=== PATIENT | male | born 1950 | race Caucasian/White ===

== ENCOUNTER 2017-04-24 12:16 | Inpatient (IN) | payer MEDICARE, SELFPAY ==
--- NOTE | 2017-04-24 12:17 | EDM.PDOC ---
ED HPI GENERAL MEDICAL PROBLEM - General Chief Complaint: General Stated Complaint: SOB,weight on chest Time Seen by Provider: 04/24/17 12:17 Source of Information: Reports: Patient, Family (Brother), Old Records ([facility] chart/EMR) History Limitations: Reports: No Limitations - History of Present Illness INITIAL COMMENTS - FREE TEXT/NARRATIVE: The patient was brought to the emergency room via private automobile by his brother for evaluation of 04/10 retrosternal chest pressure associated with some dyspnea with exertion with symptoms starting about one week ago. The patient denies any heart flutter, dizziness, orthostasis, orthopnea, diaphoresis, paresthesias, recent decreased exercise tolerance, or any other anginal-type symptoms. No recent history of abdominal pain, heartburn, nausea, diarrhea, melena, gross hematochezia, or any food intolerance, including fatty foods, etc.. He has also had a one week history of a yellowish thick productive cough with no history of fever or known exposure to infection. He has not had an influenza booster this season. The patient did take OTC NyQuil at 10 PM yesterday evening with 500 mg of Tylenol taken at 10 AM this morning. He has also use topical Vicks VapoRub on his chest during the last few days with no significant improvement in his symptoms. No history of recent headaches, visual changes, diplopia, change in mental status, or other change in neurological status. Onset: Gradual Onset Date: 04/16/17 Duration: Week(s): (One week as above), Constant, Getting Worse Location: Reports: Chest. Denies: Head, Face, Neck, Abdomen, Back, Pelvis, Upper Extremity, Left, Upper Extremity, Right, Radiates to Quality: Reports: Pressure Severity: Moderate Improves with: Reports: None Worsens with: Reports: None Context: Reports: Other (As above) Associated Symptoms: Reports: Chest Pain, Cough, cough w sputum, Shortness of Breath. Denies: Confusion, Diaphoresis, Fever/Chills, Headaches, Loss of Appetite, Malaise, Nausea/Vomiting, Rash, Seizure, Syncope, Weakness Treatments SUPERVISOR DEHYDROGENATION: Reports: Acetaminophen, Other Medication(s) (As above) weight on chest Pain Score (Numeric/FACES): 7 - Related Data Allergies Allergy/AdvReac Type Severity Reaction Status Date / Time No Known Allergies Allergy Verified 04/24/17 12:17 Home Meds: Home Meds Acetaminophen [Acetaminophen Extra Strength] 1,000 mg PO ASDIRECTED PRN [History] DM/PE/Acetaminophen/Doxylamine [Nighttime Severe Cold-Flu Liq] 30 ml PO BEDTIME 04/24/17 [History] Past Medical History HEENT History: Reports: Impaired Vision, Other (See Below). Denies: Allergic Rhinitis, Cataract, Glaucoma, Hard of Hearing, Macular Degeneration, Retinal Detachment, Sinusitis Other HEENT History: Patient wears reading glasses Cardiovascular History: Reports: Hypertension, Other (See Below). Denies: Afib , Aneurysm, Arrhythmia, Blood Clots/VTE/DVT, CAD, Heart Murmur, [place], PVD, Syncope Other Cardiovascular History: Previous history of hypertension by hospital records with no current medical therapy, chronic dependent edema Respiratory History: Reports: Bronchitis, Recurrent, COPD. Denies: Asthma, Intubation, Difficult, Intubation, Previous, PE, Pneumothorax, Sleep Apnea Gastrointestinal History: Reports: Other (See Below). Denies: Celiac Disease, Cholelithiasis, Chronic Constipation, Chronic Diarrhea, Colon Polyp, Diverticulosis, Gastritis, GERD, GI Bleed, Hepatitis, Helicobacter Pylori, Hiatal Hernia, Inflammatory Bowel Disease, Irritable Bowel Syndrome, Jaundice, Pancreatitis, PUD Other Gastrointestinal History: Umbilical hernia Genitourinary History: Reports: BPH, Retention, Urinary, Urinary Incontinence, UTI, Recurrent, Other (See Below). Denies: Acute Renal Failure, Chronic Renal Insuffiency, Dialysis, Renal Calculus, STD Other Genitourinary History: Possible neurogenic bladder with self- catheterization Musculoskeletal History: Reports: Arthritis, Back Pain, Chronic, Neck Pain, Chronic, Osteoarthritis. Denies: Amputation, Fracture, Gout, RA, SLE Neurological History: Reports: None. Denies: Cerebral Aneurysms, Concussion, CVA, Headaches, Chronic, Head Trauma, Migraines, MS, Parkinson's, Seizure, TIA Psychiatric History: Reports: None. Denies: Abuse, Victim of, ADD, ADHD, Addiction, Anxiety, Dementia, Depression, Psych Hospitalization(s), Suicide Attempt, Suicidal Ideation Endocrine/Metabolic History: Reports: None. Denies: Diabetes, Type I, Diabetes , Type II, Hypothyroidism, IDDM Hematologic History: Reports: None. Denies: Anemia, Blood Transfusion(s), Iron Deficiency Immunologic History: Reports: None. Denies: AIDS, HIV, SLE Oncologic (Cancer) History: Reports: None. Denies: Basal Cell Carcinoma, Hodgkin's Lymphoma, Leukemia, Lymphoma, Malignant Melanoma, Non-Hodgkin's Lymphoma, Prostate, Squamous Cell Carcinoma Dermatologic History: Reports: None. Denies: Eczema, Psoriasis - Infectious Disease History Infectious Disease History: Reports: Chicken Pox, Mumps, Shingles (Left chin region in the 1980s). Denies: C-Difficile, Measles, Meningitis, Mononucleosis, MRSA, Rubella, TB, VRE - Past Surgical History Head Surgeries/Procedures: Reports: None HEENT Surgical History: Reports: Oral Surgery, Other (See Below). Denies: Adenoidectomy, Eye Surgery, Laser Surgery, LASIK, Myringotomy w Tube(s), Naso- Sinus Surgery, Tonsillectomy Other HEENT Surgeries/Procedures: Complete teeth extraction Cardiovascular Surgical History: Reports: None. Denies: Varicose, Vascular Surgery Respiratory Surgical History: Reports: None. Denies: Lung Biopsies, Thoracentesis GI Surgical History: Reports: None. Denies: Appendectomy, Cholecystectomy, Colonoscopy, EGD, Hernia, Abdominal, Hernia, Inguinal, Hernia Repair/Other, Polypectomy Male Surgical History: Reports: Circumcision, Suprapubic Catheter Placement, TURP-Transurethral Resection of Prostate, Other (See Below). Denies: Renal Calculus, Vasectomy Other Male Surgeries/Procedures: Circumcision as an , TURP 2 initially in 2008 and then in 2009, suprapubic catheter placement in 2009 Endocrine Surgical History: Reports: None. Denies: Thyroid Biopsy Neurological Surgical History: Reports: None. Denies: C-Spine, Discectomy, Laminectomy, Lumbar Spine, Spinal Fusion, Vertebroplasty Musculoskeletal Surgical History: Reports: None. Denies: Amputation, Arthroscopic Procedure, Carpal Tunnel, Ganglion Cyst, Hip Replacement, Joint Replacement, ORIF, Shoulder Surgery Oncologic Surgical History: Reports: None Dermatological Surgical History: Reports: None - Past Imaging History Past Imaging History: Reports: Other (See Below) (Unknown) Social & Family History - Family History HEENT: Reports: None. Denies: Cataract, Glaucoma, Macular Degeneration, Retinal Detachment Cardiac: Reports: CAD, Hypertension, KS, Other (See Below). Denies: Afib, Aneurysm, Arrhythmia, Blood Clots/VTE/DVT, Bypass, PVD/COD, Syncope Other Cardiac Family History: Brother with hypertension, mother with fatal KS at age 75 Respiratory: Reports: COPD, Other (See Below). Denies: PE, Pneumothorax, Sleep Apnea Other Respiratory Family Hisory: Father with COPD with history of tobacco use GI: Reports: None. Denies: Celiac Disease, Cholelithiasis, Colon Polyps, Diverticulosis, GERD, GI bleed, Inflammatory Bowel Disease, Irritable Bowel Syndrome, PUD : Reports: None. Denies: Dialysis, Renal Calculus, Renal Disease/ Insufficiency OBGYN: Reports: None. Denies: Endometriosis, Recurrent Spontaneous Musculoskeletal: Reports: Arthritis, Osteoarthritis, Other (See Below). Denies : Gout, RA, SLE Other Musculoskeletal Family History: Brother with osteoarthritis Neurological: Reports: None. Denies: Alzheimers Disease, CVA, Dementia, Migraines, MS, Parkinson's, Seizure, TIA Psychiatric: Reports: None. Denies: Abuse, Victim of, ADD, ADHD, Anxiety, Depression, Psych Hospitalization(s), Psychosis, PTSD, Suicide Attempt Endocrine/Metabolic: Reports: Diabetes, type II, IDDM, Other (See Below). Denies: Diabetes, Type I, Hypothyroidism Other Endocrine/Metabolic Family History: Mother with IDDM Hematologic: Reports: None. Denies: Anemia, Transfusion Reaction Immunologic: Reports: None. Denies: AIDS, HIV, Immunosuppression, SLE Dermatologic: Reports: None. Denies: Eczema, Psoriasis Oncologic: Reports: None. Denies: Bladder, Colon, Hodgkin's Lymphoma, Leukemia , Lymphoma, Metastatic, Non-Hodgkin's Lymphoma, Prostate, Skin - Tobacco Use Smoking Status *Q: Current Every Day Smoker Tobacco Use Within Last Twelve Months: Cigarettes Years of Tobacco use: 53 Packs/Tins Daily: 1 (Started smoking at age 13 with maximum use of 2 packs per day) Used Tobacco, but Quit: No Smoking Cessation Information Provided To Patient: Yes Second Hand Smoke Exposure: No Second Hand Smoke Education Provided: No - Caffeine Use Caffeine Use: Reports: Coffee (12 cups per day), Tea (Occasional). Denies: Energy Drinks, Soda - Alcohol Use Alcohol Use History: Yes Days Per Week of Alcohol Use: 4 (No previous DWIs, problems with alcohol abuse, etc.) Number of Drinks Per Day: 2 (Usually beer) Total Drinks Per Week: 8 Alcohol Use in Last Twelve Months: Yes Alcohol Use Frequency: Socially - Recreational Drug Use Recreational Drug Use: No Drug Use in Last 12 Months: No Recreational Drug Type: Denies: Amphetamines (Speed), Cocaine, Heroin, Inhalants (Glues, Solvents, Aerosols), LSD (Acid), Marijuana/Hashish, Methamphetamine, Morphine - Living Situation & Occupation Living situation: Reports: Single ( in 2010 with no children with his although his did have children from a previous relationship), Alone 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 Denies: Fever, Chills, Weakness, Fatigue , Night Sweats, Diaphoresis, Decreased Appetite, Weight Loss HEENT: Reports: Rhinitis. Denies: Contact Lenses, Dental Pain, Ear Pain, Eye Discharge, Glasses, Hearing Loss, Nose Pain, Sinus Problem, Throat Pain, Throat Swelling, Vertigo, Vision Change Respiratory: Reports: Cough, Sputum (Yellowish). Denies: Shortness of Breath, Wheezing, Pleuritic Chest Pain Cardiovascular: Reports: Chest Pain, Blood Pressure Problem (Severely elevated on arrival), Dyspnea on Exertion, Edema (Stable chronic dependent). Denies: Claudication, Lightheadedness, Orthopnea, Palpitations, PND, Syncope Endocrine: Reports: No Symptoms. Denies: Fatigue, High Glucose GI/Abdominal: Reports: No Symptoms. Denies: Abdominal Pain, Anorexia, Black Stool, Bloody Stool, Constipation, Diarrhea, Decreased Appetite, Difficulty Swallowing, Distension, Flatus, Hematemesis, Hematochezia, Melena, Mucous in Stool, Nausea, Stool Incontinence, Vomiting : Reports: Urinary Retention (Stable with self-catheterization required as above). Denies: Discharge, Dysuria, Flank Pain, Frequency, Hematuria, Incontinence, Pain, Urgency Musculoskeletal: Reports: No Symptoms. Denies: Neck Pain, Shoulder Pain, Arm Pain, Back Pain, Leg Pain Skin: Reports: No Symptoms. Denies: Pallor, Diaphoresis, Bruising, Wound Neurological: Reports: No Symptoms. Denies: Confusion, Dizziness, Headache, Numbness, Paresthesia, Seizure, Syncope, Tingling, Weakness Psychiatric: Reports: No Symptoms. Denies: Agitation, Anxiety, Confusion, Cravings, Depression, Hallucinations, Homicidal Ideation, Suicidal Ideation Hematologic/Lymphatic: Reports: No Symptoms Immunologic: Reports: No Symptoms ED EXAM, GENERAL - Physical Exam Exam: See Below Exam Limited By: No Limitations General Appearance: Alert, WD/WN, No Apparent Distress Eye Exam: Bilateral Eye: EOMI, Normal Inspection (No nystagmus), PERRL Ears: Normal External Exam, Normal Canal, Hearing Grossly Normal, Normal TMs Nose: Normal Mucosa, No Blood, Clear Rhinorrhea (Mild bilateral) Throat/Mouth: Normal Inspection, Normal Lips, Normal Gums, Normal Oropharynx, Normal Voice, No Airway Compromise. No: Normal Teeth (Complete dentures uppers and lowers), Dysphagia, Perioral Cyanosis Head: Atraumatic, Normocephalic. No: Facial Swelling, Facial Tenderness, Sinus Tenderness Neck: Supple, Non-Tender, Full Range of Motion, Carotid Bruit (Mild bilateral carotid bruits). No: Lymphadenopathy (L), Lymphadenopathy (R), Thyromegaly Respiratory/Chest: No Respiratory Distress, No Accessory Muscle Use, Chest Non- Tender, Rales (Mild bilateral basilar rales). No: Rhonchi, Wheezing, Pleural Rub, Retractions Cardiovascular: Normal Peripheral Pulses, Regular Rate, Rhythm, No Gallop, No JVD, No Murmur, No Rub. No: No Edema (+1 bilateral pedal/pretibial edema), Gallop/S3, Gallop/S4, Extra Beats (At time of exam), Friction Rub Peripheral Pulses: 2+: Radial (L), Radial (R), Dorsalis Pedis (L), Dorsalis Pedis (R) GI/Abdominal: Normal Bowel Sounds, Soft, Non-Tender, No Organomegaly, No Distention, No Abnormal Bruit, No Mass, Pelvis Stable, Hernia (4 cm in diameter nonincarcerated umbilical hernia), Other (Obese). No: Guarding (Male) Exam: Deferred Rectal (Males) Exam: Deferred Back Exam: Normal Inspection, Full Range of Motion. No: CVA Tenderness (L), CVA Tenderness (R), Muscle Spasm Extremities: Normal Range of Motion, Non-Tender, Normal Capillary Refill, Pedal Edema (Dependent edema as above). No: No Pedal Edema Neurological: Alert, Oriented, CN II-XII Intact, Normal Cognition, Normal Gait, Normal Reflexes (Negative Babinski's), No Motor/Sensory Deficits. No: Confused Psychiatric: Normal Affect, Normal Mood Skin Exam: Warm, Dry, Intact, Normal Color, No Rash. No: Wound/Incision Lymphatic: No Adenopathy EKG INTERPRETATION EKG Date: 04/24/17 Time: 12:26 Rhythm: Other (Occasional PACs) [place]iss: Normal (Neutral cardiac axis) P-Wave: Enlarged (Moderate diffuse biphasic P waves) QRS: Wide (QRS interval of 0.10 seconds representing repolarization changes versus beginning incomplete right bundle branch block with T-wave inversion in lead V1 and otherwise nonspecific ST changes) ST-T: Normal (As above) QT: Prolonged (404/507 ms) Comparison: NA - No Prior EKG EKG Interpretation Comments: 1. No acute ischemic changes 2. Probable left atrial enlargement 3. Borderline prolonged QT interval 4. PACs Course - Vital Signs Last Recorded V/S: Last Vital Signs Temp 36.4 C 04/24/17 12:17 Pulse 78 04/24/17 14:00 Resp 18 04/24/17 14:00 BP 159/90 H 04/24/17 14:00 Pulse Ox 98 04/24/17 14:00 Vital Signs - 24 hr 04/24/17 04/24/17 04/24/17 12:16 12:17 12:18 Temperature [ 36.4 C 36.4 C Oral] Pulse, 89 86 Peripheral [ Left Pulse Oximetry] Respiratory 19 26 H Rate Blood Pressure Blood Pressure 221/109 H 221/109 H [Left Upper Arm ] O2 Sat by Pulse 100 98 Oximetry O2 Sat by Pulse 100 Oximetry [ Nasal Cannula] 04/24/17 04/24/17 04/24/17 12:24 12:30 12:45 Temperature [ Oral] Pulse, 91 76 Peripheral [ Left Pulse Oximetry] Respiratory 23 H 20 Rate Blood Pressure 221/109 H Blood Pressure 167/86 H 186/126 H [Left Upper Arm ] O2 Sat by Pulse 97 97 Oximetry O2 Sat by Pulse Oximetry [ Nasal Cannula] 04/24/17 04/24/17 04/24/17 12:58 13:00 13:14 Temperature [ Oral] Pulse, 80 81 Peripheral [ Left Pulse Oximetry] Respiratory 22 H 20 Rate Blood Pressure 162/82 H Blood Pressure 144/87 H 147/92 H [Left Upper Arm ] O2 Sat by Pulse 97 99 Oximetry O2 Sat by Pulse Oximetry [ Nasal Cannula] 04/24/17 14:00 Temperature [ Oral] Pulse, 78 Peripheral [ Left Pulse Oximetry] Respiratory 18 Rate Blood Pressure Blood Pressure 159/90 H [Left Upper Arm ] O2 Sat by Pulse 98 Oximetry O2 Sat by Pulse Oximetry [ Nasal Cannula] - Orders/Labs/Meds Orders: Active Orders 24 hr Category Date Time Status Cardiac Monitoring [RC] . DIRECTED Care 04/24/17 12:18 Active EKG Documentation Completion [RC] ASDIRECTED Care 04/24/17 12:18 Active Oxygen Therapy, ED [RC] CONTINUOUS Care 04/24/17 12:18 Active Peripheral IV Care [RC] . DIRECTED Care 04/24/17 12:18 Active Pulse Oximetry [RC] CONTINUOUS Care 04/24/17 12:18 Active Up With Assistance [RC] PFP Care 04/24/17 12:18 Active Vital Signs [RC] PFP Care 04/24/17 12:18 Active Nothing per Oral Now Diet [DIET] Diet 04/24/17 Breakfast Active Chest 1V Frontal [CR] Stat Exams 04/24/17 12:18 Taken CULTURE BLOOD [BC] Stat Lab 04/24/17 12:25 Received CULTURE BLOOD [BC] Stat Lab 04/24/17 13:08 Received Morphine Med 04/24/17 13:14 Once 2 mg IVPUSH ONETIME ONE Nitroglycerin [Nitro-Bid 2%] Med 04/24/17 13:15 Active 0.5 gm TOP Q6H Nitroglycerin [Nitrostat] Med 04/24/17 12:19 Stat 0.4 mg SL ONETIME STA Nitroglycerin [Nitrostat] Med 04/24/17 12:55 Stat 0.4 mg SL ONETIME STA Sodium Chloride 0.9% [Saline Flush] Med 04/24/17 12:18 Active 10 ml FLUSH ASDIRECTED PRN Blood Culture x2 Reflex Set [OM.PC] Urgent Oth 04/24/17 12:25 Ordered Obtain Past Medical Record [OM.PC] Urgent Oth 04/24/17 12:18 Active Peripheral IV Insertion Adult [OM.PC] Stat Oth 04/24/17 12:18 Ordered Resuscitation Status Stat Resus Stat 04/24/17 12:18 Ordered Medication Orders Enoxaparin Sodium (Lovenox) 80 mg SUBCUT Q12H MERY Morphine Sulfate (Morphine) 2 mg IVPUSH ONETIME ONE Stop: 04/25/17 13:15 Last Admin: 04/24/17 13:32 Dose: 2 mg Nitroglycerin (Nitrostat) 0.4 mg SL ONETIME STA Stop: 04/25/17 12:20 Last Admin: 04/24/17 12:24 Dose: 0.4 mg Nitroglycerin (Nitrostat) 0.4 mg SL ONETIME STA Stop: 04/25/17 12:56 Last Admin: 04/24/17 12:58 Dose: 0.4 mg Nitroglycerin (Nitro-Bid 2%) 0.5 gm TOP Q6H MERY Last Admin: 04/24/17 13:30 Dose: 0.5 gm Sodium Chloride (Saline Flush) 10 ml FLUSH ASDIRECTED PRN PRN Reason: Keep Vein Open Last Admin: 04/24/17 12:35 Dose: 10 ml Admin: 04/24/17 12:31 Dose: 10 ml Labs: Laboratory Tests 04/24/17 04/24/17 04/24/17 Range/Units 12:25 12:25 12:25 WBC 11.8 H (4.0-10.2) K/uL RBC 5.86 H (4.33-5.41) M/uL Hgb 16.3 (13.1-16.8) g/dL Hct 48.9 (39.0-49.0) % MCV 83.4 L (84.0-98.0) fL MCH 27.8 L (28.2-33.3) pg MCHC 33.3 (31.7-36.0) g/dL RDW 13.2 (11.2-14.1) % Plt Count 224 (150-350) K/uL Neut % (Auto) 61.2 (45.0-80.0) % Lymph % (Auto) 29.7 (10.0-50.0) % [place] % (Auto) 7.2 (2.0-14.0) % Eos % (Auto) 1.6 (0.0-5.0) % Baso % (Auto) 0.3 (0.0-2.0) % Neut # (Auto) 7.21 H (1.40-7.00) K/uL Lymph # (Auto) 3.50 (0.50-3.50) K/uL [place] # (Auto) 0.85 (0.00-1.00) K/uL Eos # (Auto) 0.19 (0.00-0.50) K/uL Baso # (Auto) 0.03 (0.00-0.20) K/uL PT 11.1 (9.8-11.7) SEC INR 1.0 APTT 27.8 (23.5-30.0) SEC D-Dimer, Quantitative 244 (0-400) ng/mL Sodium (136-145) mmol/L Potassium (3.5-5.1) mmol/L Chloride (98-107) mmol/L Carbon Dioxide (21.0-32.0) mmol/L BUN (7-18) mg/dL Creatinine (0.51-1.17) mg/dL Est Cr Clr Drug Dosing mL/min Estimated GFR (MDRD) mL/min Glucose (74-106) mg/dL Lactic Acid (0.4-2.0) mmol/L Uric Acid (2.6-7.2) mg/dL Calcium (8.5-10.1) mg/dL Magnesium (1.8-2.4) mg/dL Total Bilirubin (0.2-1.0) mg/dL AST (15-37) U/L ALT (12-78) U/L Alkaline Phosphatase (46-116) IU/L Creatine Kinase (26-308) U/L Creatine Kinase Index (0.0-2.5) % CK-MB (CK-2) (0.00-3.60) ng/mL Troponin I (0.000-0.056) ng/mL Tne-M-Jnvnheefxqz Pept (0-125) pg/mL Total Protein (6.4-8.2) g/dL Albumin (3.4-5.0) g/dL TSH, Ultra Sensitive (0.358-3.740) mIU/mL 04/24/17 04/24/17 Range/Units 12:25 12:25 WBC (4.0-10.2) K/uL RBC (4.33-5.41) M/uL Hgb (13.1-16.8) g/dL Hct (39.0-49.0) % MCV (84.0-98.0) fL MCH (28.2-33.3) pg MCHC (31.7-36.0) g/dL RDW (11.2-14.1) % Plt Count (150-350) K/uL Neut % (Auto) (45.0-80.0) % Lymph % (Auto) (10.0-50.0) % [place] % (Auto) (2.0-14.0) % Eos % (Auto) (0.0-5.0) % Baso % (Auto) (0.0-2.0) % Neut # (Auto) (1.40-7.00) K/uL Lymph # (Auto) (0.50-3.50) K/uL [place] # (Auto) (0.00-1.00) K/uL Eos # (Auto) (0.00-0.50) K/uL Baso # (Auto) (0.00-0.20) K/uL PT (9.8-11.7) SEC INR APTT (23.5-30.0) SEC D-Dimer, Quantitative (0-400) ng/mL Sodium 142 (136-145) mmol/L Potassium 4.3 (3.5-5.1) mmol/L Chloride 106 (98-107) mmol/L Carbon Dioxide 29.5 (21.0-32.0) mmol/L BUN 8 (7-18) mg/dL Creatinine 0.73 (0.51-1.17) mg/dL Est Cr Clr Drug Dosing 112.60 mL/min Estimated GFR (MDRD) > 60 mL/min Glucose 130 H (74-106) mg/dL Lactic Acid 1.4 (0.4-2.0) mmol/L Uric Acid 4.5 (2.6-7.2) mg/dL Calcium 8.3 L (8.5-10.1) mg/dL Magnesium 1.6 L (1.8-2.4) mg/dL Total Bilirubin 0.5 (0.2-1.0) mg/dL AST 15 (15-37) U/L ALT 21 (12-78) U/L Alkaline Phosphatase 104 (46-116) IU/L Creatine Kinase 133 (26-308) U/L Creatine Kinase Index 3.1 H (0.0-2.5) % CK-MB (CK-2) 4.10 H (0.00-3.60) ng/mL Troponin I 0.000 (0.000-0.056) ng/mL Eyr-I-Illwvelmwuz Pept 418 H (0-125) pg/mL Total Protein 7.7 (6.4-8.2) g/dL Albumin 3.6 (3.4-5.0) g/dL TSH, Ultra Sensitive 0.823 (0.358-3.740) mIU/mL Blood Cultures 2 collected Meds: Medications Generic Name Dose Route Start Last Admin Trade Name Freq PRN Reason Stop Dose Admin Enoxaparin Sodium 80 mg 04/25/17 02:00 Lovenox SUBCUT Q12H MERY Morphine Sulfate 2 mg 04/24/17 13:14 04/24/17 13:32 Morphine IVPUSH 04/25/17 13:15 2 mg ONETIME ONE Administration Nitroglycerin 0.4 mg 04/24/17 12:19 04/24/17 12:24 Nitrostat SL 04/25/17 12:20 0.4 mg ONETIME STA Administration Nitroglycerin 0.4 mg 04/24/17 12:55 04/24/17 12:58 Nitrostat SL 04/25/17 12:56 0.4 mg ONETIME STA Administration Nitroglycerin 0.5 gm 04/24/17 13:15 04/24/17 13:30 Nitro-Bid 2% TOP 0.5 gm Q6H MERY Administration Sodium Chloride 10 ml 04/24/17 12:18 04/24/17 12:35 Saline Flush FLUSH 10 ml ASDIRECTED PRN Administration Keep Vein Open Discontinued Medications Generic Name Dose Route Start Last Admin Trade Name Freq PRN Reason Stop Dose Admin Aspirin 324 mg 04/24/17 12:18 04/24/17 12:24 Aspirin CHEW 04/24/17 12:19 324 mg ONETIME ONE Administration Enoxaparin Sodium 80 mg 04/24/17 13:45 04/24/17 13:44 Lovenox SUBCUT 80 mg Q12H MERY Administration Famotidine 40 mg 04/24/17 12:18 04/24/17 12:32 Pepcid IVPUSH 04/24/17 12:19 40 mg ONETIME ONE Administration Labetalol HCl 10 mg 04/24/17 12:19 04/24/17 12:25 Normodyne IVPUSH 04/24/17 12:20 10 mg ONETIME ONE Administration Protocol Ondansetron HCl 4 mg 04/24/17 13:14 04/24/17 13:32 Zofran IVPUSH 04/24/17 13:15 4 mg ONETIME ONE Administration Ticagrelor 180 mg 04/24/17 12:18 04/24/17 12:24 Brilinta PO 04/24/17 12:19 180 mg ONETIME ONE Administration - Radiology Interpretation Free Text/Narrative:: window cutter showed heart rate in the 70s to 90s with very occasional PACs but no other significant ectopy or arrhythmia Chest x-ray, portable, shows moderate to severe COPD changes with mild prominence of the proximal aortic arch and borderline aortic valve calcification. Probable pulmonary hypertension versus mild centralized CHF with no pulmonary infiltrates, pneumothorax, cardiomegaly, etc. Departure - Departure Time of Disposition: 14:20 Disposition: Admitted As Inpatient 64 Condition: Fair Clinical Impression: PAC (premature atrial contraction), Hypomagnesemia, Hyperglycemia, Neurogenic bladder Chest pain Qualifiers: Chest pain type: unspecified Qualified Code(s): R07.9 - Chest pain, unspecified CHF (congestive heart failure) Qualifiers: Congestive heart failure type: unspecified congestive heart failure type Congestive heart failure chronicity: unspecified congestive heart failure chronicity Qualified Code(s): I50.9 - Heart failure, unspecified COPD (chronic obstructive pulmonary disease) Qualifiers: COPD type: COPD with acute lower respiratory infection Qualified Code(s): J44.0 - Chronic obstructive pulmonary disease with acute lower respiratory infection Pneumonia Qualifiers: Pneumonia type: due to unspecified organism Laterality: bilateral Lung location : unspecified part of lung Qualified Code(s): J18.9 - Pneumonia, unspecified organism Hypertension Qualifiers: Hypertension type: essential hypertension Qualified Code(s): I10 - Essential ( primary) hypertension Osteoarthritis Qualifiers: Osteoarthritis location: multiple joints Osteoarthritis type: primary Qualified Code(s): M15.0 - Primary generalized (osteo)arthritis Umbilical hernia Qualifiers: Obstruction and gangrene presence: without obstruction or gangrene Qualified Code(s): K42.9 - Umbilical hernia without obstruction or gangrene - Discharge Information - Problem List & Annotations (1) Chest pain SNOMED Code(s): 13022079 Code(s): R07.9 - CHEST PAIN, UNSPECIFIED Status: Acute Priority: High Current Visit: Yes Onset Date: ~04/16/17 Annotation/Comment:: Chest pain protocol initiated on the patient's arrival in the emergency room. Note mild CHF as below. Initiate standard rule out KS orders. Note elevated cardiac index with subcutaneous Lovenox initiated in the emergency room at cardiac dose rate, although secondary to problems with Lovenox syringe dose was started at 60 mg subcutaneous every 12 hours with plans to increase this further to 90 mg every 12 hours thereafter. cardiology consultation depending on his clinical course. Patient will likely need a Cardiolite stress test on an outpatient basis. Note that he has very limited preventative healthcare with consideration of updating his immunizations, HCM, scheduling for colonoscopy, etc. once his pulmonary and cardiac status has been clarified. Sublingual and topical nitroglycerin therapy was also initiated in the emergency room. Patient chest pain-free on admission Qualifiers: Chest pain type: unspecified Qualified Code(s): R07.9 - Chest pain, unspecified (2) CHF (congestive heart failure) SNOMED Code(s): 21655707 Code(s): I50.9 - HEART FAILURE, UNSPECIFIED Status: Acute Priority: High Current Visit: Yes Annotation/Comment:: Mild CHF by clinical exam, chest x- ray, and blood work. Consider echocardiogram tomorrow and/or on an outpatient basis. Low-dose IV Lasix therapy to be initiated on admission Qualifiers: Congestive heart failure type: unspecified congestive heart failure type Congestive heart failure chronicity: unspecified congestive heart failure chronicity Qualified Code(s): I50.9 - Heart failure, unspecified (3) Pneumonia SNOMED Code(s): 570653593 Code(s): J18.9 - PNEUMONIA, UNSPECIFIED ORGANISM Status: Acute Priority: High Current Visit: Yes Onset Date: ~04/16/17 Annotation/Comment:: Possible mild bilateral pneumonia by clinical exam. Initiate IV Zithromax and IV Rocephin therapy on admission. Blood cultures 2 were collected. Mild leukocytosis possibly with stress reaction component. Patient is afebrile Qualifiers: Pneumonia type: due to unspecified organism Laterality: bilateral Lung location: unspecified part of lung Qualified Code(s): J18.9 - Pneumonia, unspecified organism (4) COPD (chronic obstructive pulmonary disease) SNOMED Code(s): 94137001 Code(s): J44.9 - CHRONIC OBSTRUCTIVE PULMONARY DISEASE, UNSPECIFIED Status : Acute Priority: High Current Visit: Yes Annotation/Comment:: Problem mild COPD exacerbation with current pneumonia. Initiate nebulizer therapy with caution secondary to his cardiac symptoms. Consider PFTs on an outpatient basis. Update immunizations Qualifiers: COPD type: COPD with acute lower respiratory infection Qualified Code(s): J44.0 - Chronic obstructive pulmonary disease with acute lower respiratory infection (5) Umbilical hernia SNOMED Code(s): 225301256, 338027746 Code(s): K42.9 - UMBILICAL HERNIA WITHOUT OBSTRUCTION OR GANGRENE Status: Chronic Priority: Medium Current Visit: Yes Annotation/Comment:: Stable by history Qualifiers: Obstruction and gangrene presence: without obstruction or gangrene Qualified Code(s): K42.9 - Umbilical hernia without obstruction or gangrene (6) Hyperglycemia SNOMED Code(s): 44566665 Code(s): R73.9 - HYPERGLYCEMIA, UNSPECIFIED Status: Acute Priority: Medium Current Visit: Yes Onset Date: 04/24/17 Annotation/Comment:: Nonfasting mild hyperglycemia. Glycosylated hemoglobin in the a.m. (7) Hypertension SNOMED Code(s): 49006421 Code(s): I10 - ESSENTIAL (PRIMARY) HYPERTENSION Status: Chronic Priority : High Current Visit: Yes Annotation/Comment:: Mild nonsymptomatic hypertensive crisis on arrival to the emergency room. Aggressive IV Normodyne, sublingual nitroglycerin, and topical nitroglycerin therapy was initiated. Initiate additional lisinopril and metoprolol therapy on admission. Known neurological deficits, headaches, etc. Qualifiers: Hypertension type: essential hypertension Qualified Code(s): I10 - Essential (primary) hypertension (8) Hypomagnesemia SNOMED Code(s): 676597134 Code(s): E83.42 - HYPOMAGNESEMIA Status: Acute Priority: Medium Current Visit: Yes Onset Date: 04/24/17 Annotation/Comment:: Initiate magnesium oxide therapy (9) Osteoarthritis SNOMED Code(s): 725642815 Code(s): M19.90 - UNSPECIFIED OSTEOARTHRITIS, UNSPECIFIED SITE Status: Chronic Priority: Medium Current Visit: Yes Annotation/Comment:: Stable by history Qualifiers: Osteoarthritis location: multiple joints Osteoarthritis type: primary Qualified Code(s): M15.0 - Primary generalized (osteo)arthritis (10) PAC (premature atrial contraction) SNOMED Code(s): 284483803 Code(s): I49.1 - ATRIAL PREMATURE DEPOLARIZATION Status: Acute Priority: Medium Current Visit: Yes Onset Date: 04/24/17 Annotation/Comment:: Observe for now with beta compa therapy as above (11) Neurogenic bladder SNOMED Code(s): 573890668 Code(s): N31.9 - NEUROMUSCULAR DYSFUNCTION OF BLADDER, UNSPECIFIED Status: Chronic Priority: Medium Current Visit: Yes Annotation/Comment:: Neurogenic bladder with continuation of self catheterization. Catheter UA with culture and sensitivity to be obtained - Problem List Review Problem List Initiated/Reviewed/Updated: Yes - My Orders Last 24 Hours: My Active Orders 04/24/17 12:18 Cardiac Monitoring [RC] . DIRECTED EKG Documentation Completion [RC] ASDIRECTED Oxygen Therapy, ED [RC] CONTINUOUS Peripheral IV Care [RC] . DIRECTED Pulse Oximetry [RC] CONTINUOUS Up With Assistance [RC] PFP Vital Signs [RC] PFP Chest 1V Frontal [CR] Stat Sodium Chloride 0.9% [Saline Flush] 10 ml FLUSH ASDIRECTED PRN Obtain Past Medical Record [OM.PC] Urgent Peripheral IV Insertion Adult [OM.PC] Stat Resuscitation Status Stat 04/24/17 12:19 Nitroglycerin [Nitrostat] 0.4 mg SL ONETIME STA 04/24/17 12:25 CULTURE BLOOD [BC] Stat Blood Culture x2 Reflex Set [OM.PC] Urgent 04/24/17 12:55 Nitroglycerin [Nitrostat] 0.4 mg SL ONETIME STA 04/24/17 13:08 CULTURE BLOOD [BC] Stat 04/24/17 13:14 Morphine 2 mg IVPUSH ONETIME ONE 04/24/17 13:15 Nitroglycerin [Nitro-Bid 2%] 0.5 gm TOP Q6H 04/24/17 Breakfast Nothing per Oral Now Diet [DIET] - Assessment/Plan Admission H&P: Please use this note as an admission H&P Last 24 Hours: My Active Orders 04/24/17 12:18 Cardiac Monitoring [RC] . DIRECTED EKG Documentation Completion [RC] ASDIRECTED Oxygen Therapy, ED [RC] CONTINUOUS Peripheral IV Care [RC] . DIRECTED Pulse Oximetry [RC] CONTINUOUS Up With Assistance [RC] PFP Vital Signs [RC] PFP Chest 1V Frontal [CR] Stat Sodium Chloride 0.9% [Saline Flush] 10 ml FLUSH ASDIRECTED PRN Obtain Past Medical Record [OM.PC] Urgent Peripheral IV Insertion Adult [OM.PC] Stat Resuscitation Status Stat 04/24/17 12:19 Nitroglycerin [Nitrostat] 0.4 mg SL ONETIME STA 04/24/17 12:25 CULTURE BLOOD [BC] Stat Blood Culture x2 Reflex Set [OM.PC] Urgent 04/24/17 12:55 Nitroglycerin [Nitrostat] 0.4 mg SL ONETIME STA 04/24/17 13:08 CULTURE BLOOD [BC] Stat 04/24/17 13:14 Morphine 2 mg IVPUSH ONETIME ONE 04/24/17 13:15 Nitroglycerin [Nitro-Bid 2%] 0.5 gm TOP Q6H 04/24/17 Breakfast Nothing per Oral Now Diet [DIET] Assessment:: As above Plan: As above. Extensive precautions were given to the patient, who is in agreement with the treatment plan. The patient will require about 3-4 days of inpatient/ acute care secondary to multiple health problems as above.
[2017-04-24] MEDS ORDERED: Ticagrelor 90 MG Tab PO ONE (12:18)
[2017-04-24] MEDS ORDERED: Famotidine 20 MG/2 ML SDV IVPUSH ONE (12:18)
[2017-04-24] MEDS ORDERED: Aspirin 81 MG Tab.Chew CHEW ONE (12:18)
[2017-04-24] MEDS ORDERED: Nitroglycerin 0.4 MG Tab.SL SL STA ×3 (12:19→18:16)
[2017-04-24] MEDS ORDERED: Labetalol 20 MG/4 ML Syringe IVPUSH ONE (12:19)
[2017-04-24] MEDS: Sodium Chloride 0.9% 10 ML Syringe FLUSH PRN ×4 (12:31→19:45)
[2017-04-24 13:07] LABS: CHLORIDE,CL 106 mmol/L (98-107); SODIUM,NA 142 mmol/L (136-145)
[2017-04-24] MEDS ORDERED: Ondansetron 4 MG/2 ML SDV IVPUSH ONE (13:14)
[2017-04-24] MEDS ORDERED: Morphine 10 MG/ML Syringe IVPUSH ONE (13:14)
[2017-04-24] MEDS: Nitroglycerin 2% Oint 1 GM UD Packet TOP SCH ×2 (13:30→19:59)
[2017-04-24] MEDS ORDERED: Enoxaparin 40 MG/0.4 ML Syringe SUBCUT SCH (13:45)
[2017-04-24] MEDS ORDERED: Albuterol 0.083% 2.5 MG/3 ML Neb Soln INH PRN (14:00)
[2017-04-24] MEDS ORDERED: Azithromycin 500 MG in Sodium Chloride 0.9% 250 ML IV SCH (14:00)
[2017-04-24] MEDS ORDERED: Temazepam 15 MG Cap PO PRN (15:25)
[2017-04-24] MEDS ORDERED: Sodium Chloride 0.9% 10 ML Syringe FLUSH PRN (15:25)
[2017-04-24] MEDS ORDERED: Albuterol/Ipratropium 3.0-0.5 MG/3 ML Neb Soln NEB PRN (15:30)
[2017-04-24] MEDS ORDERED: cefTRIAXone 1 GM in Sodium Chloride 0.9% 100 ML IV SCH (15:30)
[2017-04-24] MEDS ORDERED: Enoxaparin 60 MG/0.6 ML Syringe SUBCUT SCH (15:30)
[2017-04-24] MEDS ORDERED: Enoxaparin 40 MG/0.4 ML Syringe SUBCUT ONE (15:42)
[2017-04-24] MEDS ORDERED: Enoxaparin 30 MG/0.3 ML Syringe SUBCUT ONE (15:42)
[2017-04-24] MEDS: Magnesium Oxide 400 MG Tab PO SCH (16:43)
[2017-04-24] MEDS: Furosemide 40 MG/4 ML VIAL IVPUSH SCH (16:45)
[2017-04-24] MEDS: Potassium Chloride 20 MEQ Tab.ER PO SCH (17:07)
[2017-04-24] MEDS: Nicotine 21 MG/24 Hr Patch TRDERM SCH (17:07)
[2017-04-24] MEDS: Metoprolol Tartrate 25 MG Tab PO SCH (17:08)
[2017-04-24] MEDS: Lisinopril 10 MG Tab PO SCH (17:08)
[2017-04-24] MEDS: Dextromethorphan/guaiFENesin 600-30 MG Tab.ER PO SCH (17:09)
[2017-04-24] MEDS: cefTRIAXone 1 GM in Sodium Chloride 0.9% 100 ML IV SCH (17:19)
[2017-04-24] MEDS: Azithromycin 500 MG in Sodium Chloride 0.9% 250 ML IV SCH (18:43)
[2017-04-24] MEDS: Albuterol/Ipratropium 3.0-0.5 MG/3 ML Neb Soln NEB SCH (19:59)
[2017-04-24] MEDS: Budesonide 0.5 MG/2 ML Neb Susp NEB SCH (19:59)
[2017-04-24] MEDS: Acetaminophen 325 MG Tab PO PRN (20:03)
[2017-04-25] MEDS ORDERED: Enoxaparin 80 MG/0.8 ML Syringe SUBCUT SCH (02:00)
[2017-04-25] MEDS: Albuterol/Ipratropium 3.0-0.5 MG/3 ML Neb Soln NEB SCH ×4 (02:00→19:39)
[2017-04-25] MEDS: Enoxaparin 100 MG/1 ML Syringe SUBCUT SCH ×2 (02:00→13:14)
[2017-04-25] MEDS: Nitroglycerin 2% Oint 1 GM UD Packet TOP SCH ×4 (02:01→19:35)
[2017-04-25] MEDS: cefTRIAXone 1 GM in Sodium Chloride 0.9% 100 ML IV SCH ×2 (04:23→15:34)
[2017-04-25] MEDS: Furosemide 40 MG/4 ML VIAL IVPUSH SCH ×2 (04:23→15:33)
[2017-04-25 07:44] LABS: CHLORIDE,CL 104 mmol/L (98-107); SODIUM,NA 143 mmol/L (136-145)
[2017-04-25] MEDS: Budesonide 0.5 MG/2 ML Neb Susp NEB SCH ×2 (08:01→19:39)
[2017-04-25] MEDS: Metoprolol Tartrate 25 MG Tab PO SCH ×2 (08:01→17:36)
[2017-04-25] MEDS: Magnesium Oxide 400 MG Tab PO SCH (08:01)
[2017-04-25] MEDS: Potassium Chloride 20 MEQ Tab.ER PO SCH ×2 (08:01→17:36)
[2017-04-25] MEDS: Dextromethorphan/guaiFENesin 600-30 MG Tab.ER PO SCH ×2 (08:01→17:36)
--- NOTE | 2017-04-25 10:21 | PCM.PN ---
- General Info Date of Service: 04/25/17 Admission Dx/Problem (Free Text): 1. Chest pain 2. Pneumonia 3. COPD exacerbation 4. CHF 5. Hypertension Functional Status: Reports: Pain Controlled, Tolerating Diet, Ambulating, Urinating, Incentive Spirometry. Denies: New Symptoms Pain Score: 0 - Review of Systems General: Reports: No Symptoms. Denies: Fever, Weakness, Fatigue, Malaise, Chills, Night Sweats, Appetite (Appetite good) HEENT: Reports: Post Nasal Drip, Rhinitis. Denies: Dysphasia, Ear Pain, Eye Pain, Headaches, Sore Throat, Visual Changes Pulmonary: Reports: Cough, Sputum (Still thick yellowish), Wheezing (Improved). Denies: Shortness of Breath, Pleuritic Chest Pain, Hemoptysis Cardiovascular: Reports: Edema (Improved). Denies: Chest Pain, Palpitations, Dyspnea on Exertion, Orthopnea, PND, Lightheadedness Gastrointestinal: Reports: No Symptoms, Other (No bowel movement since admission ). Denies: Abdominal Pain, Constipation, Decreased Appetite, Diarrhea, Difficulty Swallowing, Flatus, Hematochezia, Melena, Nausea, Vomiting Genitourinary: Reports: Retention, Other (Self-catheterization ). Denies: Dysuria, Frequency, Burning, Pain, Urgency, Incontinence, Hematuria, Flank Pain Musculoskeletal: Reports: No Symptoms. Denies: Neck Pain, Shoulder Pain, Arm Pain, Leg Pain Skin: Reports: Bruising (Mild at the Lovenox injection sites). Denies: Pallor, Diaphoresis Neurological: Reports: No Symptoms. Denies: Confusion, Dizziness, Headache, Numbness, Paresthesia, Syncope, Weakness Psychiatric: Reports: No Symptoms. Denies: Confusion, Depression, Anxiety, Agitation, Hallucinations, Suicidal Ideation, Homicidal Ideation - Patient Data Vitals - Most Recent: Last Vital Signs Temp 35.9 C 04/25/17 08:00 Pulse 74 04/25/17 08:01 Resp 18 04/25/17 08:00 BP 137/85 04/25/17 08:01 Pulse Ox 98 04/25/17 08:00 Vital Signs - 24 hr 04/24/17 04/24/17 04/24/17 12:16 12:17 12:18 Temperature [ 36.4 C 36.4 C Oral] Temperature [ Temporal] Pulse, Peripheral Pulse, 89 86 Peripheral [ Left Pulse Oximetry] Respiratory 19 26 H Rate Blood Pressure Blood Pressure 221/109 H 221/109 H [Left Upper Arm ] O2 Sat by Pulse 100 98 Oximetry O2 Sat by Pulse 100 Oximetry [ Nasal Cannula] 04/24/17 04/24/17 04/24/17 12:24 12:30 12:45 Temperature [ Oral] Temperature [ Temporal] Pulse, Peripheral Pulse, 91 76 Peripheral [ Left Pulse Oximetry] Respiratory 23 H 20 Rate Blood Pressure 221/109 H Blood Pressure 167/86 H 186/126 H [Left Upper Arm ] O2 Sat by Pulse 97 97 Oximetry O2 Sat by Pulse Oximetry [ Nasal Cannula] 04/24/17 04/24/17 04/24/17 12:58 13:00 13:14 Temperature [ Oral] Temperature [ Temporal] Pulse, Peripheral Pulse, 80 81 Peripheral [ Left Pulse Oximetry] Respiratory 22 H 20 Rate Blood Pressure 162/82 H Blood Pressure 144/87 H 147/92 H [Left Upper Arm ] O2 Sat by Pulse 97 99 Oximetry O2 Sat by Pulse Oximetry [ Nasal Cannula] 04/24/17 04/24/17 04/24/17 14:00 14:24 16:00 Temperature [ 36.4 C 36.6 C Oral] Temperature [ Temporal] Pulse, Peripheral Pulse, 78 73 73 Peripheral [ Left Pulse Oximetry] Respiratory 18 20 24 H Rate Blood Pressure Blood Pressure 159/90 H 158/94 H 161/98 H [Left Upper Arm ] O2 Sat by Pulse 98 98 99 Oximetry O2 Sat by Pulse Oximetry [ Nasal Cannula] 04/24/17 04/24/17 04/24/17 17:08 17:15 17:58 Temperature [ 36.4 C Oral] Temperature [ Temporal] Pulse, 73 Peripheral Pulse, 66 73 Peripheral [ Left Pulse Oximetry] Respiratory 24 H Rate Blood Pressure 161/98 H Blood Pressure 131/87 184/110 H [Left Upper Arm ] O2 Sat by Pulse 99 Oximetry O2 Sat by Pulse Oximetry [ Nasal Cannula] 04/24/17 04/24/17 04/24/17 18:28 20:00 22:00 Temperature [ Oral] Temperature [ 36.9 C 36.8 C Temporal] Pulse, Peripheral Pulse, 65 64 Peripheral [ Left Pulse Oximetry] Respiratory 24 H 16 Rate Blood Pressure 181/110 H Blood Pressure 134/87 120/74 [Left Upper Arm ] O2 Sat by Pulse 97 98 Oximetry O2 Sat by Pulse Oximetry [ Nasal Cannula] 04/25/17 04/25/17 04/25/17 00:00 02:00 04:00 Temperature [ Oral] Temperature [ 36.9 C 36.9 C Temporal] Pulse, Peripheral Pulse, 59 L 59 L Peripheral [ Left Pulse Oximetry] Respiratory 14 18 Rate Blood Pressure Blood Pressure 118/72 135/78 [Left Upper Arm ] O2 Sat by Pulse 99 99 99 Oximetry O2 Sat by Pulse Oximetry [ Nasal Cannula] 04/25/17 04/25/17 04/25/17 06:00 08:00 08:01 Temperature [ 35.9 C Oral] Temperature [ 35.9 C Temporal] Pulse, 74 Peripheral Pulse, 74 Peripheral [ Left Pulse Oximetry] Respiratory 18 Rate Blood Pressure 137/85 Blood Pressure 137/68 [Left Upper Arm ] O2 Sat by Pulse 99 98 Oximetry O2 Sat by Pulse Oximetry [ Nasal Cannula] Weight - Most Recent: 102.467 kg I&O - Last 24 Hours: Intake & Output 04/24/17 04/25/17 04/25/17 22:59 06:59 14:59 Intake Total 355 740 Output Total 2200 0 1000 Balance -1845 0 -260 Imaging Impressions - Last 24 Hours: monitor technician shows normal sinus rhythm with very occasional PACs with average heart rate in the 70s with mild sinus bradycardia in the 50s this morning Lab Results Last 24 Hours: Laboratory Results - last 24 hr 04/24/17 04/24/17 04/24/17 Range/Units 16:15 17:40 22:05 WBC (4.0-10.2) K/uL RBC (4.33-5.41) M/uL Hgb (13.1-16.8) g/dL Hct (39.0-49.0) % MCV (84.0-98.0) fL MCH (28.2-33.3) pg MCHC (31.7-36.0) g/dL RDW (11.2-14.1) % Plt Count (150-350) K/uL Neut % (Auto) (45.0-80.0) % Lymph % (Auto) (10.0-50.0) % [place] % (Auto) (2.0-14.0) % Eos % (Auto) (0.0-5.0) % Baso % (Auto) (0.0-2.0) % Neut # (Auto) (1.40-7.00) K/uL Lymph # (Auto) (0.50-3.50) K/uL [place] # (Auto) (0.00-1.00) K/uL Eos # (Auto) (0.00-0.50) K/uL Baso # (Auto) (0.00-0.20) K/uL Sodium (136-145) mmol/L Potassium (3.5-5.1) mmol/L Chloride (98-107) mmol/L Carbon Dioxide (21.0-32.0) mmol/L BUN (7-18) mg/dL Creatinine (0.51-1.17) mg/dL Est Cr Clr Drug Dosing mL/min Estimated GFR (MDRD) mL/min Glucose (74-106) mg/dL Hemoglobin A1c (4.3-5.7) % Calcium (8.5-10.1) mg/dL Total Bilirubin (0.2-1.0) mg/dL AST (15-37) U/L ALT (12-78) U/L Alkaline Phosphatase (46-116) IU/L Creatine Kinase 136 145 (26-308) U/L Creatine Kinase Index 3.7 H 3.6 H (0.0-2.5) % CK-MB (CK-2) 5.00 H* 5.20 H* (0.00-3.60) ng/mL Troponin I 0.000 0.000 (0.000-0.056) ng/mL Gbd-B-[id number] Pept (0-125) pg/mL Total Protein (6.4-8.2) g/dL Albumin (3.4-5.0) g/dL Triglycerides (30-150) mg/dL Cholesterol (100-200) mg/dL LDL Cholesterol, Calc (0-100) mg/dL HDL Cholesterol (40-60) mg/dL Specimen Type Ur[place]ath Urine Color Yellow Urine Appearance Slightly cloudy Urine pH 5.5 (5.0-9.0) Ur Specific [place] 1.015 (1.005-1.030) Urine Protein Negative (NEGATIVE) mg/dL Urine Glucose (UA) Negative (NEGATIVE) mg/dL Urine Ketones Negative (NEGATIVE) mg/dL Urine Occult Blood Negative (NEGATIVE) Urine Nitrite Positive H (NEGATIVE) Urine Bilirubin Negative (NEGATIVE) Urine Urobilinogen 2.0 H (0.2-1.0) E.U./dL Ur Leukocyte Esterase Trace H (NEGATIVE) Urine RBC 0-5 /HPF Urine WBC 20-30 H /HPF Ur Epithelial Cells Few /LPF Urine Bacteria Many H (NONE TO FEW) /HPF 04/25/17 04/25/17 04/25/17 Range/Units 07:05 07:05 07:05 WBC 9.7 (4.0-10.2) K/uL RBC 5.62 H (4.33-5.41) M/uL Hgb 15.9 (13.1-16.8) g/dL Hct 48.0 (39.0-49.0) % MCV 85.4 (84.0-98.0) fL MCH 28.3 (28.2-33.3) pg MCHC 33.1 (31.7-36.0) g/dL RDW 13.4 (11.2-14.1) % Plt Count 226 (150-350) K/uL Neut % (Auto) 62.6 (45.0-80.0) % Lymph % (Auto) 26.5 (10.0-50.0) % [place] % (Auto) 9.1 (2.0-14.0) % Eos % (Auto) 1.3 (0.0-5.0) % Baso % (Auto) 0.5 (0.0-2.0) % Neut # (Auto) 6.07 (1.40-7.00) K/uL Lymph # (Auto) 2.57 (0.50-3.50) K/uL [place] # (Auto) 0.88 (0.00-1.00) K/uL Eos # (Auto) 0.13 (0.00-0.50) K/uL Baso # (Auto) 0.05 (0.00-0.20) K/uL Sodium 143 (136-145) mmol/L Potassium 4.4 (3.5-5.1) mmol/L Chloride 104 (98-107) mmol/L Carbon Dioxide 31.4 (21.0-32.0) mmol/L BUN 10 (7-18) mg/dL Creatinine 0.90 (0.51-1.17) mg/dL Est Cr Clr Drug Dosing 91.33 mL/min Estimated GFR (MDRD) > 60 mL/min Glucose 113 H (74-106) mg/dL Hemoglobin A1c 5.6 (4.3-5.7) % Calcium 8.9 (8.5-10.1) mg/dL Total Bilirubin 0.5 (0.2-1.0) mg/dL AST 15 (15-37) U/L ALT 18 (12-78) U/L Alkaline Phosphatase 104 (46-116) IU/L Creatine Kinase 159 (26-308) U/L Creatine Kinase Index 2.8 H (0.0-2.5) % CK-MB (CK-2) 4.40 H* (0.00-3.60) ng/mL Troponin I 0.000 (0.000-0.056) ng/mL [id number]-Qsasolyxdhf Pept 339 H (0-125) pg/mL Total Protein 7.5 (6.4-8.2) g/dL Albumin 3.5 (3.4-5.0) g/dL Triglycerides 106 (30-150) mg/dL Cholesterol 155 (100-200) mg/dL LDL Cholesterol, Calc 83 (0-100) mg/dL HDL Cholesterol 51 (40-60) mg/dL Specimen Type Urine Color Urine Appearance Urine pH (5.0-9.0) Ur Specific [place] (1.005-1.030) Urine Protein (NEGATIVE) mg/dL Urine Glucose (UA) (NEGATIVE) mg/dL Urine Ketones (NEGATIVE) mg/dL Urine Occult Blood (NEGATIVE) Urine Nitrite (NEGATIVE) Urine Bilirubin (NEGATIVE) Urine Urobilinogen (0.2-1.0) E.U./dL Ur Leukocyte Esterase (NEGATIVE) Urine RBC /HPF Urine WBC /HPF Ur Epithelial Cells /LPF Urine Bacteria (NONE TO FEW) /HPF Moe Results Last 24 Hours: Microbiology 04/24/17 12:25 Influenza Type A Antigen Screen - Final Nasopharyngeal Swab - Nare, Right NEGATIVE INFLUENZA A VIRUS AG Influenza Type B Antigen Screen - Final NEGATIVE INFLUENZA B VIRUS AG Urine set up for culture and sensitivity Blood cultures 2 and sputum specimen for culture and sensitivity still pending Med Orders - Current: Current Medications Acetaminophen (Tylenol) 650 mg PO Q4H PRN PRN Reason: Pain Last Admin: 04/24/17 20:03 Dose: 650 mg Albuterol (Proventil Neb Soln) 2.5 mg INH Q2H PRN PRN Reason: SHORTNESS OF BREATH Albuterol/Ipratropium (Duoneb 3.0-0.5 Mg/3 Ml) 3 ml NEB Q4HRRT PRN PRN Reason: Dyspnea Albuterol/Ipratropium (Duoneb 3.0-0.5 Mg/3 Ml) 3 ml NEB Q6HRRT [facility] Last Admin: 04/25/17 08:01 Dose: 3 ml Budesonide (Pulmicort) 0.5 mg NEB BIDRT [facility] Last Admin: 04/25/17 08:01 Dose: 0.5 mg Enoxaparin Sodium (Lovenox) 100 mg SUBCUT Q12H [facility] Last Admin: 04/25/17 02:00 Dose: 100 mg Furosemide (Lasix) 40 mg IVPUSH Q12H [facility] Last Admin: 04/25/17 04:23 Dose: 40 mg Guaifenesin/Dextromethorphan (Mucinex Dm Er 600-30 Mg) 1 tab PO BID [facility] Last Admin: 04/25/17 08:01 Dose: 1 tab Ceftriaxone Sodium 1 gm/ (Sodium Chloride) 100 mls @ 200 mls/hr IV Q12H [facility] Last Admin: 04/25/17 04:23 Dose: 200 mls/hr Azithromycin 500 mg/ Sodium (Chloride) 250 mls @ 250 mls/hr IV Q24H [facility] Last Admin: 04/24/17 18:43 Dose: 250 mls/hr Lisinopril (Prinivil) 10 mg PO QPM [facility] Last Admin: 04/24/17 17:08 Dose: 10 mg Magnesium Oxide (Magnesium Oxide) 400 mg PO DAILY [facility] Last Admin: 04/25/17 08:01 Dose: 400 mg Metoprolol Tartrate (Lopressor) 25 mg PO BID [facility] Last Admin: 04/25/17 08:01 Dose: 25 mg Miscellaneous Information (Remove Patch) 1 ea TRDERM QPM [facility] Morphine Sulfate (Morphine) 2 mg IVPUSH ONETIME ONE Stop: 04/25/17 13:15 Last Admin: 04/24/17 13:32 Dose: 2 mg Nicotine (Habitrol) 21 mg TRDERM QPM [facility] Last Admin: 04/24/17 17:07 Dose: Not Given Nitroglycerin (Nitrostat) 0.4 mg SL ONETIME STA Stop: 04/25/17 12:20 Last Admin: 04/24/17 12:24 Dose: 0.4 mg Nitroglycerin (Nitrostat) 0.4 mg SL ONETIME STA Stop: 04/25/17 12:56 Last Admin: 04/24/17 12:58 Dose: 0.4 mg Nitroglycerin (Nitro-Bid 2%) 0.5 gm TOP Q6H [facility] Last Admin: 04/25/17 08:02 Dose: 0.5 gm Nitroglycerin (Nitrostat) 0.4 mg SL ONETIME STA Stop: 04/25/17 18:17 Last Admin: 04/24/17 18:28 Dose: 0.4 mg Potassium Chloride (Klor-Con M20) 20 meq PO BID [facility] Last Admin: 04/25/17 08:01 Dose: 20 meq Sodium Chloride (Saline Flush) 10 ml FLUSH ASDIRECTED PRN PRN Reason: Keep Vein Open Last Admin: 04/24/17 19:45 Dose: 10 ml Sodium Chloride (Saline Flush) 10 ml FLUSH Q12HR PRN PRN Reason: Keep Vein Open Temazepam (Restoril) 15 mg PO BEDTIME PRN PRN Reason: Insomnia Last Admin: 04/24/17 20:04 Dose: 15 mg Discontinued Medications Aspirin (Aspirin) 324 mg CHEW ONETIME ONE Stop: 04/24/17 12:19 Last Admin: 04/24/17 12:24 Dose: 324 mg Enoxaparin Sodium (Lovenox) 80 mg SUBCUT Q12H [facility] Last Admin: 04/24/17 13:44 Dose: 80 mg Enoxaparin Sodium (Lovenox) 80 mg SUBCUT Q12H [facility] Enoxaparin Sodium (Lovenox) 100 mg SUBCUT Q24H [facility] Last Admin: 04/24/17 16:58 Dose: Not Given Enoxaparin Sodium (Lovenox) 40 mg SUBCUT ONETIME ONE Stop: 04/24/17 15:43 Last Admin: 04/24/17 16:58 Dose: Not Given Enoxaparin Sodium (Lovenox) 20 mg SUBCUT ONETIME ONE Stop: 04/24/17 15:43 Last Admin: 04/24/17 16:53 Dose: 20 mg Famotidine (Pepcid) 40 mg IVPUSH ONETIME ONE Stop: 04/24/17 12:19 Last Admin: 04/24/17 12:32 Dose: 40 mg Azithromycin 500 mg/ Sodium (Chloride) 250 mls @ 250 mls/hr IV Q24H [facility] Last Admin: 04/24/17 16:59 Dose: Not Given Ceftriaxone Sodium 1 gm/ (Sodium Chloride) 100 mls @ 200 mls/hr IV Q12H [facility] Last Admin: 04/24/17 16:58 Dose: Not Given Labetalol HCl (Normodyne) 10 mg IVPUSH ONETIME ONE PRN Reason: Protocol Stop: 04/24/17 12:20 Last Admin: 04/24/17 12:25 Dose: 10 mg Ondansetron HCl (Zofran) 4 mg IVPUSH ONETIME ONE Stop: 04/24/17 13:15 Last Admin: 04/24/17 13:32 Dose: 4 mg Ticagrelor (Brilinta) 180 mg PO ONETIME ONE Stop: 04/24/17 12:19 Last Admin: 04/24/17 12:24 Dose: 180 mg - Exam Quality Assessment: Supplemental Oxygen, DVT Prophylaxis (On Lovenox). No: Central Line/PICC, Urine Catheter (Although self-catheterization), Skin Breakdown, Restraints General: Alert, Oriented, Cooperative, No Acute Distress HEENT: Pupils Equal, Pupils Reactive, EOMI, Mucous Membr. Moist/[place] Neck: Supple, Trachea Midline, No JVD, No Thyromegaly. No: Lymphadenopathy Lungs: Normal Respiratory Effort, Rales (Improved mild diffuse bilateral), Rhonchi (Significantly improved mild bilateral), Wheezing (Significantly improved mild bilateral). No: Rub Cardiovascular: Regular Rate, Regular Rhythm (No extrasystoles at time of exam) , No Murmurs. No: Gallops, Rubs GI/Abdominal Exam: Normal Bowel Sounds, Soft, Non-Tender, No Organomegaly, No Distention, No Abnormal Bruit, No Mass, Pelvis Stable, Hernia (As below), Other (Stable 4 cm in diameter nonincarcerated umbilical hernia, mild localized ecchymosis at Lovenox injection sites). No: Guarding (Male) Exam: Deferred Back Exam: Normal Inspection, Full Range of Motion. No: CVA Tenderness (L), CVA Tenderness (R), Muscle Spasm Extremities: Normal Range of Motion, Non-Tender, Normal Capillary Refill, Pedal Edema (Improved bilateral trace to +1 pedal/pretibial edema). No: Dave's Sign Peripheral Pulses: 2+: Radial (L), Radial (R), Dorsalis Pedis (L), Dorsalis Pedis (R) Skin: Warm, Dry, Intact, Ecchymosis (As above) Neurological: No New Focal Deficit, Other (No clinical orthostasis) Psy/Mental Status: Alert, Normal Affect, Normal Mood. No: Anxious, Depressed, Agitated, Suicidal Ideation, Homicidal Ideation, Hallucinations, Withdrawal Symptoms EKG INTERPRETATION EKG Date: 04/25/17 Time: 07:27 Rhythm: Other (Normal sinus rhythm with occasional PACs) Rate (Beats/Min): 68 [place]: Normal (Left cardiac axis) P-Wave: Enlarged (Mild diffuse biphasic P waves) QRS: RBBB (QRS interval of 0.10 seconds representing borderline bundle branch block) ST-T: Other (New T wave inversions in leads 1, aVL, and V2 through V6 consistent with probable anterolateral cardiac ischemia) QT: Normal VA/PQ Interval: 0.17 seconds Comparison: Change From Previous EKG (As above since last EKG on 04/24/17) EKG Interpretation Comments: 1. New probable anterolateral cardiac ischemia 2. Borderline right bundle branch block 3. PACs - Problem List & Annotations (1) Chest pain SNOMED Code(s): 42671409 Code(s): R07.9 - CHEST PAIN, UNSPECIFIED Status: Acute Priority: High Current Visit: Yes Onset Date: ~04/16/17 Qualifiers: Chest pain type: unspecified Qualified Code(s): R07.9 - Chest pain, unspecified Annotation/Comment:: Despite evidence of new anterolateral cardiac ischemia and no chest pain or other anginal-type symptoms at this time. Chest pain protocol was initiated on the patient's arrival in the emergency room. Note mild CHF as below. Repeat EKG and cardiac enzymes in the a.m. with persistent elevated CK- MB and CK index, although improved this morning. Serial Troponin I's have been negative with initial onset of patient's symptoms more than one week ago. Continue subcutaneous Lovenox secondary to evidence of ischemia as above. Cardiology consultation depending on his clinical course with consideration of possible patient transfer for heart catheterization. Otherwise outpatient Cardiolite stress test advisable once his current pneumonia and COPD exacerbation has resolved. Note that he has very limited preventative healthcare with consideration of updating his immunizations, HCM, scheduling for colonoscopy, etc. once his pulmonary and cardiac status has been clarified. (2) CHF (congestive heart failure) SNOMED Code(s): 33432706 Code(s): I50.9 - HEART FAILURE, UNSPECIFIED Status: Acute Priority: High Current Visit: Yes Qualifiers: Congestive heart failure type: unspecified congestive heart failure type Congestive heart failure chronicity: unspecified congestive heart failure chronicity Qualified Code(s): I50.9 - Heart failure, unspecified Annotation/Comment:: Mild CHF by clinical exam, chest x-ray, and blood work with somewhat improved BNP today. Echocardiogram to be conducted later today. Continue Low-dose IV Lasix therapy with patient already on an ANNIE inhibitor. Note normal glycosylated hemoglobin and lipid panel this morning (3) Pneumonia SNOMED Code(s): 076828028 Code(s): J18.9 - PNEUMONIA, UNSPECIFIED ORGANISM Status: Acute Priority: High Current Visit: Yes Onset Date: ~04/16/17 Qualifiers: Pneumonia type: due to unspecified organism Laterality: bilateral Lung location: unspecified part of lung Qualified Code(s): J18.9 - Pneumonia, unspecified organism Annotation/Comment:: Probable mild bilateral pneumonia by clinical exam. Continue IV Zithromax and IV Rocephin therapy with additional nebulizer therapy. Blood cultures 2 and sputum specimen have been collected. Mild leukocytosis possibly with stress reaction component improved this morning. Patient is afebrile today (4) COPD (chronic obstructive pulmonary disease) SNOMED Code(s): 43484111 Code(s): J44.9 - CHRONIC OBSTRUCTIVE PULMONARY DISEASE, UNSPECIFIED Status : Acute Priority: High Current Visit: Yes Qualifiers: COPD type: COPD with acute lower respiratory infection Qualified Code(s): J44.0 - Chronic obstructive pulmonary disease with acute lower respiratory infection Annotation/Comment:: As above. Update immunizations during this hospitalization (5) Umbilical hernia SNOMED Code(s): 797183616, 606085198 Code(s): K42.9 - UMBILICAL HERNIA WITHOUT OBSTRUCTION OR GANGRENE Status: Chronic Priority: Medium Current Visit: Yes Qualifiers: Obstruction and gangrene presence: without obstruction or gangrene Qualified Code(s): K42.9 - Umbilical hernia without obstruction or gangrene Annotation/Comment:: Stable by history (6) Hyperglycemia SNOMED Code(s): 16437805 Code(s): R73.9 - HYPERGLYCEMIA, UNSPECIFIED Status: Acute Priority: Medium Current Visit: Yes Onset Date: 04/24/17 Annotation/Comment:: Nonfasting mild hyperglycemia. Glycosylated hemoglobin normal this a.m. (7) Hypertension SNOMED Code(s): 03453466 Code(s): I10 - ESSENTIAL (PRIMARY) HYPERTENSION Status: Chronic Priority : High Current Visit: Yes Qualifiers: Hypertension type: essential hypertension Qualified Code(s): I10 - Essential (primary) hypertension Annotation/Comment:: Blood pressures are much improved with aggressive medical therapy yesterday. Mild nonsymptomatic hypertensive crisis on arrival to the emergency room. Aggressive IV Normodyne, sublingual nitroglycerin, and topical nitroglycerin therapy were required. No neurological deficits, headaches, etc. (8) Hypomagnesemia SNOMED Code(s): 338186512 Code(s): E83.42 - HYPOMAGNESEMIA Status: Acute Priority: Medium Current Visit: Yes Onset Date: 04/24/17 Annotation/Comment:: Magnesium oxide therapy was initiated on admission with repeat magnesium level tomorrow (9) Osteoarthritis SNOMED Code(s): 253692923 Code(s): M19.90 - UNSPECIFIED OSTEOARTHRITIS, UNSPECIFIED SITE Status: Chronic Priority: Medium Current Visit: Yes Qualifiers: Osteoarthritis location: multiple joints Osteoarthritis type: primary Qualified Code(s): M15.0 - Primary generalized (osteo)arthritis Annotation/Comment:: Stable by history (10) PAC (premature atrial contraction) SNOMED Code(s): 812952631 Code(s): I49.1 - ATRIAL PREMATURE DEPOLARIZATION Status: Acute Priority: Medium Current Visit: Yes Onset Date: 04/24/17 Annotation/Comment:: Observe for now with beta compa therapy as above (11) Neurogenic bladder SNOMED Code(s): 539369458 Code(s): N31.9 - NEUROMUSCULAR DYSFUNCTION OF BLADDER, UNSPECIFIED Status: Chronic Priority: Medium Current Visit: Yes Annotation/Comment:: Neurogenic bladder with continuation of self catheterization. Catheter UA with culture and sensitivity obtained with evidence of UTI. Antibiotic therapy as above (12) UTI (urinary tract infection) SNOMED Code(s): 16002763 Code(s): N39.0 - URINARY TRACT INFECTION, SITE NOT SPECIFIED Status: Acute Priority: High Current Visit: Yes Onset Date: 04/25/17 Qualifiers: Urinary tract infection type: acute cystitis Hematuria presence: without hematuria Qualified Code(s): N30.00 - Acute cystitis without hematuria Annotation/Comment:: As above - Problem List Review Problem List Initiated/Reviewed/Updated: Yes - My Orders Last 24 Hours: My Active Orders 04/24/17 14:00 Albuterol [Proventil Neb Soln] 2.5 mg INH Q2H PRN 04/24/17 15:25 Communication Order [RC] ROUTINE Height and Weight [RC] DAILY Oxygen Therapy [RC] CONTINUOUS Pulse Oximetry [RC] Q2HR Up With Assistance [RC] ASDIRECTED OCCULT BLOOD DIAGNOSTIC [OP] Stat Sodium Chloride 0.9% [Saline Flush] 10 ml FLUSH Q12HR PRN Temazepam [Restoril] 15 mg PO BEDTIME PRN Antiembolic Hose [OM.PC] Routine CHF Questionnaire [COMM] Routine DVT/VTE Prophylaxis Reflex [OM.PC] Routine GM Immunization Reflex [OM.PC] Click To Edit 04/24/17 15:26 Antiembolic Devices [RC] .Routine Antiembolic Devices [RC] PER UNIT ROUTINE EKG Documentation Completion [RC] ASDIRECTED VTE/DVT Education [RC] PER UNIT ROUTINE 04/24/17 15:30 H PYLORI STOOL ANTIGEN [MREF] Albuterol/Ipratropium [DuoNeb 3.0-0.5 MG/3 ML] 3 ml NEB Q4HRRT PRN Furosemide [Lasix] 40 mg IVPUSH Q12H Magnesium Oxide 400 mg PO DAILY 04/24/17 15:35 RT Aerosol Therapy [RC] 02,08,14,20 04/24/17 15:37 Communication Order [RC] ASDIRECTED 04/24/17 16:00 Acetaminophen [Tylenol] 650 mg PO Q4H PRN cefTRIAXone [Rocephin] 1 gm Sodium Chloride 0.9% [Normal Saline] 100 ml IV Q12H 04/24/17 17:00 Azithromycin [Zithromax] 500 mg Sodium Chloride 0.9% [Normal Saline] 250 ml IV Q24H 04/24/17 17:40 CULTURE URINE [RM] Stat 04/24/17 18:00 Dextromethorphan/guaiFENesin [Mucinex DM ER 600-30 MG] 1 tab PO BID Lisinopril [Prinivil] 10 mg PO QPM Metoprolol Tartrate [Lopressor] 25 mg PO BID Nicotine [Habitrol] 21 mg TRDERM QPM Potassium Chloride [Klor-Con M20] 20 meq PO BID 04/24/17 18:16 Nitroglycerin [Nitrostat] 0.4 mg SL ONETIME STA 04/24/17 20:00 Albuterol/Ipratropium [DuoNeb 3.0-0.5 MG/3 ML] 3 ml NEB Q6HRRT Budesonide [Pulmicort] 0.5 mg NEB BIDRT 04/24/17 20:45 CULTURE SPUTUM + SMEAR [RM] Routine 04/24/17 22:46 Vital Signs [RC] Q4HR 04/25/17 02:00 Enoxaparin [Lovenox] 100 mg SUBCUT Q12H 04/25/17 14:00 Echo Comp wo Cont [US] Routine 04/25/17 18:00 Remove Patch 1 ea TRDERM QPM 04/25/17 Breakfast Fluid Restriction [DIET] - Assessment Assessment:: As above - Plan Plan:: As above. Extensive precautions were given to the patient, who is in agreement with the treatment plan. Janette vaughn physician assumes care in the a.m., and I will follow the patient once again on 04/27. Anticipate an additional 2-3 days of hospitalization/inpatient acute care versus early transfer to [place] depending on his cardiac status.
[2017-04-25] MEDS: Acetaminophen 325 MG Tab PO PRN (15:33)
[2017-04-25] MEDS: Famotidine 20 MG/2 ML SDV IVPUSH SCH (17:35)
[2017-04-25] MEDS: Sodium Chloride 0.9% 10 ML Syringe FLUSH PRN (17:35)
[2017-04-25] MEDS: Azithromycin 500 MG in Sodium Chloride 0.9% 250 ML IV SCH (17:35)
[2017-04-25] MEDS: Lisinopril 10 MG Tab PO SCH (17:36)
[2017-04-25] MEDS: Nicotine 21 MG/24 Hr Patch TRDERM SCH (17:37)
[2017-04-26] MEDS: Nitroglycerin 2% Oint 1 GM UD Packet TOP SCH ×3 (01:59→14:44)
[2017-04-26] MEDS: Enoxaparin 100 MG/1 ML Syringe SUBCUT SCH ×2 (02:00→14:45)
[2017-04-26] MEDS: Albuterol/Ipratropium 3.0-0.5 MG/3 ML Neb Soln NEB SCH ×3 (02:01→14:45)
[2017-04-26] MEDS: Furosemide 40 MG/4 ML VIAL IVPUSH SCH (04:25)
[2017-04-26] MEDS: cefTRIAXone 1 GM in Sodium Chloride 0.9% 100 ML IV SCH (04:25)
[2017-04-26] MEDS: Sodium Chloride 0.9% 10 ML Syringe FLUSH PRN (04:26)
[2017-04-26] MEDS: Magnesium Oxide 400 MG Tab PO SCH (07:35)
[2017-04-26] MEDS: Budesonide 0.5 MG/2 ML Neb Susp NEB SCH (07:35)
[2017-04-26] MEDS: Potassium Chloride 20 MEQ Tab.ER PO SCH (07:35)
[2017-04-26] MEDS: Dextromethorphan/guaiFENesin 600-30 MG Tab.ER PO SCH (07:36)
[2017-04-26] MEDS: Metoprolol Tartrate 25 MG Tab PO SCH (07:37)
[2017-04-26] MEDS: Famotidine 20 MG/2 ML SDV IVPUSH SCH (07:41)
[2017-04-26 07:58] LABS: CHLORIDE,CL 101 mmol/L (98-107); SODIUM,NA 139 mmol/L (136-145)
[2017-04-26] MEDS ORDERED: Magnesium Hydroxide 400 MG/5 ML Susp 30 ML Cup PO PRN (08:47)
--- NOTE | 2017-04-26 13:35 | PCM.DCSUM1 ---
Discharge Summary - Discharge Data Discharge Date: 04/26/17 Discharge Disposition: DC/Tfer to Acute Hospital 02 Condition: Good - Discharge Diagnosis/Problem(s) (1) Sinus tachycardia SNOMED Code(s): 55074022 ICD Code: R00.0 - TACHYCARDIA, UNSPECIFIED Status: Acute Priority: Medium Current Visit: Yes Onset Date: 04/26/17 Problem Details: intermittent, random, brief episodes tachycardia noted to have started today. Rate up to 140s. (2) CHF (congestive heart failure) SNOMED Code(s): 95084011 ICD Code: I50.9 - HEART FAILURE, UNSPECIFIED Status: Acute Priority: High Current Visit: Yes Problem Details: Mild CHF by clinical exam, chest x- ray, and blood work with somewhat improved BNP today. Echocardiogram to be conducted later today. Continue Low-dose IV Lasix therapy with patient already on an ANNIE inhibitor. Note normal glycosylated hemoglobin and lipid panel this morning Qualifiers: Congestive heart failure type: unspecified congestive heart failure type Congestive heart failure chronicity: unspecified congestive heart failure chronicity Qualified Code(s): I50.9 - Heart failure, unspecified (3) COPD (chronic obstructive pulmonary disease) SNOMED Code(s): 69322178 ICD Code: J44.9 - CHRONIC OBSTRUCTIVE PULMONARY DISEASE, UNSPECIFIED Status : Acute Priority: High Current Visit: Yes Problem Details: As above. Update immunizations during this hospitalization Qualifiers: COPD type: COPD with acute lower respiratory infection Qualified Code(s): J44.0 - Chronic obstructive pulmonary disease with acute lower respiratory infection (4) Chest pain SNOMED Code(s): 32175336 ICD Code: R07.9 - CHEST PAIN, UNSPECIFIED Status: Acute Priority: High Current Visit: Yes Onset Date: ~04/16/17 Problem Details: Despite evidence of new anterolateral cardiac ischemia, no chest pain or other anginal-type symptoms at this time. Chest pain protocol was initiated on the patient's arrival in the emergency room. Note mild CHF as below. Repeat EKG and cardiac enzymes in the a.m. with persistent elevated CK-MB and CK index, although improved this morning. Serial Troponin I's have been negative with initial onset of patient's symptoms more than one week ago. Continue subcutaneous Lovenox secondary to evidence of ischemia as above. Cardiology consultation depending on his clinical course with consideration of possible patient transfer for heart catheterization. Otherwise outpatient Cardiolite stress test advisable once his current pneumonia and COPD exacerbation has resolved. Note that he has very limited preventative healthcare with consideration of updating his immunizations, HCM, scheduling for colonoscopy, etc. once his pulmonary and cardiac status has been clarified. Qualifiers: Chest pain type: unspecified Qualified Code(s): R07.9 - Chest pain, unspecified (5) Hyperglycemia SNOMED Code(s): 37637570 ICD Code: R73.9 - HYPERGLYCEMIA, UNSPECIFIED Status: Acute Priority: Medium Current Visit: Yes Onset Date: 04/24/17 Problem Details: Nonfasting mild hyperglycemia. Glycosylated hemoglobin normal this a.m. (6) Hypomagnesemia SNOMED Code(s): 496729696 ICD Code: E83.42 - HYPOMAGNESEMIA Status: Acute Priority: Medium Current Visit: Yes Onset Date: 04/24/17 Problem Details: Magnesium oxide therapy was initiated on admission with repeat magnesium level tomorrow (7) PAC (premature atrial contraction) SNOMED Code(s): 232531291 ICD Code: I49.1 - ATRIAL PREMATURE DEPOLARIZATION Status: Acute Priority : Medium Current Visit: Yes Onset Date: 04/24/17 Problem Details: Observe for now with beta compa therapy as above (8) Pneumonia SNOMED Code(s): 977995725 ICD Code: J18.9 - PNEUMONIA, UNSPECIFIED ORGANISM Status: Acute Priority : High Current Visit: Yes Onset Date: ~04/16/17 Problem Details: Probable mild bilateral pneumonia by clinical exam. Continue IV Zithromax and IV Rocephin therapy with additional nebulizer therapy. Blood cultures 2 and sputum specimen have been collected. Mild leukocytosis possibly with stress reaction component improved this morning. Patient is afebrile today Qualifiers: Pneumonia type: due to unspecified organism Laterality: bilateral Lung location: unspecified part of lung Qualified Code(s): J18.9 - Pneumonia, unspecified organism (9) UTI (urinary tract infection) SNOMED Code(s): 25733512 ICD Code: N39.0 - URINARY TRACT INFECTION, SITE NOT SPECIFIED Status: Acute Priority: High Current Visit: Yes Onset Date: 04/25/17 Problem Details: As above Qualifiers: Urinary tract infection type: acute cystitis Hematuria presence: without hematuria Qualified Code(s): N30.00 - Acute cystitis without hematuria (10) Hypertension SNOMED Code(s): 59680838 ICD Code: I10 - ESSENTIAL (PRIMARY) HYPERTENSION Status: Chronic Priority : High Current Visit: Yes Problem Details: Blood pressures are much improved with aggressive medical therapy yesterday. Mild nonsymptomatic hypertensive crisis on arrival to the emergency room. Aggressive IV Normodyne, sublingual nitroglycerin, and topical nitroglycerin therapy were required. No neurological deficits, headaches, etc. Qualifiers: Hypertension type: essential hypertension Qualified Code(s): I10 - Essential (primary) hypertension (11) Neurogenic bladder SNOMED Code(s): 667933156 ICD Code: N31.9 - NEUROMUSCULAR DYSFUNCTION OF BLADDER, UNSPECIFIED Status : Chronic Priority: Medium Current Visit: Yes Problem Details: Neurogenic bladder with continuation of self catheterization. Catheter UA with culture and sensitivity obtained with evidence of UTI. Antibiotic therapy as above (12) Osteoarthritis SNOMED Code(s): 927291909 ICD Code: M19.90 - UNSPECIFIED OSTEOARTHRITIS, UNSPECIFIED SITE Status: Chronic Priority: Medium Current Visit: Yes Problem Details: Stable by history Qualifiers: Osteoarthritis location: multiple joints Osteoarthritis type: primary Qualified Code(s): M15.0 - Primary generalized (osteo)arthritis (13) Umbilical hernia SNOMED Code(s): 023673926, 095307951 ICD Code: K42.9 - UMBILICAL HERNIA WITHOUT OBSTRUCTION OR GANGRENE Status: Chronic Priority: Medium Current Visit: Yes Problem Details: Stable by history Qualifiers: Obstruction and gangrene presence: without obstruction or gangrene Qualified Code(s): K42.9 - Umbilical hernia without obstruction or gangrene - Patient Summary/Data Complications: New episodes of tachycardia noted today. Uncertain if patient has had them in past. Hospital Course: Overall patient feels much better since admission. Pain-free. Continues to require Oxygen 3-4 liters to maintain O2 sats in mid 90s. Blood cultures negative. Few bacteria noted in sputum. Troponin continues to be negative. CKMB still elevated but improved. CK normal. Vital signs stable. EKG continues to show new Twave inversions but to lesser degree than yesterday. New intermittent episodes tachycardia repeatedly observed today on monitor. Patient continues to feel somewhat breathless. Does not report chest pain or sweating/other discomfort when episodes present. Call placed to discuss patient with Cardiology at [facility]. Reviewed patient with . recommended transfer to [facility] for further evaluation due to complex nature of presentation and intermittent tachycardia. Patient may need stress test or cath studies. Dr. Gallego was accepting Hospitalist. - Discharge Plan Home Medications: Home Meds Acetaminophen [Acetaminophen Extra Strength] 1,000 mg PO ASDIRECTED PRN [History] DM/PE/Acetaminophen/Doxylamine [Nighttime Severe Cold-Flu Liq] 30 ml PO BEDTIME 04/24/17 [History] Forms: ED Department Discharge Referrals: PCP,Unknown [Ordering Only Provider] - - Discharge Summary/Plan Comment DC Time >30 min.: No Discharge Summary/Plan Comment: Transfer to [facility] for further evaluation. - General Info Date of Service: 04/26/17 Admission Dx/Problem (Free Text: 1. Chest pain 2. Pneumonia 3. COPD exacerbation 4. CHF 5. Hypertension Functional Status: Reports: Pain Controlled, Tolerating Diet, Ambulating - Review of Systems General: Reports: No Symptoms. Denies: Fever HEENT: Reports: No Symptoms Pulmonary: Reports: Shortness of Breath, Cough, Sputum. Denies: Pleuritic Chest Pain, Hemoptysis, Wheezing Cardiovascular: Reports: Dyspnea on Exertion. Denies: Chest Pain, Palpitations , Lightheadedness Gastrointestinal: Reports: No Symptoms Genitourinary: Reports: Other (self caths) Musculoskeletal: Reports: No Symptoms Skin: Reports: No Symptoms Neurological: Reports: No Symptoms Psychiatric: Reports: No Symptoms - Patient Data Vitals - Most Recent: Last Vital Signs Temp 36.5 C 04/26/17 12:00 Pulse 69 04/26/17 12:00 Resp 16 04/26/17 04:00 BP 128/76 04/26/17 12:00 Pulse Ox 95 04/26/17 12:00 Weight - Most Recent: 101.831 kg I&O - Last 24 hours: Intake & Output 04/25/17 04/26/17 04/26/17 22:59 06:59 14:59 Intake Total 620 500 360 Output Total 8194 402 2709 Balance -380 200 -1142 Lab Results - Last 24 hrs: Laboratory Results - last 24 hr 04/26/17 04/26/17 Range/Units 06:55 06:55 WBC 9.4 (4.0-10.2) K/uL RBC 5.36 (4.33-5.41) M/uL Hgb 15.1 (13.1-16.8) g/dL Hct 45.5 (39.0-49.0) % MCV 84.9 (84.0-98.0) fL MCH 28.2 (28.2-33.3) pg MCHC 33.2 (31.7-36.0) g/dL RDW 13.1 (11.2-14.1) % Plt Count 251 (150-350) K/uL Neut % (Auto) 59.4 (45.0-80.0) % Lymph % (Auto) 30.6 (10.0-50.0) % [place] % (Auto) 8.1 (2.0-14.0) % Eos % (Auto) 1.5 (0.0-5.0) % Baso % (Auto) 0.4 (0.0-2.0) % Neut # (Auto) 5.60 (1.40-7.00) K/uL Lymph # (Auto) 2.88 (0.50-3.50) K/uL [place] # (Auto) 0.76 (0.00-1.00) K/uL Eos # (Auto) 0.14 (0.00-0.50) K/uL Baso # (Auto) 0.04 (0.00-0.20) K/uL Sodium 139 (136-145) mmol/L Potassium 4.1 (3.5-5.1) mmol/L Chloride 101 (98-107) mmol/L Carbon Dioxide 30.1 (21.0-32.0) mmol/L BUN 12 (7-18) mg/dL Creatinine 0.75 (0.51-1.17) mg/dL Est Cr Clr Drug Dosing 109.60 mL/min Estimated GFR (MDRD) > 60 mL/min Glucose 113 H (74-106) mg/dL Uric Acid 5.5 (2.6-7.2) mg/dL Calcium 9.1 (8.5-10.1) mg/dL Magnesium 2.0 (1.8-2.4) mg/dL Creatine Kinase 157 (26-308) U/L Creatine Kinase Index 2.4 (0.0-2.5) % CK-MB (CK-2) 3.70 H (0.00-3.60) ng/mL Troponin I 0.000 (0.000-0.056) ng/mL Amh-H-Rlmdvruhcry Pept 262 H (0-125) pg/mL SINCERE Results - Last 24 hrs: Microbiology 04/24/17 20:45 Gram Stain - Final Sputum - Expectorated Sputum Culture - Preliminary Med Orders - Current: Current Medications Acetaminophen (Tylenol) 650 mg PO Q4H PRN PRN Reason: Pain Last Admin: 04/25/17 15:33 Dose: 650 mg Albuterol (Proventil Neb Soln) 2.5 mg INH Q2H PRN PRN Reason: SHORTNESS OF BREATH Albuterol/Ipratropium (Duoneb 3.0-0.5 Mg/3 Ml) 3 ml NEB Q4HRRT PRN PRN Reason: Dyspnea Albuterol/Ipratropium (Duoneb 3.0-0.5 Mg/3 Ml) 3 ml NEB Q6HRRT [facility] Last Admin: 04/26/17 07:34 Dose: 3 ml Budesonide (Pulmicort) 0.5 mg NEB BIDRT [facility] Last Admin: 04/26/17 07:35 Dose: 0.5 mg Enoxaparin Sodium (Lovenox) 100 mg SUBCUT Q12H [facility] Last Admin: 04/26/17 02:00 Dose: 100 mg Famotidine (Pepcid) 20 mg IVPUSH BID [facility] Last Admin: 04/26/17 07:41 Dose: 20 mg Furosemide (Lasix) 40 mg IVPUSH Q12H [facility] Last Admin: 04/26/17 04:25 Dose: 40 mg Guaifenesin/Dextromethorphan (Mucinex Dm Er 600-30 Mg) 1 tab PO BID [facility] Last Admin: 04/26/17 07:36 Dose: 1 tab Ceftriaxone Sodium 1 gm/ (Sodium Chloride) 100 mls @ 200 mls/hr IV Q12H [facility] Last Admin: 04/26/17 04:25 Dose: 200 mls/hr Azithromycin 500 mg/ Sodium (Chloride) 250 mls @ 250 mls/hr IV Q24H [facility] Last Admin: 04/25/17 17:35 Dose: 250 mls/hr Lisinopril (Prinivil) 10 mg PO QPM [facility] Last Admin: 04/25/17 17:36 Dose: 10 mg Magnesium Hydroxide (Milk Of Magnesia) 30 ml PO DAILY PRN PRN Reason: Constipation Last Admin: 04/26/17 10:03 Dose: 30 ml Magnesium Oxide (Magnesium Oxide) 400 mg PO DAILY [facility] Last Admin: 04/26/17 07:35 Dose: 400 mg Metoprolol Tartrate (Lopressor) 25 mg PO BID [facility] Last Admin: 04/26/17 07:37 Dose: 25 mg Miscellaneous Information (Remove Patch) 1 ea TRDERM QPM [facility] Last Admin: 04/25/17 17:39 Dose: Not Given Nicotine (Habitrol) 21 mg TRDERM QPM [facility] Last Admin: 04/25/17 17:37 Dose: 21 mg Nitroglycerin (Nitro-Bid 2%) 0.5 gm TOP Q6H [facility] Last Admin: 04/26/17 07:30 Dose: 0.5 gm Potassium Chloride (Klor-Con M20) 20 meq PO BID [facility] Last Admin: 04/26/17 07:35 Dose: 20 meq Sodium Chloride (Saline Flush) 10 ml FLUSH ASDIRECTED PRN PRN Reason: Keep Vein Open Last Admin: 04/26/17 04:26 Dose: 10 ml Sodium Chloride (Saline Flush) 10 ml FLUSH Q12HR PRN PRN Reason: Keep Vein Open Temazepam (Restoril) 15 mg PO BEDTIME PRN PRN Reason: Insomnia Last Admin: 04/24/17 20:04 Dose: 15 mg Discontinued Medications Aspirin (Aspirin) 324 mg CHEW ONETIME ONE Stop: 04/24/17 12:19 Last Admin: 04/24/17 12:24 Dose: 324 mg Enoxaparin Sodium (Lovenox) 80 mg SUBCUT Q12H [facility] Last Admin: 04/24/17 13:44 Dose: 80 mg Enoxaparin Sodium (Lovenox) 80 mg SUBCUT Q12H [facility] Enoxaparin Sodium (Lovenox) 100 mg SUBCUT Q24H [facility] Last Admin: 04/24/17 16:58 Dose: Not Given Enoxaparin Sodium (Lovenox) 40 mg SUBCUT ONETIME ONE Stop: 04/24/17 15:43 Last Admin: 04/24/17 16:58 Dose: Not Given Enoxaparin Sodium (Lovenox) 20 mg SUBCUT ONETIME ONE Stop: 04/24/17 15:43 Last Admin: 04/24/17 16:53 Dose: 20 mg Famotidine (Pepcid) 40 mg IVPUSH ONETIME ONE Stop: 04/24/17 12:19 Last Admin: 04/24/17 12:32 Dose: 40 mg Azithromycin 500 mg/ Sodium (Chloride) 250 mls @ 250 mls/hr IV Q24H [facility] Last Admin: 04/24/17 16:59 Dose: Not Given Ceftriaxone Sodium 1 gm/ (Sodium Chloride) 100 mls @ 200 mls/hr IV Q12H [facility] Last Admin: 04/24/17 16:58 Dose: Not Given Labetalol HCl (Normodyne) 10 mg IVPUSH ONETIME ONE PRN Reason: Protocol Stop: 04/24/17 12:20 Last Admin: 04/24/17 12:25 Dose: 10 mg Morphine Sulfate (Morphine) 2 mg IVPUSH ONETIME ONE Stop: 04/25/17 13:15 Last Admin: 04/24/17 13:32 Dose: 2 mg Nitroglycerin (Nitrostat) 0.4 mg SL ONETIME STA Stop: 04/25/17 12:20 Last Admin: 04/24/17 12:24 Dose: 0.4 mg Nitroglycerin (Nitrostat) 0.4 mg SL ONETIME STA Stop: 04/25/17 12:56 Last Admin: 04/24/17 12:58 Dose: 0.4 mg Nitroglycerin (Nitrostat) 0.4 mg SL ONETIME STA Stop: 04/25/17 18:17 Last Admin: 04/24/17 18:28 Dose: 0.4 mg Ondansetron HCl (Zofran) 4 mg IVPUSH ONETIME ONE Stop: 04/24/17 13:15 Last Admin: 04/24/17 13:32 Dose: 4 mg Ticagrelor (Brilinta) 180 mg PO ONETIME ONE Stop: 04/24/17 12:19 Last Admin: 04/24/17 12:24 Dose: 180 mg - Exam Quality Assessment: Reports: Supplemental Oxygen General: Reports: Alert, Oriented, Cooperative, No Acute Distress HEENT: Reports: Pupils Equal, Pupils Reactive, EOMI, Mucous Membr. Moist/[place] Neck: Reports: Supple Lungs: Reports: Decreased Breath Sounds, Rhonchi (faint, scattered). Denies: Crackles, Rales, Stridor, Wheezing Cardiovascular: Reports: Regular Rate, Regular Rhythm. Denies: No Murmurs GI/Abdominal Exam: Soft, Non-Tender (Male) Exam: Deferred Rectal (Males) Exam: Deferred Back Exam: Denies: CVA Tenderness (L), CVA Tenderness (R) Extremities: Non-Tender, Normal Capillary Refill Skin: Reports: Warm, Dry, Intact Psy/Mental Status: Reports: Alert, Normal Affect, Normal Mood EKG INTERPRETATION EKG Date: 04/26/17 Time: 07:07 Rhythm: Other (Sinus rhythm) Rate (Beats/Min): 67 [place]: Normal P-Wave: Present QRS: Other (102ms, borderline RBBB) ST-T: Normal QT: Normal Comparison: Change From Previous EKG (T wave inversion in 1, AVL, ventricular leads appears improved today.) *Q Meaningful Use (DIS) - VTE *Q VTE Criteria *Q: - Stroke *Q Stroke Criteria *Q: - AMI *Q AMI Criteria *Q:
[2017-04-26 15:18] VITALS: BP 149/95
== END 2017-04-26 14:50 | DRG 190 ==
LOC: LL.ED 12:16 → LL.MS 14:06
PROVIDERS: ADMIT Family Medicine; ATTEND Family Medicine
DX: J44.1 Chronic obstructive pulmonary disease with (acute) exacerbation (principal); J18.9 Pneumonia, unspecified organism; N39.0 Urinary tract infection, site not specified; J44.0 Chronic obstructive pulmonary disease with (acute) lower respiratory infection; F17.210 Nicotine dependence, cigarettes, uncomplicated; I49.1 Atrial premature depolarization; R00.0 Tachycardia, unspecified; E83.42 Hypomagnesemia; R73.9 Hyperglycemia, unspecified; N31.9 Neuromuscular dysfunction of bladder, unspecified; N13.9 Obstructive and reflux uropathy, unspecified; N39.498 Other specified urinary incontinence; N32.81 Overactive bladder; I11.0 Hypertensive heart disease with heart failure; R07.9 Chest pain, unspecified; I50.9 Heart failure, unspecified; M19.90 Unspecified osteoarthritis, unspecified site; K42.9 Umbilical hernia without obstruction or gangrene; N40.0 Benign prostatic hyperplasia without lower urinary tract symptoms; G89.29 Other chronic pain; M54.9 Dorsalgia, unspecified; M54.2 Cervicalgia
CPT/HCPCS: 36415; 71010; 80053; 82550; 82553; 83605; 83735; 83880; 84443; 84484; 84550; 85025; 85379; 85610; 85730; 87040 ×2; 87804 ×2; 93005; 96374; 96375; 99285; A9270 ×5; J1650; J2270; J2405; J7050 ×2; 80048; 80061; 81001; 83036; 87070; 87077; 87086; 87088; 87186; 87205; 93306; 94640; 94664; J0456; J0696; J1940; S0028

== ENCOUNTER 2017-11-03 19:00 | Inpatient (IN) | payer MEDICARE, OTHER ==
[2017-11-03] MEDS ORDERED: Albuterol 0.083% 2.5 MG/3 ML Neb Soln ONE (19:03)
[2017-11-03] MEDS ORDERED: Aspirin 81 MG Tab.Chew PO ONE (19:17)
[2017-11-03] MEDS ORDERED: Labetalol 20 MG/4 ML Syringe IVPUSH ONE (19:18)
--- NOTE | 2017-11-03 19:26 | EDM.PDOC ---
ED HPI GENERAL MEDICAL PROBLEM - General Chief Complaint: Cardiovascular Problem Stated Complaint: chest pain,shortnessd of breath Time Seen by Provider: 11/03/17 19:05 Source of Information: Reports: Patient, RN History Limitations: Reports: Respiratory Distress - History of Present Illness INITIAL COMMENTS - FREE TEXT/NARRATIVE: Patient seen with chief complaint of shortness of breath for a couple days today worse came in appear to be in severe distress was unable to make it to the ER by himself he needed assistance of the nurses patient has been out of his medications for a couple days was recently admitted at [facility] and discharged Onset: Gradual Duration: Day(s):, Getting Worse Location: Reports: Chest Quality: Reports: Pressure Severity: Moderate Improves with: Reports: Medication Context: Reports: Activity Associated Symptoms: Reports: Chest Pain, Cough, Diaphoresis, Fever/Chills, Shortness of Breath - Related Data Allergies Allergy/AdvReac Type Severity Reaction Status Date / Time No Known Allergies Allergy Verified 11/03/17 20:04 Home Meds: Home Meds Acetaminophen [Acetaminophen Extra Strength] 1,000 mg PO ASDIRECTED PRN [History] DM/PE/Acetaminophen/Doxylamine [Nighttime Severe Cold-Flu Liq] 30 ml PO BEDTIME 04/24/17 [History] Past Medical History - Past Health History Medical/Surgical History: Denies Medical/Surgical History HEENT History: Reports: Impaired Vision, Other (See Below) Other HEENT History: Patient wears reading glasses Cardiovascular History: Reports: Hypertension, Other (See Below) Other Cardiovascular History: Previous history of hypertension by hospital records with no current medical therapy, chronic dependent edema Respiratory History: Reports: Bronchitis, Recurrent, COPD Gastrointestinal History: Reports: Other (See Below) Other Gastrointestinal History: Umbilical hernia Genitourinary History: Reports: BPH, Retention, Urinary, Urinary Incontinence, UTI, Recurrent, Other (See Below) Other Genitourinary History: Possible neurogenic bladder with self- catheterization Musculoskeletal History: Reports: Arthritis, Back Pain, Chronic, Neck Pain, Chronic, Osteoarthritis Neurological History: Reports: None Psychiatric History: Reports: None Endocrine/Metabolic History: Reports: None Hematologic History: Reports: None Immunologic History: Reports: None Oncologic (Cancer) History: Reports: None Dermatologic History: Reports: None - Infectious Disease History Infectious Disease History: Reports: Chicken Pox, Mumps, Shingles - Past Surgical History Head Surgeries/Procedures: Reports: None HEENT Surgical History: Reports: Oral Surgery, Other (See Below) Other HEENT Surgeries/Procedures: Complete teeth extraction Cardiovascular Surgical History: Reports: None Respiratory Surgical History: Reports: None GI Surgical History: Reports: None Male Surgical History: Reports: Circumcision, Suprapubic Catheter Placement, TURP-Transurethral Resection of Prostate, Other (See Below) Other Male Surgeries/Procedures: Circumcision as an infant, TURP 2 initially in 2008 and then in 2009, suprapubic catheter placement in 2009 Endocrine Surgical History: Reports: None Neurological Surgical History: Reports: None Musculoskeletal Surgical History: Reports: None Oncologic Surgical History: Reports: None Dermatological Surgical History: Reports: None - Past Imaging History Past Imaging History: Reports: Other (See Below) (Unknown) Social & Family History - Family History HEENT: Reports: None Cardiac: Reports: CAD, Hypertension, CO, Other (See Below) Other Cardiac Family History: Brother with hypertension, mother with fatal CO at age 75 Respiratory: Reports: COPD, Other (See Below) Other Respiratory Family Hisory: Father with COPD with history of tobacco use GI: Reports: None : Reports: None OBGYN: Reports: None Musculoskeletal: Reports: Arthritis, Osteoarthritis, Other (See Below) Other Musculoskeletal Family History: Brother with osteoarthritis Neurological: Reports: None Psychiatric: Reports: None Endocrine/Metabolic: Reports: Diabetes, type II, IDDM, Other (See Below) Other Endocrine/Metabolic Family History: Mother with IDDM Hematologic: Reports: None Immunologic: Reports: None Dermatologic: Reports: None Oncologic: Reports: None - Tobacco Use Smoking Status *Q: Current Every Day Smoker Years of Tobacco use: 53 Packs/Tins Daily: 1 (Started smoking at age 13 with maximum use of 2 packs per day) Used Tobacco, but Quit: No Second Hand Smoke Exposure: No - Caffeine Use Caffeine Use: Reports: Coffee (12 cups per day), Tea (Occasional). 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) ED ROS GENERAL - Review of Systems Review Of Systems: See Below Constitutional: Reports: Weakness, Diaphoresis HEENT: Reports: Rhinitis Respiratory: Reports: Shortness of Breath, Cough, Sputum Cardiovascular: Reports: Chest Pain Endocrine: Reports: No Symptoms GI/Abdominal: Reports: No Symptoms : Reports: Urinary Retention, Other (Patient self catheter) Musculoskeletal: Reports: No Symptoms Skin: Reports: Pallor Neurological: Reports: No Symptoms Psychiatric: Reports: No Symptoms Hematologic/Lymphatic: Reports: No Symptoms Immunologic: Reports: No Symptoms ED EXAM, GENERAL - Physical Exam Exam: See Below Exam Limited By: No Limitations General Appearance: Alert, WD/WN, Moderate Distress Ears: Normal External Exam, Normal Canal, Hearing Grossly Normal, Normal TMs Ear Exam: Bilateral Ear: Auricle Normal, Canal Normal, TM normal Nose: Normal Inspection, Normal Mucosa, No Blood Head: Atraumatic, Normocephalic Neck: Normal Inspection, Supple, Non-Tender, Full Range of Motion Respiratory/Chest: Decreased Breath Sounds, Rales, Splinting, Prolonged Expiration Cardiovascular: Normal Peripheral Pulses, Regular Rate, Rhythm, No Edema, No Gallop, No JVD, No Murmur, No Rub GI/Abdominal: Normal Bowel Sounds, Soft, Non-Tender, No Organomegaly, No Distention, No Abnormal Bruit, No Mass (Male) Exam: Deferred Rectal (Males) Exam: Deferred Extremities: Pedal Edema Neurological: Alert, Oriented, CN II-XII Intact, Normal Cognition, Normal Gait, Normal Reflexes, No Motor/Sensory Deficits Skin Exam: Warm Course - Orders/Labs/Meds Orders: Active Orders 24 hr Category Date Time Status EKG Documentation Completion [RC] ASDIRECTED Care 11/03/17 19:16 Ordered Oxygen Therapy [RC] PRN Care 11/03/17 19:14 Ordered Ready for Discharge [RC] PER UNIT ROUTINE Care 11/03/17 19:14 Ordered CXR [Chest 2V] [CR] Stat Exams 11/03/17 19:14 Ordered CBC WITH AUTO DIFF [HEME] Stat Lab 11/03/17 19:14 Ordered CMP [COMPREHENSIVE METABOLIC PN,CMP] [CHEM] Stat Lab 11/03/17 19:15 Ordered DD [D-DIMER QUANTITATIVE] [COAG] Stat Lab 11/03/17 19:17 Ordered PRO B-TYPE NATRIUR PEPT,BNPPRO [CHEM] Stat Lab 11/03/17 19:17 Ordered TROPONIN I [CHEM] Stat Lab 11/03/17 Ordered Aspirin Med 11/03/17 19:17 Once 324 mg PO ONETIME ONE Labetalol [Normodyne] Med 11/03/17 19:18 Once 10 mg IVPUSH ONETIME ONE Sodium Chloride 0.9% [Saline Flush] Med 11/03/17 19:15 Ordered 10 ml FLUSH ASDIRECTED PRN Saline Lock Insert [OM.PC] Stat Oth 11/03/17 19:14 Ordered EKG 12 Lead [EK] Stat Ther 11/03/17 19:14 Ordered Meds: Medications Discontinued Medications Generic Name Dose Route Start Last Admin Trade Name Freq PRN Reason Stop Dose Admin Albuterol Confirm 11/03/17 19:03 11/03/17 19:08 Proventil Neb Soln Administered 11/03/17 19:04 2.5 mg Dose Administration 2.5 mg .ROUTE .STK-MED ONE Departure - Departure Time of Disposition: 20:41 Disposition: Admitted As Inpatient 64 Clinical Impression: Hypertensive heart disease, Hypertensive urgency, Chest pain, CHF (congestive heart failure), Hypomagnesemia, COPD (chronic obstructive pulmonary disease), Polycythemia vera Referrals: PCP,None [Primary Care Provider] - - Problem List & Annotations (1) Hypertensive urgency SNOMED Code(s): 120404466 Code(s): I10 - ESSENTIAL (PRIMARY) HYPERTENSION Status: Acute Annotation/ Comment:: Patient has severe hypertension we will aggressively treated with labetalol IV in the ER blood pressure came down nicely now 155/97. (2) Chest pain SNOMED Code(s): 82687367 Code(s): R07.9 - CHEST PAIN, UNSPECIFIED Status: Acute Priority: High Onset Date: ~04/16/17 Annotation/Comment:: At present time no chest pain for baby aspirins were given troponins negative will repeat in 12 hours Qualifiers: Chest pain type: unspecified Qualified Code(s): R07.9 - Chest pain, unspecified (3) CHF (congestive heart failure) SNOMED Code(s): 46544855 Code(s): I50.9 - HEART FAILURE, UNSPECIFIED Status: Acute Priority: High Annotation/Comment:: Chest x-ray revealed mild CHF BMP slightly elevated will diurese tonight Qualifiers: Congestive heart failure type: unspecified congestive heart failure type Congestive heart failure chronicity: unspecified congestive heart failure chronicity Qualified Code(s): I50.9 - Heart failure, unspecified (4) COPD (chronic obstructive pulmonary disease) SNOMED Code(s): 90497598 Code(s): J44.9 - CHRONIC OBSTRUCTIVE PULMONARY DISEASE, UNSPECIFIED Status : Acute Priority: High Annotation/Comment:: Patient had moderate to severe COPD treated with albuterol Atrovent breathing improved significantly will consider steroids overnight Qualifiers: COPD type: COPD with acute lower respiratory infection Qualified Code(s): J44.0 - Chronic obstructive pulmonary disease with acute lower respiratory infection (5) Polycythemia vera SNOMED Code(s): 786551284 Code(s): D45 - POLYCYTHEMIA VERA Status: Acute (6) Polycythemia vera SNOMED Code(s): 198336181 Code(s): D45 - POLYCYTHEMIA VERA Status: Acute Annotation/Comment:: Hemoglobin 18.1 will consider phlebotomy in the morning - Problem List Review Problem List Initiated/Reviewed/Updated: Yes - My Orders Last 24 Hours: My Active Orders 11/03/17 TROPONIN I [CHEM] Stat 11/03/17 19:14 Oxygen Therapy [RC] PRN Ready for Discharge [RC] PER UNIT ROUTINE CXR [Chest 2V] [CR] Stat CBC WITH AUTO DIFF [HEME] Stat Saline Lock Insert [OM.PC] Stat EKG 12 Lead [EK] Stat 11/03/17 19:15 CMP [COMPREHENSIVE METABOLIC PN,CMP] [CHEM] Stat Sodium Chloride 0.9% [Saline Flush] 10 ml FLUSH ASDIRECTED PRN 11/03/17 19:16 EKG Documentation Completion [RC] ASDIRECTED 11/03/17 19:17 DD [D-DIMER QUANTITATIVE] [COAG] Stat PRO B-TYPE NATRIUR PEPT,BNPPRO [CHEM] Stat Aspirin 324 mg PO ONETIME ONE 11/03/17 19:18 Labetalol [Normodyne] 10 mg IVPUSH ONETIME ONE - Assessment/Plan Admission H&P: Please use this note as an admission H&P Last 24 Hours: My Active Orders 11/03/17 TROPONIN I [CHEM] Stat 11/03/17 19:14 Oxygen Therapy [RC] PRN Ready for Discharge [RC] PER UNIT ROUTINE CXR [Chest 2V] [CR] Stat CBC WITH AUTO DIFF [HEME] Stat Saline Lock Insert [OM.PC] Stat EKG 12 Lead [EK] Stat 11/03/17 19:15 CMP [COMPREHENSIVE METABOLIC PN,CMP] [CHEM] Stat Sodium Chloride 0.9% [Saline Flush] 10 ml FLUSH ASDIRECTED PRN 11/03/17 19:16 EKG Documentation Completion [RC] ASDIRECTED 11/03/17 19:17 DD [D-DIMER QUANTITATIVE] [COAG] Stat PRO B-TYPE NATRIUR PEPT,BNPPRO [CHEM] Stat Aspirin 324 mg PO ONETIME ONE 11/03/17 19:18 Labetalol [Normodyne] 10 mg IVPUSH ONETIME ONE Plan: Admitted to the hospital for aggressive treatment
[2017-11-03] MEDS: Sodium Chloride 0.9% 10 ML Syringe FLUSH PRN (19:36)
[2017-11-03 19:48] LABS: CHLORIDE,CL 101 mmol/L (98-107); SODIUM,NA 140 mmol/L (136-145)
[2017-11-03] MEDS ORDERED: Albuterol/Ipratropium 3.0-0.5 MG/3 ML Neb Soln NEB PRN (20:52)
[2017-11-03] MEDS ORDERED: Furosemide 40 MG/4 ML VIAL IVPUSH ONE (21:24)
[2017-11-03] MEDS ORDERED: Nitroglycerin 0.4 MG Tab.SL SL PRN (21:25)
[2017-11-03] MEDS: Azithromycin 250 MG Tab PO SCH (22:17)
[2017-11-04] MEDS: Diltiazem 180 MG Cap.CD PO SCH (08:14)
[2017-11-04] MEDS: Azithromycin 250 MG Tab PO SCH (08:14)
[2017-11-04] MEDS: Magnesium Oxide 400 MG Tab PO SCH (08:14)
[2017-11-04] MEDS: Fluticasone Propionate Nasal Spray 16 GM Bottle NASBOTH SCH ×2 (08:15→17:30)
[2017-11-04] MEDS: Nicotine 21 MG/24 Hr Patch TRDERM SCH (08:16)
[2017-11-04] MEDS: Furosemide 40 MG/4 ML VIAL IVPUSH SCH (08:16)
[2017-11-04] MEDS: Lisinopril 10 MG Tab PO SCH (08:16)
[2017-11-04] MEDS: Budesonide 0.5 MG/2 ML Neb Susp NEB SCH ×2 (08:17→19:45)
[2017-11-04] MEDS: Sodium Chloride 0.9% 10 ML Syringe FLUSH PRN (08:18)
[2017-11-04 08:39] LABS: CHLORIDE,CL 101 mmol/L (98-107); SODIUM,NA 141 mmol/L (136-145)
[2017-11-04] MEDS: Acetaminophen 325 MG Tab PO PRN (12:33)
--- NOTE | 2017-11-04 13:23 | PCM.PN ---
- General Info Date of Service: 11/04/17 Functional Status: Reports: Tolerating Diet - Review of Systems General: Reports: No Symptoms HEENT: Reports: No Symptoms Pulmonary: Reports: Shortness of Breath, Wheezing Cardiovascular: Reports: No Symptoms Gastrointestinal: Reports: No Symptoms Genitourinary: Reports: No Symptoms Musculoskeletal: Reports: No Symptoms Skin: Reports: No Symptoms Neurological: Reports: No Symptoms Psychiatric: Reports: No Symptoms - Patient Data Vitals - Most Recent: Last Vital Signs Temp 99 F 11/04/17 12:00 Pulse 89 11/04/17 12:00 Resp 18 11/04/17 12:00 BP 113/54 L 11/04/17 12:00 Pulse Ox 94 L 11/04/17 12:00 Weight - Most Recent: 241 lb 6.4 oz I&O - Last 24 Hours: Intake & Output 11/03/17 11/04/17 11/04/17 22:59 06:59 14:59 Intake Total 240 400 600 Balance 240 400 600 Lab Results Last 24 Hours: Laboratory Results - last 24 hr 11/04/17 11/04/17 11/04/17 Range/Units 08:10 08:10 08:15 WBC 11.4 H (4.0-10.2) K/uL RBC 5.66 H (4.33-5.41) M/uL Hgb 16.0 D (13.1-16.8) g/dL Hct 47.9 (39.0-49.0) % MCV 84.6 (84.0-98.0) fL MCH 28.3 (28.2-33.3) pg MCHC 33.4 (31.7-36.0) g/dL RDW 13.6 (11.2-14.1) % Plt Count 196 (150-350) K/uL Neut % (Auto) 65.8 (45.0-80.0) % Lymph % (Auto) 25.0 (10.0-50.0) % [place] % (Auto) 8.4 (2.0-14.0) % Eos % (Auto) 0.7 (0.0-5.0) % Baso % (Auto) 0.1 (0.0-2.0) % Neut # (Auto) 7.48 H (1.40-7.00) K/uL Lymph # (Auto) 2.85 (0.50-3.50) K/uL [place] # (Auto) 0.96 (0.00-1.00) K/uL Eos # (Auto) 0.08 (0.00-0.50) K/uL Baso # (Auto) 0.01 (0.00-0.20) K/uL Sodium 141 (136-145) mmol/L Potassium 3.5 (3.5-5.1) mmol/L Chloride 101 (98-107) mmol/L Carbon Dioxide 27.7 (21.0-32.0) mmol/L BUN 14 (7-18) mg/dL Creatinine 0.86 (0.51-1.17) mg/dL Est Cr Clr Drug Dosing 90.23 mL/min Estimated GFR (MDRD) > 60 mL/min Glucose 154 H (74-106) mg/dL Calcium 8.9 (8.5-10.1) mg/dL Troponin I 0.000 (0.000-0.056) ng/mL Med Orders - Current: Current Medications Acetaminophen (Tylenol) 650 mg PO Q4H PRN PRN Reason: Pain Last Admin: 11/04/17 12:33 Dose: 650 mg Albuterol/Ipratropium (Duoneb 3.0-0.5 Mg/3 Ml) 3 ml NEB Q4HRRT PRN PRN Reason: Shortness of Breath Last Admin: 11/04/17 05:21 Dose: 3 ml Atorvastatin Calcium (Lipitor) 20 mg PO BEDTIME [facility] Azithromycin (Zithromax) 500 mg PO DAILY [facility] Stop: 11/06/17 20:00 Last Admin: 11/04/17 08:14 Dose: 500 mg Budesonide (Pulmicort) 0.5 mg NEB BIDRT [facility] Last Admin: 11/04/17 08:17 Dose: 0.5 mg Diltiazem HCl (Cardizem Cd) 180 mg PO DAILY [facility] Last Admin: 11/04/17 08:14 Dose: 180 mg Fluticasone Propionate (Flonase) 0 gm NASBOTH BID [facility] Last Admin: 11/04/17 08:15 Dose: 2 sprays Furosemide (Lasix) 40 mg IVPUSH DAILY [facility] Last Admin: 11/04/17 08:16 Dose: 40 mg Lisinopril (Prinivil) 20 mg PO DAILY [facility] Last Admin: 11/04/17 08:16 Dose: 20 mg Magnesium Oxide (Magnesium Oxide) 400 mg PO DAILY [facility] Last Admin: 11/04/17 08:14 Dose: 400 mg Nicotine (Habitrol) 21 mg TRDERM DAILY [facility] Last Admin: 11/04/17 08:16 Dose: 21 mg Nitroglycerin (Nitrostat) 0.4 mg SL Q1H PRN PRN Reason: systolic BP greater than 180 Sodium Chloride (Saline Flush) 10 ml FLUSH ASDIRECTED PRN PRN Reason: Keep Vein Open Last Admin: 11/04/17 08:18 Dose: 10 ml Discontinued Medications Albuterol (Proventil Neb Soln) Confirm Administered Dose 2.5 mg .ROUTE .STK-MED ONE Stop: 11/03/17 19:04 Last Admin: 11/03/17 19:08 Dose: 2.5 mg Aspirin (Aspirin) 324 mg PO ONETIME ONE Stop: 11/03/17 19:18 Last Admin: 11/03/17 19:35 Dose: 324 mg Furosemide (Lasix) 40 mg IVPUSH ONETIME ONE Stop: 11/03/17 21:25 Last Admin: 11/03/17 22:17 Dose: 40 mg Labetalol HCl (Normodyne) 10 mg IVPUSH ONETIME ONE PRN Reason: Protocol Stop: 11/03/17 19:19 Last Admin: 11/03/17 19:34 Dose: 10 mg - Exam Quality Assessment: Supplemental Oxygen, Urine Catheter General: Alert, Oriented HEENT: Pupils Equal, Pupils Reactive, EOMI, Mucous Membr. Moist/[place] Neck: Supple Lungs: Clear to Auscultation, Normal Respiratory Effort Cardiovascular: Regular Rate, Regular Rhythm GI/Abdominal Exam: Normal Bowel Sounds, Soft, Non-Tender, No Organomegaly, No Distention, No Abnormal Bruit, No Mass, Pelvis Stable (Male) Exam: Deferred (Patient self catheterizes) Back Exam: No: Normal Inspection, CVA Tenderness (L), Decreased Range of Motion , Muscle Spasm Skin: Warm, Dry, Intact Wound/Incisions: Healing Well Neurological: No New Focal Deficit Psy/Mental Status: Alert, Normal Affect, Normal Mood - Problem List & Annotations (1) Hypertensive urgency SNOMED Code(s): 024308289 Code(s): I10 - ESSENTIAL (PRIMARY) HYPERTENSION Status: Acute Current Visit: Yes Annotation/Comment:: Patient has severe hypertension we will aggressively treated with labetalol IV in the ER blood pressure came down nicely now 155/97. (2) Chest pain SNOMED Code(s): 31566884 Code(s): R07.9 - CHEST PAIN, UNSPECIFIED Status: Acute Priority: High Current Visit: Yes Onset Date: ~04/16/17 Qualifiers: Chest pain type: unspecified Qualified Code(s): R07.9 - Chest pain, unspecified Annotation/Comment:: At present time no chest pain for baby aspirins were given troponins negative will repeat in 12 hours (3) CHF (congestive heart failure) SNOMED Code(s): 55435590 Code(s): I50.9 - HEART FAILURE, UNSPECIFIED Status: Acute Priority: High Current Visit: Yes Qualifiers: Congestive heart failure type: unspecified congestive heart failure type Congestive heart failure chronicity: unspecified congestive heart failure chronicity Qualified Code(s): I50.9 - Heart failure, unspecified Annotation/Comment:: Chest x-ray revealed mild CHF BMP slightly elevated will haley coulter (4) COPD (chronic obstructive pulmonary disease) SNOMED Code(s): 35115536 Code(s): J44.9 - CHRONIC OBSTRUCTIVE PULMONARY DISEASE, UNSPECIFIED Status : Acute Priority: High Current Visit: Yes Qualifiers: COPD type: COPD with acute lower respiratory infection Qualified Code(s): J44.0 - Chronic obstructive pulmonary disease with acute lower respiratory infection Annotation/Comment:: Patient had moderate to severe COPD treated with albuterol Atrovent breathing improved significantly will consider steroids overnight (5) Polycythemia vera SNOMED Code(s): 420747291 Code(s): D45 - POLYCYTHEMIA VERA Status: Acute Current Visit: Yes (6) Polycythemia vera SNOMED Code(s): 282864848 Code(s): D45 - POLYCYTHEMIA VERA Status: Acute Current Visit: Yes Annotation/Comment:: Hemoglobin 18.1 will consider phlebotomy in the morning (7) Pneumonia SNOMED Code(s): 792016589 Code(s): J18.9 - PNEUMONIA, UNSPECIFIED ORGANISM Status: Acute Current Visit: Yes Annotation/Comment:: Continue with a azithromycin plus Rocephin 1 g daily - Problem List Review Problem List Initiated/Reviewed/Updated: Yes - My Orders Last 24 Hours: My Active Orders 11/03/17 20:00 Azithromycin [Zithromax] 500 mg PO DAILY 11/03/17 20:46 Ambulate [RC] ASDIRECTED Bedrest Bathroom Privileges [RC] ASDIRECTED Up ad Daniela [RC] ASDIRECTED 11/03/17 20:47 Patient Status [ADT] Routine Vital Signs [RC] Q4HR 11/03/17 20:49 Oxygen Therapy [RC] CONTINUOUS 11/03/17 20:52 Albuterol/Ipratropium [DuoNeb 3.0-0.5 MG/3 ML] 3 ml NEB Q4HRRT PRN 11/03/17 20:53 RT Aerosol Therapy [RC] 08,20 11/03/17 20:59 Code Status [Resuscitation Status] Routine 11/03/17 21:01 Telemetry Monitoring [Cardiac Monitoring] [RC] Q2HR 11/03/17 21:05 Communication Order [RC] QSHIFT 11/03/17 21:25 Nitroglycerin [Nitrostat] 0.4 mg SL Q1H PRN 11/04/17 05:11 Chest 2V [CR] AM 11/04/17 08:00 Budesonide [Pulmicort] 0.5 mg NEB BIDRT Diltiazem [Cardizem CD] 180 mg PO DAILY Fluticasone Propionate [Flonase] 0 gm NASBOTH BID Furosemide [Lasix] 40 mg IVPUSH DAILY Lisinopril [Prinivil] 20 mg PO DAILY Magnesium Oxide 400 mg PO DAILY Nicotine [Habitrol] 21 mg TRDERM DAILY 11/04/17 12:18 Acetaminophen [Tylenol] 650 mg PO Q4H PRN 11/04/17 13:30 Chest 2V [CR] AM CBC WITH AUTO DIFF [HEME] AM 11/04/17 20:00 atorvaSTATin [Lipitor] 20 mg PO BEDTIME 11/04/17 Breakfast 2 Gram Sodium Diet [DIET] 11/05/17 05:11 BASIC METABOLIC PANEL,BMP [CHEM] AM
[2017-11-04] MEDS: cefTRIAXone 1 GM in Sodium Chloride 0.9% 100 ML IV SCH (14:45)
[2017-11-04] MEDS: atorvaSTATin 10 MG Tab PO SCH (19:44)
[2017-11-04] MEDS ORDERED: guaiFENesin 600 MG Tab.ER PO SCH (20:00)
[2017-11-04] MEDS: guaiFENesin 600 MG Tab.ER PO PRN (20:11)
[2017-11-05 07:35] LABS: CHLORIDE,CL 101 mmol/L (98-107); SODIUM,NA 139 mmol/L (136-145)
[2017-11-05] MEDS: Azithromycin 250 MG Tab PO SCH (08:12)
[2017-11-05] MEDS: Lisinopril 10 MG Tab PO SCH (08:13)
[2017-11-05] MEDS: Diltiazem 180 MG Cap.CD PO SCH (08:13)
[2017-11-05] MEDS: Magnesium Oxide 400 MG Tab PO SCH (08:13)
[2017-11-05] MEDS: Furosemide 40 MG/4 ML VIAL IVPUSH SCH (08:14)
[2017-11-05] MEDS: Budesonide 0.5 MG/2 ML Neb Susp NEB SCH ×2 (08:15→19:14)
[2017-11-05] MEDS: Nicotine 21 MG/24 Hr Patch TRDERM SCH (08:17)
[2017-11-05] MEDS: Fluticasone Propionate Nasal Spray 16 GM Bottle NASBOTH SCH ×2 (08:17→17:07)
[2017-11-05] MEDS: cefTRIAXone 1 GM in Sodium Chloride 0.9% 100 ML IV SCH (13:16)
[2017-11-05] MEDS: guaiFENesin 600 MG Tab.ER PO PRN (13:32)
--- NOTE | 2017-11-05 13:43 | PCM.PN ---
- General Info Date of Service: 11/05/17 Functional Status: Reports: Other (Hypoxia) - Review of Systems General: Reports: No Symptoms HEENT: Reports: No Symptoms Pulmonary: Reports: Shortness of Breath Cardiovascular: Reports: No Symptoms Gastrointestinal: Reports: Other (Watery stool) Genitourinary: Reports: Other (Self cathetering) Musculoskeletal: Reports: No Symptoms Skin: Reports: No Symptoms Neurological: Reports: No Symptoms Psychiatric: Reports: No Symptoms - Patient Data Vitals - Most Recent: Last Vital Signs Temp 99 F 11/05/17 08:00 Pulse 83 11/05/17 08:00 Resp 18 11/05/17 08:00 BP 148/78 H 11/05/17 08:13 Pulse Ox 96 11/05/17 08:00 Weight - Most Recent: 241 lb 6.4 oz I&O - Last 24 Hours: Intake & Output 11/04/17 11/05/17 11/05/17 22:59 06:59 14:59 Intake Total 500 1240 Output Total 25 900 Balance 475 340 Lab Results Last 24 Hours: Laboratory Results - last 24 hr 11/05/17 11/05/17 Range/Units 07:11 07:11 WBC 13.1 H (4.0-10.2) K/uL RBC 5.51 H (4.33-5.41) M/uL Hgb 15.7 (13.1-16.8) g/dL Hct 46.7 (39.0-49.0) % MCV 84.8 (84.0-98.0) fL MCH 28.5 (28.2-33.3) pg MCHC 33.6 (31.7-36.0) g/dL RDW 13.7 (11.2-14.1) % Plt Count 196 (150-350) K/uL Neut % (Auto) 57.2 (45.0-80.0) % Lymph % (Auto) 32.3 (10.0-50.0) % [place] % (Auto) 9.3 (2.0-14.0) % Eos % (Auto) 1.0 (0.0-5.0) % Baso % (Auto) 0.2 (0.0-2.0) % Neut # (Auto) 7.51 H (1.40-7.00) K/uL Lymph # (Auto) 4.23 H (0.50-3.50) K/uL [place] # (Auto) 1.22 H (0.00-1.00) K/uL Eos # (Auto) 0.13 (0.00-0.50) K/uL Baso # (Auto) 0.02 (0.00-0.20) K/uL Sodium 139 (136-145) mmol/L Potassium 4.0 (3.5-5.1) mmol/L Chloride 101 (98-107) mmol/L Carbon Dioxide 30.1 (21.0-32.0) mmol/L BUN 19 H (7-18) mg/dL Creatinine 0.85 (0.51-1.17) mg/dL Est Cr Clr Drug Dosing 91.29 mL/min Estimated GFR (MDRD) > 60 mL/min Glucose 123 H (74-106) mg/dL Calcium 8.8 (8.5-10.1) mg/dL Med Orders - Current: Current Medications Acetaminophen (Tylenol) 650 mg PO Q4H PRN PRN Reason: Pain Last Admin: 11/04/17 12:33 Dose: 650 mg Albuterol/Ipratropium (Duoneb 3.0-0.5 Mg/3 Ml) 3 ml NEB Q4HRRT PRN PRN Reason: Shortness of Breath Last Admin: 11/04/17 05:21 Dose: 3 ml Atorvastatin Calcium (Lipitor) 20 mg PO BEDTIME [facility] Last Admin: 11/04/17 19:44 Dose: 20 mg Azithromycin (Zithromax) 500 mg PO DAILY [facility] Stop: 11/06/17 20:00 Last Admin: 11/05/17 08:12 Dose: 500 mg Budesonide (Pulmicort) 0.5 mg NEB BIDRT [facility] Last Admin: 11/05/17 08:15 Dose: 0.5 mg Diltiazem HCl (Cardizem Cd) 180 mg PO DAILY [facility] Last Admin: 11/05/17 08:13 Dose: 180 mg Fluticasone Propionate (Flonase) 0 gm NASBOTH BID [facility] Last Admin: 11/05/17 08:17 Dose: 16 sprays Furosemide (Lasix) 40 mg IVPUSH DAILY [facility] Last Admin: 11/05/17 08:14 Dose: 40 mg Guaifenesin (Mucinex) 600 mg PO BID PRN PRN Reason: Cough Last Admin: 11/04/17 20:11 Dose: 600 mg Ceftriaxone Sodium 1 gm/ (Sodium Chloride) 100 mls @ 200 mls/hr IV Q24H [facility] Last Admin: 11/05/17 13:16 Dose: 200 mls/hr Lisinopril (Prinivil) 20 mg PO DAILY [facility] Last Admin: 11/05/17 08:13 Dose: 20 mg Magnesium Oxide (Magnesium Oxide) 400 mg PO DAILY [facility] Last Admin: 11/05/17 08:13 Dose: 400 mg Nicotine (Habitrol) 21 mg TRDERM DAILY [facility] Last Admin: 11/05/17 08:17 Dose: 21 mg Nitroglycerin (Nitrostat) 0.4 mg SL Q1H PRN PRN Reason: systolic BP greater than 180 Sodium Chloride (Saline Flush) 10 ml FLUSH ASDIRECTED PRN PRN Reason: Keep Vein Open Last Admin: 11/04/17 08:18 Dose: 10 ml Discontinued Medications Albuterol (Proventil Neb Soln) Confirm Administered Dose 2.5 mg .ROUTE .STK-MED ONE Stop: 11/03/17 19:04 Last Admin: 11/03/17 19:08 Dose: 2.5 mg Aspirin (Aspirin) 324 mg PO ONETIME ONE Stop: 11/03/17 19:18 Last Admin: 11/03/17 19:35 Dose: 324 mg Furosemide (Lasix) 40 mg IVPUSH ONETIME ONE Stop: 11/03/17 21:25 Last Admin: 11/03/17 22:17 Dose: 40 mg Labetalol HCl (Normodyne) 10 mg IVPUSH ONETIME ONE PRN Reason: Protocol Stop: 11/03/17 19:19 Last Admin: 11/03/17 19:34 Dose: 10 mg - Exam Quality Assessment: Supplemental Oxygen (Patient O2 sats on room air is less than 90 will need to keep him on oxygen) General: Alert, Oriented HEENT: Pupils Equal, Pupils Reactive, EOMI, Mucous Membr. Moist/[place] Neck: Supple Lungs: Clear to Auscultation, Normal Respiratory Effort Cardiovascular: Regular Rate, Regular Rhythm GI/Abdominal Exam: Other (Watery stools looks like jelly) (Male) Exam: Deferred Back Exam: Normal Inspection, Full Range of Motion Extremities: Normal Inspection, Normal Range of Motion, Non-Tender, No Pedal Edema, Normal Capillary Refill Skin: Warm, Dry, Intact Neurological: No New Focal Deficit Psy/Mental Status: Alert, Normal Affect, Normal Mood - Problem List & Annotations (1) Hypertensive urgency SNOMED Code(s): 758212717 Code(s): I10 - ESSENTIAL (PRIMARY) HYPERTENSION Status: Acute Annotation/ Comment:: Blood pressure control at this time (2) Chest pain SNOMED Code(s): 63825703 Code(s): R07.9 - CHEST PAIN, UNSPECIFIED Status: Acute Priority: High Onset Date: ~04/16/17 Qualifiers: Chest pain type: unspecified Qualified Code(s): R07.9 - Chest pain, unspecified Annotation/Comment:: At present time no chest pain for baby aspirins were given troponins negative will repeat in 12 hours (3) CHF (congestive heart failure) SNOMED Code(s): 52433102 Code(s): I50.9 - HEART FAILURE, UNSPECIFIED Status: Acute Priority: High Qualifiers: Qualified Code(s): I50.9 - Heart failure, unspecified Annotation/Comment:: CHF controlled O2 saturations with ambulation 87% (4) COPD (chronic obstructive pulmonary disease) SNOMED Code(s): 71679394 Code(s): J44.9 - CHRONIC OBSTRUCTIVE PULMONARY DISEASE, UNSPECIFIED Status : Acute Priority: High Qualifiers: COPD type: COPD with acute lower respiratory infection Qualified Code(s): J44.0 - Chronic obstructive pulmonary disease with acute lower respiratory infection Annotation/Comment:: Patient doing well at current time we'll need home oxygen prior to discharge (5) Polycythemia vera SNOMED Code(s): 024305109 Code(s): D45 - POLYCYTHEMIA VERA Status: Acute (6) Polycythemia vera SNOMED Code(s): 154633241 Code(s): D45 - POLYCYTHEMIA VERA Status: Acute Annotation/Comment:: Resolving we'll send home follow up with myself (7) Pneumonia SNOMED Code(s): 957694158 Code(s): J18.9 - PNEUMONIA, UNSPECIFIED ORGANISM Status: Acute Qualifiers: Pneumonia type: due to unspecified organism Laterality: right Lung location: middle lobe of lung Qualified Code(s): J18.1 - Lobar pneumonia, unspecified organism Annotation/Comment:: At this time patient doing 100% better will discharge home on antibiotics and steroids follow-up in the clinic on the with myself - Problem List Review Problem List Initiated/Reviewed/Updated: Yes - My Orders Last 24 Hours: My Active Orders 11/04/17 13:30 cefTRIAXone [Rocephin] 1 gm Sodium Chloride 0.9% [Normal Saline] 100 ml IV Q24H 11/04/17 19:51 guaiFENesin [Mucinex] 600 mg PO BID PRN 11/04/17 20:00 atorvaSTATin [Lipitor] 20 mg PO BEDTIME 11/04/17 23:57 Vital Signs [RC] Q8HR 11/05/17 05:11 Chest 2V [CR] AM 11/05/17 10:42 OVA & PARASITES BY IMMUNOASSAY [MREF] Urgent STOOL CULTURE [MREF] Urgent 11/05/17 13:21 Admission Status [Patient Status] [ADT] Routine - Assessment Assessment:: Switch him from observation to inpatient secondary to hypoxia and need for oxygen continuously will monitor him closely continue him on antibiotics as ordered
[2017-11-05] MEDS: atorvaSTATin 10 MG Tab PO SCH (19:14)
[2017-11-05] MEDS: Acetaminophen 325 MG Tab PO PRN (23:45)
[2017-11-06 07:20] LABS: CHLORIDE,CL 102 mmol/L (98-107); SODIUM,NA 138 mmol/L (136-145)
[2017-11-06] MEDS: Sodium Chloride 0.9% 10 ML Syringe FLUSH PRN ×4 (07:22→16:17)
[2017-11-06] MEDS: Furosemide 40 MG/4 ML VIAL IVPUSH SCH (07:22)
[2017-11-06] MEDS: Nicotine 21 MG/24 Hr Patch TRDERM SCH (07:23)
[2017-11-06] MEDS: Fluticasone Propionate Nasal Spray 16 GM Bottle NASBOTH SCH ×2 (07:25→17:08)
[2017-11-06] MEDS: Budesonide 0.5 MG/2 ML Neb Susp NEB SCH ×2 (07:25→19:27)
[2017-11-06] MEDS: Lisinopril 10 MG Tab PO SCH (07:25)
[2017-11-06] MEDS: Diltiazem 180 MG Cap.CD PO SCH (07:25)
[2017-11-06] MEDS: Magnesium Oxide 400 MG Tab PO SCH (07:26)
[2017-11-06] MEDS: Azithromycin 250 MG Tab PO SCH (07:26)
--- NOTE | 2017-11-06 10:42 | PCM.PN ---
- General Info Date of Service: 11/06/17 Admission Dx/Problem (Free Text): Patient is a 66-year-old who was admitted with exacerbation of COPD/pneumonia doing better still unable to maintain saturations greater than 91% on room air will send home in a.m. with home oxygen. Functional Status: Reports: Ambulating - Review of Systems General: Reports: No Symptoms HEENT: Reports: No Symptoms Pulmonary: Reports: Shortness of Breath (With ambulation saturations down to 87 % on room air with activity) Cardiovascular: Reports: No Symptoms Gastrointestinal: Reports: No Symptoms Genitourinary: Reports: No Symptoms Musculoskeletal: Reports: No Symptoms Skin: Reports: No Symptoms Neurological: Reports: No Symptoms Psychiatric: Reports: No Symptoms - Patient Data Vitals - Most Recent: Last Vital Signs Temp 97.6 F 11/06/17 08:00 Pulse 66 11/06/17 08:00 Resp 15 11/06/17 08:00 BP 124/63 11/06/17 08:00 Pulse Ox 93 L 11/06/17 08:00 Weight - Most Recent: 241 lb 6.4 oz I&O - Last 24 Hours: Intake & Output 11/05/17 11/06/17 11/06/17 22:59 06:59 14:59 Intake Total 1340 300 360 Output Total 5445 266 3433 Balance 190 -200 -1040 Lab Results Last 24 Hours: Laboratory Results - last 24 hr 11/06/17 11/06/17 Range/Units 06:55 06:55 WBC 8.7 (4.0-10.2) K/uL RBC 4.99 (4.33-5.41) M/uL Hgb 14.2 D (13.1-16.8) g/dL Hct 42.8 (39.0-49.0) % MCV 85.8 (84.0-98.0) fL MCH 28.5 (28.2-33.3) pg MCHC 33.2 (31.7-36.0) g/dL RDW 13.5 (11.2-14.1) % Plt Count 177 (150-350) K/uL Neut % (Auto) 51.5 (45.0-80.0) % Lymph % (Auto) 36.4 (10.0-50.0) % [place] % (Auto) 9.3 (2.0-14.0) % Eos % (Auto) 2.5 (0.0-5.0) % Baso % (Auto) 0.3 (0.0-2.0) % Neut # (Auto) 4.45 (1.40-7.00) K/uL Lymph # (Auto) 3.16 (0.50-3.50) K/uL [place] # (Auto) 0.81 (0.00-1.00) K/uL Eos # (Auto) 0.22 (0.00-0.50) K/uL Baso # (Auto) 0.03 (0.00-0.20) K/uL Sodium 138 (136-145) mmol/L Potassium 4.2 (3.5-5.1) mmol/L Chloride 102 (98-107) mmol/L Carbon Dioxide 28.8 (21.0-32.0) mmol/L BUN 18 (7-18) mg/dL Creatinine 0.73 (0.51-1.17) mg/dL Est Cr Clr Drug Dosing 106.30 mL/min Estimated GFR (MDRD) > 60 mL/min Glucose 112 H (74-106) mg/dL Calcium 8.7 (8.5-10.1) mg/dL Med Orders - Current: Current Medications Acetaminophen (Tylenol) 650 mg PO Q4H PRN PRN Reason: Pain Last Admin: 11/05/17 23:45 Dose: 650 mg Albuterol/Ipratropium (Duoneb 3.0-0.5 Mg/3 Ml) 3 ml NEB Q4HRRT PRN PRN Reason: Shortness of Breath Last Admin: 11/04/17 05:21 Dose: 3 ml Atorvastatin Calcium (Lipitor) 20 mg PO BEDTIME [facility] Last Admin: 11/05/17 19:14 Dose: 20 mg Azithromycin (Zithromax) 500 mg PO DAILY [facility] Stop: 11/06/17 20:00 Last Admin: 11/06/17 07:26 Dose: 500 mg Budesonide (Pulmicort) 0.5 mg NEB BIDRT [facility] Last Admin: 11/06/17 07:25 Dose: 0.5 mg Diltiazem HCl (Cardizem Cd) 180 mg PO DAILY [facility] Last Admin: 11/06/17 07:25 Dose: 180 mg Fluticasone Propionate (Flonase) 0 gm NASBOTH BID [facility] Last Admin: 11/06/17 07:25 Dose: 2 sprays Furosemide (Lasix) 40 mg IVPUSH DAILY [facility] Last Admin: 11/06/17 07:22 Dose: 40 mg Guaifenesin (Mucinex) 600 mg PO BID PRN PRN Reason: Cough Last Admin: 11/05/17 13:32 Dose: 600 mg Ceftriaxone Sodium 1 gm/ (Sodium Chloride) 100 mls @ 200 mls/hr IV Q24H [facility] Last Admin: 11/05/17 13:16 Dose: 200 mls/hr Lisinopril (Prinivil) 20 mg PO DAILY [facility] Last Admin: 11/06/17 07:25 Dose: 20 mg Magnesium Oxide (Magnesium Oxide) 400 mg PO DAILY [facility] Last Admin: 11/06/17 07:26 Dose: 400 mg Nicotine (Habitrol) 21 mg TRDERM DAILY [facility] Last Admin: 11/06/17 07:23 Dose: 21 mg Nitroglycerin (Nitrostat) 0.4 mg SL Q1H PRN PRN Reason: systolic BP greater than 180 Sodium Chloride (Saline Flush) 10 ml FLUSH ASDIRECTED PRN PRN Reason: Keep Vein Open Last Admin: 11/06/17 07:22 Dose: 10 ml Discontinued Medications Albuterol (Proventil Neb Soln) Confirm Administered Dose 2.5 mg .ROUTE .STK-MED ONE Stop: 11/03/17 19:04 Last Admin: 11/03/17 19:08 Dose: 2.5 mg Aspirin (Aspirin) 324 mg PO ONETIME ONE Stop: 11/03/17 19:18 Last Admin: 11/03/17 19:35 Dose: 324 mg Furosemide (Lasix) 40 mg IVPUSH ONETIME ONE Stop: 11/03/17 21:25 Last Admin: 11/03/17 22:17 Dose: 40 mg Labetalol HCl (Normodyne) 10 mg IVPUSH ONETIME ONE PRN Reason: Protocol Stop: 11/03/17 19:19 Last Admin: 11/03/17 19:34 Dose: 10 mg - Exam Quality Assessment: Supplemental Oxygen, Urine Catheter (Patient self catheter) General: Alert, Oriented HEENT: Pupils Equal, Pupils Reactive, EOMI, Mucous Membr. Moist/[place] Neck: Supple Lungs: Decreased Breath Sounds, Rales Cardiovascular: Regular Rate, Regular Rhythm GI/Abdominal Exam: Normal Bowel Sounds, Soft, Non-Tender, No Organomegaly, No Distention, No Abnormal Bruit, No Mass, Pelvis Stable (Male) Exam: No Hernia, Normal Inspection, Normal Prostate, Circumcised Back Exam: Normal Inspection, Full Range of Motion Extremities: Normal Inspection, Normal Range of Motion, Non-Tender, No Pedal Edema, Normal Capillary Refill Skin: Warm, Dry, Intact Neurological: No New Focal Deficit Psy/Mental Status: Alert, Normal Affect, Normal Mood - Problem List & Annotations (1) Hypertensive urgency SNOMED Code(s): 894341353 Code(s): I10 - ESSENTIAL (PRIMARY) HYPERTENSION Status: Acute Current Visit: Yes Annotation/Comment:: Blood pressure control at this time (2) Chest pain SNOMED Code(s): 56318134 Code(s): R07.9 - CHEST PAIN, UNSPECIFIED Status: Acute Priority: High Current Visit: Yes Onset Date: ~04/16/17 Qualifiers: Chest pain type: unspecified Qualified Code(s): R07.9 - Chest pain, unspecified Annotation/Comment:: At present time no chest pain for baby aspirins were given troponins negative will repeat in 12 hours (3) CHF (congestive heart failure) SNOMED Code(s): 62365554 Code(s): I50.9 - HEART FAILURE, UNSPECIFIED Status: Acute Priority: High Current Visit: Yes Qualifiers: Congestive heart failure type: unspecified congestive heart failure type Congestive heart failure chronicity: unspecified congestive heart failure chronicity Qualified Code(s): I50.9 - Heart failure, unspecified Annotation/Comment:: CHF controlled O2 saturations with ambulation 87% (4) COPD (chronic obstructive pulmonary disease) SNOMED Code(s): 10308537 Code(s): J44.9 - CHRONIC OBSTRUCTIVE PULMONARY DISEASE, UNSPECIFIED Status : Acute Priority: High Current Visit: Yes Qualifiers: COPD type: COPD with acute lower respiratory infection Qualified Code(s): J44.0 - Chronic obstructive pulmonary disease with acute lower respiratory infection Annotation/Comment:: Patient doing well at current time we'll need home oxygen prior to discharge (5) Polycythemia vera SNOMED Code(s): 155190078 Code(s): D45 - POLYCYTHEMIA VERA Status: Acute Current Visit: Yes (6) Polycythemia vera SNOMED Code(s): 587991859 Code(s): D45 - POLYCYTHEMIA VERA Status: Acute Current Visit: Yes Annotation/Comment:: Hemoglobin 18.1 will consider phlebotomy in the morning (7) Pneumonia SNOMED Code(s): 679088063 Code(s): J18.9 - PNEUMONIA, UNSPECIFIED ORGANISM Status: Acute Current Visit: Yes Annotation/Comment:: Will continue him on current antibiotic therapy continue him on oxygen secondary to hypoxia on room air - Problem List Review Problem List Initiated/Reviewed/Updated: Yes - My Orders Last 24 Hours: My Active Orders 11/05/17 13:21 Admission Status [Patient Status] [ADT] Routine 11/05/17 13:34 Patient Status [ADT] Routine Notify Provider Intake and Out [RC] ASDIRECTED Vital Signs [RC] Q4H 11/05/17 18:00 OVA & PARASITES BY IMMUNOASSAY [MREF] Urgent STOOL CULTURE [MREF] Urgent 11/05/17 20:07 Antiembolic Devices [RC] PER UNIT ROUTINE NEFTALI Hose [Antiembolic Hose] [OM.PC] Routine 11/06/17 10:33 Communication Order [RC] ASDIRECTED 11/06/17 10:45 Chest 2V [CR] AM CBC WITH AUTO DIFF [HEME] AM 11/07/17 05:11 BASIC METABOLIC PANEL,BMP [CHEM] AM - Assessment Assessment:: Switch him from observation to inpatient secondary to hypoxia and need for oxygen continuously will monitor him closely continue him on antibiotics as ordered
[2017-11-06] MEDS: methylPREDNISolone Sodium Succinate 40 MG/1 ML SDV IVPUSH SCH ×3 (11:54→22:06)
[2017-11-06] MEDS: cefTRIAXone 1 GM in Sodium Chloride 0.9% 100 ML IV SCH (14:03)
[2017-11-06] MEDS: atorvaSTATin 10 MG Tab PO SCH (19:27)
[2017-11-07] MEDS ORDERED: Temazepam 15 MG Cap PO PRN (01:35)
[2017-11-07] MEDS: methylPREDNISolone Sodium Succinate 40 MG/1 ML SDV IVPUSH SCH ×2 (03:20→09:25)
[2017-11-07] MEDS: Lisinopril 10 MG Tab PO SCH (07:25)
[2017-11-07] MEDS: Magnesium Oxide 400 MG Tab PO SCH (07:26)
[2017-11-07] MEDS: Diltiazem 180 MG Cap.CD PO SCH (07:26)
[2017-11-07] MEDS: Fluticasone Propionate Nasal Spray 16 GM Bottle NASBOTH SCH (07:27)
[2017-11-07] MEDS: Furosemide 40 MG/4 ML VIAL IVPUSH SCH (07:27)
[2017-11-07] MEDS: Budesonide 0.5 MG/2 ML Neb Susp NEB SCH (07:27)
[2017-11-07] MEDS: Nicotine 21 MG/24 Hr Patch TRDERM SCH (07:27)
[2017-11-07 08:12] LABS: CHLORIDE,CL 101 mmol/L (98-107); SODIUM,NA 136 mmol/L (136-145)
[2017-11-07 11:23] VITALS: BP 160/92
[2017-11-07] MEDS: cefTRIAXone 1 GM in Sodium Chloride 0.9% 100 ML IV SCH (13:28)
--- NOTE | 2017-11-07 13:41 | PCM.DCSUM1 ---
Discharge Summary - Hospital Course HPI Initial Comments: Patient is a 66-year-old who was admitted with hypoxia treated for COPD and pneumonia doing 100% better with saturations at room air today and 95% at this time patient will be discharged he is to follow-up in my office on the - Discharge Data Discharge Date: 11/07/17 Discharge Disposition: Home, Self-Care 01 Condition: Good - Discharge Diagnosis/Problem(s) (1) Hypertensive urgency SNOMED Code(s): 135619876 ICD Code: I10 - ESSENTIAL (PRIMARY) HYPERTENSION Status: Acute Problem Details: Blood pressure control at this time (2) Chest pain SNOMED Code(s): 97306347 ICD Code: R07.9 - CHEST PAIN, UNSPECIFIED Status: Acute Priority: High Onset Date: ~04/16/17 Problem Details: At present time no chest pain for baby aspirins were given troponins negative will repeat in 12 hours Qualifiers: Chest pain type: unspecified Qualified Code(s): R07.9 - Chest pain, unspecified (3) CHF (congestive heart failure) SNOMED Code(s): 98849878 ICD Code: I50.9 - HEART FAILURE, UNSPECIFIED Status: Acute Priority: High Problem Details: CHF controlled O2 saturations with ambulation 87% Qualifiers: Congestive heart failure type: unspecified congestive heart failure type Congestive heart failure chronicity: unspecified congestive heart failure chronicity Qualified Code(s): I50.9 - Heart failure, unspecified (4) COPD (chronic obstructive pulmonary disease) SNOMED Code(s): 70682861 ICD Code: J44.9 - CHRONIC OBSTRUCTIVE PULMONARY DISEASE, UNSPECIFIED Status : Acute Priority: High Problem Details: Patient doing well at current time we'll need home oxygen prior to discharge Qualifiers: COPD type: COPD with acute lower respiratory infection Qualified Code(s): J44.0 - Chronic obstructive pulmonary disease with acute lower respiratory infection (5) Polycythemia vera SNOMED Code(s): 238092701 ICD Code: D45 - POLYCYTHEMIA VERA Status: Acute (6) Polycythemia vera SNOMED Code(s): 839899986 ICD Code: D45 - POLYCYTHEMIA VERA Status: Acute Problem Details: Resolving we'll send home follow up with myself (7) Pneumonia SNOMED Code(s): 935340852 ICD Code: J18.9 - PNEUMONIA, UNSPECIFIED ORGANISM Status: Acute Problem Details: At this time patient doing 100% better will discharge home on antibiotics and steroids follow-up in the clinic on the with myself Qualifiers: Pneumonia type: due to unspecified organism Laterality: right Lung location: middle lobe of lung Qualified Code(s): J18.1 - Lobar pneumonia, unspecified organism - Discharge Plan Prescriptions/Med Rec: Albuterol/Ipratropium [DuoNeb 3.0-0.5 MG/3 ML] 3 ml NEB Q4HRRT PRN 30 Days #120 neb PRN Reason: Shortness Of Breath Budesonide [Pulmicort] 0.5 mg NEB BIDRT 30 Days #60 neb Furosemide [Lasix] 40 mg PO DAILY 30 Days #30 tab methylPREDNISolone [Methylprednisolone] 4 mg PO ASDIRECTED 6 Days #1 tab.ds.pk Home Medications: Home Meds Albuterol [Ventolin HFA] 2 puff INH Q4HR 11/03/17 [History] Diltiazem [Dilacor XR] 180 mg PO DAILY 11/03/17 [History] Lisinopril 20 mg PO DAILY 11/03/17 [History] Magnesium Oxide [Magnesium] 400 mg PO DAILY 11/03/17 [History] Potassium Chloride [Klor-Con M20] 20 meq PO DAILY 11/03/17 [History] atorvaSTATin [Lipitor] 20 mg PO BEDTIME 11/03/17 [History] Acetaminophen [Tylenol] 650 mg PO Q4H PRN tablet 11/07/17 [Rx] Albuterol/Ipratropium [DuoNeb 3.0-0.5 MG/3 ML] 3 ml NEB Q4HRRT PRN 30 Days #120 neb 11/07/17 [Rx] Budesonide [Pulmicort] 0.5 mg NEB BIDRT 30 Days #60 neb 11/07/17 [Rx] Fluticasone Propionate [Flonase] 0 gm NASBOTH BID bottle 11/07/17 [Rx] Furosemide [Lasix] 40 mg PO DAILY 30 Days #30 tab 11/07/17 [Rx] Nitroglycerin [IJP: Nitroglycerin] 0.4 mg SL Q1H PRN tablet, sublingual [Rx] atorvaSTATin [Lipitor] 20 mg PO BEDTIME tablet 11/07/17 [Rx] guaiFENesin [Mucinex] 600 mg PO BID PRN tab.er 11/07/17 [Rx] methylPREDNISolone [Methylprednisolone] 4 mg PO ASDIRECTED 6 Days #1 tab.ds.pk 11/07/17 [Rx] Patient Handouts: Colonoscopy, [id number], Chronic Obstructive Pulmonary Disease, [id number], Heart Failure, [id number] Forms: ED Department Discharge Referrals: PCP,None [Ordering Only Provider] - - Discharge Summary/Plan Comment DC Time >30 min.: No Discharge Summary/Plan Comment: Patient we much better will discharge home referred him to the [facility] liaison follow-up will be in the clinic to [id number] - Patient Data Vitals - Most Recent: Last Vital Signs Temp 97.5 F 11/07/17 07:23 Pulse 71 11/07/17 07:23 Resp 20 11/07/17 10:00 BP 160/92 H 11/07/17 10:00 Pulse Ox 96 11/07/17 10:00 Weight - Most Recent: 241 lb 6.4 oz I&O - Last 24 hours: Intake & Output 11/06/17 11/07/17 11/07/17 22:59 06:59 14:59 Intake Total 8736 448 6510 Output Total 900 1900 1250 Balance 180 -1360 30 Lab Results - Last 24 hrs: Laboratory Results - last 24 hr 11/07/17 11/07/17 Range/Units 07:07 07:07 WBC 9.7 (4.0-10.2) K/uL RBC 5.35 (4.33-5.41) M/uL Hgb 15.1 (13.1-16.8) g/dL Hct 45.4 (39.0-49.0) % MCV 84.9 (84.0-98.0) fL MCH 28.2 (28.2-33.3) pg MCHC 33.3 (31.7-36.0) g/dL RDW 13.4 (11.2-14.1) % Plt Count 208 (150-350) K/uL Neut % (Auto) 81.6 H (45.0-80.0) % Lymph % (Auto) 15.3 (10.0-50.0) % Baldwin % (Auto) 3.0 (2.0-14.0) % Eos % (Auto) 0.0 (0.0-5.0) % Baso % (Auto) 0.1 (0.0-2.0) % Neut # (Auto) 7.91 H (1.40-7.00) K/uL Lymph # (Auto) 1.48 (0.50-3.50) K/uL Baldwin # (Auto) 0.29 (0.00-1.00) K/uL Eos # (Auto) 0.00 (0.00-0.50) K/uL Baso # (Auto) 0.01 (0.00-0.20) K/uL Sodium 136 (136-145) mmol/L Potassium 4.5 (3.5-5.1) mmol/L Chloride 101 (98-107) mmol/L Carbon Dioxide 26.7 (21.0-32.0) mmol/L BUN 16 (7-18) mg/dL Creatinine 0.62 (0.51-1.17) mg/dL Est Cr Clr Drug Dosing 125.16 mL/min Estimated GFR (MDRD) > 60 mL/min Glucose 176 H (74-106) mg/dL Calcium 9.5 (8.5-10.1) mg/dL Med Orders - Current: Current Medications Acetaminophen (Tylenol) 650 mg PO Q4H PRN PRN Reason: Pain Last Admin: 11/05/17 23:45 Dose: 650 mg Albuterol/Ipratropium (Duoneb 3.0-0.5 Mg/3 Ml) 3 ml NEB Q4HRRT PRN PRN Reason: Shortness of Breath Last Admin: 11/04/17 05:21 Dose: 3 ml Atorvastatin Calcium (Lipitor) 20 mg PO BEDTIME [facility] Last Admin: 11/06/17 19:27 Dose: 20 mg Budesonide (Pulmicort) 0.5 mg NEB BIDRT [facility] Last Admin: 11/07/17 07:27 Dose: 0.5 mg Diltiazem HCl (Cardizem Cd) 180 mg PO DAILY [facility] Last Admin: 11/07/17 07:26 Dose: 180 mg Fluticasone Propionate (Flonase) 0 gm NASBOTH BID [facility] Last Admin: 11/07/17 07:27 Dose: 2 sprays Furosemide (Lasix) 40 mg IVPUSH DAILY [facility] Last Admin: 11/07/17 07:27 Dose: 40 mg Guaifenesin (Mucinex) 600 mg PO BID PRN PRN Reason: Cough Last Admin: 11/05/17 13:32 Dose: 600 mg Ceftriaxone Sodium 1 gm/ (Sodium Chloride) 100 mls @ 200 mls/hr IV Q24H [facility] Last Admin: 11/07/17 13:28 Dose: 200 mls/hr Lisinopril (Prinivil) 20 mg PO DAILY [facility] Last Admin: 11/07/17 07:25 Dose: 20 mg Magnesium Oxide (Magnesium Oxide) 400 mg PO DAILY [facility] Last Admin: 11/07/17 07:26 Dose: 400 mg Methylprednisolone Sodium Succinate (Solu-Medrol) 40 mg IVPUSH Q6H [facility] Last Admin: 11/07/17 09:25 Dose: 40 mg Nicotine (Habitrol) 21 mg TRDERM DAILY [facility] Last Admin: 11/07/17 07:27 Dose: 21 mg Nitroglycerin (Nitrostat) 0.4 mg SL Q1H PRN PRN Reason: systolic BP greater than 180 Sodium Chloride (Saline Flush) 10 ml FLUSH ASDIRECTED PRN PRN Reason: Keep Vein Open Last Admin: 11/06/17 16:17 Dose: 10 ml Temazepam (Restoril) 15 mg PO BEDTIME PRN PRN Reason: Insomnia Last Admin: 11/07/17 01:50 Dose: 15 mg Discontinued Medications Albuterol (Proventil Neb Soln) Confirm Administered Dose 2.5 mg .ROUTE .STK-MED ONE Stop: 11/03/17 19:04 Last Admin: 11/03/17 19:08 Dose: 2.5 mg Aspirin (Aspirin) 324 mg PO ONETIME ONE Stop: 11/03/17 19:18 Last Admin: 11/03/17 19:35 Dose: 324 mg Azithromycin (Zithromax) 500 mg PO DAILY [facility] Stop: 11/06/17 20:00 Last Admin: 11/06/17 07:26 Dose: 500 mg Furosemide (Lasix) 40 mg IVPUSH ONETIME ONE Stop: 11/03/17 21:25 Last Admin: 11/03/17 22:17 Dose: 40 mg Labetalol HCl (Normodyne) 10 mg IVPUSH ONETIME ONE PRN Reason: Protocol Stop: 11/03/17 19:19 Last Admin: 11/03/17 19:34 Dose: 10 mg - Exam General: Reports: Alert, Oriented HEENT: Reports: Pupils Equal, Pupils Reactive, EOMI, Mucous Membr. Moist/[place] Neck: Reports: Supple Lungs: Reports: Rales Cardiovascular: Reports: Regular Rate, Regular Rhythm GI/Abdominal Exam: Normal Bowel Sounds, Soft, Non-Tender, No Organomegaly, No Distention, No Abnormal Bruit, No Mass, Pelvis Stable Rectal (Males) Exam: Deferred Back Exam: Reports: Normal Inspection, Full Range of Motion Skin: Reports: Warm, Dry Neurological: Reports: No New Focal Deficit Psy/Mental Status: Reports: Alert, Normal Affect, Normal Mood *Q Meaningful Use (DIS) - VTE *Q VTE Criteria *Q: - Stroke *Q Stroke Criteria *Q: - AMI *Q AMI Criteria *Q:
== END 2017-11-07 15:10 | disposition home or self-care (01) | DRG 190 ==
LOC: LL.ED 19:00 → LL.MS 20:27 → OBSVTOIN 20:27 → UNDOADMIN 20:27 → INTOOBSV 20:27 → LL.MS 22:11 → UNDODISIN 11-07 15:10
PROVIDERS: ADMIT Family Medicine; ATTEND Family Medicine
DX: J44.0 Chronic obstructive pulmonary disease with (acute) lower respiratory infection (principal); J18.9 Pneumonia, unspecified organism; M19.90 Unspecified osteoarthritis, unspecified site; I16.0 Hypertensive urgency; M54.9 Dorsalgia, unspecified; F17.210 Nicotine dependence, cigarettes, uncomplicated; R09.02 Hypoxemia; J44.1 Chronic obstructive pulmonary disease with (acute) exacerbation; I50.9 Heart failure, unspecified; D45 Polycythemia vera; H54.7 Unspecified visual loss; G89.29 Other chronic pain
CPT/HCPCS: 36415; 71046; 80053; 83880; 84484; 85025; 85379; 93005; 96374; 99285; A9270; J7050; J7620; 80048; 87045; 87046; 87328; 87329; 94640; 94761; J0696; J1940; J2920

== ENCOUNTER 2017-11-16 10:36 | Day surgery (SDC) | payer MEDICARE, OTHER ==
[2017-11-16] MEDS ORDERED: Lactated Ringers 1,000 ML IV SCH (10:45)
[2017-11-16] MEDS ORDERED: Sodium Chloride 0.9% 10 ML Syringe FLUSH PRN (10:45)
[2017-11-16] MEDS ORDERED: fentaNYL 100 MCG/2 ML SDV ONE ×2 (11:53→12:02)
[2017-11-16] MEDS ORDERED: Midazolam 1 MG/ML 2 ML SDV ONE ×2 (11:53→12:02)
[2017-11-16] MEDS ORDERED: Propofol 200 MG/20 ML SDV ONE ×2 (11:53→12:02)
--- NOTE | 2017-11-16 12:03 | PCM.PN ---
- General Info Date of Service: 11/16/17 - Review of Systems Systems Review Comment:: 67-year-old male referred by Dr. Fischer for his initial colonoscopy. He recently was noted to have guaiac positive stools. He is medically stable to proceed with colonoscopy. His recent history and physical is reviewed and there is no significant changes. I have discussed the proposed colonoscopy with the patient. Risks such as but not limited to bleeding and GI injury reviewed. He appears to understand and agrees to proceed. - Patient Data Vitals - Most Recent: Last Vital Signs Temp 97.7 F 11/16/17 11:34 Pulse 92 11/16/17 11:34 Resp 20 11/16/17 11:34 BP 132/74 11/16/17 11:34 Pulse Ox 96 11/16/17 11:34 Weight - Most Recent: 102.058 kg Med Orders - Current: Current Medications Lactated Ringer's (Ringers, Lactated) 1,000 mls @ 125 mls/hr IV ASDIRECTED MERY Last Admin: 11/16/17 11:42 Dose: 125 mls/hr Sodium Chloride (Saline Flush) 10 ml FLUSH ASDIRECTED PRN PRN Reason: Keep Vein Open Discontinued Medications Fentanyl (Sublimaze) Confirm Administered Dose 100 mcg .ROUTE .STK-MED ONE Stop: 11/16/17 11:54 Midazolam HCl (Versed 1 Mg/Ml) Confirm Administered Dose 2 mg .ROUTE .STK-MED ONE Stop: 11/16/17 11:54 Propofol (Diprivan 20 Ml) Confirm Administered Dose 200 mg .ROUTE .STK-MED ONE Stop: 11/16/17 11:54 - Problem List Review Problem List Initiated/Reviewed/Updated: Yes - My Orders Last 24 Hours: My Active Orders 11/16/17 10:45 Patient Status [ADT] Routine Peripheral IV Care [RC] . DIRECTED Verify Patient Consent Obtain [RC] ASDIRECTED Lactated Ringers [Ringers, Lactated] 1,000 ml IV ASDIRECTED Sodium Chloride 0.9% [Saline Flush] 10 ml FLUSH ASDIRECTED PRN Peripheral IV Insertion Adult [OM.PC] Routine - Assessment Assessment:: Guaiac positive stools - Plan Plan:: Colonoscopy
--- NOTE | 2017-11-16 12:58 | PCM.OPNOTE ---
- General Post-Op/Procedure Note Date of Surgery/Procedure: 11/16/17 Operative Procedure(s): Incomplete Colonoscopy with Polypectomy Findings: Tortuous Colon with 2 Polyps mid transverse colon Moderate hemorrhoids Prep poor Pre Op Diagnosis: Guiac + Stools Post-Op Diagnosis: Colon Polyps. Hemorrhoids Anesthesia Technique: MAC Primary Surgeon: Jack Yu Pathology: Transverse colon polyps Tortuous Colon Output, Urine Amount: 0 EBL in mLs: 0 Complications: None Condition: Good
[2017-11-16 17:26] VITALS: BP 121/51
--- NOTE | 2017-11-16 19:16 | OR ---
Date of Procedure: 11/16/2017 PREOPERATIVE DIAGNOSIS: Guaiac-positive stools. POSTOPERATIVE DIAGNOSES: 1. Transverse colon polyps. 2. Hemorrhoids. 3. Tortuous colon. OPERATION PERFORMED: Incomplete colonoscopy to transverse colon with polypectomy. INDICATIONS FOR SURGERY: This 67-year-old male was referred for his initial colonoscopy. He was recently noted to have guaiac-positive stools. FINDINGS: The patient's colon is dilated and markedly tortuous. The lining appears generally satisfactory although a cluster of two polyps were noted in what was felt to be the mid transverse colon. These were 7 mm and 4 mm in size and semi-pedunculated. No other polyps were noted during the exam although the prep was quite poor and polyps may have been missed. The patient also had a moderate degree of hemorrhoids, which did not appear to be actively bleeding at this time. The patient's prep was poor and with this factor along with a tortuous colon, the scope was not able to be safely advanced past the transverse colon region. DESCRIPTION OF PROCEDURE: The patient was taken to the operating room. He was given intravenous sedation and with him in the left lateral decubitus position, digital rectal exam was performed showing no rectal masses. The Olympus colonoscope was inserted into the rectum. Retroflexed examination of the rectal canal was performed. The scope was then carefully advanced under direct visualization up through the colon. It was felt that approximately the mid transverse colon area could be reached but with the poor prep and despite persistent effort and hand pressure on the abdomen, the scope could not be safely advanced past this point. In the transverse colon, the above-described polyps were identified. These were removed with a cautery snare and retrieved into a polyp trap. The scope was slowly withdrawn sequentially re-examining the colonic segments and once the distal portion of colon was examined as well as could reasonably be achieved with the prep, the scope was removed and the patient was taken from the operating room in satisfactory condition. ESTIMATED BLOOD LOSS: Zero. COMPLICATIONS: None. PROGNOSIS: Good. COMMENTS: The patient will be scheduled for a barium enema to complete the evaluation of his colon. THEODORE Yu MD /[id number]
== END 2017-11-16 14:38 | disposition home or self-care (01) ==
LOC: LL.SDS 10:36
PROVIDERS: ATTEND Surgery
DX: D12.3 Benign neoplasm of transverse colon (principal); K64.9 Unspecified hemorrhoids; Z79.899 Other long term (current) drug therapy
CPT/HCPCS: 45385; J2250; J2704; J3010; J7120; 00812; 88305

== ENCOUNTER 2018-01-07 12:06 | Emergency (ER) | payer MEDICARE, SELFPAY ==
[2018-01-07 12:52] LABS: CHLORIDE,CL 103 mmol/L (98-107); SODIUM,NA 138 mmol/L (136-145)
--- NOTE | 2018-01-07 13:30 | EDM.PDOC ---
ED HPI GENERAL MEDICAL PROBLEM - General Chief Complaint: Respiratory Problem Stated Complaint: SOB was on way over and fell Time Seen by Provider: 01/07/18 12:23 Source of Information: Reports: Patient History Limitations: Reports: No Limitations - History of Present Illness INITIAL COMMENTS - FREE TEXT/NARRATIVE: Patient describes sudden increase in baseline SOB that started yesterday afternoon. Has non-O2 dependent COPD. Has home nebs. Quit smoking two weeks ago. No change in baseline cough. No new pain. No fevers/chills or recent URIs/infection symptoms Nebs do not really help improve SOB. No other changes reported. Nurse reports patient appeared dusky at time of initial evaluation. Improved over time when he was able to sit and rest in ER. Sats 94% on room air. Placed on 1liter of O2 via NC - Related Data Allergies Allergy/AdvReac Type Severity Reaction Status Date / Time No Known Allergies Allergy Verified 01/07/18 12:11 Home Meds: Home Meds Albuterol [Ventolin HFA] 2 puff INH Q4HR 11/03/17 [History] Lisinopril 20 mg PO DAILY 11/03/17 [History] Magnesium Oxide [Magnesium] 400 mg PO DAILY 11/03/17 [History] Potassium Chloride [Klor-Con M20] 20 meq PO DAILY 11/03/17 [History] atorvaSTATin [Lipitor] 20 mg PO BEDTIME 11/03/17 [History] Acetaminophen [Tylenol] 650 mg PO Q4H PRN tablet 11/07/17 [Rx] Albuterol/Ipratropium [DuoNeb 3.0-0.5 MG/3 ML] 3 ml NEB Q4HRRT PRN 30 Days #120 neb 11/07/17 [Rx] Budesonide [Pulmicort] 0.5 mg NEB BIDRT 30 Days #60 neb 11/07/17 [Rx] Furosemide [Lasix] 40 mg PO DAILY 30 Days #30 tab 11/07/17 [Rx] guaiFENesin [Mucinex] 600 mg PO BID PRN tab.er 11/07/17 [Rx] Diltiazem HCl [Cartia Xt] 180 mg PO DAILY 11/16/17 [History] Fluticasone Propionate [Flonase] 1 sprays NASBOTH BID 11/16/17 [History] Nitroglycerin [Nitrostat] 0.4 mg PO ASDIRECTED 11/16/17 [History] Aspirin [Ecotrin] 81 mg PO DAILY 01/07/18 [History] Past Medical History - Past Health History Medical/Surgical History: Denies Medical/Surgical History HEENT History: Reports: Other (See Below) Other HEENT History: has reading glasses. Has dentures Cardiovascular History: Reports: Afib, Heart Murmur, High Cholesterol, Hypertension Other Cardiovascular History: Previous history of hypertension by hospital records with no current medical therapy, chronic dependent edema Respiratory History: Reports: Bronchitis, Recurrent, COPD Gastrointestinal History: Reports: Chronic Constipation Other Gastrointestinal History: Umbilical hernia Genitourinary History: Reports: Other (See Below) Other Genitourinary History: hx. of bladder problems. pt. does self catherizations Musculoskeletal History: Reports: None Neurological History: Reports: None Psychiatric History: Reports: None Endocrine/Metabolic History: Reports: None Hematologic History: Reports: None Immunologic History: Reports: None Oncologic (Cancer) History: Reports: None Dermatologic History: Reports: None - Infectious Disease History Infectious Disease History: Reports: Chicken Pox, Mumps, Shingles - Past Surgical History Head Surgeries/Procedures: Reports: None HEENT Surgical History: Reports: Oral Surgery, Other (See Below) Other HEENT Surgeries/Procedures: Complete teeth extraction Cardiovascular Surgical History: Reports: None Respiratory Surgical History: Reports: None GI Surgical History: Reports: None Male Surgical History: Reports: Circumcision, Suprapubic Catheter Placement, TURP-Transurethral Resection of Prostate, Other (See Below) Other Male Surgeries/Procedures: Circumcision as an infant, TURP 2 initially in 2008 and then in 2009, suprapubic catheter placement in 2009 Endocrine Surgical History: Reports: None Neurological Surgical History: Reports: None Musculoskeletal Surgical History: Reports: None Oncologic Surgical History: Reports: None Dermatological Surgical History: Reports: None - Past Imaging History Past Imaging History: Reports: Other (See Below) (Unknown) Social & Family History - Family History HEENT: Reports: None Cardiac: Reports: CAD, Hypertension, MT, Other (See Below) Other Cardiac Family History: Brother with hypertension, mother with fatal MT at age 75 Respiratory: Reports: COPD, Other (See Below) Other Respiratory Family Hisory: Father with COPD with history of tobacco use GI: Reports: None : Reports: None OBGYN: Reports: None Musculoskeletal: Reports: Arthritis, Osteoarthritis, Other (See Below) Other Musculoskeletal Family History: Brother with osteoarthritis Neurological: Reports: None Psychiatric: Reports: None Endocrine/Metabolic: Reports: Diabetes, type II, IDDM, Other (See Below) Other Endocrine/Metabolic Family History: Mother with IDDM Hematologic: Reports: None Immunologic: Reports: None Dermatologic: Reports: None Oncologic: Reports: None - Tobacco Use Smoking Status *Q: Current Every Day Smoker Years of Tobacco use: 50 Packs/Tins Daily: 1 Used Tobacco, but Quit: No Second Hand Smoke Exposure: No - Caffeine Use Caffeine Use: Reports: Coffee - Alcohol Use Days Per Week of Alcohol Use: 4 (No previous DWIs, problems with alcohol abuse, etc.) Number of Drinks Per Day: 2 (Usually beer) Total Drinks Per Week: 8 Alcohol Use Comment: 2 drinks over the last month - Recreational Drug Use Recreational Drug Use: No Drug Use in Last 12 Months: No - Living Situation & Occupation Living situation: Reports: Single ( in 2009 with no children with his although his did have children from a previous relationship), Alone 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 Denies: Wheezing, Pleuritic Chest Pain, Sputum, Hemoptysis Cardiovascular: Reports: Dyspnea on Exertion. Denies: Chest Pain, Lightheadedness, Palpitations, Syncope GI/Abdominal: Reports: No Symptoms : Reports: Other (no changes, patient self-caths 4 times a day due to old abdominal injury) Musculoskeletal: Reports: No Symptoms (no acute changes) Skin: Reports: Cyanosis (reported by nurse at time of intake, mild. Now improved. ) Neurological: Reports: No Symptoms Psychiatric: Reports: No Symptoms ED EXAM, GENERAL - Physical Exam Exam: See Below Exam Limited By: No Limitations General Appearance: Alert, WD/WN, No Apparent Distress Eye Exam: Bilateral Eye: EOMI, PERRL Ears: Normal External Exam Nose: No: Nasal Deformity, Nasal Swelling, Nasal Drainage Throat/Mouth: Normal Lips, Normal Voice, No Airway Compromise Head: Atraumatic, Normocephalic Neck: Supple, Non-Tender Respiratory/Chest: Decreased Breath Sounds (throughout), Crackles (scattered, bilateral), Wheezing (bilateral, mild), Accessory Muscle Use (mild). No: Stridor, Retractions Cardiovascular: Normal Peripheral Pulses, No Edema, No Murmur, Tachycardia Peripheral Pulses: 2+: Radial (L), Radial (R) GI/Abdominal: Soft, Non-Tender (Male) Exam: Deferred Rectal (Males) Exam: Deferred Back Exam: No: CVA Tenderness (L), CVA Tenderness (R), Muscle Spasm, Paraspinal Tenderness, Vertebral Tenderness Extremities: Non-Tender, Normal Capillary Refill Neurological: Alert, Oriented, Normal Cognition, No Motor/Sensory Deficits Psychiatric: Normal Affect, Normal Mood Skin Exam: Warm, Dry, Intact, Normal Color Course - Vital Signs Last Recorded V/S: Last Vital Signs Temp 36.6 C 01/07/18 13:49 Pulse 85 01/07/18 14:19 Resp 24 H 01/07/18 14:19 BP 106/63 01/07/18 14:19 Pulse Ox 93 L 01/07/18 14:19 - Orders/Labs/Meds Orders: Active Orders 24 hr Category Date Time Status RT Aerosol Therapy [RC] ASDIRECTED Care 01/07/18 14:23 Ordered Chest 2V [CR] Stat Exams 01/07/18 12:25 Taken Labs: Laboratory Tests 01/07/18 01/07/18 01/07/18 Range/Units 12:30 12:30 12:30 WBC 10.1 (4.0-10.2) K/uL RBC 5.64 H (4.33-5.41) M/uL Hgb 15.9 D (13.1-16.8) g/dL Hct 47.2 (39.0-49.0) % MCV 83.7 L (84.0-98.0) fL MCH 28.2 (28.2-33.3) pg MCHC 33.7 (31.7-36.0) g/dL RDW 13.8 (11.2-14.1) % Plt Count 218 (150-350) K/uL Neut % (Auto) 52.7 (45.0-80.0) % Lymph % (Auto) 33.1 (10.0-50.0) % [place] % (Auto) 7.7 (2.0-14.0) % Eos % (Auto) 6.0 H (0.0-5.0) % Baso % (Auto) 0.5 (0.0-2.0) % Neut # (Auto) 5.31 (1.40-7.00) K/uL Lymph # (Auto) 3.34 (0.50-3.50) K/uL [place] # (Auto) 0.78 (0.00-1.00) K/uL Eos # (Auto) 0.60 H (0.00-0.50) K/uL Baso # (Auto) 0.05 (0.00-0.20) K/uL D-Dimer, Quantitative 291 (0-400) ng/mL Sodium 138 (136-145) mmol/L Potassium 4.0 (3.5-5.1) mmol/L Chloride 103 (98-107) mmol/L Carbon Dioxide 25.7 (21.0-32.0) mmol/L BUN 16 (7-18) mg/dL Creatinine 0.79 (0.51-1.17) mg/dL Est Cr Clr Drug Dosing TNP Estimated GFR (MDRD) > 60 mL/min Glucose 118 H (74-106) mg/dL Calcium 9.3 (8.5-10.1) mg/dL Total Bilirubin 0.6 (0.2-1.0) mg/dL AST 17 (15-37) U/L ALT 25 (12-78) U/L Alkaline Phosphatase 124 H (46-116) IU/L Total Protein 7.9 (6.4-8.2) g/dL Albumin 4.2 (3.4-5.0) g/dL Ethyl Alcohol 0.000 (0.000-0.080) g/dL Meds: Medications Discontinued Medications Generic Name Dose Route Start Last Admin Trade Name Freq PRN Reason Stop Dose Admin Albuterol/Ipratropium 3 ml 01/07/18 14:23 Duoneb 3.0-0.5 Mg/3 Ml NEB 01/07/18 14:24 ONETIME ONE - Radiology Interpretation Free Text/Narrative:: Chest film appeared to show pneumothorax with mild midline shift. Stat read requested from Radiology. - Re-Assessments/Exams Free Text/Narrative Re-Assessment/Exam: 01/07/18 14:38 Patient improved when able to rest in ER and was on NC O2 and stated that he felt better. Initially tachy with RR 28 upon arrival. Sats maintained around 94 %-95%. Heart rate improved to 90 and RR improved to 24. BP stable. Stat read requested once Xray suggested spontaneous pneumothorax. There was a prolonged wait due to Radiology load being experienced at [facility]. Confirmation obtained. Call placed to [facility] to transfer patient for further care and probable chest tube placement. Patient accepted by and will be initially seen in ER. EMS notified. Patient remained stable throughout stay prior to transfer. If patient is admitted to [facility] he is to tell them about starting his colonoscopy prep as not to delay scheduled colonoscopy due to suspicious nature of colon lesion that is being investigated. Departure - Departure Time of Disposition: 14:43 Disposition: DC/Tfer to Acute Hospital 02 Condition: Good Clinical Impression: Spontaneous pneumothorax COPD (chronic obstructive pulmonary disease) Qualifiers: COPD type: COPD with acute lower respiratory infection Qualified Code(s): J44.0 - Chronic obstructive pulmonary disease with acute lower respiratory infection - Discharge Information Referrals: Fredo Fischer MD [Primary Care Provider] - Forms: ED Department Discharge - My Orders Last 24 Hours: My Active Orders 01/07/18 12:25 Chest 2V [CR] Stat 01/07/18 14:23 RT Aerosol Therapy [RC] ASDIRECTED - Assessment/Plan Last 24 Hours: My Active Orders 01/07/18 12:25 Chest 2V [CR] Stat 01/07/18 14:23 RT Aerosol Therapy [RC] ASDIRECTED
[2018-01-07] MEDS ORDERED: Albuterol/Ipratropium 3.0-0.5 MG/3 ML Neb Soln NEB ONE (14:23)
[2018-01-07 16:04] VITALS: BP 130/79
== END 2018-01-07 14:56 ==
LOC: LL.ED 12:06
DX: J93.83 Other pneumothorax (principal); J44.0 Chronic obstructive pulmonary disease with (acute) lower respiratory infection; E78.00 Pure hypercholesterolemia, unspecified; I10 Essential (primary) hypertension; F17.210 Nicotine dependence, cigarettes, uncomplicated; Z79.899 Other long term (current) drug therapy; Z79.82 Long term (current) use of aspirin
CPT/HCPCS: 36415; 71046; 80053; 85025; 85379; 94640; 99285; G0480; 99284

== ENCOUNTER 2018-03-27 22:15 | Inpatient (IN) | payer MEDICARE ==
[2018-03-27] MEDS ORDERED: Famotidine 20 MG/2 ML SDV IVPUSH ONE (22:35)
--- NOTE | 2018-03-27 22:35 | EDM.PDOC ---
ED HPI GENERAL MEDICAL PROBLEM - General Chief Complaint: Respiratory Problem Stated Complaint: Difficulty breathing Time Seen by Provider: 03/27/18 22:30 Source of Information: Reports: Patient, EMS, Old Records ([facility] chart/EMR). Denies: EMS Notes Reviewed (Not available at time of dictation) History Limitations: Reports: No Limitations - History of Present Illness INITIAL COMMENTS - FREE TEXT/NARRATIVE: Patient was brought to the emergency room via ambulance with mill dresser accompaniment with O2 by nonrebreather mask at 15 L/m initiated by the mill dresser. Patient has been expressing some progressive dyspnea and yellowish productive cough during the last week. He has been somewhat noncompliant with his nebulizer therapy with last DuoNeb treatment at about 9 AM this morning. He has not been using his Pulmicort for quite some time secondary to running out of medications? The patient denies any pain, fever or known exposure to infection. The patient denies any chest pain/pressure, heart flutter, dizziness , orthostasis, orthopnea, diaphoresis, paresthesias, recent decreased exercise tolerance, or any other anginal-type symptoms. No recent history of abdominal pain, heartburn, nausea, diarrhea, melena, gross hematochezia, or any food intolerance, including fatty foods, etc.. Onset: Gradual Duration: Week(s): (As above) Location: Reports: Other (No pain) Quality: Reports: Same as Previous Episode Severity: Moderate Improves with: Reports: None Worsens with: Reports: None Context: Reports: Other (As above). Denies: Sick Contact Associated Symptoms: Reports: Cough, cough w sputum, Shortness of Breath. 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(s) (As above) - Related Data Allergies Allergy/AdvReac Type Severity Reaction Status Date / Time No Known Allergies Allergy Verified 01/07/18 12:11 Home Meds: Home Meds Albuterol [Ventolin HFA] 2 puff INH Q4HR 11/03/17 [History] Lisinopril 20 mg PO DAILY 11/03/17 [History] Magnesium Oxide [Magnesium] 400 mg PO DAILY 11/03/17 [History] Potassium Chloride [Klor-Con M20] 20 meq PO DAILY 11/03/17 [History] atorvaSTATin [Lipitor] 20 mg PO BEDTIME 11/03/17 [History] Acetaminophen [Tylenol] 650 mg PO Q4H PRN tablet 11/07/17 [Rx] Albuterol/Ipratropium [DuoNeb 3.0-0.5 MG/3 ML] 3 ml NEB Q4HRRT PRN 30 Days #120 neb 11/07/17 [Rx] Budesonide [Pulmicort] 0.5 mg NEB BIDRT 30 Days #60 neb 11/07/17 [Rx] Furosemide [Lasix] 40 mg PO DAILY 30 Days #30 tab 11/07/17 [Rx] guaiFENesin [Mucinex] 600 mg PO BID PRN tab.er 11/07/17 [Rx] Diltiazem HCl [Cartia Xt] 180 mg PO DAILY 11/16/17 [History] Fluticasone Propionate [Flonase] 1 sprays NASBOTH BID 11/16/17 [History] Nitroglycerin [Nitrostat] 0.4 mg PO ASDIRECTED 11/16/17 [History] Aspirin [Ecotrin] 81 mg PO DAILY 01/07/18 [History] Bisacodyl [Dulcolax] 5 mg PO ASDIRECTED PRN 03/28/18 [History] Past Medical History HEENT History: Reports: Impaired Vision, Other (See Below) Other HEENT History: Patient wears reading glasses Cardiovascular History: Reports: Arrhythmia, Heart Failure, Heart Murmur, High Cholesterol, Hypertension. Denies: Afib, Aneurysm, Blood Clots/VTE/DVT, CAD, OH , PTCA, Syncope Other Cardiovascular History: 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 Chronic dependent edema. Grade 1 diastolic dysfunction by echocardiogram in April 2017. Respiratory History: Reports: Bronchitis, Recurrent, COPD, Pneumonia, Recurrent , Pneumothorax, Pulmonary Fibrosis, Other (See Below). Denies: Asthma, Intubation, Difficult, Intubation, Previous, PE, Sleep Apnea Other Respiratory History: Spontaneous right sided pneumothorax on 01/07/18. Gastrointestinal History: Reports: Chronic Constipation, Colon Polyp, Hemorrhoids. Denies: Celiac Disease, Cholelithiasis, Chronic Diarrhea, Diverticulosis, Fecal Incontinence, GERD, GI Bleed, Hepatitis, Hiatal Hernia, Inflammatory Bowel Disease, Irritable Bowel Syndrome, Jaundice, Pancreatitis, PUD Other Gastrointestinal History: Tubular adenoma 2 in the transverse colon by incomplete colonoscopy as below with additional large sigmoid polyp by barium enema on 12/14/17. Umbilical hernia. Genitourinary History: Reports: BPH, Retention, Urinary, UTI, Recurrent, Other ( See Below). Denies: Acute Renal Failure, Chronic Renal Insuffiency, Dialysis, Renal Calculus, STD, Urinary Incontinence Other Genitourinary History: Neurogenic bladder with self catherizations. Musculoskeletal History: Reports: Arthritis, Back Pain, Chronic, Neck Pain, Chronic, Osteoarthritis. Denies: Amputation, Fracture, Gout, RA, SLE Neurological History: Reports: None. Denies: Alzheimers Disease, Cerebral Aneurysms, Concussion, CVA, Headaches, Chronic, Head Trauma, Migraines, MS, Neuropathy, Peripheral, Parkinson's, Seizure, TIA Psychiatric History: Reports: None. Denies: Abuse, Victim of, ADD, ADHD, Addiction, Aggressive/Hostile Behaviors, Anxiety, Dementia, Depression, Psych Hospitalization(s), PTSD, Suicide Attempt, Suicidal Ideation Endocrine/Metabolic History: Reports: None. Denies: Diabetes, Type I, Diabetes , Type II, Diabetes Mellitus, Type 3c, Hypothyroidism, IDDM, Osteoporosis Hematologic History: Reports: None. Denies: Anemia, Blood Transfusion(s), Iron Deficiency Immunologic History: Reports: None. Denies: AIDS, HIV, SLE Oncologic (Cancer) History: Reports: None. Denies: Basal Cell Carcinoma, Colon , Hodgkin's Lymphoma, Leukemia, Lymphoma, Malignant Melanoma, Prostate, Squamous Cell Carcinoma Dermatologic History: Reports: None. Denies: Eczema, Psoriasis - Infectious Disease History Infectious Disease History: Reports: Chicken Pox, Mumps, Shingles (Left chin region in the 1980s). Denies: C-Difficile, Measles, Meningitis, Mononucleosis, MRSA, Pertussis (Whooping Cough), Rheumatic Fever, RSV, Rubella, Scarlet Fever, VRE - Past Surgical History Head Surgeries/Procedures: Reports: None HEENT Surgical History: Reports: Oral Surgery, Other (See Below). Denies: Adenoidectomy, Cataract Surgery, Eye Surgery, Laser Surgery, LASIK, Myringotomy w Tube(s), Naso-Sinus Surgery Other HEENT Surgeries/Procedures: Complete teeth extraction with complete dentures uppers and lowers. Cardiovascular Surgical History: Reports: None. Denies: Varicose Respiratory Surgical History: Reports: Other (See Below) Other Respiratory Surgeries/Procedures: Chest tube insertion for spontaneous pneumothorax on 01/07/18. GI Surgical History: Reports: Colonoscopy, Polypectomy, Other (See Below). Denies: Appendectomy, Cholecystectomy, EGD, Hernia, Abdominal, Hernia, Inguinal , Hernia Repair/Other Other GI Surgeries/Procedures: Polypectomy 2 of tubular adenomas in the transverse colon as above. Incomplete Colonoscopy secondary to poor bowel preparation and tortuous colon on 11/16/17 with follow-up enema as below. Male Surgical History: Reports: Circumcision, Suprapubic Catheter Placement, TURP-Transurethral Resection of Prostate, Other (See Below) Other Male Surgeries/Procedures: Circumcision as an infant, TURP 2 initially in 2008 and then in 2009, suprapubic catheter placement in 2009 Endocrine Surgical History: Reports: None Neurological Surgical History: Reports: None. Denies: C-Spine, Discectomy, Intracranial, Laminectomy, Lumbar Spine, Sacral Spine, Spinal Fusion, Thoracic Spine, Vertebroplasty Musculoskeletal Surgical History: Reports: None. Denies: Arthroscopic Knee, Arthroscopic Procedure, Carpal Tunnel, Ganglion Cyst, Hip Replacement, Joint Replacement, ORIF, Shoulder Surgery Oncologic Surgical History: Reports: None Dermatological Surgical History: Reports: None - Past Imaging History Past Imaging History: Reports: Barium Enema (12/14/17), Cardiac Echo (04/25/17 with ejection fraction of 5560 percent and otherwise results as above) Social & Family History - Family History HEENT: Reports: None. Denies: Glaucoma, Macular Degeneration, Retinal Detachment Cardiac: Reports: CAD, Hypertension, OH, Other (See Below). Denies: Aneurysm, Arrhythmia, Blood Clots/VTE/DVT, Bypass, Heart Failure, High Cholesterol, PVD/ COD, Stent, Syncope Other Cardiac Family History: Brother with hypertension, mother with fatal OH at age 75 Respiratory: Reports: COPD, Other (See Below). Denies: Asthma, PE, Pneumothorax , Sleep Apnea Other Respiratory Family Hisory: Father with COPD with history of tobacco use GI: Reports: None. Denies: Celiac Disease, Cholelithiasis, Chronic Constipation , Colon Polyps, GERD, GI bleed, Inflammatory Bowel Disease, Irritable Bowel Syndrome, PUD : Reports: None. Denies: Dialysis, Renal Calculus, Renal Disease/ Insufficiency OBGYN: Reports: None. Denies: Endometriosis, Recurrent Spontaneous Musculoskeletal: Reports: Arthritis, Osteoarthritis, Other (See Below). Denies : Gout, RA, SLE Other Musculoskeletal Family History: Brother with osteoarthritis Neurological: Reports: None. Denies: Alzheimers Disease, Cerebral Aneurysms, CVA, Dementia, Migraines, Parkinson's, Seizure, TIA Psychiatric: Reports: None. Denies: Abuse, Victim of, ADD, ADHD, Anxiety, Depression, Psych Hospitalization(s), Psychosis, PTSD, Suicide Attempt Endocrine/Metabolic: Reports: Diabetes, type II, IDDM, Other (See Below). Denies: Diabetes, Type I, Diabetes Mellitus, Type 3c, Hypothyroidism Other Endocrine/Metabolic Family History: Mother with IDDM Hematologic: Reports: None. Denies: Anemia, SLE Immunologic: Reports: None. Denies: AIDS, HIV, SLE Dermatologic: Reports: None. Denies: Eczema, Psoriasis Oncologic: Reports: None. Denies: Bladder, Colon, Hodgkin's Lymphoma, Leukemia , Lymphoma, Non-Hodgkin's Lymphoma, Prostate, Skin - Tobacco Use Smoking Status *Q: Current Every Day Smoker Tobacco Use Within Last Twelve Months: Cigarettes Years of Tobacco use: 54 Packs/Tins Daily: 1 Packs/Tins Daily Comment: Started smoking at age 13 with maximum use of 2 packs per day Used Tobacco, but Quit: No Smoking Cessation Information Provided To Patient: Yes (At discharge as below) Second Hand Smoke Exposure: No Second Hand Smoke Education Provided: No - Caffeine Use Caffeine Use: Reports: Coffee (6 cups per day), Tea (Occasional). Denies: Energy Drinks, Soda - Alcohol Use Alcohol Use History: Yes Days Per Week of Alcohol Use: 4 Number of Drinks Per Day: 2 Number of Drinks Per Day Comment: Usually beer, although he has not been drinking much during the last couple of months. No previous DWIs, problems with alcohol abuse, etc. 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 ED EXAM, GENERAL - Physical Exam Exam: See Below Exam Limited By: No Limitations General Appearance: Alert, WD/WN, No Apparent Distress Eye Exam: Bilateral Eye: EOMI, Normal Inspection (No nystagmus), PERRL Ears: Normal External Exam, Normal Canal, Hearing Grossly Normal, Normal TMs Nose: Normal Inspection, Normal Mucosa, No Blood Throat/Mouth: Normal Inspection, Normal Lips, Normal Teeth, Normal Gums, Normal Oropharynx, Normal Voice, No Airway Compromise. No: Dysphagia, Inflammation Head: Atraumatic, Normocephalic. No: Facial Swelling, Facial Tenderness, Sinus Tenderness Neck: Normal Inspection, Supple, Non-Tender, Full Range of Motion. No: Carotid Bruit, Lymphadenopathy (L), Lymphadenopathy (R), Thyromegaly Respiratory/Chest: No Respiratory Distress, No Accessory Muscle Use, Chest Non- Tender, Rales (Moderate diffuse bilateral), Rhonchi (Moderate diffuse bilateral) , Wheezing (Moderate diffuse bilateral). No: Pleural Rub, Retractions Cardiovascular: Normal Peripheral Pulses, No Gallop, No JVD, No Murmur, No Rub, Extra Beats (Occasional PVCs, regular rate). No: No Edema (Dependent edema as below), Gallop/S3, Gallop/S4, Friction Rub Peripheral Pulses: 2+: Radial (L), Radial (R), Dorsalis Pedis (L), Dorsalis Pedis (R) GI/Abdominal: Normal Bowel Sounds, Soft, Non-Tender, No Organomegaly, No Distention, No Abnormal Bruit, No Mass, Pelvis Stable, Hernia (4 cm in diameter nonincarcerated umbilical hernia), Other (Obese). No: Guarding (Male) Exam: Deferred Rectal (Males) Exam: Deferred Back Exam: Normal Inspection, Full Range of Motion. No: CVA Tenderness (L), CVA Tenderness (R), Muscle Spasm Extremities: Normal Inspection, Normal Range of Motion, Non-Tender, Normal Capillary Refill, Pedal Edema (Stable by history trace to +1 bilateral pedal/ pretibial edema) Neurological: Alert, Oriented, CN II-XII Intact, Normal Cognition, Normal Gait, Normal Reflexes (Negative Babinski's), No Motor/Sensory Deficits Psychiatric: Normal Affect, Normal Mood Skin Exam: Warm, Dry, Intact, Normal Color, No Rash. No: Diaphoretic, Wound/ Incision Lymphatic: No Adenopathy EKG INTERPRETATION EKG Date: 03/27/18 Time: 22:50 Rhythm: NSR Rate (Beats/Min): 92 [place]: Normal (Neutral cardiac axis which is a change from previous left cardiac axis) P-Wave: Enlarged (Moderate diffuse biphasic P waves) QRS: Wide (Yours interval of 0.10 seconds representing an incomplete right bundle branch block with T-wave inversion in lead V1 and new T-wave inversion in lead V2) ST-T: Other (As above) QT: Prolonged (382/472) DE/PQ Interval: 0.17 seconds Comparison: Change From Previous EKG (As above since last EKG on 11/03/17) EKG Interpretation Comments: 1. Probable anterior wall cardiac ischemia 2. Left atrial enlargement 3. Incomplete right bundle branch block Course - Vital Signs Last Recorded V/S: Last Vital Signs Temp 37.1 C 03/27/18 22:15 Pulse 99 03/27/18 22:21 Resp 26 H 03/28/18 00:13 BP 159/76 H 03/28/18 00:13 Pulse Ox 95 03/28/18 00:13 Vital Signs - 24 hr 03/27/18 03/27/18 03/27/18 22:15 22:21 22:45 Temperature [ 37.1 C Temporal] Pulse, 99 99 Peripheral [ Pulse Oximetry] Respiratory 23 H 22 H 23 H Rate Blood Pressure 169/106 H 155/85 H 127/77 [Left Upper Arm ] O2 Sat by Pulse 98 96 96 Oximetry 03/27/18 03/27/18 03/27/18 23:00 23:15 23:30 Temperature [ Temporal] Pulse, Peripheral [ Pulse Oximetry] Respiratory 21 H 20 21 H Rate Blood Pressure 128/72 132/77 136/75 [Left Upper Arm ] O2 Sat by Pulse 96 97 95 Oximetry 03/27/18 03/27/18 23:45 23:59 Temperature [ Temporal] Pulse, Peripheral [ Pulse Oximetry] Respiratory 21 H 19 Rate Blood Pressure 152/71 H 135/69 [Left Upper Arm ] O2 Sat by Pulse 96 97 Oximetry - Orders/Labs/Meds Orders: Active Orders 24 hr Category Date Time Status Cardiac Monitoring [RC] . DIRECTED Care 03/27/18 22:36 Active EKG Documentation Completion [RC] ASDIRECTED Care 03/27/18 22:36 Active Oxygen Therapy, ED [RC] CONTINUOUS Care 03/27/18 22:36 Active Peripheral IV Care [RC] . DIRECTED Care 03/27/18 22:36 Active Pulse Oximetry [RC] CONTINUOUS Care 03/27/18 22:36 Active RT Aerosol Therapy [RC] ASDIRECTED Care 03/27/18 22:38 Active Up With Assistance [RC] PFP Care 03/27/18 22:36 Active Vital Signs [RC] PFP Care 03/27/18 22:36 Active Nothing per Oral Now Diet [DIET] Diet 03/27/18 Breakfast Active Chest 1V Frontal [CR] Stat Exams 03/27/18 22:36 Taken CULTURE SPUTUM + SMEAR [RM] Routine Lab 03/27/18 22:30 Results Sodium Chloride 0.9% [Saline Flush] Med 03/27/18 22:35 Active 10 ml FLUSH ASDIRECTED PRN Obtain Past Medical Record [OM.PC] Urgent Oth 03/27/18 22:36 Active Peripheral IV Insertion Adult [OM.PC] Stat Oth 03/27/18 22:36 Ordered Resuscitation Status Stat Resus Stat 03/27/18 22:35 Ordered Medication Orders Sodium Chloride (Saline Flush) 10 ml FLUSH ASDIRECTED PRN PRN Reason: Keep Vein Open Last Admin: 03/27/18 22:57 Dose: 10 ml Labs: Laboratory Tests 03/27/18 03/27/18 03/27/18 Range/Units 22:50 22:50 22:50 WBC 10.1 (4.0-10.2) K/uL RBC 5.73 H (4.33-5.41) M/uL Hgb 16.3 (13.1-16.8) g/dL Hct 48.6 (39.0-49.0) % MCV 84.8 (84.0-98.0) fL MCH 28.4 (28.2-33.3) pg MCHC 33.5 (31.7-36.0) g/dL RDW 13.4 (11.2-14.1) % Plt Count 234 (150-350) K/uL Neut % (Auto) 47.3 (45.0-80.0) % Lymph % (Auto) 37.8 (10.0-50.0) % [place] % (Auto) 7.0 (2.0-14.0) % Eos % (Auto) 7.4 H (0.0-5.0) % Baso % (Auto) 0.5 (0.0-2.0) % Neut # (Auto) 4.77 (1.40-7.00) K/uL Lymph # (Auto) 3.82 H (0.50-3.50) K/uL [place] # (Auto) 0.71 (0.00-1.00) K/uL Eos # (Auto) 0.75 H (0.00-0.50) K/uL Baso # (Auto) 0.05 (0.00-0.20) K/uL PT 10.1 (9.8-11.7) SEC INR 0.9 APTT 24.5 (22.1-29.8) SEC D-Dimer, Quantitative 208 (0-400) ng/mL Sodium (136-145) mmol/L Potassium (3.5-5.1) mmol/L Chloride (98-107) mmol/L Carbon Dioxide (21.0-32.0) mmol/L BUN (7-18) mg/dL Creatinine (0.51-1.17) mg/dL Est Cr Clr Drug Dosing mL/min Estimated GFR (MDRD) mL/min Glucose (74-106) mg/dL Lactic Acid (0.4-2.0) mmol/L Uric Acid (2.6-7.2) mg/dL Calcium (8.5-10.1) mg/dL Magnesium (1.8-2.4) mg/dL Total Bilirubin (0.2-1.0) mg/dL AST (15-37) U/L ALT (12-78) U/L Alkaline Phosphatase (46-116) IU/L Creatine Kinase (26-308) U/L Creatine Kinase Index (0.0-2.5) % CK-MB (CK-2) (0.00-3.60) ng/mL Troponin I (0.000-0.056) ng/mL NT-Pro-B Natriuret Pep (0-125) pg/mL Total Protein (6.4-8.2) g/dL Albumin (3.4-5.0) g/dL TSH, Ultra Sensitive (0.358-3.740) mIU/mL 03/27/18 03/27/18 Range/Units 22:50 22:50 WBC (4.0-10.2) K/uL RBC (4.33-5.41) M/uL Hgb (13.1-16.8) g/dL Hct (39.0-49.0) % MCV (84.0-98.0) fL MCH (28.2-33.3) pg MCHC (31.7-36.0) g/dL RDW (11.2-14.1) % Plt Count (150-350) K/uL Neut % (Auto) (45.0-80.0) % Lymph % (Auto) (10.0-50.0) % [place] % (Auto) (2.0-14.0) % Eos % (Auto) (0.0-5.0) % Baso % (Auto) (0.0-2.0) % Neut # (Auto) (1.40-7.00) K/uL Lymph # (Auto) (0.50-3.50) K/uL [place] # (Auto) (0.00-1.00) K/uL Eos # (Auto) (0.00-0.50) K/uL Baso # (Auto) (0.00-0.20) K/uL PT (9.8-11.7) SEC INR APTT (22.1-29.8) SEC D-Dimer, Quantitative (0-400) ng/mL Sodium 138 (136-145) mmol/L Potassium 4.5 (3.5-5.1) mmol/L Chloride 102 (98-107) mmol/L Carbon Dioxide 26.7 (21.0-32.0) mmol/L BUN 24 H (7-18) mg/dL Creatinine 1.04 (0.51-1.17) mg/dL Est Cr Clr Drug Dosing 77.94 mL/min Estimated GFR (MDRD) > 60 mL/min Glucose 128 H (74-106) mg/dL Lactic Acid 1.4 (0.4-2.0) mmol/L Uric Acid 6.9 (2.6-7.2) mg/dL Calcium 9.3 (8.5-10.1) mg/dL Magnesium 1.8 (1.8-2.4) mg/dL Total Bilirubin 0.4 (0.2-1.0) mg/dL AST 14 L (15-37) U/L ALT 24 (12-78) U/L Alkaline Phosphatase 110 (46-116) IU/L Creatine Kinase 145 (26-308) U/L Creatine Kinase Index 3.9 H (0.0-2.5) % CK-MB (CK-2) 5.60 H* (0.00-3.60) ng/mL Troponin I 0.000 (0.000-0.056) ng/mL NT-Pro-B Natriuret Pep 85 (0-125) pg/mL Total Protein 8.1 (6.4-8.2) g/dL Albumin 4.1 (3.4-5.0) g/dL TSH, Ultra Sensitive 1.344 (0.358-3.740) mIU/mL Sputum specimen obtained for culture and sensitivity Meds: Medications Generic Name Dose Route Start Last Admin Trade Name Freq PRN Reason Stop Dose Admin Sodium Chloride 10 ml 03/27/18 22:35 03/27/18 22:57 Saline Flush FLUSH 10 ml ASDIRECTED PRN Administration Keep Vein Open Discontinued Medications Generic Name Dose Route Start Last Admin Trade Name Freq PRN Reason Stop Dose Admin Albuterol/Ipratropium 3 ml 03/27/18 22:37 03/27/18 22:57 Duoneb 3.0-0.5 Mg/3 Ml NEB 03/27/18 22:38 3 ml ONETIME ONE Administration Aspirin 324 mg 03/27/18 23:25 03/27/18 23:31 Aspirin CHEW 03/27/18 23:26 324 mg ONETIME ONE Administration Budesonide 0.5 mg 03/27/18 22:37 03/27/18 22:57 Pulmicort NEB 03/27/18 22:38 0.5 mg ONETIME ONE Administration Famotidine 40 mg 03/27/18 22:35 03/27/18 22:57 Pepcid IVPUSH 03/27/18 22:36 40 mg ONETIME ONE Administration Ticagrelor 180 mg 03/27/18 23:25 03/27/18 23:31 Brilinta PO 03/27/18 23:26 180 mg ONETIME ONE Administration - Radiology Interpretation Free Text/Narrative:: media monitor shows normal sinus rhythm with occasional PVCs noted and average heart rate in the 70s Chest x-ray, portable, shows moderate COPD and pulmonary fibrotic changes with probable centralized CHF, including David B lines, and probable additional pulmonary hypertension. Mild aortic valve calcification and prominence of the proximal aortic arch. No cardiomegaly, pulmonary infiltrates, or pneumothorax Departure - Departure Time of Disposition: 00:25 Disposition: Admitted As Inpatient 64 Condition: Good Clinical Impression: Neurogenic bladder CHF (congestive heart failure) Qualifiers: Heart failure type: diastolic Heart failure chronicity: acute on chronic Qualified Code(s): I50.33 - Acute on chronic diastolic (congestive) heart failure COPD (chronic obstructive pulmonary disease) Qualifiers: COPD type: COPD with acute lower respiratory infection Qualified Code(s): J44.0 - Chronic obstructive pulmonary disease with acute lower respiratory infection Hypertension Qualifiers: Hypertension type: essential hypertension Qualified Code(s): I10 - Essential ( primary) hypertension Osteoarthritis Qualifiers: Osteoarthritis location: multiple joints Osteoarthritis type: primary Qualified Code(s): M15.0 - Primary generalized (osteo)arthritis - Discharge Information Referrals: Fredo Fischer MD [Primary Care Provider] - Forms: ED Department Discharge Care Plan Goals: See plan - Problem List & Annotations (1) CHF (congestive heart failure) SNOMED Code(s): 65731403 Code(s): I50.9 - HEART FAILURE, UNSPECIFIED Status: Acute Priority: High Annotation/Comment:: The patient denied chest pain or other anginal-type symptoms on arrival with chest pain protocol not initially initiated. After receiving test results aspirin and Brilinta were given. Note history of diastolic dysfunction by previous echocardiogram with consideration of repeating echocardiogram on an outpatient basis. Initiate standard rule out OH orders. Despite chest x-ray findings indicating some mild mostly centralized CHF his BNP was normal. Cardiology consultation depending on his clinical course. Qualifiers: Heart failure type: diastolic Heart failure chronicity: acute on chronic Qualified Code(s): I50.33 - Acute on chronic diastolic (congestive) heart failure (2) PVC's (premature ventricular contractions) SNOMED Code(s): 39014992 Code(s): I49.3 - VENTRICULAR PREMATURE DEPOLARIZATION Status: Acute Priority: High Onset Date: 03/27/18 Annotation/Comment:: Nonsymptomatic. Observe for now. Note history of PACs, SVT, incomplete right bundle branch block. (3) COPD (chronic obstructive pulmonary disease) SNOMED Code(s): 64739540 Code(s): J44.9 - CHRONIC OBSTRUCTIVE PULMONARY DISEASE, UNSPECIFIED Status : Acute Priority: High Annotation/Comment:: Dyspnea significantly improved with triple nebulizer treatment as above. Initiate IV Rocephin and oral doxycycline after admission. Probable bronchitis with no evidence of pneumonia by chest x-ray. Sputum specimen collected for culture and sensitivity. Recent medication noncompliance as above with medication compliance strongly encouraged. Qualifiers: COPD type: COPD with acute lower respiratory infection Qualified Code(s): J44.0 - Chronic obstructive pulmonary disease with acute lower respiratory infection (4) Hypertension SNOMED Code(s): 86641167 Code(s): I10 - ESSENTIAL (PRIMARY) HYPERTENSION Status: Chronic Priority : High Annotation/Comment:: Blood pressures were initially elevated however significantly improved after nebulizer treatments as above. Continue to observe blood pressures closely with previous borderline hypertensive crisis. Qualifiers: Hypertension type: essential hypertension Qualified Code(s): I10 - Essential (primary) hypertension (5) Osteoarthritis SNOMED Code(s): 345092902 Code(s): M19.90 - UNSPECIFIED OSTEOARTHRITIS, UNSPECIFIED SITE Status: Chronic Priority: Medium Annotation/Comment:: Stable by history Qualifiers: Osteoarthritis location: multiple joints Osteoarthritis type: primary Qualified Code(s): M15.0 - Primary generalized (osteo)arthritis (6) Neurogenic bladder SNOMED Code(s): 538370550 Code(s): N31.9 - NEUROMUSCULAR DYSFUNCTION OF BLADDER, UNSPECIFIED Status: Chronic Priority: Medium Annotation/Comment:: Neurogenic bladder with continuation of self catheterization. Catheter UA with culture and sensitivity to be obtained after admission. Antibiotic therapy as above for his bronchitis. - Problem List Review Problem List Initiated/Reviewed/Updated: Yes - My Orders Last 24 Hours: My Active Orders 03/27/18 22:30 CULTURE SPUTUM + SMEAR [RM] Routine 03/27/18 22:35 Sodium Chloride 0.9% [Saline Flush] 10 ml FLUSH ASDIRECTED PRN Resuscitation Status Stat 03/27/18 22:36 Cardiac Monitoring [RC] . DIRECTED EKG Documentation Completion [RC] ASDIRECTED Oxygen Therapy, ED [RC] CONTINUOUS Peripheral IV Care [RC] . DIRECTED Pulse Oximetry [RC] CONTINUOUS Up With Assistance [RC] PFP Vital Signs [RC] PFP Chest 1V Frontal [CR] Stat Obtain Past Medical Record [OM.PC] Urgent Peripheral IV Insertion Adult [OM.PC] Stat 03/27/18 22:38 RT Aerosol Therapy [RC] ASDIRECTED 03/27/18 Breakfast Nothing per Oral Now Diet [DIET] - Assessment/Plan Admission H&P: Please use this note as an admission H&P Last 24 Hours: My Active Orders 03/27/18 22:30 CULTURE SPUTUM + SMEAR [RM] Routine 03/27/18 22:35 Sodium Chloride 0.9% [Saline Flush] 10 ml FLUSH ASDIRECTED PRN Resuscitation Status Stat 03/27/18 22:36 Cardiac Monitoring [RC] . DIRECTED EKG Documentation Completion [RC] ASDIRECTED Oxygen Therapy, ED [RC] CONTINUOUS Peripheral IV Care [RC] . DIRECTED Pulse Oximetry [RC] CONTINUOUS Up With Assistance [RC] PFP Vital Signs [RC] PFP Chest 1V Frontal [CR] Stat Obtain Past Medical Record [OM.PC] Urgent Peripheral IV Insertion Adult [OM.PC] Stat 03/27/18 22:38 RT Aerosol Therapy [RC] ASDIRECTED 03/27/18 Breakfast Nothing per Oral Now Diet [DIET] Assessment:: As above Plan: As above. Extensive precautions were given to the patient, who is in agreement with the treatment plan. The patient will require about 3-4 days of inpatient/ acute care secondary to multiple health problems as above.
[2018-03-27] MEDS ORDERED: Budesonide 0.5 MG/2 ML Neb Susp NEB ONE (22:37)
[2018-03-27] MEDS ORDERED: Albuterol/Ipratropium 3.0-0.5 MG/3 ML Neb Soln NEB ONE (22:37)
[2018-03-27] MEDS: Sodium Chloride 0.9% 10 ML Syringe FLUSH PRN (22:57)
[2018-03-27 23:20] LABS: CHLORIDE,CL 102 mmol/L (98-107); SODIUM,NA 138 mmol/L (136-145)
[2018-03-27] MEDS ORDERED: Aspirin 81 MG Tab.Chew CHEW ONE (23:25)
[2018-03-27] MEDS ORDERED: Ticagrelor 90 MG Tab PO ONE (23:25)
[2018-03-28] MEDS ORDERED: Temazepam 15 MG Cap PO PRN (00:32)
[2018-03-28] MEDS ORDERED: Sodium Chloride 0.9% 10 ML Syringe FLUSH PRN (00:32)
[2018-03-28] MEDS ORDERED: Albuterol 0.083% 2.5 MG/3 ML Neb Soln INH PRN (00:38)
[2018-03-28] MEDS ORDERED: Albuterol/Ipratropium 3.0-0.5 MG/3 ML Neb Soln NEB PRN (00:38)
[2018-03-28] MEDS ORDERED: Enoxaparin 100 MG/1 ML Syringe SUBCUT SCH (01:00)
[2018-03-28] MEDS: Albuterol/Ipratropium 3.0-0.5 MG/3 ML Neb Soln NEB SCH ×4 (01:18→19:23)
[2018-03-28] MEDS: cefTRIAXone 1 GM in Sodium Chloride 0.9% 100 ML IV SCH ×2 (01:18→13:28)
[2018-03-28] MEDS: Furosemide 40 MG/4 ML VIAL IVPUSH SCH ×3 (01:18→18:30)
[2018-03-28] MEDS: Acetaminophen 325 MG Tab PO PRN ×3 (03:44→19:22)
[2018-03-28] MEDS: Fluticasone Propionate Nasal Spray 16 GM Bottle NASBOTH SCH ×2 (08:16→18:30)
[2018-03-28] MEDS: Budesonide 0.5 MG/2 ML Neb Susp NEB SCH ×2 (08:19→19:23)
[2018-03-28] MEDS: Potassium Chloride 20 MEQ Tab.ER PO SCH ×3 (08:20→18:30)
[2018-03-28] MEDS: Magnesium Oxide 400 MG Tab PO SCH (08:20)
[2018-03-28] MEDS: Doxycycline 100 MG Cap PO SCH ×2 (08:20→18:30)
[2018-03-28] MEDS: Lisinopril 10 MG Tab PO SCH (08:20)
[2018-03-28] MEDS: Dextromethorphan/guaiFENesin 600-30 MG Tab.ER PO SCH ×2 (08:20→18:29)
[2018-03-28] MEDS: Diltiazem 180 MG Cap.CD PO SCH (08:20)
--- NOTE | 2018-03-28 10:14 | PCM.PN ---
- General Info Date of Service: 03/28/18 Admission Dx/Problem (Free Text): 1. CHF 2. COPD exacerbation with additional bronchitis Functional Status: Reports: Pain Controlled, Tolerating Diet, Ambulating, Urinating, Incentive Spirometry. Denies: New Symptoms Pain Score: 0 - Review of Systems General: Reports: No Symptoms. Denies: Fever, Weakness, Fatigue, Malaise, Chills, Night Sweats, Appetite (Appetite good) HEENT: Reports: No Symptoms. Denies: Ear Pain, Eye Pain, Headaches, Post Nasal Drip, Sinus Congestion, Sore Throat, Visual Changes Pulmonary: Reports: Cough, Wheezing (Improved). Denies: Shortness of Breath, Pleuritic Chest Pain, Sputum, Hemoptysis Cardiovascular: Reports: Dyspnea on Exertion, Edema (Mildly improved). Denies: Chest Pain, Palpitations, Orthopnea, Lightheadedness Gastrointestinal: Reports: No Symptoms, Other (No bowel movement since admission ). Denies: Abdominal Pain, Constipation, Decreased Appetite, Diarrhea, Difficulty Swallowing, Flatus, Hematochezia, Melena, Nausea, Vomiting Genitourinary: Reports: Retention, Other (Self-catheterization). Denies: Dysuria, Frequency, Burning, Urgency, Incontinence, Hematuria, Flank Pain Musculoskeletal: Reports: No Symptoms. Denies: Neck Pain, Shoulder Pain, Arm Pain, Back Pain, Leg Pain Skin: Reports: No Symptoms. Denies: Diaphoresis, Bruising Neurological: Reports: No Symptoms. Denies: Confusion, Dizziness, Numbness, Paresthesia, Tingling, Weakness Psychiatric: Reports: No Symptoms. Denies: Confusion, Depression, Anxiety, Agitation, Hallucinations - Patient Data Vitals - Most Recent: Last Vital Signs Temp 36.6 C 03/28/18 10:00 Pulse 85 03/28/18 10:00 Resp 20 03/28/18 10:00 BP 134/67 03/28/18 10:00 Pulse Ox 98 03/28/18 10:00 Vital Signs - 24 hr 03/27/18 03/27/18 03/27/18 22:15 22:21 22:45 Temperature [ Oral] Temperature [ 37.1 C Temporal] Pulse, 99 99 Peripheral [ Pulse Oximetry] Respiratory 23 H 22 H 23 H Rate Blood Pressure Blood Pressure 169/106 H 155/85 H 127/77 [Left Upper Arm ] O2 Sat by Pulse 98 96 96 Oximetry 03/27/18 03/27/18 03/27/18 23:00 23:15 23:30 Temperature [ Oral] Temperature [ Temporal] Pulse, Peripheral [ Pulse Oximetry] Respiratory 21 H 20 21 H Rate Blood Pressure Blood Pressure 128/72 132/77 136/75 [Left Upper Arm ] O2 Sat by Pulse 96 97 95 Oximetry 03/27/18 03/27/18 03/28/18 23:45 23:59 00:13 Temperature [ Oral] Temperature [ Temporal] Pulse, Peripheral [ Pulse Oximetry] Respiratory 21 H 19 26 H Rate Blood Pressure Blood Pressure 152/71 H 135/69 159/76 H [Left Upper Arm ] O2 Sat by Pulse 96 97 95 Oximetry 03/28/18 03/28/18 03/28/18 00:32 02:00 04:00 Temperature [ 36.7 C 36.3 C Oral] Temperature [ 36.3 C Temporal] Pulse, 77 89 Peripheral [ Pulse Oximetry] Respiratory 20 19 23 H Rate Blood Pressure Blood Pressure 147/84 H 136/74 152/97 H [Left Upper Arm ] O2 Sat by Pulse 96 96 100 Oximetry 03/28/18 03/28/18 03/28/18 08:00 08:20 10:00 Temperature [ 36.6 C 36.6 C Oral] Temperature [ Temporal] Pulse, 85 85 Peripheral [ Pulse Oximetry] Respiratory 20 20 Rate Blood Pressure 123/63 Blood Pressure 123/63 134/67 [Left Upper Arm ] O2 Sat by Pulse 99 98 Oximetry Weight - Most Recent: 107.547 kg I&O - Last 24 Hours: Intake & Output 03/27/18 03/28/18 03/28/18 22:59 06:59 14:59 Intake Total 50 Output Total 1900 Balance -1850 Imaging Impressions - Last 24 Hours: clinical research monitor shows normal sinus rhythm in the 80s with resolution of previous occasional PVCs Lab Results Last 24 Hours: Laboratory Results - last 24 hr 03/27/18 03/27/18 03/27/18 Range/Units 22:50 22:50 22:50 WBC 10.1 (4.0-10.2) K/uL RBC 5.73 H (4.33-5.41) M/uL Hgb 16.3 (13.1-16.8) g/dL Hct 48.6 (39.0-49.0) % MCV 84.8 (84.0-98.0) fL MCH 28.4 (28.2-33.3) pg MCHC 33.5 (31.7-36.0) g/dL RDW 13.4 (11.2-14.1) % Plt Count 234 (150-350) K/uL Neut % (Auto) 47.3 (45.0-80.0) % Lymph % (Auto) 37.8 (10.0-50.0) % [place] % (Auto) 7.0 (2.0-14.0) % Eos % (Auto) 7.4 H (0.0-5.0) % Baso % (Auto) 0.5 (0.0-2.0) % Neut # (Auto) 4.77 (1.40-7.00) K/uL Lymph # (Auto) 3.82 H (0.50-3.50) K/uL [place] # (Auto) 0.71 (0.00-1.00) K/uL Eos # (Auto) 0.75 H (0.00-0.50) K/uL Baso # (Auto) 0.05 (0.00-0.20) K/uL PT 10.1 (9.8-11.7) SEC INR 0.9 APTT 24.5 (22.1-29.8) SEC D-Dimer, Quantitative 208 (0-400) ng/mL Sodium (136-145) mmol/L Potassium (3.5-5.1) mmol/L Chloride (98-107) mmol/L Carbon Dioxide (21.0-32.0) mmol/L BUN (7-18) mg/dL Creatinine (0.51-1.17) mg/dL Est Cr Clr Drug Dosing mL/min Estimated GFR (MDRD) mL/min Glucose (74-106) mg/dL Hemoglobin A1c (4.3-5.7) % Lactic Acid (0.4-2.0) mmol/L Uric Acid (2.6-7.2) mg/dL Calcium (8.5-10.1) mg/dL Magnesium (1.8-2.4) mg/dL Total Bilirubin (0.2-1.0) mg/dL AST (15-37) U/L ALT (12-78) U/L Alkaline Phosphatase (46-116) IU/L Creatine Kinase (26-308) U/L Creatine Kinase Index (0.0-2.5) % CK-MB (CK-2) (0.00-3.60) ng/mL Troponin I (0.000-0.056) ng/mL NT-Pro-B Natriuret Pep (0-125) pg/mL Total Protein (6.4-8.2) g/dL Albumin (3.4-5.0) g/dL Triglycerides (30-150) mg/dL Cholesterol (100-200) mg/dL LDL Cholesterol, Calc (0-100) mg/dL HDL Cholesterol (40-60) mg/dL TSH, Ultra Sensitive (0.358-3.740) mIU/mL Specimen Type Urine Color Urine Appearance Urine pH (5.0-9.0) Ur Specific [place] (1.005-1.030) Urine Protein (NEGATIVE) mg/dL Urine Glucose (UA) (NEGATIVE) mg/dL Urine Ketones (NEGATIVE) mg/dL Urine Occult Blood (NEGATIVE) Urine Nitrite (NEGATIVE) Urine Bilirubin (NEGATIVE) Urine Urobilinogen (0.2-1.0) E.U./dL Ur Leukocyte Esterase (NEGATIVE) Urine RBC /HPF Urine WBC /HPF Ur Epithelial Cells /LPF Urine Bacteria (NONE TO FEW) /HPF 03/27/18 03/27/18 03/28/18 Range/Units 22:50 22:50 02:15 WBC (4.0-10.2) K/uL RBC (4.33-5.41) M/uL Hgb (13.1-16.8) g/dL Hct (39.0-49.0) % MCV (84.0-98.0) fL MCH (28.2-33.3) pg MCHC (31.7-36.0) g/dL RDW (11.2-14.1) % Plt Count (150-350) K/uL Neut % (Auto) (45.0-80.0) % Lymph % (Auto) (10.0-50.0) % [place] % (Auto) (2.0-14.0) % Eos % (Auto) (0.0-5.0) % Baso % (Auto) (0.0-2.0) % Neut # (Auto) (1.40-7.00) K/uL Lymph # (Auto) (0.50-3.50) K/uL [place] # (Auto) (0.00-1.00) K/uL Eos # (Auto) (0.00-0.50) K/uL Baso # (Auto) (0.00-0.20) K/uL PT (9.8-11.7) SEC INR APTT (22.1-29.8) SEC D-Dimer, Quantitative (0-400) ng/mL Sodium 138 (136-145) mmol/L Potassium 4.5 (3.5-5.1) mmol/L Chloride 102 (98-107) mmol/L Carbon Dioxide 26.7 (21.0-32.0) mmol/L BUN 24 H (7-18) mg/dL Creatinine 1.04 (0.51-1.17) mg/dL Est Cr Clr Drug Dosing 77.94 mL/min Estimated GFR (MDRD) > 60 mL/min Glucose 128 H (74-106) mg/dL Hemoglobin A1c (4.3-5.7) % Lactic Acid 1.4 (0.4-2.0) mmol/L Uric Acid 6.9 (2.6-7.2) mg/dL Calcium 9.3 (8.5-10.1) mg/dL Magnesium 1.8 (1.8-2.4) mg/dL Total Bilirubin 0.4 (0.2-1.0) mg/dL AST 14 L (15-37) U/L ALT 24 (12-78) U/L Alkaline Phosphatase 110 (46-116) IU/L Creatine Kinase 145 (26-308) U/L Creatine Kinase Index 3.9 H (0.0-2.5) % CK-MB (CK-2) 5.60 H* (0.00-3.60) ng/mL Troponin I 0.000 (0.000-0.056) ng/mL NT-Pro-B Natriuret Pep 85 (0-125) pg/mL Total Protein 8.1 (6.4-8.2) g/dL Albumin 4.1 (3.4-5.0) g/dL Triglycerides (30-150) mg/dL Cholesterol (100-200) mg/dL LDL Cholesterol, Calc (0-100) mg/dL HDL Cholesterol (40-60) mg/dL TSH, Ultra Sensitive 1.344 (0.358-3.740) mIU/mL Specimen Type [place] Urine Color Dark yellow Urine Appearance Slightly cloudy Urine pH 5.0 (5.0-9.0) Ur Specific [place] 1.020 (1.005-1.030) Urine Protein Negative (NEGATIVE) mg/dL Urine Glucose (UA) Negative (NEGATIVE) mg/dL Urine Ketones Negative (NEGATIVE) mg/dL Urine Occult Blood Trace-lysed H (NEGATIVE) Urine Nitrite Positive H (NEGATIVE) Urine Bilirubin Negative (NEGATIVE) Urine Urobilinogen 0.2 (0.2-1.0) E.U./dL Ur Leukocyte Esterase Trace H (NEGATIVE) Urine RBC 0-5 /HPF Urine WBC 5-10 H /HPF Ur Epithelial Cells Few /LPF Urine Bacteria Many H (NONE TO FEW) /HPF 03/28/18 03/28/18 Range/Units 06:35 06:35 WBC (4.0-10.2) K/uL RBC (4.33-5.41) M/uL Hgb (13.1-16.8) g/dL Hct (39.0-49.0) % MCV (84.0-98.0) fL MCH (28.2-33.3) pg MCHC (31.7-36.0) g/dL RDW (11.2-14.1) % Plt Count (150-350) K/uL Neut % (Auto) (45.0-80.0) % Lymph % (Auto) (10.0-50.0) % [place] % (Auto) (2.0-14.0) % Eos % (Auto) (0.0-5.0) % Baso % (Auto) (0.0-2.0) % Neut # (Auto) (1.40-7.00) K/uL Lymph # (Auto) (0.50-3.50) K/uL [place] # (Auto) (0.00-1.00) K/uL Eos # (Auto) (0.00-0.50) K/uL Baso # (Auto) (0.00-0.20) K/uL PT (9.8-11.7) SEC INR APTT (22.1-29.8) SEC D-Dimer, Quantitative (0-400) ng/mL Sodium (136-145) mmol/L Potassium (3.5-5.1) mmol/L Chloride (98-107) mmol/L Carbon Dioxide (21.0-32.0) mmol/L BUN (7-18) mg/dL Creatinine (0.51-1.17) mg/dL Est Cr Clr Drug Dosing mL/min Estimated GFR (MDRD) mL/min Glucose (74-106) mg/dL Hemoglobin A1c 5.8 H (4.3-5.7) % Lactic Acid (0.4-2.0) mmol/L Uric Acid (2.6-7.2) mg/dL Calcium (8.5-10.1) mg/dL Magnesium (1.8-2.4) mg/dL Total Bilirubin (0.2-1.0) mg/dL AST (15-37) U/L ALT (12-78) U/L Alkaline Phosphatase (46-116) IU/L Creatine Kinase 147 (26-308) U/L Creatine Kinase Index 3.8 H (0.0-2.5) % CK-MB (CK-2) 5.60 H* (0.00-3.60) ng/mL Troponin I 0.000 (0.000-0.056) ng/mL NT-Pro-B Natriuret Pep (0-125) pg/mL Total Protein (6.4-8.2) g/dL Albumin (3.4-5.0) g/dL Triglycerides 112 (30-150) mg/dL Cholesterol 149 (100-200) mg/dL LDL Cholesterol, Calc 54 (0-100) mg/dL HDL Cholesterol 73 H (40-60) mg/dL TSH, Ultra Sensitive (0.358-3.740) mIU/mL Specimen Type Urine Color Urine Appearance Urine pH (5.0-9.0) Ur Specific [place] (1.005-1.030) Urine Protein (NEGATIVE) mg/dL Urine Glucose (UA) (NEGATIVE) mg/dL Urine Ketones (NEGATIVE) mg/dL Urine Occult Blood (NEGATIVE) Urine Nitrite (NEGATIVE) Urine Bilirubin (NEGATIVE) Urine Urobilinogen (0.2-1.0) E.U./dL Ur Leukocyte Esterase (NEGATIVE) Urine RBC /HPF Urine WBC /HPF Ur Epithelial Cells /LPF Urine Bacteria (NONE TO FEW) /HPF Moe Results Last 24 Hours: Microbiology 03/27/18 22:30 Gram Stain - Final Sputum - Expectorated Sputum results pending. Urine culture and sensitivity results pending Med Orders - Current: Current Medications Acetaminophen (Tylenol) 650 mg PO Q4H PRN PRN Reason: Pain Last Admin: 03/28/18 03:44 Dose: 650 mg Albuterol (Proventil Neb Soln) 2.5 mg INH Q2H PRN PRN Reason: SHORTNESS OF BREATH Albuterol/Ipratropium (Duoneb 3.0-0.5 Mg/3 Ml) 3 ml NEB Q4HRRT PRN PRN Reason: Dyspnea Albuterol/Ipratropium (Duoneb 3.0-0.5 Mg/3 Ml) 3 ml NEB Q6HRRT [facility] Last Admin: 03/28/18 08:19 Dose: 3 ml Atorvastatin Calcium (Lipitor) 20 mg PO BEDTIME MERY Bisacodyl (Dulcolax) 5 mg PO ASDIRECTED PRN PRN Reason: Constipation Budesonide (Pulmicort) 0.5 mg NEB BIDRT [facility] Last Admin: 03/28/18 08:19 Dose: 0.5 mg Diltiazem HCl (Cardizem Cd) 180 mg PO DAILY [facility] Last Admin: 03/28/18 08:20 Dose: 180 mg Doxycycline Hyclate (Vibramycin) 100 mg PO BID [facility] Last Admin: 03/28/18 08:20 Dose: 100 mg Enoxaparin Sodium (Lovenox) 100 mg SUBCUT Q24H [facility] Last Admin: 03/28/18 01:18 Dose: 100 mg Fluticasone Propionate (Flonase) 0 gm NASBOTH BID [facility] Last Admin: 03/28/18 08:16 Dose: 1 spray Furosemide (Lasix) 40 mg IVPUSH Q8H [facility] Last Admin: 03/28/18 08:15 Dose: 40 mg Guaifenesin/Dextromethorphan (Mucinex Dm Er 600-30 Mg) 1 tab PO BID [facility] Last Admin: 03/28/18 08:20 Dose: 1 tab Ceftriaxone Sodium 1 gm/ (Sodium Chloride) 100 mls @ 200 mls/hr IV Q12H [facility] Last Admin: 03/28/18 01:18 Dose: 200 mls/hr Lisinopril (Prinivil) 20 mg PO DAILY [facility] Last Admin: 03/28/18 08:20 Dose: 20 mg Magnesium Oxide (Magnesium Oxide) 400 mg PO DAILY [facility] Last Admin: 03/28/18 08:20 Dose: 400 mg Potassium Chloride (Klor-Con M20) 20 meq PO TID [facility] Last Admin: 03/28/18 08:20 Dose: 20 meq Sodium Chloride (Saline Flush) 10 ml FLUSH ASDIRECTED PRN PRN Reason: Keep Vein Open Last Admin: 03/27/18 22:57 Dose: 10 ml Sodium Chloride (Saline Flush) 10 ml FLUSH Q12HR PRN PRN Reason: Keep Vein Open Last Admin: 03/28/18 08:15 Dose: 10 ml Temazepam (Restoril) 15 mg PO BEDTIME PRN PRN Reason: Insomnia Last Admin: 03/28/18 03:25 Dose: 15 mg Discontinued Medications Albuterol/Ipratropium (Duoneb 3.0-0.5 Mg/3 Ml) 3 ml NEB ONETIME ONE Stop: 03/27/18 22:38 Last Admin: 03/27/18 22:57 Dose: 3 ml Aspirin (Aspirin) 324 mg CHEW ONETIME ONE Stop: 03/27/18 23:26 Last Admin: 03/27/18 23:31 Dose: 324 mg Budesonide (Pulmicort) 0.5 mg NEB ONETIME ONE Stop: 03/27/18 22:38 Last Admin: 03/27/18 22:57 Dose: 0.5 mg Famotidine (Pepcid) 40 mg IVPUSH ONETIME ONE Stop: 03/27/18 22:36 Last Admin: 03/27/18 22:57 Dose: 40 mg Ticagrelor (Brilinta) 180 mg PO ONETIME ONE Stop: 03/27/18 23:26 Last Admin: 03/27/18 23:31 Dose: 180 mg - Exam Quality Assessment: Supplemental Oxygen, Urine Catheter (Self-catheterization), DVT Prophylaxis. No: Central Line/PICC, Skin Breakdown, Restraints General: Alert, Oriented, Cooperative, No Acute Distress HEENT: Pupils Equal, Pupils Reactive, EOMI, Mucous Membr. Moist/[place] Neck: Supple, Trachea Midline, No JVD, No Thyromegaly, +2 Carotid Pulse wo Bruit. No: Lymphadenopathy Lungs: Normal Respiratory Effort, Rales (Mild bilateral basilar rales), Rhonchi (Occasional much improved). No: Rub, Wheezing Cardiovascular: Regular Rate, Regular Rhythm, No Murmurs. No: Gallops, Rubs GI/Abdominal Exam: Normal Bowel Sounds, Soft, Non-Tender, No Organomegaly, No Distention, No Abnormal Bruit, No Mass, Hernia (Stable 4 cm in diameter nonincarcerated umbilical hernia). No: Guarding (Male) Exam: Deferred Back Exam: Normal Inspection, Full Range of Motion. No: CVA Tenderness (L), CVA Tenderness (R) Extremities: Normal Inspection, Normal Range of Motion, Non-Tender, Normal Capillary Refill, Pedal Edema (Stable to somewhat improved trace to +1 bilateral pedal/pretibial edema). No: Dave's Sign Peripheral Pulses: 2+: Radial (L), Radial (R), Dorsalis Pedis (L), Dorsalis Pedis (R) Skin: Warm, Dry, Intact. No: Ecchymosis Neurological: No New Focal Deficit Psy/Mental Status: Alert, Normal Affect, Normal Mood. No: Agitated, Hallucinations, Withdrawal Symptoms EKG INTERPRETATION EKG Date: 03/28/18 Time: 07:22 Rhythm: NSR Rate (Beats/Min): 82 [place]: Normal (Left cardiac axis change from neutral cardiac axis on 03/27) P-Wave: Present (Diffuse biphasic P waves with poor R-wave progression in the anterior leads) QRS: Wide (QRS interval of 0.10 seconds representing an incomplete right bundle branch block versus bifascicular bundle-branch block) ST-T: Other (Stable T-wave inversion in leads V1 and V2) QT: Prolonged (394/460 ms) Comparison: Change From Previous EKG (As above since 03/28/18) EKG Interpretation Comments: 1. Stable anterior wall cardiac ischemia 2. Incomplete right bundle branch block/bifascicular bundle-branch block - Problem List & Annotations (1) CHF (congestive heart failure) SNOMED Code(s): 69998349 Code(s): I50.9 - HEART FAILURE, UNSPECIFIED Status: Acute Priority: High Current Visit: Yes Qualifiers: Heart failure type: diastolic Heart failure chronicity: acute on chronic Qualified Code(s): I50.33 - Acute on chronic diastolic (congestive) heart failure Annotation/Comment:: Dyspnea significantly improved both with IV Lasix therapy and his nebulizer treatments. The patient denied chest pain or other anginal- type symptoms prior to arrival with chest pain protocol not initially initiated. No chest pain or anginal type symptoms since admission. After receiving test results in the emergency room aspirin and Brilinta were given. Note history of diastolic dysfunction by previous echocardiogram with consideration of repeating echocardiogram on an outpatient basis, although previous echocardiogram in April 2017. Continue standard rule out DE orders. Despite chest x-ray findings indicating some mild mostly centralized CHF his BNP was normal. Chest x-ray to be repeated tomorrow. Cardiology consultation depending on his clinical course. Glycosylated hemoglobin okay today with normal lipid profile. Continue every Lovenox therapy for now secondary to persistent CK MB and cardiac index elevation with normal troponin I. (2) PVC's (premature ventricular contractions) SNOMED Code(s): 03933027 Code(s): I49.3 - VENTRICULAR PREMATURE DEPOLARIZATION Status: Acute Priority: High Current Visit: Yes Onset Date: 03/27/18 Annotation/Comment: : Nonsymptomatic. Observe for now. Note history of PACs, SVT, incomplete right bundle branch block. (3) COPD (chronic obstructive pulmonary disease) SNOMED Code(s): 96403991 Code(s): J44.9 - CHRONIC OBSTRUCTIVE PULMONARY DISEASE, UNSPECIFIED Status : Acute Priority: High Current Visit: Yes Qualifiers: COPD type: COPD with acute lower respiratory infection Qualified Code(s): J44.0 - Chronic obstructive pulmonary disease with acute lower respiratory infection Annotation/Comment:: Dyspnea significantly improved with triple nebulizer treatments as above. Initiated IV Rocephin and oral doxycycline after admission. Probable bronchitis with no evidence of pneumonia by chest x-ray. Sputum specimen collected for culture and sensitivity with pending results as above. Recent medication noncompliance as per emergency room note with medication compliance strongly encouraged. (4) Hypertension SNOMED Code(s): 34264328 Code(s): I10 - ESSENTIAL (PRIMARY) HYPERTENSION Status: Chronic Priority : High Current Visit: Yes Qualifiers: Hypertension type: essential hypertension Qualified Code(s): I10 - Essential (primary) hypertension Annotation/Comment:: Blood pressures were initially elevated in the emergency room, however significantly improved after nebulizer treatments as above. Continue to observe blood pressures closely with previous borderline hypertensive crisis. (5) Osteoarthritis SNOMED Code(s): 557899197 Code(s): M19.90 - UNSPECIFIED OSTEOARTHRITIS, UNSPECIFIED SITE Status: Chronic Priority: Medium Current Visit: No Qualifiers: Osteoarthritis location: multiple joints Osteoarthritis type: primary Qualified Code(s): M15.0 - Primary generalized (osteo)arthritis Annotation/Comment:: Stable by history (6) Neurogenic bladder SNOMED Code(s): 820512035 Code(s): N31.9 - NEUROMUSCULAR DYSFUNCTION OF BLADDER, UNSPECIFIED Status: Chronic Priority: Medium Current Visit: No Annotation/Comment:: Neurogenic bladder with continuation of self catheterization. Catheter UA with culture and sensitivity to be obtained after admission. Antibiotic therapy as above for his bronchitis. (7) UTI (urinary tract infection) SNOMED Code(s): 07720611 Code(s): N39.0 - URINARY TRACT INFECTION, SITE NOT SPECIFIED Status: Acute Priority: High Current Visit: No Onset Date: 03/28/18 Qualifiers: Urinary tract infection type: acute cystitis Hematuria presence: without hematuria Qualified Code(s): N30.00 - Acute cystitis without hematuria Annotation/Comment:: Urine culture and sensitivity results pending as above. IV Rocephin and oral doxycycline have already been initiated (8) Tobacco abuse counseling SNOMED Code(s): 215539389, 783187554, 571558792 Code(s): Z71.6 - TOBACCO ABUSE COUNSELING Status: Chronic Priority: High Current Visit: Yes Annotation/Comment:: Tobacco cessation information to be provided at discharge - Problem List Review Problem List Initiated/Reviewed/Updated: Yes - My Orders Last 24 Hours: My Active Orders 03/27/18 22:30 CULTURE SPUTUM + SMEAR [RM] Routine 03/27/18 22:35 Sodium Chloride 0.9% [Saline Flush] 10 ml FLUSH ASDIRECTED PRN Resuscitation Status Stat 03/27/18 22:36 Cardiac Monitoring [RC] Q2HR EKG Documentation Completion [RC] ASDIRECTED Peripheral IV Care [RC] . DIRECTED Chest 1V Frontal [CR] Stat Peripheral IV Insertion Adult [OM.PC] Stat 03/27/18 22:38 RT Aerosol Therapy [RC] 02,08,,20 03/28/18 00:32 Communication Order [RC] ROUTINE Height and Weight [RC] DAILY Intake and Output Strict [RC] ,, Oxygen Therapy [RC] 2300 Pulse Oximetry [RC] ASDIRECTED Up With Assistance [RC] ASDIRECTED Vital Signs [RC] Q2HR OCCULT BLOOD DIAGNOSTIC [OP] Stat Acetaminophen [Tylenol] 650 mg PO Q4H PRN Sodium Chloride 0.9% [Saline Flush] 10 ml FLUSH Q12HR PRN Temazepam [Restoril] 15 mg PO BEDTIME PRN Antiembolic Hose [OM.PC] Routine CHF Questionnaire [COMM] Routine DVT/VTE Prophylaxis Reflex [OM.PC] Routine GM Immunization Reflex [OM.PC] Click To Edit 03/28/18 00:33 Antiembolic Devices [RC] 08,20 Communication, Vaccine [RC] PER UNIT ROUTINE VTE/DVT Education [RC] PER UNIT ROUTINE Vaccines to be Administered [RC] PER UNIT ROUTINE 03/28/18 00:38 Albuterol [Proventil Neb Soln] 2.5 mg INH Q2H PRN Albuterol/Ipratropium [DuoNeb 3.0-0.5 MG/3 ML] 3 ml NEB Q4HRRT PRN 03/28/18 00:39 RT Aerosol Therapy [RC] ,03/28/18 00:41 RT Aerosol Therapy [RC] .PRN 03/28/18 00:45 H PYLORI STOOL ANTIGEN [MREF] ONETIME 03/28/18 00:48 Bisacodyl [Dulcolax] 5 mg PO ASDIRECTED PRN 03/28/18 01:00 Enoxaparin [Lovenox] 100 mg SUBCUT Q24H Furosemide [Lasix] 40 mg IVPUSH Q8H cefTRIAXone [Rocephin] 1 gm Sodium Chloride 0.9% [Normal Saline] 100 ml IV Q12H 03/28/18 02:00 Albuterol/Ipratropium [DuoNeb 3.0-0.5 MG/3 ML] 3 ml NEB Q6HRRT 03/28/18 02:15 CULTURE URINE [RM] Routine URINALYSIS W/MICROSCOPIC [UA W/MICROSCOPIC] [URIN] Routine 03/28/18 05:11 EKG Documentation Completion [RC] ASDIRECTED 03/28/18 08:00 Budesonide [Pulmicort] 0.5 mg NEB BIDRT Dextromethorphan/guaiFENesin [Mucinex DM ER 600-30 MG] 1 tab PO BID Diltiazem [Cardizem CD] 180 mg PO DAILY Doxycycline [Vibramycin] 100 mg PO BID Fluticasone Propionate [Flonase] 0 gm NASBOTH BID Lisinopril [Prinivil] 20 mg PO DAILY Magnesium Oxide 400 mg PO DAILY Potassium Chloride [Klor-Con M20] 20 meq PO TID 03/28/18 12:00 CK W CKMB [CHEM] Q6H TROPONIN I [CHEM] Q6H 03/28/18 20:00 atorvaSTATin [Lipitor] 20 mg PO BEDTIME 03/28/18 Breakfast Fluid Restriction [DIET] 03/29/18 05:11 EKG Documentation Completion [RC] ASDIRECTED CBC WITH AUTO DIFF [HEME] Routine CK W CKMB [CHEM] Routine COMPREHENSIVE METABOLIC PN,CMP [CHEM] Routine PRO B-TYPE NATRIUR PEPT,BNPPRO [CHEM] Routine TROPONIN I [CHEM] Routine EKG 12 Lead [EK] Routine - Assessment Assessment:: As above - Plan Plan:: As above. Extensive precautions were given to the patient, who is in agreement with the treatment plan. Anticipate an additional 2 days of hospitalization.
[2018-03-28] MEDS: Bisacodyl 5 MG Tab PO PRN (11:54)
[2018-03-28] MEDS: Enoxaparin 100 MG/1 ML Syringe SUBCUT SCH (13:28)
[2018-03-28] MEDS: Sodium Chloride 0.9% 10 ML Syringe FLUSH PRN ×3 (13:29→19:23)
[2018-03-28] MEDS ORDERED: LORazepam 0.5 MG Tab PO PRN (14:00)
[2018-03-28] MEDS: atorvaSTATin 10 MG Tab PO SCH (19:23)
[2018-03-29] MEDS: Albuterol/Ipratropium 3.0-0.5 MG/3 ML Neb Soln NEB SCH ×4 (01:05→19:39)
[2018-03-29] MEDS: Furosemide 40 MG/4 ML VIAL IVPUSH SCH ×3 (01:06→16:16)
[2018-03-29] MEDS: cefTRIAXone 1 GM in Sodium Chloride 0.9% 100 ML IV SCH ×2 (01:06→12:38)
[2018-03-29] MEDS: Enoxaparin 100 MG/1 ML Syringe SUBCUT SCH ×2 (01:06→12:38)
[2018-03-29 07:29] LABS: CHLORIDE,CL 101 mmol/L (98-107); SODIUM,NA 136 mmol/L (136-145)
[2018-03-29] MEDS: Sodium Chloride 0.9% 10 ML Syringe FLUSH PRN ×3 (08:16→16:17)
[2018-03-29] MEDS: Fluticasone Propionate Nasal Spray 16 GM Bottle NASBOTH SCH ×2 (08:20→17:51)
[2018-03-29] MEDS: Diltiazem 180 MG Cap.CD PO SCH (08:20)
[2018-03-29] MEDS: Potassium Chloride 20 MEQ Tab.ER PO SCH ×4 (08:21→17:51)
[2018-03-29] MEDS: Dextromethorphan/guaiFENesin 600-30 MG Tab.ER PO SCH ×2 (08:21→17:51)
[2018-03-29] MEDS: Magnesium Oxide 400 MG Tab PO SCH (08:21)
[2018-03-29] MEDS: Lisinopril 10 MG Tab PO SCH (08:22)
[2018-03-29] MEDS: Budesonide 0.5 MG/2 ML Neb Susp NEB SCH ×2 (08:23→19:39)
[2018-03-29] MEDS: Doxycycline 100 MG Cap PO SCH ×2 (08:23→17:51)
[2018-03-29] MEDS: Acetaminophen 325 MG Tab PO PRN (10:52)
--- NOTE | 2018-03-29 11:26 | PCM.PN ---
- General Info Date of Service: 03/29/18 Admission Dx/Problem (Free Text): 1. CHF 2. COPD exacerbation with additional bronchitis Functional Status: Reports: Pain Controlled, Tolerating Diet, Ambulating, Urinating, Incentive Spirometry. Denies: New Symptoms Pain Score: 0 - Review of Systems General: Reports: No Symptoms. Denies: Fever, Weakness, Fatigue, Chills, Night Sweats, Appetite (Appetite good) HEENT: Reports: No Symptoms. Denies: Ear Pain, Eye Pain, Glasses, Headaches, Post Nasal Drip, Sinus Congestion, Sore Throat, Rhinitis, Visual Changes Pulmonary: Reports: Shortness of Breath (With ambulation), Cough, Sputum (Mild yellow), Wheezing (Occasional). Denies: Pleuritic Chest Pain, Hemoptysis Cardiovascular: Reports: Dyspnea on Exertion, Edema (Stable dependent). Denies : Chest Pain, Palpitations, Orthopnea, Lightheadedness Gastrointestinal: Reports: Constipation (No bowel movement since admission). Denies: Abdominal Pain, Decreased Appetite, Diarrhea, Difficulty Swallowing, Flatus, Hematochezia, Melena, Nausea, Vomiting Genitourinary: Reports: Retention (Self-catheterization). Denies: Dysuria, Frequency, Burning, Pain, Urgency, Incontinence, Hematuria, Flank Pain Musculoskeletal: Reports: No Symptoms. Denies: Neck Pain, Shoulder Pain, Arm Pain, Back Pain, Leg Pain Skin: Reports: Bruising (Lovenox sites). Denies: Diaphoresis Neurological: Reports: No Symptoms. Denies: Confusion, Dizziness, Headache, Difficulty Walking, Weakness Psychiatric: Reports: No Symptoms. Denies: Confusion, Depression, Anxiety, Agitation, Hallucinations - Patient Data Vitals - Most Recent: Last Vital Signs Temp 36.6 C 03/29/18 08:00 Pulse 72 03/29/18 08:00 Resp 19 03/29/18 08:00 BP 141/69 H 03/29/18 08:22 Pulse Ox 95 03/29/18 08:00 Vital Signs - 24 hr 03/28/18 03/28/18 03/28/18 12:00 15:55 19:07 Temperature [ 36.7 C 36.6 C 36.4 C Oral] Pulse, 87 70 79 Peripheral [ Pulse Oximetry] Respiratory 20 18 Rate Blood Pressure Blood Pressure 130/108 H 114/66 120/73 [Left Upper Arm ] O2 Sat by Pulse 96 700 H 96 Oximetry 03/29/18 03/29/18 03/29/18 00:00 04:00 08:00 Temperature [ 36.6 C 36.8 C 36.6 C Oral] Pulse, 73 79 72 Peripheral [ Pulse Oximetry] Respiratory 19 20 19 Rate Blood Pressure Blood Pressure 143/71 H 113/65 141/69 H [Left Upper Arm ] O2 Sat by Pulse 98 98 95 Oximetry 03/29/18 08:22 Temperature [ Oral] Pulse, Peripheral [ Pulse Oximetry] Respiratory Rate Blood Pressure 141/69 H Blood Pressure [Left Upper Arm ] O2 Sat by Pulse Oximetry Weight - Most Recent: 109.004 kg I&O - Last 24 Hours: Intake & Output 03/28/18 03/29/18 03/29/18 22:59 06:59 14:59 Intake Total 840 960 Output Total 1000 Balance -1000 840 960 Imaging Impressions - Last 24 Hours: vehicle monitor 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 Prominent aortic arch with mild aortic valve calcification. Moderate osteoarthritic and osteoporotic changes in the thoracic spine. Hiatal hernia noted. Official x-ray report received shortly after rounds Lab Results Last 24 Hours: Laboratory Results - last 24 hr 03/28/18 03/29/18 03/29/18 Range/Units 12:10 06:30 06:30 WBC 10.8 H (4.0-10.2) K/uL RBC 5.44 H (4.33-5.41) M/uL Hgb 15.3 (13.1-16.8) g/dL Hct 45.8 (39.0-49.0) % MCV 84.2 (84.0-98.0) fL MCH 28.1 L (28.2-33.3) pg MCHC 33.4 (31.7-36.0) g/dL RDW 13.4 (11.2-14.1) % Plt Count 220 (150-350) K/uL Neut % (Auto) 58.9 (45.0-80.0) % Lymph % (Auto) 29.9 (10.0-50.0) % Iron % (Auto) 7.7 (2.0-14.0) % Eos % (Auto) 3.1 (0.0-5.0) % Baso % (Auto) 0.4 (0.0-2.0) % Neut # (Auto) 6.37 (1.40-7.00) K/uL Lymph # (Auto) 3.23 (0.50-3.50) K/uL Iron # (Auto) 0.83 (0.00-1.00) K/uL Eos # (Auto) 0.34 (0.00-0.50) K/uL Baso # (Auto) 0.04 (0.00-0.20) K/uL Sodium 136 (136-145) mmol/L Potassium 4.4 (3.5-5.1) mmol/L Chloride 101 (98-107) mmol/L Carbon Dioxide 23.1 (21.0-32.0) mmol/L BUN 27 H (7-18) mg/dL Creatinine 0.93 (0.51-1.17) mg/dL Est Cr Clr Drug Dosing 87.20 mL/min Estimated GFR (MDRD) > 60 mL/min Glucose 126 H (74-106) mg/dL Calcium 9.5 (8.5-10.1) mg/dL Total Bilirubin 0.8 (0.2-1.0) mg/dL AST 14 L (15-37) U/L ALT 22 (12-78) U/L Alkaline Phosphatase 102 (46-116) IU/L Creatine Kinase 174 184 (26-308) U/L Creatine Kinase Index 3.8 H 3.2 H (0.0-2.5) % CK-MB (CK-2) 6.60 H* 5.90 H* (0.00-3.60) ng/mL Troponin I 0.000 0.000 (0.000-0.056) ng/mL NT-Pro-B Natriuret Pep 147 H (0-125) pg/mL Total Protein 7.7 (6.4-8.2) g/dL Albumin 4.0 (3.4-5.0) g/dL Moe Results Last 24 Hours: Microbiology 03/27/18 22:30 Sputum - Expectorated Gram Stain - Final Culture and sensitivity reports for sputum and urine are still pending Med Orders - Current: Current Medications Acetaminophen (Tylenol) 650 mg PO Q4H PRN PRN Reason: Pain Last Admin: 03/29/18 10:52 Dose: 650 mg Albuterol (Proventil Neb Soln) 2.5 mg INH Q2H PRN PRN Reason: SHORTNESS OF BREATH Albuterol/Ipratropium (Duoneb 3.0-0.5 Mg/3 Ml) 3 ml NEB Q4HRRT PRN PRN Reason: Dyspnea Albuterol/Ipratropium (Duoneb 3.0-0.5 Mg/3 Ml) 3 ml NEB Q6HRRT [facility] Last Admin: 03/29/18 08:15 Dose: 3 ml Atorvastatin Calcium (Lipitor) 20 mg PO BEDTIME [facility] Last Admin: 03/28/18 19:23 Dose: 20 mg Bisacodyl (Dulcolax) 5 mg PO ASDIRECTED PRN PRN Reason: Constipation Last Admin: 03/28/18 11:54 Dose: 5 mg Budesonide (Pulmicort) 0.5 mg NEB BIDRT [facility] Last Admin: 03/29/18 08:23 Dose: 0.5 mg Diltiazem HCl (Cardizem Cd) 180 mg PO DAILY [facility] Last Admin: 03/29/18 08:20 Dose: 180 mg Doxycycline Hyclate (Vibramycin) 100 mg PO BID [facility] Last Admin: 03/29/18 08:23 Dose: 100 mg Enoxaparin Sodium (Lovenox) 100 mg SUBCUT Q12H [facility] Last Admin: 03/29/18 01:06 Dose: 100 mg Fluticasone Propionate (Flonase) 0 gm NASBOTH BID [facility] Last Admin: 03/29/18 08:20 Dose: 1 spray Furosemide (Lasix) 40 mg IVPUSH Q8H [facility] Last Admin: 03/29/18 08:15 Dose: 40 mg Guaifenesin/Dextromethorphan (Mucinex Dm Er 600-30 Mg) 1 tab PO BID [facility] Last Admin: 03/29/18 08:21 Dose: 1 tab Ceftriaxone Sodium 1 gm/ (Sodium Chloride) 100 mls @ 200 mls/hr IV Q12H [facility] Last Admin: 03/29/18 01:06 Dose: 200 mls/hr Lisinopril (Prinivil) 20 mg PO DAILY [facility] Last Admin: 03/29/18 08:22 Dose: 20 mg Lorazepam (Ativan) 0.5 mg PO Q6H PRN PRN Reason: Anxiety Magnesium Oxide (Magnesium Oxide) 400 mg PO DAILY [facility] Last Admin: 03/29/18 08:21 Dose: 400 mg Potassium Chloride (Klor-Con M20) 20 meq PO TID [facility] Last Admin: 03/29/18 11:19 Dose: Not Given Sodium Chloride (Saline Flush) 10 ml FLUSH ASDIRECTED PRN PRN Reason: Keep Vein Open Last Admin: 03/29/18 08:16 Dose: 10 ml Sodium Chloride (Saline Flush) 10 ml FLUSH Q12HR PRN PRN Reason: Keep Vein Open Last Admin: 03/28/18 08:15 Dose: 10 ml Discontinued Medications Albuterol/Ipratropium (Duoneb 3.0-0.5 Mg/3 Ml) 3 ml NEB ONETIME ONE Stop: 03/27/18 22:38 Last Admin: 03/27/18 22:57 Dose: 3 ml Aspirin (Aspirin) 324 mg CHEW ONETIME ONE Stop: 03/27/18 23:26 Last Admin: 03/27/18 23:31 Dose: 324 mg Budesonide (Pulmicort) 0.5 mg NEB ONETIME ONE Stop: 03/27/18 22:38 Last Admin: 03/27/18 22:57 Dose: 0.5 mg Enoxaparin Sodium (Lovenox) 100 mg SUBCUT Q24H [facility] Last Admin: 03/28/18 01:18 Dose: 100 mg Famotidine (Pepcid) 40 mg IVPUSH ONETIME ONE Stop: 03/27/18 22:36 Last Admin: 03/27/18 22:57 Dose: 40 mg Temazepam (Restoril) 15 mg PO BEDTIME PRN PRN Reason: Insomnia Last Admin: 03/28/18 03:25 Dose: 15 mg Ticagrelor (Brilinta) 180 mg PO ONETIME ONE Stop: 03/27/18 23:26 Last Admin: 03/27/18 23:31 Dose: 180 mg - Exam Quality Assessment: Supplemental Oxygen, DVT Prophylaxis (Lovenox). No: Central Line/PICC, Urine Catheter (Although self catheterizations), Skin Breakdown, Restraints General: Alert, Oriented, Cooperative, No Acute Distress HEENT: Pupils Equal, Pupils Reactive, EOMI, Mucous Membr. Moist/Hanna Neck: Supple, Trachea Midline, No JVD, No Thyromegaly, +2 Carotid Pulse wo Bruit. No: Lymphadenopathy Lungs: Normal Respiratory Effort, Rales (Mild bilateral basilar rales), Rhonchi (Occasionalstable). No: Rub, Wheezing Cardiovascular: Regular Rate, Regular Rhythm, No Murmurs. No: Gallops, Rubs GI/Abdominal Exam: Normal Bowel Sounds, Soft, Non-Tender, No Organomegaly, No Distention, No Abnormal Bruit, No Mass, Hernia (Stable 4 centimeter in diameter non-incarcerated umbilical hernia. Obese). No: Guarding (Male) Exam: Deferred Back Exam: Normal Inspection, Full Range of Motion. No: CVA Tenderness (L), CVA Tenderness (R), Muscle Spasm Extremities: Normal Range of Motion, Non-Tender, Normal Capillary Refill, Pedal Edema (Stable bilateral tracepedal/pretibial edema). No: Dave's Sign Peripheral Pulses: 2+: Radial (L), Radial (R), Dorsalis Pedis (L), Dorsalis Pedis (R) Skin: Warm, Dry, Intact, Ecchymosis (Moderate to severe ecchymosis in the left lower abdominal quadrant secondary to Lovenox) Neurological: No New Focal Deficit Psy/Mental Status: Alert, Normal Affect, Normal Mood. No: Agitated, Hallucinations, Withdrawal Symptoms EKG INTERPRETATION EKG Date: 03/29/18 Time: 07:37 Rhythm: NSR Rate (Beats/Min): 85 [place]: Normal (Return to previous neutral cardiac axis) P-Wave: Enlarged (Diffuse biphasic P wavesmoderate) QRS: RBBB (0.10 seconds representing an incomplete right bundle branch block) ST-T: Other (Stable T-wave inversion in leads V1 and V2) QT: Normal PA/PQ Interval: 0.18 seconds Comparison: Change From Previous EKG (As above since 03/28/18) EKG Interpretation Comments: 1. Stable anterior wall cardiac ischemia 2. Incomplete right bundle branch block - Problem List & Annotations (1) CHF (congestive heart failure) SNOMED Code(s): 64581629 Code(s): I50.9 - HEART FAILURE, UNSPECIFIED Status: Acute Priority: High Current Visit: Yes Qualifiers: Heart failure type: diastolic Heart failure chronicity: acute on chronic Qualified Code(s): I50.33 - Acute on chronic diastolic (congestive) heart failure Annotation/Comment:: Dyspnea significantly improved with both with IV Lasix therapy and his nebulizer treatments, although not significantly better since yesterday. He is having some moderate dyspnea with only minimal exertion. Various therapeutic options were discussed with the patient including transfer to [place] today for further cardiac workup and/or evaluation. Per his request we will keep the patient in this facility for an additional day for further antibody therapy for his bronchitis and UTI. [facility] physician assumes care in the a.m with repeat discussion of possible transfer to [place] for cardiac workup at that time. Stable borderline anterior wall cardiac ischemia by EKG as above. Serial cardiac enzymes show relatively stable CK MB and cardiac index elevations, although normal CK and troponin I. Continue subcutaneous Lovenox therapy for now. The patient denied chest pain or other anginal-type symptoms prior to arrival with chest pain protocol not initially initiated. No chest pain or anginal type symptoms since admission. After receiving test results in the emergency room aspirin and Brilinta were given. Note history of diastolic dysfunction by previous echocardiogram with consideration of repeating echocardiogram on an outpatient basis, although previous echocardiogram in April 2017. Blood work to be repeated in the a.m. Glycosylated hemoglobin was okay on 03/28 with normal lipid profile during this hospitalization. (2) PVC's (premature ventricular contractions) SNOMED Code(s): 49736477 Code(s): I49.3 - VENTRICULAR PREMATURE DEPOLARIZATION Status: Acute Priority: High Current Visit: Yes Onset Date: 03/27/18 Annotation/Comment: : Nonsymptomatic. Observe for now. Note history of PACs, SVT, incomplete right bundle branch block. (3) COPD (chronic obstructive pulmonary disease) SNOMED Code(s): 01722049 Code(s): J44.9 - CHRONIC OBSTRUCTIVE PULMONARY DISEASE, UNSPECIFIED Status : Acute Priority: High Current Visit: Yes Qualifiers: COPD type: COPD with acute lower respiratory infection Qualified Code(s): J44.0 - Chronic obstructive pulmonary disease with acute lower respiratory infection Annotation/Comment:: Dyspnea as above. Continue triple and DuoNeb nebulizer treatments as above. Initiated IV Rocephin and oral doxycycline after admission. Probable bronchitis with no evidence of pneumonia by chest x-ray. Sputum specimen collected for culture and sensitivity with pending results as above. Recent medication noncompliance as per emergency room note with medication compliance strongly encouraged. (4) Hypertension SNOMED Code(s): 98412689 Code(s): I10 - ESSENTIAL (PRIMARY) HYPERTENSION Status: Chronic Priority : High Current Visit: Yes Qualifiers: Hypertension type: essential hypertension Qualified Code(s): I10 - Essential (primary) hypertension Annotation/Comment:: Blood pressures were initially elevated in the emergency room, however significantly improved after nebulizer treatments as above. Continue to observe blood pressures closely with previous borderline hypertensive crisis in the distant past. (5) Osteoarthritis SNOMED Code(s): 127911290 Code(s): M19.90 - UNSPECIFIED OSTEOARTHRITIS, UNSPECIFIED SITE Status: Chronic Priority: Medium Current Visit: No Qualifiers: Osteoarthritis location: multiple joints Osteoarthritis type: primary Qualified Code(s): M15.0 - Primary generalized (osteo)arthritis Annotation/Comment:: Stable by history (6) Neurogenic bladder SNOMED Code(s): 200307032 Code(s): N31.9 - NEUROMUSCULAR DYSFUNCTION OF BLADDER, UNSPECIFIED Status: Chronic Priority: Medium Current Visit: No Annotation/Comment:: Neurogenic bladder with continuation of self catheterization. Catheter UA with culture and sensitivity was obtained after admission. Antibiotic therapy as above for his bronchitis which should cover his UTI, although culture and sensitivity results are still pending. (7) UTI (urinary tract infection) SNOMED Code(s): 46926211 Code(s): N39.0 - URINARY TRACT INFECTION, SITE NOT SPECIFIED Status: Acute Priority: High Current Visit: No Onset Date: 03/28/18 Qualifiers: Urinary tract infection type: acute cystitis Hematuria presence: without hematuria Qualified Code(s): N30.00 - Acute cystitis without hematuria Annotation/Comment:: Urine culture and sensitivity results pending as above. IV Rocephin and oral doxycycline have already been initiated (8) Tobacco abuse counseling SNOMED Code(s): 971094994, 239845535, 202234269 Code(s): Z71.6 - TOBACCO ABUSE COUNSELING Status: Chronic Priority: High Current Visit: Yes Annotation/Comment:: Tobacco cessation information to be provided at discharge - Problem List Review Problem List Initiated/Reviewed/Updated: Yes - My Orders Last 24 Hours: My Active Orders 03/28/18 10:32 Vital Signs [RC] Q4HR 03/28/18 11:43 Communication Order [RC] QSHIFT 03/28/18 13:00 Enoxaparin [Lovenox] 100 mg SUBCUT Q12H 03/28/18 14:00 LORazepam [Ativan] 0.5 mg PO Q6H PRN 03/28/18 20:00 atorvaSTATin [Lipitor] 20 mg PO BEDTIME 03/29/18 05:11 EKG Documentation Completion [RC] ASDIRECTED Chest 2V [CR] Routine - Assessment Assessment:: As above - Plan Plan:: As above. Extensive precautions were given to the patient, who is in agreement with the treatment plan. Anticipate an additional day of hospitalization.
[2018-03-29] MEDS: atorvaSTATin 10 MG Tab PO SCH (19:40)
[2018-03-30] MEDS: cefTRIAXone 1 GM in Sodium Chloride 0.9% 100 ML IV SCH ×2 (01:26→12:25)
[2018-03-30] MEDS: Furosemide 40 MG/4 ML VIAL IVPUSH SCH ×2 (01:26→08:57)
[2018-03-30] MEDS: Albuterol/Ipratropium 3.0-0.5 MG/3 ML Neb Soln NEB SCH ×4 (01:27→19:25)
[2018-03-30] MEDS: Enoxaparin 100 MG/1 ML Syringe SUBCUT SCH ×2 (01:27→12:23)
[2018-03-30] MEDS: Sodium Chloride 0.9% 10 ML Syringe FLUSH PRN ×4 (01:27→12:45)
[2018-03-30] MEDS: Diltiazem 180 MG Cap.CD PO SCH (07:16)
[2018-03-30] MEDS: Fluticasone Propionate Nasal Spray 16 GM Bottle NASBOTH SCH ×2 (07:16→17:22)
[2018-03-30] MEDS: Dextromethorphan/guaiFENesin 600-30 MG Tab.ER PO SCH ×2 (07:17→17:22)
[2018-03-30] MEDS: Magnesium Oxide 400 MG Tab PO SCH (07:17)
[2018-03-30] MEDS: Potassium Chloride 20 MEQ Tab.ER PO SCH ×3 (07:17→17:22)
[2018-03-30] MEDS: Doxycycline 100 MG Cap PO SCH ×2 (07:18→17:22)
[2018-03-30] MEDS: Lisinopril 10 MG Tab PO SCH (07:18)
[2018-03-30] MEDS: Budesonide 0.5 MG/2 ML Neb Susp NEB SCH ×2 (07:18→19:28)
[2018-03-30 07:31] LABS: CHLORIDE,CL 100 mmol/L (98-107); SODIUM,NA 134 mmol/L (136-145)
[2018-03-30] MEDS: Bisacodyl 5 MG Tab PO PRN ×2 (09:26→22:27)
--- NOTE | 2018-03-30 12:39 | PCM.PN ---
- General Info Date of Service: 03/30/18 Admission Dx/Problem (Free Text): 1. CHF 2. COPD exacerbation with additional bronchitis Subjective Update: Patient reports that in general, he has not noticed any additional improvement in SOB with activity. Nursing staff reports that he is easily winded when ambulating. No new complaints. Functional Status: Reports: Pain Controlled, Tolerating Diet, Ambulating, Urinating (self-cath) - Review of Systems General: Reports: Fatigue. Denies: Fever, Weakness, Malaise, Chills, Night Sweats, Appetite HEENT: Reports: No Symptoms Pulmonary: Reports: Shortness of Breath, Cough (no worsenng), Wheezing (mild). Denies: Pleuritic Chest Pain, Hemoptysis Cardiovascular: Reports: Dyspnea on Exertion. Denies: Chest Pain, Palpitations , Edema, Lightheadedness Gastrointestinal: Reports: No Symptoms Genitourinary: Reports: Other (No acute changes) Musculoskeletal: Reports: No Symptoms (No acute changs) Skin: Reports: Bruising (Lovenox sites) Neurological: Reports: No Symptoms Psychiatric: Reports: No Symptoms - Patient Data Vitals - Most Recent: Last Vital Signs Temp 36.8 C 03/30/18 07:14 Pulse 79 03/30/18 07:14 Resp 18 03/30/18 07:14 BP 127/64 03/30/18 07:18 Pulse Ox 97 03/30/18 07:14 Weight - Most Recent: 108.153 kg I&O - Last 24 Hours: Intake & Output 03/29/18 03/30/18 03/30/18 22:59 06:59 14:59 Intake Total 860 160 380 Output Total 1000 2200 Balance -140 -2040 380 Lab Results Last 24 Hours: Laboratory Results - last 24 hr 03/30/18 03/30/18 03/30/18 Range/Units 06:20 06:34 06:34 WBC 8.8 (4.0-10.2) K/uL RBC 5.33 (4.33-5.41) M/uL Hgb 14.8 (13.1-16.8) g/dL Hct 44.8 (39.0-49.0) % MCV 84.1 (84.0-98.0) fL MCH 27.8 L (28.2-33.3) pg MCHC 33.0 (31.7-36.0) g/dL RDW 13.3 (11.2-14.1) % Plt Count 222 (150-350) K/uL Neut % (Auto) 54.2 (45.0-80.0) % Lymph % (Auto) 33.1 (10.0-50.0) % [place] % (Auto) 10.0 (2.0-14.0) % Eos % (Auto) 2.4 (0.0-5.0) % Baso % (Auto) 0.3 (0.0-2.0) % Neut # (Auto) 4.75 (1.40-7.00) K/uL Lymph # (Auto) 2.91 (0.50-3.50) K/uL [place] # (Auto) 0.88 (0.00-1.00) K/uL Eos # (Auto) 0.21 (0.00-0.50) K/uL Baso # (Auto) 0.03 (0.00-0.20) K/uL PT 10.7 (9.8-11.7) SEC INR 1.0 APTT 32.3 H (22.1-29.8) SEC Sodium 134 L (136-145) mmol/L Potassium 4.9 (3.5-5.1) mmol/L Chloride 100 (98-107) mmol/L Carbon Dioxide 22.2 (21.0-32.0) mmol/L BUN 34 H (7-18) mg/dL Creatinine 1.04 (0.51-1.17) mg/dL Est Cr Clr Drug Dosing 77.97 mL/min Estimated GFR (MDRD) > 60 mL/min Glucose 123 H (74-106) mg/dL Calcium 9.6 (8.5-10.1) mg/dL Creatine Kinase 167 (26-308) U/L Creatine Kinase Index 3.1 H (0.0-2.5) % CK-MB (CK-2) 5.10 H* (0.00-3.60) ng/mL Troponin I 0.000 (0.000-0.056) ng/mL NT-Pro-B Natriuret Pep 83 (0-125) pg/mL Moe Results Last 24 Hours: Microbiology 03/27/18 22:30 Gram Stain - Final Sputum - Expectorated Sputum Culture - Preliminary 03/28/18 02:15 Urine Culture - Final Urine, Catheterized Escherichia Coli. Med Orders - Current: Current Medications Acetaminophen (Tylenol) 650 mg PO Q4H PRN PRN Reason: Pain Last Admin: 03/29/18 10:52 Dose: 650 mg Albuterol (Proventil Neb Soln) 2.5 mg INH Q2H PRN PRN Reason: SHORTNESS OF BREATH Albuterol/Ipratropium (Duoneb 3.0-0.5 Mg/3 Ml) 3 ml NEB Q4HRRT PRN PRN Reason: Dyspnea Albuterol/Ipratropium (Duoneb 3.0-0.5 Mg/3 Ml) 3 ml NEB Q6HRRT [facility] Last Admin: 03/30/18 07:16 Dose: 3 ml Atorvastatin Calcium (Lipitor) 20 mg PO BEDTIME [facility] Last Admin: 03/29/18 19:40 Dose: 20 mg Bisacodyl (Dulcolax) 5 mg PO ASDIRECTED PRN PRN Reason: Constipation Last Admin: 03/30/18 09:26 Dose: 5 mg Budesonide (Pulmicort) 0.5 mg NEB BIDRT [facility] Last Admin: 03/30/18 07:18 Dose: 0.5 mg Diltiazem HCl (Cardizem Cd) 180 mg PO DAILY [facility] Last Admin: 03/30/18 07:16 Dose: 180 mg Doxycycline Hyclate (Vibramycin) 100 mg PO BID [facility] Last Admin: 03/30/18 07:18 Dose: 100 mg Enoxaparin Sodium (Lovenox) 100 mg SUBCUT Q12H [facility] Last Admin: 03/30/18 12:23 Dose: 100 mg Fluticasone Propionate (Flonase) 0 gm NASBOTH BID [facility] Last Admin: 03/30/18 07:16 Dose: 1 spray Furosemide (Lasix) 20 mg IVPUSH DAILY [facility] Guaifenesin/Dextromethorphan (Mucinex Dm Er 600-30 Mg) 1 tab PO BID [facility] Last Admin: 03/30/18 07:17 Dose: 1 tab Ceftriaxone Sodium 1 gm/ (Sodium Chloride) 100 mls @ 200 mls/hr IV Q12H [facility] Last Admin: 03/30/18 12:25 Dose: 200 mls/hr Lisinopril (Prinivil) 20 mg PO DAILY [facility] Last Admin: 03/30/18 07:18 Dose: 20 mg Lorazepam (Ativan) 0.5 mg PO Q6H PRN PRN Reason: Anxiety Magnesium Oxide (Magnesium Oxide) 400 mg PO DAILY [facility] Last Admin: 03/30/18 07:17 Dose: 400 mg Methylprednisolone Sodium Succinate (Solu-Medrol) 125 mg IVPUSH Q12H [facility] Potassium Chloride (Klor-Con M20) 20 meq PO TID [facility] Last Admin: 03/30/18 12:22 Dose: 20 meq Sodium Chloride (Saline Flush) 10 ml FLUSH ASDIRECTED PRN PRN Reason: Keep Vein Open Last Admin: 03/30/18 12:26 Dose: 10 ml Sodium Chloride (Saline Flush) 10 ml FLUSH Q12HR PRN PRN Reason: Keep Vein Open Last Admin: 03/28/18 08:15 Dose: 10 ml Discontinued Medications Albuterol/Ipratropium (Duoneb 3.0-0.5 Mg/3 Ml) 3 ml NEB ONETIME ONE Stop: 03/27/18 22:38 Last Admin: 03/27/18 22:57 Dose: 3 ml Aspirin (Aspirin) 324 mg CHEW ONETIME ONE Stop: 03/27/18 23:26 Last Admin: 03/27/18 23:31 Dose: 324 mg Budesonide (Pulmicort) 0.5 mg NEB ONETIME ONE Stop: 03/27/18 22:38 Last Admin: 03/27/18 22:57 Dose: 0.5 mg Enoxaparin Sodium (Lovenox) 100 mg SUBCUT Q24H [facility] Last Admin: 03/28/18 01:18 Dose: 100 mg Famotidine (Pepcid) 40 mg IVPUSH ONETIME ONE Stop: 03/27/18 22:36 Last Admin: 03/27/18 22:57 Dose: 40 mg Furosemide (Lasix) 40 mg IVPUSH Q8H [facility] Last Admin: 03/30/18 08:57 Dose: 40 mg Temazepam (Restoril) 15 mg PO BEDTIME PRN PRN Reason: Insomnia Last Admin: 03/28/18 03:25 Dose: 15 mg Ticagrelor (Brilinta) 180 mg PO ONETIME ONE Stop: 03/27/18 23:26 Last Admin: 03/27/18 23:31 Dose: 180 mg - Exam Quality Assessment: Supplemental Oxygen (4.5L), DVT Prophylaxis General: Alert, Oriented, Cooperative, No Acute Distress HEENT: Pupils Equal, Pupils Reactive, EOMI, Mucous Membr. Moist/[place] Neck: Supple Lungs: Decreased Breath Sounds, Rales (mild), Rhonchi (mild), Wheezing (mild), Other (Patient unable to take very deep breath during exam). No: Stridor Cardiovascular: Regular Rate, Regular Rhythm. No: Murmurs GI/Abdominal Exam: Normal Bowel Sounds, Soft, Non-Tender, No Distention (Male) Exam: Deferred Back Exam: No: CVA Tenderness (L), CVA Tenderness (R) Extremities: Non-Tender, Normal Capillary Refill Peripheral Pulses: 2+: Radial (L), Radial (R) Skin: Warm, Dry, Intact Neurological: No New Focal Deficit Psy/Mental Status: Alert, Normal Affect, Normal Mood EKG INTERPRETATION EKG Date: 03/30/18 Time: 07:44 Rhythm: NSR Rate (Beats/Min): 84 [place]: Normal P-Wave: Present QRS: Normal ST-T: Other (No acute ST elevation/depression suggesting acute ischemia at this time. Continues to have inverted Ts V1 and V2) QT: Normal Comparison: No Change - Problem List & Annotations (1) COPD (chronic obstructive pulmonary disease) SNOMED Code(s): 99233380 Code(s): J44.9 - CHRONIC OBSTRUCTIVE PULMONARY DISEASE, UNSPECIFIED Status : Acute Priority: High Current Visit: Yes Qualifiers: COPD type: COPD with acute lower respiratory infection Qualified Code(s): J44.0 - Chronic obstructive pulmonary disease with acute lower respiratory infection Annotation/Comment:: Dyspnea continues. Patient is usually on 3-4L of O2 NC at home. Still smokes. Is currently on 4.5L. Incentive spirometry has decreased from 1750 several days ago to 1500 today. Radiology reports significant emphysematous changes on Xray as well as increased bibasilar atelectasis over the past 2 days. Solu-medrol added to medication regimen. Will continue triple and DuoNeb nebulizer treatments as above. Initiated IV Rocephin and oral doxycycline after admission. Probable bronchitis with no evidence of pneumonia by chest x-ray. Sputum specimen collected for culture and sensitivity with pending results as above. Recent medication noncompliance as per emergency room note with medication compliance strongly encouraged. (2) CHF (congestive heart failure) SNOMED Code(s): 38660173 Code(s): I50.9 - HEART FAILURE, UNSPECIFIED Status: Acute Priority: High Current Visit: Yes Qualifiers: Heart failure type: diastolic Heart failure chronicity: acute on chronic Qualified Code(s): I50.33 - Acute on chronic diastolic (congestive) heart failure Annotation/Comment:: Dyspnea significantly improved with both with IV Lasix therapy and his nebulizer treatments, although not significantly better over the last few days. He is having some moderate dyspnea with only minimal exertion. No CHF noted by Radiology when xrays reviewed. BNP was minimally above normal at time of admission and was within normal range at last measurement. Will decrease Lasix from TID to QD. Various therapeutic options were discussed with the patient including transfer to [facility] today for further cardiac/COPD workup and/or evaluation. Per his request we will keep the patient in this facility for an additional day for further antibody therapy for his bronchitis and UTI. [facility] physician assumes care in the a.m with repeat discussion of possible transfer to [facility] for cardiac workup at that time. Stable borderline anterior wall cardiac ischemia by EKG as above. Serial cardiac enzymes show relatively stable CK MB and cardiac index elevations, although normal CK and troponin I. Continue subcutaneous Lovenox therapy for now. The patient denied chest pain or other anginal-type symptoms prior to arrival with chest pain protocol not initially initiated. No chest pain or anginal type symptoms since admission. After receiving test results in the emergency room aspirin and Brilinta were given. Note history of diastolic dysfunction by previous echocardiogram with consideration of repeating echocardiogram on an outpatient basis, although previous echocardiogram in April 2017. Blood work to be repeated in the a.m. Glycosylated hemoglobin was okay on 03/28 with normal lipid profile during this hospitalization. (3) Noncompliance with medication regimen SNOMED Code(s): 764470240 Code(s): Z91.14 - PATIENT'S OTHER NONCOMPLIANCE WITH MEDICATION REGIMEN Status: Acute Priority: High Current Visit: Yes Annotation/Comment:: Patient has not been compliant with neb treatment schedule nor with Pulmicort. Ran out of the Pulmicort without calling for refill. (4) PVC's (premature ventricular contractions) SNOMED Code(s): 08281897 Code(s): I49.3 - VENTRICULAR PREMATURE DEPOLARIZATION Status: Acute Priority: High Current Visit: Yes Onset Date: 03/27/18 Annotation/Comment: : Nonsymptomatic. Observe for now. Note history of PACs, SVT, incomplete right bundle branch block. (5) Hypertension SNOMED Code(s): 18677080 Code(s): I10 - ESSENTIAL (PRIMARY) HYPERTENSION Status: Chronic Priority : High Current Visit: Yes Qualifiers: Hypertension type: essential hypertension Qualified Code(s): I10 - Essential (primary) hypertension Annotation/Comment:: Blood pressures were initially elevated in the emergency room, however significantly improved after nebulizer treatments as above. Continue to observe blood pressures closely with previous borderline hypertensive crisis in the distant past. (6) Tobacco abuse counseling SNOMED Code(s): 272135273, 898074778, 230526474 Code(s): Z71.6 - TOBACCO ABUSE COUNSELING Status: Chronic Priority: High Current Visit: Yes Annotation/Comment:: Tobacco cessation information to be provided at discharge (7) UTI (urinary tract infection) SNOMED Code(s): 11986920 Code(s): N39.0 - URINARY TRACT INFECTION, SITE NOT SPECIFIED Status: Acute Priority: High Current Visit: No Onset Date: 03/28/18 Qualifiers: Urinary tract infection type: acute cystitis Hematuria presence: without hematuria Qualified Code(s): N30.00 - Acute cystitis without hematuria Annotation/Comment:: Urine culture and sensitivity results pending as above. IV Rocephin and oral doxycycline have already been initiated (8) Neurogenic bladder SNOMED Code(s): 651985693 Code(s): N31.9 - NEUROMUSCULAR DYSFUNCTION OF BLADDER, UNSPECIFIED Status: Chronic Priority: Medium Current Visit: No Annotation/Comment:: Neurogenic bladder with continuation of self catheterization. Catheter UA with culture and sensitivity was obtained after admission. Antibiotic therapy as above for his bronchitis which should cover his UTI, although culture and sensitivity results are still pending. (9) Osteoarthritis SNOMED Code(s): 120442294 Code(s): M19.90 - UNSPECIFIED OSTEOARTHRITIS, UNSPECIFIED SITE Status: Chronic Priority: Medium Current Visit: No Qualifiers: Osteoarthritis location: multiple joints Osteoarthritis type: primary Qualified Code(s): M15.0 - Primary generalized (osteo)arthritis Annotation/Comment:: Stable by history - Problem List Review Problem List Initiated/Reviewed/Updated: Yes - My Orders Last 24 Hours: My Active Orders 03/30/18 12:30 methylPREDNISolone Sod Succ [Solu-MEDROL] 125 mg IVPUSH Q12H 03/31/18 08:00 Furosemide [Lasix] 20 mg IVPUSH DAILY - Assessment Assessment:: As above - Plan Plan:: As above. Will add Solu-medrol IV to medication regimen and observe for changes. If no overall improvement is noted by tomorrow, will plan on transferring patient to [place] for further evaluation and care of COPD exacerbation and above complaints. Patient is in agreement with plan.
[2018-03-30] MEDS: methylPREDNISolone Sodium Succinate 125 MG/2 ML SDV IVPUSH SCH (12:53)
[2018-03-30] MEDS: Polyethylene Glycol 3350 Powder 17 GM Packet PO PRN (18:34)
[2018-03-30] MEDS: atorvaSTATin 10 MG Tab PO SCH (19:25)
[2018-03-30] MEDS: Acetaminophen 325 MG Tab PO PRN (22:26)
[2018-03-31] MEDS: Albuterol/Ipratropium 3.0-0.5 MG/3 ML Neb Soln NEB SCH ×4 (01:10→19:11)
[2018-03-31] MEDS: cefTRIAXone 1 GM in Sodium Chloride 0.9% 100 ML IV SCH ×2 (01:10→12:16)
[2018-03-31] MEDS: Enoxaparin 100 MG/1 ML Syringe SUBCUT SCH ×2 (01:10→12:05)
[2018-03-31] MEDS: methylPREDNISolone Sodium Succinate 125 MG/2 ML SDV IVPUSH SCH ×2 (01:10→12:05)
[2018-03-31] MEDS: Sodium Chloride 0.9% 10 ML Syringe FLUSH PRN ×2 (01:12→12:05)
[2018-03-31] MEDS ORDERED: Furosemide 20 MG/2 ML VIAL IVPUSH SCH (08:00)
[2018-03-31] MEDS: Doxycycline 100 MG Cap PO SCH ×2 (08:03→19:12)
[2018-03-31] MEDS: Budesonide 0.5 MG/2 ML Neb Susp NEB SCH ×2 (08:03→19:11)
[2018-03-31] MEDS: Magnesium Oxide 400 MG Tab PO SCH (08:03)
[2018-03-31] MEDS: Potassium Chloride 20 MEQ Tab.ER PO SCH ×3 (08:04→19:11)
[2018-03-31] MEDS: Fluticasone Propionate Nasal Spray 16 GM Bottle NASBOTH SCH ×2 (08:04→19:11)
[2018-03-31] MEDS: Diltiazem 180 MG Cap.CD PO SCH (08:04)
[2018-03-31] MEDS: Dextromethorphan/guaiFENesin 600-30 MG Tab.ER PO SCH ×2 (08:04→19:11)
[2018-03-31] MEDS: Lisinopril 10 MG Tab PO SCH (08:05)
[2018-03-31 12:10] VITALS: BP 133/61
[2018-03-31] MEDS: Acetaminophen 325 MG Tab PO PRN (12:16)
[2018-03-31] MEDS: Polyethylene Glycol 3350 Powder 17 GM Packet PO PRN (12:16)
[2018-03-31] MEDS: Bisacodyl 5 MG Tab PO PRN (12:17)
[2018-03-31] MEDS ORDERED: Magnesium Hydroxide 400 MG/5 ML Susp 30 ML Cup PO PRN (12:23)
--- NOTE | 2018-03-31 15:53 | PCM.DCSUM1 ---
Discharge Summary - Hospital Course Brief History: Admitted for increased SOB. Diagnosis: Stroke: No - Discharge Data Discharge Date: 03/31/18 Discharge Disposition: Home, Self-Care 01 Condition: Good - Discharge Diagnosis/Problem(s) (1) COPD (chronic obstructive pulmonary disease) SNOMED Code(s): 89088033 ICD Code: J44.9 - CHRONIC OBSTRUCTIVE PULMONARY DISEASE, UNSPECIFIED Status : Acute Priority: High Current Visit: Yes Problem Details: Dyspnea continues. Patient refused transfer to [place] today when this was recommended and instead insists on going home. Patient is usually on 3-4L of O2 NC at home. Still smokes. Was on 4.5L of O2 for much of stay. Attempt to wean patient down made as suspect he is CO2 retainer given advance COPD. Noted to have O2 sats around 91% on 2L. Decreased to high 80s when O2 completely removed for 5 minutes. Call placed to [facility] where patient admitted several months ago after spontaneous pneumothorax. Noted then to only need 1L of O2 with activity. He appears to be trending towards requiring increased O2 when compared to December. Incentive spirometry improved to [id number] today after patient received Solu- medrol. Increased atelectasis noted on most recent Xray per Radiology. No CHF noted. Sputum culture grew out EColi. Susceptible to Rocephin that patient has been receiving since admission. Also susceptible to Bactrim. Will discharge patient home on Bactrim as well as 5 day course Prednisone. Recent medication noncompliance as per emergency room note with medication compliance strongly encouraged. Qualifiers: COPD type: COPD with acute lower respiratory infection Qualified Code(s): J44.0 - Chronic obstructive pulmonary disease with acute lower respiratory infection (2) CHF (congestive heart failure) SNOMED Code(s): 72370903 ICD Code: I50.9 - HEART FAILURE, UNSPECIFIED Status: Acute Priority: High Current Visit: Yes Problem Details: Dyspnea initially improved with both with IV Lasix therapy and his nebulizer treatments, although not significantly better over the last few days. He is having some moderate dyspnea with only minimal exertion. No CHF noted by Radiology when xrays reviewed. BNP was minimally above normal at time of admission and was within normal range at last measurement. Qualifiers: Heart failure type: diastolic Heart failure chronicity: acute on chronic Qualified Code(s): I50.33 - Acute on chronic diastolic (congestive) heart failure (3) UTI (urinary tract infection) SNOMED Code(s): 59378422 ICD Code: N39.0 - URINARY TRACT INFECTION, SITE NOT SPECIFIED Status: Acute Priority: High Current Visit: No Onset Date: 03/28/18 Problem Details: E. Coli. Sensitive to Rocephin (which patient has been receivint) as well as Septra/Bactrim. Will discharge patient on Bactrim. Qualifiers: Urinary tract infection type: acute cystitis Hematuria presence: without hematuria Qualified Code(s): N30.00 - Acute cystitis without hematuria (4) Noncompliance with medication regimen SNOMED Code(s): 802863194 ICD Code: Z91.14 - PATIENT'S OTHER NONCOMPLIANCE WITH MEDICATION REGIMEN Status: Acute Priority: High Current Visit: Yes Problem Details: Patient has not been compliant with neb treatment schedule nor with Pulmicort. Ran out of the Pulmicort without calling for refill. (5) PVC's (premature ventricular contractions) SNOMED Code(s): 47072311 ICD Code: I49.3 - VENTRICULAR PREMATURE DEPOLARIZATION Status: Acute Priority: High Current Visit: Yes Onset Date: 03/27/18 Problem Details: Nonsymptomatic. Observe for now. Note history of PACs, SVT, incomplete right bundle branch block. (6) Hypertension SNOMED Code(s): 85081007 ICD Code: I10 - ESSENTIAL (PRIMARY) HYPERTENSION Status: Chronic Priority : High Current Visit: Yes Problem Details: Blood pressures were initially elevated in the emergency room, however significantly improved after nebulizer treatments as above. Continue to observe blood pressures closely with previous borderline hypertensive crisis in the distant past. Qualifiers: Hypertension type: essential hypertension Qualified Code(s): I10 - Essential (primary) hypertension (7) Tobacco abuse counseling SNOMED Code(s): 288853705, 258496894, 459705410 ICD Code: Z71.6 - TOBACCO ABUSE COUNSELING Status: Chronic Priority: High Current Visit: Yes Problem Details: Tobacco cessation information to be provided at discharge (8) Neurogenic bladder SNOMED Code(s): 080770849 ICD Code: N31.9 - NEUROMUSCULAR DYSFUNCTION OF BLADDER, UNSPECIFIED Status : Chronic Priority: Medium Current Visit: No Problem Details: Neurogenic bladder with continuation of self catheterization. Catheter UA with culture and sensitivity was obtained after admission. Antibiotic therapy as above for his bronchitis which should cover his UTI, although culture and sensitivity results are still pending. (9) Osteoarthritis SNOMED Code(s): 503825290 ICD Code: M19.90 - UNSPECIFIED OSTEOARTHRITIS, UNSPECIFIED SITE Status: Chronic Priority: Medium Current Visit: No Problem Details: Stable by history Qualifiers: Osteoarthritis location: multiple joints Osteoarthritis type: primary Qualified Code(s): M15.0 - Primary generalized (osteo)arthritis - Patient Summary/Data Hospital Course: Patient treated aggressively with nebs/diuresis initially. Overall improved but still had significant O2 requirement when compared to last evaluation here in our ER and subsequently at [facility]. At that time [facility] noted that patient did not need O2 at rest, and required approximately 1L per NC with activity. Today nursing staff noted that patient had desat to 90-91% while on O2 and ambulating. Removing O2 caused decrease in O2 sats to higher 80s. Sats were around 91% on 2-3 L. He was able to get to 94% at 4L. BNP minimally elevated. Radiology did not note changes reflective of CHF. No infiltrate noted on CXR. However increased atelectasis noted per Radiology. Lasix dose decreased. Sputum culture and UC both positive for E.Coli on last day of admission. Susceptible to Rocephin that patient has been receiving since admission. Solumedrol started on 3rd day of admission. Some improvement noted on incentive spirometry, however no significant change in NC O2 requirement. Given the increase in baseline O2 requirement/general worsening of COPD it was felt that patient would benefit from transfer to either [facility] or [facility] for ongoing care and Pulmonary Medicine involvement. Current results/concerns were discussed with patient who then refused transfer to [place] [facility] [place] and insisted on going home instead. Patient says that in general he is feeling better since arrival. He will be discharged home despite this not being advisable. He will be sent home with outpatient packs of Septra/Bactrim as well as Prednisone. He is to follow up at his usual clinic Monday or Monday for recheck. - Patient Instructions Diet: Usual Diet as Tolerated Activity: As Tolerated Driving: Do Not Drive Showering/Bathing: May Shower Other/Special Instructions: Follow up Monday or Monday with your regular clinic. Follow up in ER if you worsen. TAKE YOUR MEDICATION as prescribed, including inhalers. Check to see if you can qualify for VA benefits and admission to live on the independent side of the [facility]. - Discharge Plan Prescriptions/Med Rec: Budesonide [Pulmicort] 0.5 mg NEB BIDRT 30 Days #60 neb Sulfamethoxazole/Trimethoprim [Septra DS] 1 each PO BID #14 tab Home Medications: Home Meds Albuterol [Ventolin HFA] 2 puff INH Q4HR 11/03/17 [History] Lisinopril 20 mg PO DAILY 11/03/17 [History] Magnesium Oxide [Magnesium] 400 mg PO DAILY 11/03/17 [History] Potassium Chloride [Klor-Con M20] 20 meq PO DAILY 11/03/17 [History] atorvaSTATin [Lipitor] 20 mg PO BEDTIME 11/03/17 [History] Acetaminophen [Tylenol] 650 mg PO Q4H PRN tablet 11/07/17 [Rx] Albuterol/Ipratropium [DuoNeb 3.0-0.5 MG/3 ML] 3 ml NEB Q4HRRT PRN 30 Days #120 neb 11/07/17 [Rx] Furosemide [Lasix] 40 mg PO DAILY 30 Days #30 tab 11/07/17 [Rx] guaiFENesin [Mucinex] 600 mg PO BID PRN tab.er 11/07/17 [Rx] Diltiazem HCl [Cartia Xt] 180 mg PO DAILY 11/16/17 [History] Fluticasone Propionate [Flonase] 1 sprays NASBOTH BID 11/16/17 [History] Nitroglycerin [Nitrostat] 0.4 mg PO ASDIRECTED 11/16/17 [History] Aspirin [Ecotrin] 81 mg PO DAILY 01/07/18 [History] Bisacodyl [Dulcolax] 5 mg PO ASDIRECTED PRN 03/28/18 [History] Budesonide [Pulmicort] 0.5 mg NEB BIDRT 30 Days #60 neb 03/31/18 [Rx] Sulfamethoxazole/Trimethoprim [Septra DS] 1 each PO BID #14 tab 03/31/18 [Rx] Patient Handouts: Furosemide injection, Ceftriaxone injection, Budesonide inhalation solution, Famotidine injection, Albuterol; Ipratropium solution for inhalation, Heart Failure Forms: ED Department Discharge Referrals: Fredo Fischer MD [Primary Care Provider] - - Discharge Summary/Plan Comment DC Time >30 min.: No - General Info Date of Service: 03/31/18 Admission Dx/Problem (Free Text: 1. CHF 2. COPD exacerbation with additional bronchitis Subjective Update: Patient feels better. Still SOB with activity. Vague when asked if still more SOB now than last month/two months ago. Wishes to go home. Functional Status: Reports: Pain Controlled, Tolerating Diet, Ambulating, Urinating. Denies: New Symptoms - Review of Systems General: Reports: Fatigue. Denies: Fever HEENT: Reports: No Symptoms Pulmonary: Reports: Shortness of Breath. Denies: Pleuritic Chest Pain, Cough, Sputum, Hemoptysis, Wheezing Cardiovascular: Reports: No Symptoms. Denies: Chest Pain, Lightheadedness Gastrointestinal: Reports: No Symptoms Genitourinary: Reports: No Symptoms Musculoskeletal: Reports: No Symptoms (no acute changes) Skin: Reports: Bruising (lovenox injections) Neurological: Reports: No Symptoms Psychiatric: Reports: No Symptoms - Patient Data Vitals - Most Recent: Last Vital Signs Temp 36.6 C 03/31/18 12:00 Pulse 88 03/31/18 12:00 Resp 20 03/31/18 12:00 BP 133/61 03/31/18 12:00 Pulse Ox 96 03/31/18 12:00 Weight - Most Recent: 109.044 kg I&O - Last 24 hours: Intake & Output 03/31/18 03/31/18 03/31/18 06:59 14:59 22:59 Intake Total 1560 Output Total 1200 Balance 360 SINCERE Results - Last 24 hrs: Microbiology 03/27/18 22:30 Gram Stain - Final Sputum - Expectorated Sputum Culture - Final Escherichia Coli Med Orders - Current: Current Medications Acetaminophen (Tylenol) 650 mg PO Q4H PRN PRN Reason: Pain Last Admin: 03/31/18 12:16 Dose: 650 mg Albuterol (Proventil Neb Soln) 2.5 mg INH Q2H PRN PRN Reason: SHORTNESS OF BREATH Albuterol/Ipratropium (Duoneb 3.0-0.5 Mg/3 Ml) 3 ml NEB Q4HRRT PRN PRN Reason: Dyspnea Albuterol/Ipratropium (Duoneb 3.0-0.5 Mg/3 Ml) 3 ml NEB Q6HRRT [facility] Last Admin: 03/31/18 13:39 Dose: 3 ml Atorvastatin Calcium (Lipitor) 20 mg PO BEDTIME [facility] Last Admin: 03/30/18 19:25 Dose: 20 mg Bisacodyl (Dulcolax) 5 mg PO ASDIRECTED PRN PRN Reason: Constipation Last Admin: 03/31/18 12:17 Dose: 5 mg Budesonide (Pulmicort) 0.5 mg NEB BIDRT [facility] Last Admin: 03/31/18 08:03 Dose: 0.5 mg Diltiazem HCl (Cardizem Cd) 180 mg PO DAILY [facility] Last Admin: 03/31/18 08:04 Dose: 180 mg Doxycycline Hyclate (Vibramycin) 100 mg PO BID [facility] Last Admin: 03/31/18 08:03 Dose: 100 mg Enoxaparin Sodium (Lovenox) 100 mg SUBCUT Q12H [facility] Last Admin: 03/31/18 12:05 Dose: Not Given Fluticasone Propionate (Flonase) 0 gm NASBOTH BID [facility] Last Admin: 03/31/18 08:04 Dose: 1 spray Furosemide (Lasix) 20 mg IVPUSH DAILY [facility] Last Admin: 03/31/18 08:03 Dose: 20 mg Guaifenesin/Dextromethorphan (Mucinex Dm Er 600-30 Mg) 1 tab PO BID [facility] Last Admin: 03/31/18 08:04 Dose: 1 tab Ceftriaxone Sodium 1 gm/ (Sodium Chloride) 100 mls @ 200 mls/hr IV Q12H [facility] Last Admin: 03/31/18 12:16 Dose: 200 mls/hr Lisinopril (Prinivil) 20 mg PO DAILY [facility] Last Admin: 03/31/18 08:05 Dose: 20 mg Lorazepam (Ativan) 0.5 mg PO Q6H PRN PRN Reason: Anxiety Last Admin: 03/30/18 22:27 Dose: 0.5 mg Magnesium Hydroxide (Milk Of Magnesia) 30 ml PO DAILY PRN PRN Reason: Constipation Magnesium Oxide (Magnesium Oxide) 400 mg PO DAILY [facility] Last Admin: 03/31/18 08:03 Dose: 400 mg Methylprednisolone Sodium Succinate (Solu-Medrol) 125 mg IVPUSH Q12H [facility] Last Admin: 03/31/18 12:05 Dose: 125 mg Polyethylene Glycol (Miralax) 17 gm PO DAILY PRN PRN Reason: Constipation Last Admin: 03/31/18 12:16 Dose: 17 gm Potassium Chloride (Klor-Con M20) 20 meq PO TID [facility] Last Admin: 03/31/18 12:05 Dose: 20 meq Sodium Chloride (Saline Flush) 10 ml FLUSH ASDIRECTED PRN PRN Reason: Keep Vein Open Last Admin: 03/31/18 12:05 Dose: 10 ml Sodium Chloride (Saline Flush) 10 ml FLUSH Q12HR PRN PRN Reason: Keep Vein Open Last Admin: 03/28/18 08:15 Dose: 10 ml Discontinued Medications Albuterol/Ipratropium (Duoneb 3.0-0.5 Mg/3 Ml) 3 ml NEB ONETIME ONE Stop: 03/27/18 22:38 Last Admin: 03/27/18 22:57 Dose: 3 ml Aspirin (Aspirin) 324 mg CHEW ONETIME ONE Stop: 03/27/18 23:26 Last Admin: 03/27/18 23:31 Dose: 324 mg Budesonide (Pulmicort) 0.5 mg NEB ONETIME ONE Stop: 03/27/18 22:38 Last Admin: 03/27/18 22:57 Dose: 0.5 mg Enoxaparin Sodium (Lovenox) 100 mg SUBCUT Q24H [facility] Last Admin: 03/28/18 01:18 Dose: 100 mg Famotidine (Pepcid) 40 mg IVPUSH ONETIME ONE Stop: 03/27/18 22:36 Last Admin: 03/27/18 22:57 Dose: 40 mg Furosemide (Lasix) 40 mg IVPUSH Q8H [facility] Last Admin: 03/30/18 08:57 Dose: 40 mg Temazepam (Restoril) 15 mg PO BEDTIME PRN PRN Reason: Insomnia Last Admin: 03/28/18 03:25 Dose: 15 mg Ticagrelor (Brilinta) 180 mg PO ONETIME ONE Stop: 03/27/18 23:26 Last Admin: 03/27/18 23:31 Dose: 180 mg - Exam Quality Assessment: Reports: Supplemental Oxygen, DVT Prophylaxis General: Reports: Alert, Oriented, Cooperative, No Acute Distress HEENT: Reports: Pupils Equal, Pupils Reactive, EOMI, Mucous Membr. Moist/[place] Neck: Reports: Supple Lungs: Reports: Decreased Breath Sounds (throughout), Wheezing (faint/bilat), Other (does not move much air when asked to take deep breath). Denies: Rales, Rhonchi, Stridor Cardiovascular: Reports: Regular Rate, Regular Rhythm, No Murmurs GI/Abdominal Exam: Normal Bowel Sounds, Soft, Non-Tender, No Distention (Male) Exam: Deferred Rectal (Males) Exam: Deferred Back Exam: Denies: CVA Tenderness (L), CVA Tenderness (R) Extremities: Non-Tender Skin: Reports: Warm, Dry, Intact, Other (mild duskiness noted taylor-oral/hands when O2 taken off for 5 min) Neurological: Reports: No New Focal Deficit Psy/Mental Status: Reports: Alert, Normal Affect, Normal Mood
[2018-03-31] MEDS: atorvaSTATin 10 MG Tab PO SCH (19:10)
== END 2018-03-31 19:49 | disposition home or self-care (01) | DRG 190 ==
LOC: LL.ED 22:15 → LL.MS 03-28 00:10
PROVIDERS: ADMIT Family Medicine; ATTEND Family Medicine
DX: J44.0 Chronic obstructive pulmonary disease with (acute) lower respiratory infection (principal); I50.33 Acute on chronic diastolic (congestive) heart failure; N39.0 Urinary tract infection, site not specified; J20.9 Acute bronchitis, unspecified; J44.1 Chronic obstructive pulmonary disease with (acute) exacerbation; I11.0 Hypertensive heart disease with heart failure; E78.00 Pure hypercholesterolemia, unspecified; B96.20 Unspecified Escherichia coli [E. coli] as the cause of diseases classified elsewhere; Z99.81 Dependence on supplemental oxygen; I45.10 Unspecified right bundle-branch block; I49.3 Ventricular premature depolarization; M15.0 Primary generalized (osteo)arthritis; N31.9 Neuromuscular dysfunction of bladder, unspecified; F17.210 Nicotine dependence, cigarettes, uncomplicated; Z71.6 Tobacco abuse counseling; N40.1 Benign prostatic hyperplasia with lower urinary tract symptoms; R33.8 Other retention of urine; Z91.19 Patient's noncompliance with other medical treatment and regimen; Z79.51 Long term (current) use of inhaled steroids; Z79.82 Long term (current) use of aspirin; Z79.899 Other long term (current) drug therapy; Z87.01 Personal history of pneumonia (recurrent); Z86.010 Personal history of colon polyps
CPT/HCPCS: 36415; 71045; 71046; 80048; 80053; 80061; 81001; 82550; 82553; 83036; 83605; 83735; 83880; 84443; 84484; 84550; 85025; 85379; 85610; 85730; 87070; 87077; 87086; 87088; 87186; 87205; 93005; 94640; 96374; 99285; A9270-GY; J0696; J1650; J1940; J2930; J7050; S0028

== ENCOUNTER 2018-11-21 12:08 | Observation (INO) | payer MEDICARE ==
[2018-11-21] MEDS ORDERED: Aspirin 81 MG Tab.Chew PO ONE (12:18)
[2018-11-21 12:55] LABS: CHLORIDE,CL 100 mmol/L (98-107); SODIUM,NA 138 mmol/L (136-145)
[2018-11-21] MEDS ORDERED: methylPREDNISolone Sodium Succinate 125 MG/2 ML SDV IVPUSH ONE (13:00)
[2018-11-21] MEDS ORDERED: Piperacillin/Tazobactam 3.375 GM in Sodium Chloride 0.9% 100 ML IV ONE (13:01)
--- NOTE | 2018-11-21 13:02 | EDM.PDOC ---
ED HPI GENERAL MEDICAL PROBLEM - General Chief Complaint: Respiratory Problem Stated Complaint: SOB, left rib pain Time Seen by Provider: 11/21/18 12:15 Source of Information: Reports: Patient History Limitations: Reports: No Limitations - History of Present Illness INITIAL COMMENTS - FREE TEXT/NARRATIVE: Patient is a 68-year-old well known to myself comes in with significant shortness of breath chest wall pain at around T10 mid breast line left. 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 Treatments - Related Data Allergies Allergy/AdvReac Type Severity Reaction Status Date / Time No Known Allergies Allergy Verified 01/07/18 12:11 Home Meds: Home Meds Albuterol [Ventolin HFA] 2 puff INH Q4HR 11/03/17 [History] Lisinopril 20 mg PO DAILY 11/03/17 [History] Potassium Chloride [Klor-Con M20] 20 meq PO DAILY 11/03/17 [History] atorvaSTATin [Lipitor] 20 mg PO BEDTIME 11/03/17 [History] Acetaminophen [Tylenol] 650 mg PO Q4H PRN tablet 11/07/17 [Rx] Albuterol/Ipratropium [DuoNeb 3.0-0.5 MG/3 ML] 3 ml NEB Q4HRRT PRN 30 Days #120 neb 11/07/17 [Rx] Furosemide [Lasix] 40 mg PO DAILY 30 Days #30 tab 11/07/17 [Rx] Diltiazem HCl [Cartia Xt] 180 mg PO DAILY 11/16/17 [History] Fluticasone Propionate [Flonase] 1 sprays NASBOTH BID 11/16/17 [History] Aspirin [Ecotrin] 81 mg PO DAILY 01/07/18 [History] Bisacodyl [Dulcolax] 5 mg PO ASDIRECTED PRN 03/28/18 [History] Budesonide [Pulmicort] 0.5 mg NEB BIDRT 30 Days #60 neb 03/31/18 [Rx] Past Medical History - Past Health History Medical/Surgical History: Denies Medical/Surgical History HEENT History: Reports: Impaired Vision, Other (See Below) Other HEENT History: Patient wears reading glasses Cardiovascular History: Reports: Arrhythmia, Heart Failure, Heart Murmur, High Cholesterol, Hypertension Other Cardiovascular History: 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 Chronic dependent edema. Grade 1 diastolic dysfunction by echocardiogram in April 2017. Respiratory History: Reports: Bronchitis, Recurrent, COPD, Pneumonia, Recurrent , Pneumothorax, Pulmonary Fibrosis, Other (See Below) Other Respiratory History: Spontaneous right sided pneumothorax on 01/07/18. Gastrointestinal History: Reports: Chronic Constipation, Colon Polyp, Hemorrhoids Other Gastrointestinal History: Tubular adenoma 2 in the transverse colon by incomplete colonoscopy as below with additional large sigmoid polyp by barium enema on 12/14/17. Umbilical hernia. Genitourinary History: Reports: BPH, Retention, Urinary, UTI, Recurrent, Other ( See Below) Other Genitourinary History: Neurogenic bladder with self catherizations. Musculoskeletal History: Reports: Arthritis, Back Pain, Chronic, Neck Pain, Chronic, Osteoarthritis Neurological History: Reports: None Psychiatric History: Reports: None Endocrine/Metabolic History: Reports: None Hematologic History: Reports: None Immunologic History: Reports: None Oncologic (Cancer) History: Reports: None Dermatologic History: Reports: None - Infectious Disease History Infectious Disease History: Reports: Chicken Pox, Mumps, Shingles (Left chin region in the 1980s). Denies: C-Difficile, Measles, Meningitis, Mononucleosis, MRSA, Pertussis (Whooping Cough), Rheumatic Fever, RSV, Rubella, Scarlet Fever, VRE - Past Surgical History Head Surgeries/Procedures: Reports: None HEENT Surgical History: Reports: Oral Surgery, Other (See Below) Other HEENT Surgeries/Procedures: Complete teeth extraction with complete dentures uppers and lowers. Cardiovascular Surgical History: Reports: None Respiratory Surgical History: Reports: Other (See Below) Other Respiratory Surgeries/Procedures: Chest tube insertion for spontaneous pneumothorax on 01/07/18. GI Surgical History: Reports: Colonoscopy, Polypectomy, Other (See Below) Other GI Surgeries/Procedures: Polypectomy 2 of tubular adenomas in the transverse colon as above. Incomplete Colonoscopy secondary to poor bowel preparation and tortuous colon on 11/16/17 with follow-up enema as below. Male Surgical History: Reports: Circumcision, Suprapubic Catheter Placement, TURP-Transurethral Resection of Prostate, Other (See Below) Other Male Surgeries/Procedures: Circumcision as an infant, TURP 2 initially in 2008 and then in 2009, suprapubic catheter placement in 2009 Endocrine Surgical History: Reports: None Neurological Surgical History: Reports: None Musculoskeletal Surgical History: Reports: None Oncologic Surgical History: Reports: None Dermatological Surgical History: Reports: None - Past Imaging History Past Imaging History: Reports: Barium Enema (12/14/17), Cardiac Echo (04/25/17 with ejection fraction of 5560 percent and otherwise results as above) Social & Family History - Family History HEENT: Reports: None Cardiac: Reports: CAD, Hypertension, [place], Other (See Below) Other Cardiac Family History: Brother with hypertension, mother with fatal [place] at age 75 Respiratory: Reports: COPD, Other (See Below) Other Respiratory Family Hisory: Father with COPD with history of tobacco use GI: Reports: None : Reports: None OBGYN: Reports: None Musculoskeletal: Reports: Arthritis, Osteoarthritis, Other (See Below) Other Musculoskeletal Family History: Brother with osteoarthritis Neurological: Reports: None Psychiatric: Reports: None Endocrine/Metabolic: Reports: Diabetes, type II, IDDM, Other (See Below) Other Endocrine/Metabolic Family History: Mother with IDDM Hematologic: Reports: None Immunologic: Reports: None Dermatologic: Reports: None Oncologic: Reports: None - Caffeine Use Caffeine Use: Reports: Coffee (6 cups per day), Tea (Occasional). 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 Denies: Fever, Diaphoresis, Weight Gain HEENT: Reports: Other (Nasal discharge) Respiratory: Reports: Shortness of Breath, Wheezing Cardiovascular: Reports: Chest Pain (Described as mid breast line T10 area increase pain with palpation) Endocrine: Reports: Fatigue GI/Abdominal: Reports: No Symptoms, Other (Umbilical hernia) : Reports: No Symptoms Musculoskeletal: Reports: Muscle Pain, Other (Cramps) Skin: Reports: No Symptoms Neurological: Reports: No Symptoms Psychiatric: Reports: No Symptoms Immunologic: Reports: Other (Vaccines up-to-date) ED EXAM, GENERAL - Physical Exam Exam: See Below Exam Limited By: No Limitations General Appearance: Alert, WD/WN, Mild Distress Ears: Normal External Exam, Normal Canal, Hearing Grossly Normal, Normal TMs Ear Exam: Bilateral Ear: Auricle Normal, Canal Normal, TM normal Nose: Normal Inspection, Normal Mucosa, No Blood Throat/Mouth: Normal Inspection, Normal Lips, Normal Teeth, Normal Gums, Normal Oropharynx, Normal Voice, No Airway Compromise Head: Atraumatic, Normocephalic Neck: Normal Inspection, Supple, Non-Tender, Full Range of Motion Respiratory/Chest: Respiratory Distress, Wheezing, Prolonged Expiration Cardiovascular: Normal Peripheral Pulses, Regular Rate, Rhythm, Other (Edema) GI/Abdominal: Normal Bowel Sounds, Soft, Non-Tender, No Organomegaly, No Distention, No Abnormal Bruit, No Mass, Other (Umbilical hernia) (Male) Exam: Deferred Rectal (Males) Exam: Deferred Back Exam: Normal Inspection Extremities: Pedal Edema (+2 edema) Neurological: Alert, Oriented, CN II-XII Intact, Normal Cognition, Normal Gait, Normal Reflexes, No Motor/Sensory Deficits Psychiatric: Normal Affect, Normal Mood Skin Exam: Warm, Dry, Intact, Normal Color, No Rash Lymphatic: No Adenopathy Course - Vital Signs Last Recorded V/S: Last Vital Signs Temp 95.7 F 11/22/18 07:56 Pulse 75 11/22/18 07:56 Resp 18 11/22/18 07:56 BP 129/76 11/22/18 08:24 Pulse Ox 93 L 11/22/18 07:56 - Orders/Labs/Meds Orders: Active Orders 24 hr Category Date Time Status Patient Status [ADT] Routine ADT 11/21/18 14:36 Active Ambulate [RC] ASDIRECTED Care 11/21/18 14:35 Active Blood Glucose Check, Bedside [RC] BIDMEALS Care 11/21/18 14:35 Active May Shower [RC] ASDIRECTED Care 11/21/18 14:35 Active Oxygen Therapy [RC] 2300 Care 11/21/18 14:36 Active Pulse Oximetry [RC] .PRN Care 11/21/18 12:11 Active RT Aerosol Therapy [RC] Q4HR Care 11/21/18 14:44 Active Up to Chair [RC] ASDIRECTED Care 11/21/18 14:35 Active Vital Signs [RC] Q4HR Care 11/21/18 14:36 Active [place] [employer] Diet [DIET] Diet 11/21/18 Dinner Active Chest 2V [CR] AM Exams 11/22/18 05:11 Taken Chest 2V [CR] Stat Exams 11/21/18 12:11 Taken Acetaminophen [Tylenol] Med 11/21/18 15:00 Active 650 mg PO Q4H PRN Enoxaparin [Lovenox] Med 11/22/18 08:00 Active 40 mg SUBCUT DAILY Nicotine [Habitrol] Med 11/21/18 14:45 Active 21 mg TRDERM DAILY Sodium Chloride 0.9% [Saline Flush] Med 11/21/18 12:12 Active 10 ml FLUSH ASDIRECTED PRN Saline Lock Insert [OM.PC] Stat Oth 11/21/18 12:11 Ordered Resuscitation Status Routine Resus Stat 11/21/18 14:35 Ordered Medication Orders Acetaminophen (Tylenol) 650 mg PO Q4H PRN PRN Reason: Pain (Mild 1-3)/fever Last Admin: 11/21/18 20:37 Dose: 650 mg Albuterol (Ventolin Hfa) 2 gm INH Q4HR PRN PRN Reason: SHORTNESS OF BREATH Albuterol (Proventil Neb Soln) 2.5 mg INH QIDRT PRN PRN Reason: SHORTNESS OF BREATH Arformoterol Tartrate (Brovana) 15 mcg INH Q12HR MERY Aspirin (Halfprin) 81 mg PO DAILY [facility] Last Admin: 11/22/18 08:23 Dose: 81 mg Atorvastatin Calcium (Lipitor) 20 mg PO BEDTIME [facility] Last Admin: 11/21/18 19:24 Dose: 20 mg Bisacodyl (Dulcolax) 5 mg PO ASDIRECTED PRN PRN Reason: Constipation Diltiazem HCl (Cardizem Cd) 180 mg PO DAILY [facility] Last Admin: 11/22/18 08:24 Dose: 180 mg Enoxaparin Sodium (Lovenox) 40 mg SUBCUT DAILY [facility] Last Admin: 11/22/18 08:25 Dose: 40 mg Furosemide (Lasix) 40 mg PO DAILY [facility] Last Admin: 11/22/18 08:24 Dose: 40 mg Guaifenesin (Robitussin) 200 mg PO Q4H PRN PRN Reason: Cough Last Admin: 11/21/18 23:18 Dose: 200 mg Piperacillin Sod/Tazobactam (Sod 3.375 gm/ Sodium Chloride) 100 mls @ 200 mls/ hr IV Q6H [facility] Lisinopril (Prinivil) 20 mg PO DAILY [facility] Last Admin: 11/22/18 08:24 Dose: 20 mg Methylprednisolone Sodium Succinate (Solu-Medrol) 40 mg IVPUSH Q6H [facility] Last Admin: 11/22/18 09:14 Dose: 40 mg Miscellaneous Information (Remove Patch) 1 ea TRDERM DAILY [facility] Last Admin: 11/22/18 08:29 Dose: 1 ea Nicotine (Habitrol) 21 mg TRDERM DAILY [facility] Last Admin: 11/22/18 08:25 Dose: 21 mg Admin: 11/21/18 15:16 Dose: 21 mg Potassium Chloride (Klor-Con M20) 20 meq PO DAILY [facility] Last Admin: 11/22/18 08:24 Dose: 20 meq Sodium Chloride (Saline Flush) 10 ml FLUSH ASDIRECTED PRN PRN Reason: Keep Vein Open Last Admin: 11/22/18 09:13 Dose: 10 ml Admin: 11/22/18 08:21 Dose: 10 ml Admin: 11/21/18 20:12 Dose: 10 ml Admin: 11/21/18 19:26 Dose: 10 ml Admin: 11/21/18 13:21 Dose: 10 ml Admin: 11/21/18 13:11 Dose: 10 ml Labs: Laboratory Tests 11/21/18 11/21/18 11/21/18 Range/Units 12:20 12:20 12:20 WBC 8.5 (4.0-10.2) K/uL RBC 5.54 H (4.33-5.41) M/uL Hgb 15.6 (13.1-16.8) g/dL Hct 46.9 (39.0-49.0) % MCV 84.7 (84.0-98.0) fL MCH 28.2 (28.2-33.3) pg MCHC 33.3 (31.7-36.0) g/dL RDW 13.6 (11.2-14.1) % Plt Count 223 (150-350) K/uL Neut % (Auto) 53.3 (45.0-80.0) % Lymph % (Auto) 34.8 (10.0-50.0) % [place] % (Auto) 8.1 (2.0-14.0) % Eos % (Auto) 3.3 (0.0-5.0) % Baso % (Auto) 0.5 (0.0-2.0) % Neut # (Auto) 4.52 (1.40-7.00) K/uL Lymph # (Auto) 2.95 (0.50-3.50) K/uL [place] # (Auto) 0.69 (0.00-1.00) K/uL Eos # (Auto) 0.28 (0.00-0.50) K/uL Baso # (Auto) 0.04 (0.00-0.20) K/uL Sodium 138 (136-145) mmol/L Potassium 4.4 (3.5-5.1) mmol/L Chloride 100 (98-107) mmol/L Carbon Dioxide 31.8 (21.0-32.0) mmol/L BUN 21 H (7-18) mg/dL Creatinine 0.88 (0.51-1.17) mg/dL Est Cr Clr Drug Dosing 90.81 mL/min Estimated GFR (MDRD) > 60 mL/min Glucose 112 H (74-106) mg/dL Calcium 10.0 (8.5-10.1) mg/dL Magnesium 2.0 (1.8-2.4) mg/dL Total Bilirubin 0.9 (0.2-1.0) mg/dL AST 17 (15-37) U/L ALT 26 (12-78) U/L Alkaline Phosphatase 115 (46-116) IU/L Troponin I 0.000 (0.000-0.056) ng/mL NT-Pro-B Natriuret Pep 128 H (0-125) pg/mL Total Protein 8.1 (6.4-8.2) g/dL Albumin 4.4 (3.4-5.0) g/dL Meds: Medications Generic Name Dose Route Start Last Admin Trade Name Freq PRN Reason Stop Dose Admin Acetaminophen 650 mg 11/21/18 15:00 11/21/18 20:37 Tylenol PO 650 mg Q4H PRN Administration Pain (Mild 1-3)/fever Albuterol 2 gm 11/21/18 16:00 Ventolin Hfa INH Q4HR PRN SHORTNESS OF BREATH Albuterol 2.5 mg 11/22/18 10:53 Proventil Neb Soln INH QIDRT PRN SHORTNESS OF BREATH Arformoterol Tartrate 15 mcg 11/22/18 12:00 Brovana INH Q12HR MERY Aspirin 81 mg 11/22/18 08:00 11/22/18 08:23 Halfprin PO 81 mg DAILY MERY Administration Atorvastatin Calcium 20 mg 11/21/18 20:00 11/21/18 19:24 Lipitor PO 20 mg BEDTIME MERY Administration Bisacodyl 5 mg 11/21/18 14:50 Dulcolax PO ASDIRECTED PRN Constipation Diltiazem HCl 180 mg 11/22/18 08:00 11/22/18 08:24 Cardizem Cd PO 180 mg DAILY MERY Administration Enoxaparin Sodium 40 mg 11/22/18 08:00 11/22/18 08:25 Lovenox SUBCUT 40 mg DAILY MERY Administration Furosemide 40 mg 11/22/18 08:00 11/22/18 08:24 Lasix PO 40 mg DAILY MERY Administration Guaifenesin 200 mg 11/21/18 22:45 11/21/18 23:18 Robitussin PO 200 mg Q4H PRN Administration Cough Piperacillin Sod/Tazobactam 100 mls @ 200 mls/hr 11/22/18 14:00 Sod 3.375 gm/ Sodium Chloride IV Q6H MERY Lisinopril 20 mg 11/22/18 08:00 11/22/18 08:24 Prinivil PO 20 mg DAILY MERY Administration Methylprednisolone Sodium Succinate 40 mg 11/22/18 08:00 11/22/18 09:14 Solu-Medrol IVPUSH 40 mg Q6H MERY Administration Miscellaneous Information 1 ea 11/22/18 08:00 11/22/18 08:29 Remove Patch TRDERM 1 ea DAILY MERY Administration Nicotine 21 mg 11/21/18 14:45 11/22/18 08:25 Habitrol TRDERM 21 mg DAILY MERY Administration Potassium Chloride 20 meq 11/22/18 08:00 11/22/18 08:24 Klor-Con M20 PO 20 meq DAILY MERY Administration Sodium Chloride 10 ml 11/21/18 12:12 11/22/18 09:13 Saline Flush FLUSH 10 ml ASDIRECTED PRN Administration Keep Vein Open Discontinued Medications Generic Name Dose Route Start Last Admin Trade Name Freq PRN Reason Stop Dose Admin Albuterol 2.5 mg 11/22/18 10:15 11/22/18 10:17 Proventil Neb Soln NEB 11/22/18 10:16 2.5 mg ONETIME ONE Administration Albuterol/Ipratropium 3 ml 11/21/18 15:00 Duoneb 3.0-0.5 Mg/3 Ml NEB Q4H PRN Dyspnea Albuterol/Ipratropium 3 ml 11/21/18 16:00 11/22/18 08:25 Duoneb 3.0-0.5 Mg/3 Ml NEB 3 ml Q4HRRT MERY Administration Aspirin 324 mg 11/21/18 12:18 11/21/18 13:10 Aspirin PO 11/21/18 12:19 324 mg ONETIME ONE Administration Fluticasone Propionate gm 11/21/18 18:00 Flonase NASBOTH BID MERY Furosemide 40 mg 11/21/18 13:13 11/21/18 13:20 Lasix IVPUSH 11/21/18 13:14 40 mg NOW ONE Administration Piperacillin Sod/Tazobactam 100 mls @ 200 mls/hr 11/21/18 13:01 11/21/18 13: 10 Sod 3.375 gm/ Sodium Chloride IV 11/21/18 13:30 200 mls/hr ONETIME ONE Administration Piperacillin Sod/Tazobactam 100 mls @ 200 mls/hr 11/21/18 15:00 11/21/18 15: 26 Sod 3.375 gm/ Sodium Chloride IV Not Given Q6H MERY Piperacillin Sod/Tazobactam 100 mls @ 200 mls/hr 11/21/18 19:00 11/22/18 08: 21 Sod 3.375 gm/ Sodium Chloride IV 200 mls/hr Q6H MERY Administration Methylprednisolone Sodium Succinate 125 mg 11/21/18 13:00 11/21/18 13:10 Solu-Medrol IVPUSH 11/21/18 13:01 125 mg ONETIME ONE Administration Methylprednisolone Sodium Succinate 40 mg 11/21/18 15:00 11/22/18 02:31 Solu-Medrol IVPUSH 40 mg Q6H MERY Administration Umeclidinium/Vilanterol 62.5 mcg 11/22/18 12:00 Anoro Ellipta 62.5-25 Mcg IH DAILY [facility] Departure - Departure Time of Disposition: 14:20 Disposition: Admitted As Inpatient 64 Clinical Impression: COPD (chronic obstructive pulmonary disease) Qualifiers: COPD type: COPD with acute exacerbation Qualified Code(s): J44.1 - Chronic obstructive pulmonary disease with (acute) exacerbation - Discharge Information - My Orders Last 24 Hours: My Active Orders 11/21/18 12:11 Pulse Oximetry [RC] .PRN Chest 2V [CR] Stat Saline Lock Insert [OM.PC] Stat 11/21/18 12:12 Sodium Chloride 0.9% [Saline Flush] 10 ml FLUSH ASDIRECTED PRN 11/21/18 14:35 Ambulate [RC] ASDIRECTED Blood Glucose Check, Bedside [RC] BIDMEALS May Shower [RC] ASDIRECTED Up to Chair [RC] ASDIRECTED Resuscitation Status Routine 11/21/18 14:36 Patient Status [ADT] Routine Oxygen Therapy [RC] 2300 Vital Signs [RC] Q4HR 11/21/18 14:44 RT Aerosol Therapy [RC] Q4HR 11/21/18 14:45 Nicotine [Habitrol] 21 mg TRDERM DAILY 11/21/18 15:00 Acetaminophen [Tylenol] 650 mg PO Q4H PRN 11/21/18 Dinner [employer] Diet [DIET] 11/22/18 05:11 Chest 2V [CR] AM 11/22/18 08:00 Enoxaparin [Lovenox] 40 mg SUBCUT DAILY - Assessment/Plan Last 24 Hours: My Active Orders 11/21/18 12:11 Pulse Oximetry [RC] .PRN Chest 2V [CR] Stat Saline Lock Insert [OM.PC] Stat 11/21/18 12:12 Sodium Chloride 0.9% [Saline Flush] 10 ml FLUSH ASDIRECTED PRN 11/21/18 14:35 Ambulate [RC] ASDIRECTED Blood Glucose Check, Bedside [RC] BIDMEALS May Shower [RC] ASDIRECTED Up to Chair [RC] ASDIRECTED Resuscitation Status Routine 11/21/18 14:36 Patient Status [ADT] Routine Oxygen Therapy [RC] 2300 Vital Signs [RC] Q4HR 11/21/18 14:44 RT Aerosol Therapy [RC] Q4HR 11/21/18 14:45 Nicotine [Habitrol] 21 mg TRDERM DAILY 11/21/18 15:00 Acetaminophen [Tylenol] 650 mg PO Q4H PRN 11/21/18 Dinner [employer] Diet [DIET] 11/22/18 05:11 Chest 2V [CR] AM 11/22/18 08:00 Enoxaparin [Lovenox] 40 mg SUBCUT DAILY
[2018-11-21] MEDS: Sodium Chloride 0.9% 10 ML Syringe FLUSH PRN ×4 (13:11→20:12)
[2018-11-21] MEDS ORDERED: Furosemide 40 MG/4 ML VIAL IVPUSH ONE (13:13)
[2018-11-21] MEDS ORDERED: Bisacodyl 5 MG Tab PO PRN (14:50)
[2018-11-21] MEDS ORDERED: Piperacillin/Tazobactam 3.375 GM in Sodium Chloride 0.9% 100 ML IV SCH (15:00)
[2018-11-21] MEDS ORDERED: Albuterol/Ipratropium 3.0-0.5 MG/3 ML Neb Soln NEB PRN (15:00)
[2018-11-21] MEDS: Nicotine 21 MG/24 Hr Patch TRDERM SCH (15:16)
[2018-11-21] MEDS: Albuterol/Ipratropium 3.0-0.5 MG/3 ML Neb Soln NEB SCH ×3 (15:17→23:05)
[2018-11-21] MEDS: methylPREDNISolone Sodium Succinate 40 MG/1 ML SDV IVPUSH SCH ×2 (15:24→20:12)
[2018-11-21] MEDS ORDERED: Albuterol 8 GM Inhaler INH PRN (16:00)
[2018-11-21] MEDS ORDERED: Fluticasone Propionate Nasal Spray 16 GM Bottle NASBOTH SCH (18:00)
[2018-11-21] MEDS: atorvaSTATin 10 MG Tab PO SCH (19:24)
[2018-11-21] MEDS: Piperacillin/Tazobactam 3.375 GM in Sodium Chloride 0.9% 100 ML IV SCH (19:26)
[2018-11-21] MEDS: Acetaminophen 325 MG Tab PO PRN (20:37)
[2018-11-21] MEDS: guaiFENesin 100 MG/5 ML Soln 10 ML UD Cup PO PRN (23:18)
[2018-11-22] MEDS: Piperacillin/Tazobactam 3.375 GM in Sodium Chloride 0.9% 100 ML IV SCH ×4 (01:56→19:45)
[2018-11-22] MEDS: methylPREDNISolone Sodium Succinate 40 MG/1 ML SDV IVPUSH SCH ×4 (02:31→19:46)
[2018-11-22] MEDS: Albuterol/Ipratropium 3.0-0.5 MG/3 ML Neb Soln NEB SCH ×2 (04:47→08:25)
[2018-11-22 07:39] LABS: CHLORIDE,CL 100 mmol/L (98-107); SODIUM,NA 136 mmol/L (136-145)
[2018-11-22] MEDS: Sodium Chloride 0.9% 10 ML Syringe FLUSH PRN ×4 (08:21→19:46)
[2018-11-22] MEDS: Aspirin 81 MG Tab.EC PO SCH (08:23)
[2018-11-22] MEDS: Potassium Chloride 20 MEQ Tab.ER PO SCH (08:24)
[2018-11-22] MEDS: Furosemide 40 MG Tab PO SCH (08:24)
[2018-11-22] MEDS: Diltiazem 180 MG Cap.CD PO SCH (08:24)
[2018-11-22] MEDS: Lisinopril 20 MG Tab PO SCH (08:24)
[2018-11-22] MEDS: Nicotine 21 MG/24 Hr Patch TRDERM SCH (08:25)
[2018-11-22] MEDS: Enoxaparin 40 MG/0.4 ML Syringe SUBCUT SCH (08:25)
[2018-11-22] MEDS: Remove Patch NICOTINE PATCH TRDERM SCH (08:29)
--- NOTE | 2018-11-22 10:05 | PCM.PN ---
- General Info Date of Service: 11/22/18 Admission Dx/Problem (Free Text): COPD exacerbation /smoking Functional Status: Reports: Ambulating - Review of Systems General: Reports: Weakness HEENT: Reports: No Symptoms Pulmonary: Reports: Shortness of Breath, Wheezing Cardiovascular: Reports: Chest Pain (Noncardiac) Gastrointestinal: Reports: No Symptoms Genitourinary: Reports: No Symptoms Musculoskeletal: Reports: No Symptoms Skin: Reports: No Symptoms Neurological: Reports: No Symptoms Psychiatric: Reports: No Symptoms - Patient Data Vitals - Most Recent: Last Vital Signs Temp 95.7 F 11/22/18 07:56 Pulse 75 11/22/18 07:56 Resp 18 11/22/18 07:56 BP 129/76 11/22/18 08:24 Pulse Ox 93 L 11/22/18 07:56 Weight - Most Recent: 250 lb 9.591 oz I&O - Last 24 Hours: Intake & Output 11/21/18 11/22/18 11/22/18 22:59 06:59 14:59 Intake Total 720 800 600 Output Total 1000 0 Balance -280 800 600 Lab Results Last 24 Hours: Laboratory Results - last 24 hr 11/21/18 11/21/18 11/21/18 Range/Units 12:20 12:20 12:20 WBC 8.5 (4.0-10.2) K/uL RBC 5.54 H (4.33-5.41) M/uL Hgb 15.6 (13.1-16.8) g/dL Hct 46.9 (39.0-49.0) % MCV 84.7 (84.0-98.0) fL MCH 28.2 (28.2-33.3) pg MCHC 33.3 (31.7-36.0) g/dL RDW 13.6 (11.2-14.1) % Plt Count 223 (150-350) K/uL Neut % (Auto) 53.3 (45.0-80.0) % Lymph % (Auto) 34.8 (10.0-50.0) % [place] % (Auto) 8.1 (2.0-14.0) % Eos % (Auto) 3.3 (0.0-5.0) % Baso % (Auto) 0.5 (0.0-2.0) % Neut # (Auto) 4.52 (1.40-7.00) K/uL Lymph # (Auto) 2.95 (0.50-3.50) K/uL [place] # (Auto) 0.69 (0.00-1.00) K/uL Eos # (Auto) 0.28 (0.00-0.50) K/uL Baso # (Auto) 0.04 (0.00-0.20) K/uL Sodium 138 (136-145) mmol/L Potassium 4.4 (3.5-5.1) mmol/L Chloride 100 (98-107) mmol/L Carbon Dioxide 31.8 (21.0-32.0) mmol/L BUN 21 H (7-18) mg/dL Creatinine 0.88 (0.51-1.17) mg/dL Est Cr Clr Drug Dosing 90.81 mL/min Estimated GFR (MDRD) > 60 mL/min Glucose 112 H (74-106) mg/dL POC Glucose (65-110) mg/dl Calcium 10.0 (8.5-10.1) mg/dL Magnesium 2.0 (1.8-2.4) mg/dL Total Bilirubin 0.9 (0.2-1.0) mg/dL AST 17 (15-37) U/L ALT 26 (12-78) U/L Alkaline Phosphatase 115 (46-116) IU/L Troponin I 0.000 (0.000-0.056) ng/mL NT-Pro-B Natriuret Pep 128 H (0-125) pg/mL Total Protein 8.1 (6.4-8.2) g/dL Albumin 4.4 (3.4-5.0) g/dL 11/21/18 11/21/18 11/22/18 Range/Units 17:14 17:21 06:50 WBC 8.5 (4.0-10.2) K/uL RBC 5.04 (4.33-5.41) M/uL Hgb 14.1 D (13.1-16.8) g/dL Hct 42.6 (39.0-49.0) % MCV 84.5 (84.0-98.0) fL MCH 28.0 L (28.2-33.3) pg MCHC 33.1 (31.7-36.0) g/dL RDW 13.4 (11.2-14.1) % Plt Count 222 (150-350) K/uL Neut % (Auto) 79.7 (45.0-80.0) % Lymph % (Auto) 18.2 (10.0-50.0) % [place] % (Auto) 2.1 (2.0-14.0) % Eos % (Auto) 0.0 (0.0-5.0) % Baso % (Auto) 0.0 (0.0-2.0) % Neut # (Auto) 6.75 (1.40-7.00) K/uL Lymph # (Auto) 1.54 (0.50-3.50) K/uL [place] # (Auto) 0.18 (0.00-1.00) K/uL Eos # (Auto) 0.00 (0.00-0.50) K/uL Baso # (Auto) 0.00 (0.00-0.20) K/uL Sodium (136-145) mmol/L Potassium (3.5-5.1) mmol/L Chloride (98-107) mmol/L Carbon Dioxide (21.0-32.0) mmol/L BUN (7-18) mg/dL Creatinine (0.51-1.17) mg/dL Est Cr Clr Drug Dosing mL/min Estimated GFR (MDRD) mL/min Glucose (74-106) mg/dL POC Glucose 179 H (65-110) mg/dl Calcium (8.5-10.1) mg/dL Magnesium (1.8-2.4) mg/dL Total Bilirubin (0.2-1.0) mg/dL AST (15-37) U/L ALT (12-78) U/L Alkaline Phosphatase (46-116) IU/L Troponin I 0.000 (0.000-0.056) ng/mL NT-Pro-B Natriuret Pep (0-125) pg/mL Total Protein (6.4-8.2) g/dL Albumin (3.4-5.0) g/dL 11/22/18 11/22/18 Range/Units 06:50 07:37 WBC (4.0-10.2) K/uL RBC (4.33-5.41) M/uL Hgb (13.1-16.8) g/dL Hct (39.0-49.0) % MCV (84.0-98.0) fL MCH (28.2-33.3) pg MCHC (31.7-36.0) g/dL RDW (11.2-14.1) % Plt Count (150-350) K/uL Neut % (Auto) (45.0-80.0) % Lymph % (Auto) (10.0-50.0) % [place] % (Auto) (2.0-14.0) % Eos % (Auto) (0.0-5.0) % Baso % (Auto) (0.0-2.0) % Neut # (Auto) (1.40-7.00) K/uL Lymph # (Auto) (0.50-3.50) K/uL [place] # (Auto) (0.00-1.00) K/uL Eos # (Auto) (0.00-0.50) K/uL Baso # (Auto) (0.00-0.20) K/uL Sodium 136 (136-145) mmol/L Potassium 4.2 (3.5-5.1) mmol/L Chloride 100 (98-107) mmol/L Carbon Dioxide 24.8 (21.0-32.0) mmol/L BUN 28 H (7-18) mg/dL Creatinine 0.90 (0.51-1.17) mg/dL Est Cr Clr Drug Dosing 88.80 mL/min Estimated GFR (MDRD) > 60 mL/min Glucose 166 H (74-106) mg/dL POC Glucose 161 H (65-110) mg/dl Calcium 9.5 (8.5-10.1) mg/dL Magnesium (1.8-2.4) mg/dL Total Bilirubin (0.2-1.0) mg/dL AST (15-37) U/L ALT (12-78) U/L Alkaline Phosphatase (46-116) IU/L Troponin I (0.000-0.056) ng/mL NT-Pro-B Natriuret Pep (0-125) pg/mL Total Protein (6.4-8.2) g/dL Albumin (3.4-5.0) g/dL Med Orders - Current: Current Medications Acetaminophen (Tylenol) 650 mg PO Q4H PRN PRN Reason: Pain (Mild 1-3)/fever Last Admin: 11/21/18 20:37 Dose: 650 mg Albuterol (Ventolin Hfa) 2 gm INH Q4HR PRN PRN Reason: SHORTNESS OF BREATH Albuterol (Proventil Neb Soln) 2.5 mg NEB ONETIME ONE Stop: 11/22/18 10:16 Albuterol/Ipratropium (Duoneb 3.0-0.5 Mg/3 Ml) 3 ml NEB Q4H PRN PRN Reason: Dyspnea Albuterol/Ipratropium (Duoneb 3.0-0.5 Mg/3 Ml) 3 ml NEB Q4HRRT [facility] Last Admin: 11/22/18 08:25 Dose: 3 ml Aspirin (Halfprin) 81 mg PO DAILY [facility] Last Admin: 11/22/18 08:23 Dose: 81 mg Atorvastatin Calcium (Lipitor) 20 mg PO BEDTIME [facility] Last Admin: 11/21/18 19:24 Dose: 20 mg Bisacodyl (Dulcolax) 5 mg PO ASDIRECTED PRN PRN Reason: Constipation Diltiazem HCl (Cardizem Cd) 180 mg PO DAILY [facility] Last Admin: 11/22/18 08:24 Dose: 180 mg Enoxaparin Sodium (Lovenox) 40 mg SUBCUT DAILY [facility] Last Admin: 11/22/18 08:25 Dose: 40 mg Furosemide (Lasix) 40 mg PO DAILY [facility] Last Admin: 11/22/18 08:24 Dose: 40 mg Guaifenesin (Robitussin) 200 mg PO Q4H PRN PRN Reason: Cough Last Admin: 11/21/18 23:18 Dose: 200 mg Piperacillin Sod/Tazobactam (Sod 3.375 gm/ Sodium Chloride) 100 mls @ 200 mls/ hr IV Q6H [facility] Lisinopril (Prinivil) 20 mg PO DAILY [facility] Last Admin: 11/22/18 08:24 Dose: 20 mg Methylprednisolone Sodium Succinate (Solu-Medrol) 40 mg IVPUSH Q6H [facility] Last Admin: 11/22/18 09:14 Dose: 40 mg Miscellaneous Information (Remove Patch) 1 ea TRDERM DAILY [facility] Last Admin: 11/22/18 08:29 Dose: 1 ea Nicotine (Habitrol) 21 mg TRDERM DAILY [facility] Last Admin: 11/22/18 08:25 Dose: 21 mg Potassium Chloride (Klor-Con M20) 20 meq PO DAILY [facility] Last Admin: 11/22/18 08:24 Dose: 20 meq Sodium Chloride (Saline Flush) 10 ml FLUSH ASDIRECTED PRN PRN Reason: Keep Vein Open Last Admin: 11/22/18 09:13 Dose: 10 ml Discontinued Medications Aspirin (Aspirin) 324 mg PO ONETIME ONE Stop: 11/21/18 12:19 Last Admin: 11/21/18 13:10 Dose: 324 mg Fluticasone Propionate (Flonase) gm NASBOTH BID [facility] Furosemide (Lasix) 40 mg IVPUSH NOW ONE Stop: 11/21/18 13:14 Last Admin: 11/21/18 13:20 Dose: 40 mg Piperacillin Sod/Tazobactam (Sod 3.375 gm/ Sodium Chloride) 100 mls @ 200 mls/ hr IV ONETIME ONE Stop: 11/21/18 13:30 Last Admin: 11/21/18 13:10 Dose: 200 mls/hr Piperacillin Sod/Tazobactam (Sod 3.375 gm/ Sodium Chloride) 100 mls @ 200 mls/ hr IV Q6H [facility] Last Admin: 11/21/18 15:26 Dose: Not Given Piperacillin Sod/Tazobactam (Sod 3.375 gm/ Sodium Chloride) 100 mls @ 200 mls/ hr IV Q6H [facility] Last Admin: 11/22/18 08:21 Dose: 200 mls/hr Methylprednisolone Sodium Succinate (Solu-Medrol) 125 mg IVPUSH ONETIME ONE Stop: 11/21/18 13:01 Last Admin: 11/21/18 13:10 Dose: 125 mg Methylprednisolone Sodium Succinate (Solu-Medrol) 40 mg IVPUSH Q6H [facility] Last Admin: 11/22/18 02:31 Dose: 40 mg - Exam Quality Assessment: Supplemental Oxygen (Patient on 4 L) General: Alert, Oriented, Cooperative HEENT: Pupils Equal, Pupils Reactive, EOMI, Mucous Membr. Moist/[place] Neck: Supple Lungs: Decreased Breath Sounds, Wheezing Cardiovascular: Regular Rate, Regular Rhythm GI/Abdominal Exam: Normal Bowel Sounds, Soft, Non-Tender, No Organomegaly, No Distention, No Abnormal Bruit, No Mass, Pelvis Stable (Male) Exam: Deferred Back Exam: Decreased Range of Motion Extremities: Normal Inspection, Normal Range of Motion, Non-Tender, No Pedal Edema, Normal Capillary Refill Skin: Warm, Dry, Intact Neurological: No New Focal Deficit Psy/Mental Status: Alert, Normal Affect, Normal Mood - Problem List & Annotations (1) COPD (chronic obstructive pulmonary disease) SNOMED Code(s): 74804818 Code(s): J44.9 - CHRONIC OBSTRUCTIVE PULMONARY DISEASE, UNSPECIFIED Status : Acute Priority: High Current Visit: No Qualifiers: COPD type: COPD with acute lower respiratory infection Qualified Code(s): J44.0 - Chronic obstructive pulmonary disease with acute lower respiratory infection Annotation/Comment:: Patient admitted with exacerbation of COPD at this time we are considering changes to his medications plus doing a PFT and starting him on by mouth antibiotics as indicated by the gold criteria. - Problem List Review Problem List Initiated/Reviewed/Updated: Yes - My Orders Last 24 Hours: My Active Orders 11/21/18 12:11 Pulse Oximetry [RC] .PRN Chest 2V [CR] Stat Saline Lock Insert [OM.PC] Stat 11/21/18 12:12 Sodium Chloride 0.9% [Saline Flush] 10 ml FLUSH ASDIRECTED PRN 11/21/18 14:35 Ambulate [RC] ASDIRECTED Blood Glucose Check, Bedside [RC] BIDMEALS May Shower [RC] ASDIRECTED Up to Chair [RC] ASDIRECTED Resuscitation Status Routine 11/21/18 14:36 Patient Status [ADT] Routine Oxygen Therapy [RC] 2300 Vital Signs [RC] Q4HR 11/21/18 14:44 RT Aerosol Therapy [RC] Q4HR 11/21/18 14:45 Nicotine [Habitrol] 21 mg TRDERM DAILY 11/21/18 14:50 Bisacodyl [Dulcolax] 5 mg PO ASDIRECTED PRN 11/21/18 15:00 Acetaminophen [Tylenol] 650 mg PO Q4H PRN Albuterol/Ipratropium [DuoNeb 3.0-0.5 MG/3 ML] 3 ml NEB Q4H PRN 11/21/18 15:15 EKG Documentation Completion [RC] 0511 20/19 16:00 Albuterol [Ventolin HFA] 2 gm INH Q4HR PRN Albuterol/Ipratropium [DuoNeb 3.0-0.5 MG/3 ML] 3 ml NEB Q4HRRT 11/21/18 20:00 atorvaSTATin [Lipitor] 20 mg PO BEDTIME 11/21/18 21:39 Communication Order [RC] 11/21/18 22:45 guaiFENesin [Robitussin] 200 mg PO Q4H PRN 11/21/18 Dinner [employer] Diet [DIET] 11/22/18 05:11 Chest 2V [CR] AM PFT with Bronchodilator [RT Spirometry with Bronchodilator] [RESPCARE] Routine 11/22/18 06:50 [id number], SERUM [REF] Routine 11/22/18 08:00 Aspirin [Halfprin] 81 mg PO DAILY Diltiazem [Cardizem CD] 180 mg PO DAILY Enoxaparin [Lovenox] 40 mg SUBCUT DAILY Furosemide [Lasix] 40 mg PO DAILY Lisinopril [Prinivil] 20 mg PO DAILY Potassium Chloride [Klor-Con M20] 20 meq PO DAILY Remove Patch 1 ea TRDERM DAILY methylPREDNISolone Sod Succ [Solu-MEDROL] 40 mg IVPUSH Q6H 11/22/18 10:00 RT PFT Spirometry Screen Pre/P [RC] ASDIRECTED 11/22/18 10:15 Albuterol [Proventil Neb Soln] 2.5 mg NEB ONETIME ONE 11/22/18 14:00 Piperacillin/Tazobactam [Zosyn] 3.375 gm Sodium Chloride 0.9% [Normal Saline] 100 ml IV Q6H
[2018-11-22] MEDS ORDERED: Albuterol 0.083% 2.5 MG/3 ML Neb Soln NEB ONE (10:15)
[2018-11-22] MEDS ORDERED: Albuterol 0.083% 2.5 MG/3 ML Neb Soln INH PRN (10:53)
[2018-11-22] MEDS ORDERED: Umeclidinium Brm/Vilanterol Tr 62.5-25 MCG 7 Puff Inhaler IH SCH (12:00)
[2018-11-22] MEDS: Acetaminophen 325 MG Tab PO PRN (13:39)
[2018-11-22] MEDS: Arformoterol 15 MCG/2 ML Neb Soln INH SCH ×2 (13:57→19:45)
[2018-11-22] MEDS: atorvaSTATin 10 MG Tab PO SCH (19:45)
[2018-11-22] MEDS: guaiFENesin 100 MG/5 ML Soln 10 ML UD Cup PO PRN (23:18)
[2018-11-23] MEDS: Piperacillin/Tazobactam 3.375 GM in Sodium Chloride 0.9% 100 ML IV SCH ×2 (02:49→08:01)
[2018-11-23] MEDS: methylPREDNISolone Sodium Succinate 40 MG/1 ML SDV IVPUSH SCH ×2 (02:49→08:01)
[2018-11-23] MEDS: Acetaminophen 325 MG Tab PO PRN (02:51)
[2018-11-23] MEDS: Sodium Chloride 0.9% 10 ML Syringe FLUSH PRN ×3 (02:51→08:01)
[2018-11-23 06:39] VITALS: BP 135/73
[2018-11-23] MEDS: Enoxaparin 40 MG/0.4 ML Syringe SUBCUT SCH (08:01)
[2018-11-23] MEDS: Arformoterol 15 MCG/2 ML Neb Soln INH SCH (08:01)
[2018-11-23] MEDS: Potassium Chloride 20 MEQ Tab.ER PO SCH (08:02)
[2018-11-23] MEDS: Furosemide 40 MG Tab PO SCH (08:02)
[2018-11-23] MEDS: Aspirin 81 MG Tab.EC PO SCH (08:02)
[2018-11-23] MEDS: Diltiazem 180 MG Cap.CD PO SCH (08:02)
[2018-11-23] MEDS: Lisinopril 20 MG Tab PO SCH (08:02)
[2018-11-23] MEDS: Nicotine 21 MG/24 Hr Patch TRDERM SCH (08:03)
[2018-11-23] MEDS: Remove Patch NICOTINE PATCH TRDERM SCH (08:04)
--- NOTE | 2018-11-23 10:28 | PCM.DCSUM1 ---
Discharge Summary - Hospital Course Free Text/Narrative:: Patient is a 68-year-old who was seen in the ER with history of dyspnea and smoking with shortness of breath he has a history of COPD and had been on multiple inhalers. He was admitted with exacerbation of COPD and treated aggressively with duo nebs and steroids and antibiotics. Today 48 hours after admission patient is doing better breathing easier and ready for discharge. Diagnosis: Stroke: No - Discharge Data Discharge Date: 11/23/18 Discharge Disposition: Home, Self-Care 01 Condition: Fair - Discharge Diagnosis/Problem(s) (1) COPD (chronic obstructive pulmonary disease) SNOMED Code(s): 95587515 ICD Code: J44.9 - CHRONIC OBSTRUCTIVE PULMONARY DISEASE, UNSPECIFIED Status : Acute Priority: High Current Visit: Yes Problem Details: Patient will be sent home on new medications to help with treatment. Will also order home health to follow patient at home with new med regimen and oxygen therapy. Qualifiers: COPD type: COPD with acute exacerbation Qualified Code(s): J44.1 - Chronic obstructive pulmonary disease with (acute) exacerbation - Patient Instructions Diet: Heart Healthy Diet Activity: As Tolerated Driving: May Drive Today Showering/Bathing: May Shower Other/Special Instructions: Call office if progressive shortness of breath not improving. - Discharge Plan *PRESCRIPTION DRUG MONITORING PROGRAM REVIEWED*: No *COPY OF PRESCRIPTION DRUG MONITORING REPORT IN PATIENT [place]: No Prescriptions/Med Rec: Amoxicillin/Potassium Clav [Augmentin 875-125 Tablet] 1 each PO BID #14 tablet Arformoterol [Brovana] 15 mcg INH Q12HR #1 box methylPREDNISolone [Medrol] 4 mg PO ASDIRECTED #1 dospk Varenicline Tartrate [Chantix] 1 each PO ASDIRECTED #1 tab.ds.pk Varenicline Tartrate [Chantix] 1 mg PO BID #60 tablet Home Medications: Home Meds Lisinopril 20 mg PO DAILY 11/03/17 [History] Potassium Chloride [Klor-Con M20] 20 meq PO DAILY 11/03/17 [History] atorvaSTATin [Lipitor] 20 mg PO BEDTIME 11/03/17 [History] Acetaminophen [Tylenol] 650 mg PO Q4H PRN tablet 11/07/17 [Rx] Albuterol/Ipratropium [DuoNeb 3.0-0.5 MG/3 ML] 3 ml NEB Q4HRRT PRN 30 Days #120 neb 11/07/17 [Rx] Furosemide [Lasix] 40 mg PO DAILY 30 Days #30 tab 11/07/17 [Rx] Diltiazem HCl [Cartia Xt] 180 mg PO DAILY 11/16/17 [History] Fluticasone Propionate [Flonase] 1 sprays NASBOTH BID 11/16/17 [History] Aspirin [Ecotrin] 81 mg PO DAILY 01/07/18 [History] Bisacodyl [Dulcolax] 5 mg PO ASDIRECTED PRN 03/28/18 [History] Budesonide [Pulmicort] 0.5 mg NEB BIDRT 30 Days #60 neb 03/31/18 [Rx] Amoxicillin/Potassium Clav [Augmentin 875-125 Tablet] 1 each PO BID #14 tablet 11/23/18 [Rx] Arformoterol [Brovana] 15 mcg INH Q12HR #1 box 11/23/18 [Rx] Varenicline Tartrate [Chantix] 1 each PO ASDIRECTED #1 tab.ds.pk 11/23/18 [Rx] Varenicline Tartrate [Chantix] 1 mg PO BID #60 tablet 11/23/18 [Rx] guaiFENesin [Robitussin] 200 mg PO Q4H PRN cup 11/23/18 [Rx] methylPREDNISolone [Medrol] 4 mg PO ASDIRECTED #1 dospk 11/23/18 [Rx] Oxygen Therapy Mode: Nasal Cannula Oxygen Flow Rate (L/min): 4 Maintain SpO2% greater than: 92 Patient Handouts: Aspirin, ASA chewable tablets, Piperacillin; Tazobactam injection, Chronic Obstructive Pulmonary Disease Exacerbation, Arformoterol nebulizer solution, Clean Intermittent Catheterization, Male, Methylprednisolone Solution for Injection, Pulmonary Function Tests, Acute Bronchitis, Adult Forms: ED Department Discharge Referrals: Fredo Fischer MD [Primary Care Provider] - (Follow up on MondayNovember 30 at 10am at [facility] with Dr. Fischer) home health, agency [Other] (Home Health Agency to follow home bound patient for new patient regimen and oxygen therapy. ) - Discharge Summary/Plan Comment DC Time >30 min.: No - General Info Date of Service: 11/23/18 - Review of Systems General: Reports: Weakness (improving) HEENT: Reports: No Symptoms Pulmonary: Reports: Shortness of Breath (improving), Cough (improving). Denies : Pleuritic Chest Pain Cardiovascular: Reports: No Symptoms Gastrointestinal: Reports: No Symptoms Genitourinary: Reports: No Symptoms Musculoskeletal: Reports: No Symptoms Skin: Reports: No Symptoms Neurological: Reports: No Symptoms Psychiatric: Reports: No Symptoms - Patient Data Vitals - Most Recent: Last Vital Signs Temp 97.6 F 11/23/18 06:37 Pulse 67 11/23/18 06:37 Resp 20 11/23/18 06:37 BP 135/73 11/23/18 08:02 Pulse Ox 95 11/23/18 06:37 Weight - Most Recent: 264 lb I&O - Last 24 hours: Intake & Output 11/22/18 11/23/18 11/23/18 22:59 06:59 14:59 Intake Total 410 647 4063 Output Total 1000 900 Balance -70 940 260 Lab Results - Last 24 hrs: Laboratory Results - last 24 hr 11/22/18 11/23/18 Range/Units 17:09 06:11 POC Glucose 202 H 168 H (65-110) mg/dl Med Orders - Current: Current Medications Acetaminophen (Tylenol) 650 mg PO Q4H PRN PRN Reason: Pain (Mild 1-3)/fever Last Admin: 11/23/18 02:51 Dose: 650 mg Albuterol (Ventolin Hfa) 2 gm INH Q4HR PRN PRN Reason: SHORTNESS OF BREATH Albuterol (Proventil Neb Soln) 2.5 mg INH QIDRT PRN PRN Reason: SHORTNESS OF BREATH Last Admin: 11/22/18 23:18 Dose: 2.5 mg Arformoterol Tartrate (Brovana) 15 mcg INH Q12HR [facility] Last Admin: 11/23/18 08:01 Dose: 15 mcg Aspirin (Halfprin) 81 mg PO DAILY [facility] Last Admin: 11/23/18 08:02 Dose: 81 mg Atorvastatin Calcium (Lipitor) 20 mg PO BEDTIME [facility] Last Admin: 11/22/18 19:45 Dose: 20 mg Bisacodyl (Dulcolax) 5 mg PO ASDIRECTED PRN PRN Reason: Constipation Diltiazem HCl (Cardizem Cd) 180 mg PO DAILY [facility] Last Admin: 11/23/18 08:02 Dose: 180 mg Enoxaparin Sodium (Lovenox) 40 mg SUBCUT DAILY [facility] Last Admin: 11/23/18 08:01 Dose: 40 mg Furosemide (Lasix) 40 mg PO DAILY [facility] Last Admin: 11/23/18 08:02 Dose: 40 mg Guaifenesin (Robitussin) 200 mg PO Q4H PRN PRN Reason: Cough Last Admin: 11/22/18 23:18 Dose: 200 mg Piperacillin Sod/Tazobactam (Sod 3.375 gm/ Sodium Chloride) 100 mls @ 200 mls/ hr IV Q6H [facility] Last Admin: 11/23/18 08:01 Dose: 200 mls/hr Lisinopril (Prinivil) 20 mg PO DAILY [facility] Last Admin: 11/23/18 08:02 Dose: 20 mg Methylprednisolone Sodium Succinate (Solu-Medrol) 40 mg IVPUSH Q6H [facility] Last Admin: 11/23/18 08:01 Dose: 40 mg Miscellaneous Information (Remove Patch) 1 ea TRDERM DAILY [facility] Last Admin: 11/23/18 08:04 Dose: Not Given Nicotine (Habitrol) 21 mg TRDERM DAILY [facility] Last Admin: 11/23/18 08:03 Dose: 21 mg Potassium Chloride (Klor-Con M20) 20 meq PO DAILY [facility] Last Admin: 11/23/18 08:02 Dose: 20 meq Sodium Chloride (Saline Flush) 10 ml FLUSH ASDIRECTED PRN PRN Reason: Keep Vein Open Last Admin: 11/23/18 08:01 Dose: 10 ml Discontinued Medications Albuterol (Proventil Neb Soln) 2.5 mg NEB ONETIME ONE Stop: 11/22/18 10:16 Last Admin: 11/22/18 10:17 Dose: 2.5 mg Albuterol/Ipratropium (Duoneb 3.0-0.5 Mg/3 Ml) 3 ml NEB Q4H PRN PRN Reason: Dyspnea Albuterol/Ipratropium (Duoneb 3.0-0.5 Mg/3 Ml) 3 ml NEB Q4HRRT [facility] Last Admin: 11/22/18 08:25 Dose: 3 ml Aspirin (Aspirin) 324 mg PO ONETIME ONE Stop: 11/21/18 12:19 Last Admin: 11/21/18 13:10 Dose: 324 mg Fluticasone Propionate (Flonase) gm NASBOTH BID [facility] Furosemide (Lasix) 40 mg IVPUSH NOW ONE Stop: 11/21/18 13:14 Last Admin: 11/21/18 13:20 Dose: 40 mg Piperacillin Sod/Tazobactam (Sod 3.375 gm/ Sodium Chloride) 100 mls @ 200 mls/ hr IV ONETIME ONE Stop: 11/21/18 13:30 Last Admin: 11/21/18 13:10 Dose: 200 mls/hr Piperacillin Sod/Tazobactam (Sod 3.375 gm/ Sodium Chloride) 100 mls @ 200 mls/ hr IV Q6H [facility] Last Admin: 11/21/18 15:26 Dose: Not Given Piperacillin Sod/Tazobactam (Sod 3.375 gm/ Sodium Chloride) 100 mls @ 200 mls/ hr IV Q6H [facility] Last Admin: 11/22/18 08:21 Dose: 200 mls/hr Methylprednisolone Sodium Succinate (Solu-Medrol) 125 mg IVPUSH ONETIME ONE Stop: 11/21/18 13:01 Last Admin: 11/21/18 13:10 Dose: 125 mg Methylprednisolone Sodium Succinate (Solu-Medrol) 40 mg IVPUSH Q6H [facility] Last Admin: 11/22/18 02:31 Dose: 40 mg Umeclidinium/Vilanterol (Anoro Ellipta 62.5-25 Mcg) 62.5 mcg IH DAILY [facility] Last Admin: 11/22/18 13:55 Dose: Not Given - Exam Quality Assessment: Reports: Supplemental Oxygen General: Reports: Alert, Oriented HEENT: Reports: Pupils Equal, Pupils Reactive, EOMI, Mucous Membr. Moist/[place] Neck: Reports: Supple Lungs: Reports: Decreased Breath Sounds. Denies: Rales, Rhonchi Cardiovascular: Reports: Regular Rate, Regular Rhythm GI/Abdominal Exam: Normal Bowel Sounds, Soft, Non-Tender, No Organomegaly, No Distention, No Abnormal Bruit, No Mass, Pelvis Stable (Male) Exam: Deferred Rectal (Males) Exam: Deferred Extremities: Normal Inspection, Normal Range of Motion, Non-Tender, No Pedal Edema, Normal Capillary Refill Skin: Reports: Warm, Dry, Intact Neurological: Reports: No New Focal Deficit Psy/Mental Status: Reports: Alert, Normal Affect, Normal Mood
== END 2018-11-23 14:15 | disposition home or self-care (01) ==
LOC: LL.ED 12:08 → UNDOADMOB 14:32 → LL.MS 14:32
PROVIDERS: ADMIT Family Medicine; ATTEND Family Medicine
DX: J44.1 Chronic obstructive pulmonary disease with (acute) exacerbation (principal); I11.0 Hypertensive heart disease with heart failure; I50.9 Heart failure, unspecified; E78.00 Pure hypercholesterolemia, unspecified; F17.200 Nicotine dependence, unspecified, uncomplicated; Z79.51 Long term (current) use of inhaled steroids; Z79.82 Long term (current) use of aspirin; Z79.52 Long term (current) use of systemic steroids; Z79.899 Other long term (current) drug therapy
CPT/HCPCS: 36415; 71046; 80048; 80053; 82103; 82962; 83735; 83880; 84484; 85025; 93005; 94060; 94640; 94760; 94761; 96365; 96366; 96372; 96375; 96376; 99285; A9270-GY; G0378; J1650; J1940; J2543; J2920; J2930; J7050; J7613-GY; J7620-GY

== ENCOUNTER 2019-07-14 17:23 | Emergency (ER) | payer MEDICARE ==
[2019-07-14 17:28] VITALS: BP 156/98; PULSE 80
--- NOTE | 2019-07-14 18:52 | EDM.PDOC ---
ED HPI GENERAL MEDICAL PROBLEM - General Chief Complaint: Respiratory Problem Stated Complaint: shortness of breath Time Seen by Provider: 07/14/19 17:40 Source of Information: Reports: Patient History Limitations: Reports: No Limitations - History of Present Illness INITIAL COMMENTS - FREE TEXT/NARRATIVE: Patient is a 68-year-old who is seen with progressive shortness of breath for the past for few days denies fever admits to cough productive. 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 Treatments - Related Data Allergies Allergy/AdvReac Type Severity Reaction Status Date / Time No Known Allergies Allergy Verified 07/14/19 17:28 Home Meds: Home Meds Lisinopril 20 mg PO DAILY 11/03/17 [History] Potassium Chloride [Klor-Con M20] 20 meq PO DAILY 11/03/17 [History] atorvaSTATin [Lipitor] 20 mg PO BEDTIME 11/03/17 [History] Acetaminophen [Tylenol] 650 mg PO Q4H PRN tablet 11/07/17 [Rx] Albuterol/Ipratropium [DuoNeb 3.0-0.5 MG/3 ML] 3 ml NEB Q4HRRT PRN 30 Days #120 neb 11/07/17 [Rx] Furosemide [Lasix] 40 mg PO DAILY 30 Days #30 tab 11/07/17 [Rx] Diltiazem HCl [Cartia Xt] 180 mg PO DAILY 11/16/17 [History] Fluticasone Propionate [Flonase] 1 sprays NASBOTH BID 11/16/17 [History] Aspirin [Ecotrin EC] 81 mg PO DAILY 01/07/18 [History] Bisacodyl [Dulcolax] 5 mg PO ASDIRECTED PRN 03/28/18 [History] Budesonide [Pulmicort] 0.5 mg NEB BIDRT 30 Days #60 neb 03/31/18 [Rx] Arformoterol [Brovana] 15 mcg INH Q12HR #1 box 11/23/18 [Rx] guaiFENesin [Robitussin] 200 mg PO Q4H PRN cup 11/23/18 [Rx] methylPREDNISolone [Medrol] 4 mg PO ASDIRECTED #1 dospk 11/23/18 [Rx] Past Medical History - Past Health History Medical/Surgical History: Denies Medical/Surgical History HEENT History: Reports: Impaired Vision, Other (See Below) Other HEENT History: Patient wears reading glasses Cardiovascular History: Reports: Arrhythmia, Heart Failure, Heart Murmur, High Cholesterol, Hypertension Other Cardiovascular History: 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 Chronic dependent edema. Grade 1 diastolic dysfunction by echocardiogram in April 2017. Respiratory History: Reports: Bronchitis, Recurrent, COPD, Pneumonia, Recurrent , Pneumothorax, Pulmonary Fibrosis, Other (See Below) Other Respiratory History: Spontaneous right sided pneumothorax on 01/07/18. Gastrointestinal History: Reports: Chronic Constipation, Colon Polyp, Hemorrhoids Other Gastrointestinal History: Tubular adenoma 2 in the transverse colon by incomplete colonoscopy as below with additional large sigmoid polyp by barium enema on 12/14/17. Umbilical hernia. Genitourinary History: Reports: BPH, Retention, Urinary, UTI, Recurrent, Other ( See Below) Other Genitourinary History: Neurogenic bladder with self catherizations. Musculoskeletal History: Reports: Arthritis, Back Pain, Chronic, Neck Pain, Chronic, Osteoarthritis Neurological History: Reports: None Psychiatric History: Reports: None Endocrine/Metabolic History: Reports: None Hematologic History: Reports: None Immunologic History: Reports: None Oncologic (Cancer) History: Reports: None Dermatologic History: Reports: None - Infectious Disease History Infectious Disease History: Reports: Chicken Pox, Mumps, Shingles (Left chin region in the 1980s). Denies: C-Difficile, Measles, Meningitis, Mononucleosis, MRSA, Pertussis (Whooping Cough), Rheumatic Fever, RSV, Rubella, Scarlet Fever, VRE - Past Surgical History Head Surgeries/Procedures: Reports: None HEENT Surgical History: Reports: Oral Surgery, Other (See Below) Other HEENT Surgeries/Procedures: Complete teeth extraction with complete dentures uppers and lowers. Cardiovascular Surgical History: Reports: None Respiratory Surgical History: Reports: Other (See Below) Other Respiratory Surgeries/Procedures: Chest tube insertion for spontaneous pneumothorax on 01/07/18. GI Surgical History: Reports: Colonoscopy, Polypectomy, Other (See Below) Other GI Surgeries/Procedures: Polypectomy 2 of tubular adenomas in the transverse colon as above. Incomplete Colonoscopy secondary to poor bowel preparation and tortuous colon on 11/16/17 with follow-up enema as below. Male Surgical History: Reports: Circumcision, Suprapubic Catheter Placement, TURP-Transurethral Resection of Prostate, Other (See Below) Other Male Surgeries/Procedures: Circumcision as an infant, TURP 2 initially in 2008 and then in 2009, suprapubic catheter placement in 2009 Endocrine Surgical History: Reports: None Neurological Surgical History: Reports: None Musculoskeletal Surgical History: Reports: None Oncologic Surgical History: Reports: None Dermatological Surgical History: Reports: None - Past Imaging History Past Imaging History: Reports: Barium Enema (12/14/17), Cardiac Echo (04/25/17 with ejection fraction of 5560 percent and otherwise results as above) Social & Family History - Family History HEENT: Reports: None Cardiac: Reports: CAD, Hypertension, [place], Other (See Below) Other Cardiac Family History: Brother with hypertension, mother with fatal [place] at age 75 Respiratory: Reports: COPD, Other (See Below) Other Respiratory Family Hisory: Father with COPD with history of tobacco use GI: Reports: None : Reports: None OBGYN: Reports: None Musculoskeletal: Reports: Arthritis, Osteoarthritis, Other (See Below) Other Musculoskeletal Family History: Brother with osteoarthritis Neurological: Reports: None Psychiatric: Reports: None Endocrine/Metabolic: Reports: Diabetes, type II, IDDM, Other (See Below) Other Endocrine/Metabolic Family History: Mother with IDDM Hematologic: Reports: None Immunologic: Reports: None Dermatologic: Reports: None Oncologic: Reports: None - Tobacco Use Smoking Status *Q: Current Every Day Smoker Years of Tobacco use: 55 Packs/Tins Daily: 1 - Caffeine Use Caffeine Use: Reports: Coffee - Recreational Drug Use Recreational Drug Use: No - Living Situation & Occupation Living situation: Reports: Single ( in 2009 with no children with his although his did have children from a previous relationship), Alone 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) ED ROS GENERAL - Review of Systems Review Of Systems: See Below Constitutional: Reports: No Symptoms HEENT: Reports: No Symptoms Respiratory: Reports: Shortness of Breath, Cough Cardiovascular: Reports: No Symptoms Endocrine: Reports: No Symptoms GI/Abdominal: Reports: No Symptoms : Reports: No Symptoms Musculoskeletal: Reports: No Symptoms Skin: Reports: No Symptoms Neurological: Reports: No Symptoms Psychiatric: Reports: No Symptoms Hematologic/Lymphatic: Reports: No Symptoms Immunologic: Reports: No Symptoms ED EXAM, GENERAL - Physical Exam Exam: See Below Exam Limited By: No Limitations General Appearance: Alert, WD/WN, Mild Distress Ears: Normal External Exam, Normal Canal, Hearing Grossly Normal, Normal TMs Ear Exam: Bilateral Ear: Auricle Normal, Canal Normal, TM normal Nose: Normal Inspection, Normal Mucosa, No Blood Throat/Mouth: Normal Inspection, Normal Lips, Normal Teeth, Normal Gums, Normal Oropharynx, Normal Voice, No Airway Compromise Head: Atraumatic, Normocephalic Neck: Normal Inspection, Supple, Non-Tender, Full Range of Motion Respiratory/Chest: Respiratory Distress, Decreased Breath Sounds, Prolonged Expiration Cardiovascular: Normal Peripheral Pulses, Regular Rate, Rhythm, No Edema, No Gallop, No JVD, No Murmur, No Rub GI/Abdominal: Normal Bowel Sounds, Soft, Non-Tender, No Organomegaly, No Distention, No Abnormal Bruit, No Mass (Male) Exam: Deferred Rectal (Males) Exam: Deferred Back Exam: Normal Inspection, Full Range of Motion, NT Extremities: Normal Inspection, Normal Range of Motion, Non-Tender, Normal Capillary Refill, No Pedal Edema Neurological: Alert, Oriented, CN II-XII Intact, Normal Cognition, Normal Gait, Normal Reflexes, No Motor/Sensory Deficits Psychiatric: Normal Affect, Normal Mood Skin Exam: Warm, Dry, Intact, Normal Color, No Rash Course - Vital Signs Last Recorded V/S: Last Vital Signs Temp 97.6 F 07/14/19 17:24 Pulse 80 07/14/19 17:24 Resp 20 07/14/19 17:24 BP 156/98 H 07/14/19 17:24 Pulse Ox 94 L 07/14/19 17:24 - Orders/Labs/Meds Orders: Active Orders 24 hr Category Date Time Status RT Aerosol Therapy [RC] ASDIRECTED Care 07/14/19 18:46 Ordered Chest 2V [CR] Stat Exams 07/14/19 18:15 Ordered CULTURE BLOOD [BC] Stat Lab 07/14/19 18:15 Ordered CULTURE BLOOD [BC] Stat Lab 07/14/19 18:15 Ordered DD [D-DIMER QUANTITATIVE] [COAG] Stat Lab 07/14/19 18:45 Ordered Blood Culture x2 Reflex Set [OM.PC] Stat Oth 07/14/19 18:15 Ordered Labs: Laboratory Tests 07/14/19 07/14/19 Range/Units 18:35 18:35 WBC 9.0 (4.0-10.2) K/uL RBC 5.56 H (4.33-5.41) M/uL Hgb 15.3 (13.1-16.8) g/dL Hct 47.0 (39.0-49.0) % MCV 84.5 (84.0-98.0) fL MCH 27.5 L (28.2-33.3) pg MCHC 32.6 (31.7-36.0) g/dL RDW 13.2 (11.2-14.1) % Plt Count 253 (150-350) K/uL Neut % (Auto) 44.2 L (45.0-80.0) % Lymph % (Auto) 41.0 (10.0-50.0) % [place] % (Auto) 8.9 (2.0-14.0) % Eos % (Auto) 5.5 H (0.0-5.0) % Baso % (Auto) 0.4 (0.0-2.0) % Neut # (Auto) 3.98 (1.40-7.00) K/uL Lymph # (Auto) 3.69 H (0.50-3.50) K/uL [place] # (Auto) 0.80 (0.00-1.00) K/uL Eos # (Auto) 0.50 (0.00-0.50) K/uL Baso # (Auto) 0.04 (0.00-0.20) K/uL Sodium 139 (136-145) mmol/L Potassium 4.5 (3.5-5.1) mmol/L Chloride 101 (98-107) mmol/L Carbon Dioxide 27.6 (21.0-32.0) mmol/L BUN 21 H (7-18) mg/dL Creatinine 0.96 (0.51-1.17) mg/dL Est Cr Clr Drug Dosing 78.59 mL/min Estimated GFR (MDRD) > 60 mL/min Glucose 102 (74-106) mg/dL Calcium 9.2 (8.5-10.1) mg/dL Total Bilirubin 0.5 (0.2-1.0) mg/dL AST 16 (15-37) U/L ALT 22 (12-78) U/L Alkaline Phosphatase 146 H (46-116) IU/L Total Protein 7.9 (6.4-8.2) g/dL Albumin 3.9 (3.4-5.0) g/dL Meds: Medications Discontinued Medications Generic Name Dose Route Start Last Admin Trade Name Freq PRN Reason Stop Dose Admin Albuterol/Ipratropium 3 ml 07/14/19 18:46 07/14/19 19:01 Duoneb 3.0-0.5 Mg/3 Ml NEB 07/14/19 18:47 3 ml ONETIME ONE Administration Departure - Departure Time of Disposition: 19:02 Disposition: Home, Self-Care 01 Condition: Fair Clinical Impression: COPD (chronic obstructive pulmonary disease) Qualifiers: COPD type: COPD with acute exacerbation Qualified Code(s): J44.1 - Chronic obstructive pulmonary disease with (acute) exacerbation Pneumonia Qualifiers: Pneumonia type: due to unspecified organism Laterality: right Lung location: middle lobe of lung Qualified Code(s): J18.1 - Lobar pneumonia, unspecified organism - Discharge Information *PRESCRIPTION DRUG MONITORING PROGRAM REVIEWED*: No *COPY OF PRESCRIPTION DRUG MONITORING REPORT IN PATIENT [place]: No Care Plan Goals: Patient will be started on Augmentin 875 twice a day plus duonebs every 4 hours when necessary plus Pulmicort twice a day plus prrednisone 20 mg twice a day for 5 days, follow-up Monday with Sara in the clinic. - My Orders Last 24 Hours: My Active Orders 07/14/19 18:15 Chest 2V [CR] Stat CULTURE BLOOD [BC] Stat CULTURE BLOOD [BC] Stat Blood Culture x2 Reflex Set [OM.PC] Stat 07/14/19 18:45 DD [D-DIMER QUANTITATIVE] [COAG] Stat 07/14/19 18:46 RT Aerosol Therapy [RC] ASDIRECTED - Assessment/Plan Last 24 Hours: My Active Orders 07/14/19 18:15 Chest 2V [CR] Stat CULTURE BLOOD [BC] Stat CULTURE BLOOD [BC] Stat Blood Culture x2 Reflex Set [OM.PC] Stat 07/14/19 18:45 DD [D-DIMER QUANTITATIVE] [COAG] Stat 07/14/19 18:46 RT Aerosol Therapy [RC] ASDIRECTED
[2019-07-14 18:53] LABS: CHLORIDE,CL 101 mmol/L (98-107); SODIUM,NA 139 mmol/L (136-145)
[2019-07-14] MEDS: Albuterol/Ipratropium 3.0-0.5 MG/3 ML Neb Soln NEB ONE (19:01)
== END 2019-07-14 19:30 | disposition home or self-care (01) ==
LOC: LL.ED 17:23
DX: J44.0 Chronic obstructive pulmonary disease with (acute) lower respiratory infection (principal); J18.1 Lobar pneumonia, unspecified organism; J44.1 Chronic obstructive pulmonary disease with (acute) exacerbation; E78.00 Pure hypercholesterolemia, unspecified; I10 Essential (primary) hypertension; F17.210 Nicotine dependence, cigarettes, uncomplicated; Z79.899 Other long term (current) drug therapy; Z79.82 Long term (current) use of aspirin; Z79.51 Long term (current) use of inhaled steroids
CPT/HCPCS: 36415; 71046; 80053; 85025; 85379; 87040; 94640; 99283; 99285-25; J7620-GY

== ENCOUNTER → 2019-07-30 | Outpatient (CLI) | payer MEDICARE | LOC: LL.CLIN 10:49 | PROVIDERS: ATTEND Nurse Practitioner | DX: J44.9 Chronic obstructive pulmonary disease, unspecified (principal) | CPT/HCPCS: 99213 ==

== ENCOUNTER 2019-08-11 11:00 | Emergency (ER) | payer MEDICARE ==
[2019-08-11] MEDS ORDERED: Sodium Chloride 0.9% 10 ML Syringe FLUSH PRN (11:26)
[2019-08-11] MEDS: Albuterol/Ipratropium 3.0-0.5 MG/3 ML Neb Soln NEB PRN (11:32)
[2019-08-11 12:07] LABS: CHLORIDE,CL 102 mmol/L (98-107); SODIUM,NA 142 mmol/L (136-145)
--- NOTE | 2019-08-11 12:15 | EDM.PDOC ---
ED HPI GENERAL MEDICAL PROBLEM - General Chief Complaint: Respiratory Problem Stated Complaint: severe SOB Time Seen by Provider: 08/11/19 11:10 Source of Information: Reports: Patient History Limitations: Reports: No Limitations - History of Present Illness INITIAL COMMENTS - FREE TEXT/NARRATIVE: Patient is a 68-year-old smoker with known emphysema presented himself as in the waiting area of the hospital short of breath was brought in by the nurses for evaluation Onset: Today Duration: Hour(s):, Improving Location: Reports: Chest Quality: Reports: Ache Severity: Moderate Improves with: Reports: Rest Worsens with: Reports: Movement Context: Reports: Activity Associated Symptoms: Reports: No Other Symptoms - Related Data Allergies Allergy/AdvReac Type Severity Reaction Status Date / Time No Known Allergies Allergy Verified 08/11/19 11:01 Home Meds: Home Meds Lisinopril 20 mg PO DAILY 11/03/17 [History] Potassium Chloride [Klor-Con M20] 20 meq PO DAILY 11/03/17 [History] atorvaSTATin [Lipitor] 20 mg PO BEDTIME 11/03/17 [History] Acetaminophen [Tylenol] 650 mg PO Q4H PRN tablet 11/07/17 [Rx] Albuterol/Ipratropium [DuoNeb 3.0-0.5 MG/3 ML] 3 ml NEB Q4HRRT PRN 30 Days #120 neb 11/07/17 [Rx] Furosemide [Lasix] 40 mg PO DAILY 30 Days #30 tab 11/07/17 [Rx] Diltiazem HCl [Cartia Xt] 180 mg PO DAILY 11/16/17 [History] Fluticasone Propionate [Flonase] 1 sprays NASBOTH BID PRN 11/16/17 [History] Aspirin [Ecotrin EC] 81 mg PO DAILY 01/07/18 [History] Bisacodyl [Dulcolax] 5 mg PO ASDIRECTED PRN 03/28/18 [History] Budesonide [Pulmicort] 0.5 mg NEB BIDRT 30 Days #60 neb 03/31/18 [Rx] Arformoterol [Brovana] 15 mcg INH Q12HR #1 box 11/23/18 [Rx] guaiFENesin [Robitussin] 200 mg PO Q4H PRN cup 11/23/18 [Rx] Past Medical History - Past Health History Medical/Surgical History: Denies Medical/Surgical History HEENT History: Reports: Impaired Vision, Other (See Below) Other HEENT History: Patient wears reading glasses Cardiovascular History: Reports: Arrhythmia, Heart Failure, Heart Murmur, High Cholesterol, Hypertension Other Cardiovascular History: 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 Chronic dependent edema. Grade 1 diastolic dysfunction by echocardiogram in April 2017. Respiratory History: Reports: Bronchitis, Recurrent, COPD, Pneumonia, Recurrent , Pneumothorax, Pulmonary Fibrosis, Other (See Below) Other Respiratory History: Spontaneous right sided pneumothorax on 01/07/18. Gastrointestinal History: Reports: Chronic Constipation, Colon Polyp, Hemorrhoids Other Gastrointestinal History: Tubular adenoma 2 in the transverse colon by incomplete colonoscopy as below with additional large sigmoid polyp by barium enema on 12/14/17. Umbilical hernia. Genitourinary History: Reports: BPH, Retention, Urinary, UTI, Recurrent, Other ( See Below) Other Genitourinary History: Neurogenic bladder with self catherizations. Musculoskeletal History: Reports: Arthritis, Back Pain, Chronic, Neck Pain, Chronic, Osteoarthritis Neurological History: Reports: None Psychiatric History: Reports: None Endocrine/Metabolic History: Reports: None Hematologic History: Reports: None Immunologic History: Reports: None Oncologic (Cancer) History: Reports: None Dermatologic History: Reports: None - Infectious Disease History Infectious Disease History: Reports: Chicken Pox, Mumps, Shingles (Left chin region in the 1980s). Denies: C-Difficile, Measles, Meningitis, Mononucleosis, MRSA, Pertussis (Whooping Cough), Rheumatic Fever, RSV, Rubella, Scarlet Fever, VRE - Past Surgical History Head Surgeries/Procedures: Reports: None HEENT Surgical History: Reports: Oral Surgery, Other (See Below) Other HEENT Surgeries/Procedures: Complete teeth extraction with complete dentures uppers and lowers. Cardiovascular Surgical History: Reports: None Respiratory Surgical History: Reports: Other (See Below) Other Respiratory Surgeries/Procedures: Chest tube insertion for spontaneous pneumothorax on 01/07/18. GI Surgical History: Reports: Colonoscopy, Polypectomy, Other (See Below) Other GI Surgeries/Procedures: Polypectomy 2 of tubular adenomas in the transverse colon as above. Incomplete Colonoscopy secondary to poor bowel preparation and tortuous colon on 11/16/17 with follow-up enema as below. Male Surgical History: Reports: Circumcision, Suprapubic Catheter Placement, TURP-Transurethral Resection of Prostate, Other (See Below) Other Male Surgeries/Procedures: Circumcision as an , TURP 2 initially in 2008 and then in 2009, suprapubic catheter placement in 2009 Endocrine Surgical History: Reports: None Neurological Surgical History: Reports: None Musculoskeletal Surgical History: Reports: None Oncologic Surgical History: Reports: None Dermatological Surgical History: Reports: None - Past Imaging History Past Imaging History: Reports: Barium Enema (12/14/17), Cardiac Echo (04/25/17 with ejection fraction of 5560 percent and otherwise results as above) Social & Family History - Family History HEENT: Reports: None Cardiac: Reports: CAD, Hypertension, [place], Other (See Below) Other Cardiac Family History: Brother with hypertension, mother with fatal AR at age 75 Respiratory: Reports: COPD, Other (See Below) Other Respiratory Family Hisory: Father with COPD with history of tobacco use GI: Reports: None : Reports: None OBGYN: Reports: None Musculoskeletal: Reports: Arthritis, Osteoarthritis, Other (See Below) Other Musculoskeletal Family History: Brother with osteoarthritis Neurological: Reports: None Psychiatric: Reports: None Endocrine/Metabolic: Reports: Diabetes, type II, IDDM, Other (See Below) Other Endocrine/Metabolic Family History: Mother with IDDM Hematologic: Reports: None Immunologic: Reports: None Dermatologic: Reports: None Oncologic: Reports: None - Tobacco Use Smoking Status *Q: Current Every Day Smoker Years of Tobacco use: 55 Packs/Tins Daily: 1 - Caffeine Use Caffeine Use: Reports: Coffee - Recreational Drug Use Recreational Drug Use: No - Living Situation & Occupation Living situation: Reports: Single ( in 2009 with no children with his although his did have children from a previous relationship), Alone 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) ED ROS GENERAL - Review of Systems Review Of Systems: See Below Constitutional: Reports: No Symptoms HEENT: Reports: No Symptoms Respiratory: Reports: Shortness of Breath Cardiovascular: Reports: No Symptoms Endocrine: Reports: No Symptoms GI/Abdominal: Reports: No Symptoms : Reports: No Symptoms Musculoskeletal: Reports: No Symptoms Skin: Reports: No Symptoms Neurological: Reports: No Symptoms Psychiatric: Reports: No Symptoms Hematologic/Lymphatic: Reports: No Symptoms ED EXAM, GENERAL - Physical Exam Exam: See Below Exam Limited By: No Limitations General Appearance: Alert, WD/WN, Mild Distress Ears: Normal External Exam, Normal Canal, Hearing Grossly Normal, Normal TMs Throat/Mouth: Normal Inspection, Normal Lips, Normal Teeth, Normal Gums, Normal Oropharynx, Normal Voice, No Airway Compromise Head: Atraumatic, Normocephalic Neck: Normal Inspection, Supple, Non-Tender, Full Range of Motion Respiratory/Chest: No Respiratory Distress, Rales (In the bases) Cardiovascular: Normal Peripheral Pulses, Regular Rate, Rhythm, No Edema, No Gallop, No JVD, No Murmur, No Rub GI/Abdominal: Normal Bowel Sounds, Soft, Non-Tender, No Organomegaly, No Distention, No Abnormal Bruit, No Mass (Male) Exam: Deferred Rectal (Males) Exam: Deferred Back Exam: Normal Inspection, Full Range of Motion, NT Extremities: Normal Inspection, Normal Range of Motion, Non-Tender, Normal Capillary Refill, No Pedal Edema Neurological: Alert, Oriented, CN II-XII Intact, Normal Cognition, Normal Gait, Normal Reflexes, No Motor/Sensory Deficits Psychiatric: Normal Affect, Normal Mood Skin Exam: Warm, Dry, Intact, Normal Color, No Rash Lymphatic: No Adenopathy Course - Vital Signs Last Recorded V/S: Last Vital Signs Temp 97.8 F 08/11/19 11:13 Pulse 82 08/11/19 11:21 Resp 28 H 08/11/19 11:21 BP 129/71 08/11/19 11:21 Pulse Ox 97 08/11/19 11:21 - Orders/Labs/Meds Orders: Active Orders 24 hr Category Date Time Status RT Aerosol Therapy [RC] ASDIRECTED Care 08/11/19 11:28 Ordered Chest 2V [CR] Stat Exams 08/11/19 11:26 Ordered Albuterol/Ipratropium [DuoNeb 3.0-0.5 MG/3 ML] Med 08/11/19 11:27 Ordered 3 ml NEB Q4HRRT PRN Sodium Chloride 0.9% [Saline Flush] Med 08/11/19 11:26 Ordered 10 ml FLUSH ASDIRECTED PRN Saline Lock Insert [OM.PC] Stat Oth 08/11/19 11:27 Ordered Medication Orders Albuterol/Ipratropium (Duoneb 3.0-0.5 Mg/3 Ml) 3 ml NEB Q4HRRT PRN PRN Reason: Shortness of Breath Last Admin: 08/11/19 11:32 Dose: 3 ml Sodium Chloride (Saline Flush) 10 ml FLUSH ASDIRECTED PRN PRN Reason: Keep Vein Open Labs: Laboratory Tests 08/11/19 08/11/19 Range/Units 11:35 11:35 WBC 7.6 (4.0-10.2) K/uL RBC 5.37 (4.33-5.41) M/uL Hgb 14.8 (13.1-16.8) g/dL Hct 46.2 (39.0-49.0) % MCV 86.0 (84.0-98.0) fL MCH 27.6 L (28.2-33.3) pg MCHC 32.0 (31.7-36.0) g/dL RDW 13.0 (11.2-14.1) % Plt Count 243 (150-350) K/uL Neut % (Auto) 51.9 (45.0-80.0) % Lymph % (Auto) 36.2 (10.0-50.0) % [place] % (Auto) 6.6 (2.0-14.0) % Eos % (Auto) 4.8 (0.0-5.0) % Baso % (Auto) 0.5 (0.0-2.0) % Neut # (Auto) 3.96 (1.40-7.00) K/uL Lymph # (Auto) 2.76 (0.50-3.50) K/uL [place] # (Auto) 0.50 (0.00-1.00) K/uL Eos # (Auto) 0.37 (0.00-0.50) K/uL Baso # (Auto) 0.04 (0.00-0.20) K/uL Sodium 142 (136-145) mmol/L Potassium 4.3 (3.5-5.1) mmol/L Chloride 102 (98-107) mmol/L Carbon Dioxide 27.8 (21.0-32.0) mmol/L BUN 13 (7-18) mg/dL Creatinine 0.91 (0.51-1.17) mg/dL Est Cr Clr Drug Dosing 82.91 mL/min Estimated GFR (MDRD) > 60 mL/min Glucose 131 H (74-106) mg/dL Calcium 9.7 (8.5-10.1) mg/dL Total Bilirubin 0.5 (0.2-1.0) mg/dL AST 17 (15-37) U/L ALT 25 (12-78) U/L Alkaline Phosphatase 136 H (46-116) IU/L NT-Pro-B Natriuret Pep 314 H (0-125) pg/mL Total Protein 7.7 (6.4-8.2) g/dL Albumin 4.0 (3.4-5.0) g/dL Meds: Medications Generic Name Dose Route Start Last Admin Trade Name Freq PRN Reason Stop Dose Admin Albuterol/Ipratropium 3 ml 08/11/19 11:27 08/11/19 11:32 Duoneb 3.0-0.5 Mg/3 Ml NEB 3 ml Q4HRRT PRN Administration Shortness of Breath Sodium Chloride 10 ml 08/11/19 11:26 Saline Flush FLUSH ASDIRECTED PRN Keep Vein Open Departure - Departure Time of Disposition: 12:17 Disposition: Home, Self-Care 01 Condition: Fair Clinical Impression: COPD (chronic obstructive pulmonary disease) Qualifiers: COPD type: COPD with acute exacerbation Qualified Code(s): J44.1 - Chronic obstructive pulmonary disease with (acute) exacerbation - Discharge Information *PRESCRIPTION DRUG MONITORING PROGRAM REVIEWED*: Not Applicable *COPY OF PRESCRIPTION DRUG MONITORING REPORT IN PATIENT [place]: Not Applicable Care Plan Goals: Resume Patient home meds follow-up with primary. Repeat CT in about a month at this time CT showed large bleb secondary to emphysema but no pneumothorax he does have some atelectasis patient instructed to do pulmonary toilet the bleeding coughing follow-up with primary - My Orders Last 24 Hours: My Active Orders 08/11/19 11:26 Chest 2V [CR] Stat Sodium Chloride 0.9% [Saline Flush] 10 ml FLUSH ASDIRECTED PRN 08/11/19 11:27 Albuterol/Ipratropium [DuoNeb 3.0-0.5 MG/3 ML] 3 ml NEB Q4HRRT PRN Saline Lock Insert [OM.PC] Stat 08/11/19 11:28 RT Aerosol Therapy [RC] ASDIRECTED - Assessment/Plan Last 24 Hours: My Active Orders 08/11/19 11:26 Chest 2V [CR] Stat Sodium Chloride 0.9% [Saline Flush] 10 ml FLUSH ASDIRECTED PRN 08/11/19 11:27 Albuterol/Ipratropium [DuoNeb 3.0-0.5 MG/3 ML] 3 ml NEB Q4HRRT PRN Saline Lock Insert [OM.PC] Stat 08/11/19 11:28 RT Aerosol Therapy [RC] ASDIRECTED
[2019-08-11 14:10] VITALS: BP 104/65; PULSE 71
== END 2019-08-11 13:54 | disposition home or self-care (01) ==
LOC: LL.ED 11:00
DX: J44.1 Chronic obstructive pulmonary disease with (acute) exacerbation (principal); I11.0 Hypertensive heart disease with heart failure; I50.9 Heart failure, unspecified; Z79.82 Long term (current) use of aspirin; Z79.899 Other long term (current) drug therapy
CPT/HCPCS: 36415; 71046; 71250; 80053; 83880; 85025; 94640; 99285-25; J7620-GY

== ENCOUNTER 2019-08-15 23:38 | Emergency (ER) | payer MEDICARE ==
[2019-08-15 23:45] VITALS: BP 153/101; PULSE 82
--- NOTE | 2019-08-16 00:11 | EDM.PDOC ---
ED HPI GENERAL MEDICAL PROBLEM - General Chief Complaint: Cardiovascular Problem Stated Complaint: trouble breathing Time Seen by Provider: 08/15/19 23:42 Source of Information: Reports: Patient History Limitations: Reports: No Limitations - History of Present Illness INITIAL COMMENTS - FREE TEXT/NARRATIVE: Pt presents to ER with SOB Has hx/o severe COPD On oxygen at home Uses 4 L at home No fever Does have intermittent cough with green sputum Pt seen in ER 4 days ago for same symptoms No chest pain Increased SOB with exertion Recent ER visit and lab reviewed States has not been on antibiotics or steroids for a year On multiple medications at home Onset: Gradual Duration: Day(s):, Getting Worse Location: Reports: Chest Improves with: Reports: Medication Worsens with: Reports: Breathing, Movement Associated Symptoms: Reports: Cough, cough w sputum, Shortness of Breath Treatments [employer]: Reports: Oxygen - Related Data Allergies Allergy/AdvReac Type Severity Reaction Status Date / Time No Known Allergies Allergy Verified 08/15/19 23:45 Home Meds: Home Meds Lisinopril 20 mg PO DAILY 11/03/17 [History] Potassium Chloride [Klor-Con M20] 20 meq PO DAILY 11/03/17 [History] atorvaSTATin [Lipitor] 20 mg PO 1800 11/03/17 [History] Acetaminophen [Tylenol] 650 mg PO Q4H PRN tablet 11/07/17 [Rx] Albuterol/Ipratropium [DuoNeb 3.0-0.5 MG/3 ML] 3 ml NEB Q4HRRT PRN 30 Days #120 neb 11/07/17 [Rx] Furosemide [Lasix] 40 mg PO DAILY 30 Days #30 tab 11/07/17 [Rx] Diltiazem HCl [Cartia Xt] 180 mg PO DAILY 11/16/17 [History] Fluticasone Propionate [Flonase] 1 sprays NASBOTH BID PRN 11/16/17 [History] Aspirin [Ecotrin EC] 81 mg PO DAILY 01/07/18 [History] Bisacodyl [Dulcolax] 5 mg PO ASDIRECTED PRN 03/28/18 [History] Budesonide [Pulmicort] 0.5 mg NEB BIDRT 30 Days #60 neb 03/31/18 [Rx] Arformoterol [Brovana] 15 mcg INH Q12HR #1 box 11/23/18 [Rx] D-Methorphan/Acetamin/Doxylamn [Night Time Cold & Flu Liq] 1 dose PO BEDTIME [History] D-Methorphan/PE/Acetaminophen [Daytime Cold-Flu Liquid] 30 ml PO DAILY 08/15/19 [History] Past Medical History - Past Health History Medical/Surgical History: Denies Medical/Surgical History HEENT History: Reports: Impaired Vision, Other (See Below) Other HEENT History: Patient wears reading glasses Cardiovascular History: Reports: Arrhythmia, Heart Failure, Heart Murmur, High Cholesterol, Hypertension Other Cardiovascular History: 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 Chronic dependent edema. Grade 1 diastolic dysfunction by echocardiogram in April 2017. Respiratory History: Reports: Bronchitis, Recurrent, COPD, Pneumonia, Recurrent , Pneumothorax, Pulmonary Fibrosis, Other (See Below) Other Respiratory History: Spontaneous right sided pneumothorax on 01/07/18. Gastrointestinal History: Reports: Chronic Constipation, Colon Polyp, Hemorrhoids Other Gastrointestinal History: Tubular adenoma 2 in the transverse colon by incomplete colonoscopy as below with additional large sigmoid polyp by barium enema on 12/14/17. Umbilical hernia. Genitourinary History: Reports: BPH, Retention, Urinary, UTI, Recurrent, Other ( See Below) Other Genitourinary History: Neurogenic bladder with self catherizations. Musculoskeletal History: Reports: Arthritis, Back Pain, Chronic, Neck Pain, Chronic, Osteoarthritis Neurological History: Reports: None Psychiatric History: Reports: None Endocrine/Metabolic History: Reports: None Hematologic History: Reports: None Immunologic History: Reports: None Oncologic (Cancer) History: Reports: None Dermatologic History: Reports: None - Infectious Disease History Infectious Disease History: Reports: Chicken Pox, Mumps, Shingles (Left chin region in the 1980s). Denies: C-Difficile, Measles, Meningitis, Mononucleosis, MRSA, Pertussis (Whooping Cough), Rheumatic Fever, RSV, Rubella, Scarlet Fever, VRE - Past Surgical History Head Surgeries/Procedures: Reports: None HEENT Surgical History: Reports: Oral Surgery, Other (See Below) Other HEENT Surgeries/Procedures: Complete teeth extraction with complete dentures uppers and lowers. Cardiovascular Surgical History: Reports: None Respiratory Surgical History: Reports: Other (See Below) Other Respiratory Surgeries/Procedures: Chest tube insertion for spontaneous pneumothorax on 01/07/18. GI Surgical History: Reports: Colonoscopy, Polypectomy, Other (See Below) Other GI Surgeries/Procedures: Polypectomy 2 of tubular adenomas in the transverse colon as above. Incomplete Colonoscopy secondary to poor bowel preparation and tortuous colon on 11/16/17 with follow-up enema as below. Male Surgical History: Reports: Circumcision, Suprapubic Catheter Placement, TURP-Transurethral Resection of Prostate, Other (See Below) Other Male Surgeries/Procedures: Circumcision as an infant, TURP 2 initially in 2008 and then in 2009, suprapubic catheter placement in 2009 Endocrine Surgical History: Reports: None Neurological Surgical History: Reports: None Musculoskeletal Surgical History: Reports: None Oncologic Surgical History: Reports: None Dermatological Surgical History: Reports: None - Past Imaging History Past Imaging History: Reports: Barium Enema (12/14/17), Cardiac Echo (04/25/17 with ejection fraction of 5560 percent and otherwise results as above) Social & Family History - Family History HEENT: Reports: None Cardiac: Reports: CAD, Hypertension, CT, Other (See Below) Other Cardiac Family History: Brother with hypertension, mother with fatal CT at age 75 Respiratory: Reports: COPD, Other (See Below) Other Respiratory Family Hisory: Father with COPD with history of tobacco use GI: Reports: None : Reports: None OBGYN: Reports: None Musculoskeletal: Reports: Arthritis, Osteoarthritis, Other (See Below) Other Musculoskeletal Family History: Brother with osteoarthritis Neurological: Reports: None Psychiatric: Reports: None Endocrine/Metabolic: Reports: Diabetes, type II, IDDM, Other (See Below) Other Endocrine/Metabolic Family History: Mother with IDDM Hematologic: Reports: None Immunologic: Reports: None Dermatologic: Reports: None Oncologic: Reports: None - Caffeine Use Caffeine Use: Reports: Coffee - Living Situation & Occupation Living situation: Reports: Single ( in 2009 with no children with his although his did have children from a previous relationship), Alone 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) ED ROS GENERAL - Review of Systems Review Of Systems: See Below ED EXAM, GENERAL - Physical Exam Exam: See Below Exam Limited By: No Limitations General Appearance: Mild Distress Nose: Normal Inspection Throat/Mouth: Normal Inspection Neck: Supple Respiratory/Chest: Decreased Breath Sounds (No wheezing) Cardiovascular: Regular Rate, Rhythm, Other (Mild pedal edema) GI/Abdominal: Non-Tender Extremities: Pedal Edema Course - Vital Signs Last Recorded V/S: Last Vital Signs Temp 36.6 C 08/15/19 23:39 Pulse 82 08/15/19 23:39 Resp 20 08/15/19 23:39 BP 153/101 H 08/15/19 23:39 Pulse Ox 98 08/15/19 23:39 - Orders/Labs/Meds Orders: Active Orders 24 hr Category Date Time Status Chest 2V [CR] Stat Exams 08/15/19 23:48 Ordered BASIC METABOLIC PANEL,BMP [CHEM] Stat Lab 08/15/19 23:53 Received Labs: Laboratory Tests 08/15/19 Range/Units 23:53 WBC 7.7 (4.0-10.2) K/uL RBC 4.99 (4.33-5.41) M/uL Hgb 13.7 (13.1-16.8) g/dL Hct 42.8 (39.0-49.0) % MCV 85.8 (84.0-98.0) fL MCH 27.5 L (28.2-33.3) pg MCHC 32.0 (31.7-36.0) g/dL RDW 13.1 (11.2-14.1) % Plt Count 225 (150-350) K/uL Neut % (Auto) 43.3 L (45.0-80.0) % Lymph % (Auto) 43.0 (10.0-50.0) % [place] % (Auto) 8.1 (2.0-14.0) % Eos % (Auto) 5.1 H (0.0-5.0) % Baso % (Auto) 0.5 (0.0-2.0) % Neut # (Auto) 3.33 (1.40-7.00) K/uL Lymph # (Auto) 3.30 (0.50-3.50) K/uL [place] # (Auto) 0.62 (0.00-1.00) K/uL Eos # (Auto) 0.39 (0.00-0.50) K/uL Baso # (Auto) 0.04 (0.00-0.20) K/uL Meds: Medications Discontinued Medications Generic Name Dose Route Start Last Admin Trade Name Casimiro PRN Reason Stop Dose Admin Ceftriaxone Sodium 1 gm 08/16/19 00:03 Rocephin IM 08/16/19 00:04 ONETIME ONE Methylprednisolone Sodium Succinate 125 mg 08/16/19 00:04 Solu-Medrol IM 08/16/19 00:05 ONETIME ONE - Re-Assessments/Exams Free Text/Narrative Re-Assessment/Exam: 08/16/19 00:09 See lab CXR without acute infiltrate Right base with increased markings No pneumothorax Pt given Rocephin 1 gm IM and Solu-medrol 125 mg IM in ER Pt to follow up in clinic in AM for recheck Departure - Departure Time of Disposition: 00:45 Disposition: Home, Self-Care 01 Clinical Impression: COPD (chronic obstructive pulmonary disease) Qualifiers: COPD type: COPD with acute exacerbation Qualified Code(s): J44.1 - Chronic obstructive pulmonary disease with (acute) exacerbation Instructions: Chronic Obstructive Pulmonary Disease Exacerbation, [id number] Referrals: Sara Tyler, [employer] [Primary Care Provider] - Additional Instructions: Continue usual medications Follow up in clinic in AM for recheck - My Orders Last 24 Hours: My Active Orders 08/15/19 23:48 Chest 2V [CR] Stat 08/15/19 23:53 BASIC METABOLIC PANEL,BMP [CHEM] Stat - Assessment/Plan Last 24 Hours: My Active Orders 08/15/19 23:48 Chest 2V [CR] Stat 08/15/19 23:53 BASIC METABOLIC PANEL,BMP [CHEM] Stat
[2019-08-16 00:12] LABS: CHLORIDE,CL 105 mmol/L (98-107); SODIUM,NA 142 mmol/L (136-145)
[2019-08-16] MEDS: cefTRIAXone 1 GM Vial IM ONE (00:32)
[2019-08-16] MEDS: methylPREDNISolone Sodium Succinate 125 MG/2 ML SDV IM ONE (00:32)
== END 2019-08-16 00:40 | disposition home or self-care (01) ==
LOC: LL.ED 23:38
DX: J44.1 Chronic obstructive pulmonary disease with (acute) exacerbation (principal); I11.0 Hypertensive heart disease with heart failure; I50.9 Heart failure, unspecified; E78.00 Pure hypercholesterolemia, unspecified; Z79.899 Other long term (current) drug therapy; Z79.82 Long term (current) use of aspirin; F17.200 Nicotine dependence, unspecified, uncomplicated
CPT/HCPCS: 36415; 71046; 80048; 85025; 96372; 99213; 99283; 99284; J0696; J2001; J2930

== ENCOUNTER → 2019-08-16 | Outpatient (CLI) | payer MEDICARE | LOC: LL.CLIN 10:00 | PROVIDERS: ATTEND Nurse Practitioner | DX: F17.200 Nicotine dependence, unspecified, uncomplicated (principal); J44.1 Chronic obstructive pulmonary disease with (acute) exacerbation | CPT/HCPCS: 99213 ==

== ENCOUNTER 2019-09-10 20:27 | Inpatient (IN) | payer MEDICARE ==
[2019-09-10] MEDS ORDERED: Albuterol/Ipratropium 3.0-0.5 MG/3 ML Neb Soln NEB ONE (20:32)
[2019-09-10] MEDS ORDERED: Sodium Chloride 0.9% 10 ML Syringe FLUSH PRN ×2 (20:32→23:01)
[2019-09-10] MEDS ORDERED: Budesonide 0.5 MG/2 ML Neb Susp NEB ONE (20:32)
--- NOTE | 2019-09-10 20:32 | EDM.PDOC ---
ED HPI GENERAL MEDICAL PROBLEM - General Chief Complaint: Respiratory Problem Stated Complaint: SOB Time Seen by Provider: 09/10/19 20:31 Source of Information: Reports: Patient, EMS, Old Records ([facility] chart/EMR). Denies: EMS Notes Reviewed (Not available at time of dictation.) History Limitations: Reports: No Limitations - History of Present Illness INITIAL COMMENTS - FREE TEXT/NARRATIVE: Patient was brought to the emergency room via ambulance with residential designer accompaniment secondary to sudden onset severe respiratory distress and hypoxia with O2 sat of only 79% on room air at time of arrival of the paramedics. Note that the patient was going out to his car to smoke a cigarette at about 20:00 hours when the above symptoms occurred. In addition, he had some nonspecific diffuse chest discomfort/tightness from his respiratory distress with previous stable chronic clear productive cough. The patient denies any chest pain/ pressure, heart flutter, dizziness, orthostasis, orthopnea, diaphoresis, paresthesias, recent decreased exercise tolerance, or any other anginal-type symptoms, although his overall activity level is low secondary to his pulmonary disease. No recent history of abdominal pain, heartburn, nausea, diarrhea, melena, gross hematochezia, or any food intolerance, including fatty foods, etc.. He denies any gross hematuria, colic, UTI symptoms. The patient also denies any recent fever, known exposure to infection, etc. with the patient receiving his influenza booster this season by his history. His last nebulizer treatment was at noon today. Onset: Today, Sudden Onset Date: 09/10/19 Onset Time: 20:00 Duration: Constant, Getting Worse Location: Reports: Chest (Secondary to respiratory distress as above). Denies: Head, Face, Neck, Abdomen, Back, Upper Extremity, Left, Upper Extremity, Right, Radiates to Quality: Reports: Same as Previous Episode, Other (Tightness). Denies: Pressure , Stabbing Severity: Moderate Improves with: Reports: None Worsens with: Reports: None Context: Reports: Other (As above). Denies: Sick Contact, Trauma Associated Symptoms: Reports: Chest Pain (As above), Cough, cough w sputum (As above), Shortness of Breath. Denies: Confusion, Diaphoresis, Fever/Chills, Headaches, Loss of Appetite, Malaise, Nausea/Vomiting, Seizure, Syncope, Weakness Treatments PAROLE DIRECTOR: Reports: Other Medication(s), Oxygen (By residential designer at 100% by nonrebreather mask) Bilateral Chest Pain Score (Numeric/FACES): 8 - Related Data Allergies Allergy/AdvReac Type Severity Reaction Status Date / Time No Known Allergies Allergy Verified 09/10/19 21:11 Home Meds: Home Meds Lisinopril 20 mg PO DAILY 11/03/17 [History] Potassium Chloride [Klor-Con M20] 20 meq PO DAILY 11/03/17 [History] atorvaSTATin [Lipitor] 20 mg PO 1800 11/03/17 [History] Acetaminophen [Tylenol] 650 mg PO Q4H PRN tablet 11/07/17 [Rx] Albuterol/Ipratropium [DuoNeb 3.0-0.5 MG/3 ML] 3 ml NEB Q4HRRT PRN 30 Days #120 neb 11/07/17 [Rx] Furosemide [Lasix] 40 mg PO DAILY 30 Days #30 tab 11/07/17 [Rx] Diltiazem HCl [Cartia Xt] 180 mg PO DAILY 11/16/17 [History] Fluticasone Propionate [Flonase] 1 sprays NASBOTH BID PRN 11/16/17 [History] Aspirin [Ecotrin EC] 81 mg PO DAILY 01/07/18 [History] Bisacodyl [Dulcolax] 5 mg PO ASDIRECTED PRN 03/28/18 [History] Budesonide [Pulmicort] 0.5 mg NEB BIDRT 30 Days #60 neb 03/31/18 [Rx] Arformoterol [Brovana] 15 mcg INH Q12HR #1 box 11/23/18 [Rx] D-Methorphan/Acetamin/Doxylamn [Night Time Cold & Flu Liq] 1 dose PO BEDTIME [History] D-Methorphan/PE/Acetaminophen [Daytime Cold-Flu Liquid] 30 ml PO DAILY 08/15/19 [History] Past Medical History HEENT History: Reports: Impaired Vision, Other (See Below). Denies: Allergic Rhinitis, Cataract, Glaucoma, Hard of Hearing, Macular Degeneration, Retinal Detachment Other HEENT History: Patient wears reading glasses Cardiovascular History: Reports: Arrhythmia, Heart Failure, Heart Murmur, High Cholesterol, Hypertension. Denies: Afib, Aneurysm, Blood Clots/VTE/DVT, CAD, MS , PTCA, PVD, Syncope Other Cardiovascular History: Incomplete right bundle branch block, PVCs and PACs diagnosed on 04/24/17 with subsequent probable SVT diagnosed in April 2017. Chronic dependent edema. Grade 1 diastolic dysfunction by echocardiogram in April 2017. Respiratory History: Reports: Bronchitis, Recurrent, COPD, Intubation, Previous , Pneumonia, Recurrent, Pneumothorax, Pulmonary Fibrosis, Other (See Below). Denies: Asthma, Intubation, Difficult, PE, Sleep Apnea, TB Other Respiratory History: O2 dependent COPD with current use of 4 L/m by nasal cannula. 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 Spontaneous right sided pneumothorax on 01/07/18. Gastrointestinal History: Reports: Chronic Constipation, Colon Polyp, Hemorrhoids. Denies: Celiac Disease, Cholelithiasis, Diverticulosis, Fecal Incontinence, GERD, Hiatal Hernia, Inflammatory Bowel Disease, Irritable Bowel Syndrome, Jaundice, PUD Other Gastrointestinal History: Tubular adenoma 2 in the transverse colon by incomplete colonoscopy as below with additional large sigmoid polyp by barium enema on 12/14/17. Umbilical hernia. Genitourinary History: Reports: BPH, Retention, Urinary, UTI, Recurrent, Other ( See Below). Denies: Acute Renal Failure, Chronic Renal Insuffiency, Renal Calculus, STD, Urinary Incontinence Other Genitourinary History: Neurogenic bladder with self catherizations. Musculoskeletal History: Reports: Arthritis, Back Pain, Chronic, Neck Pain, Chronic, Osteoarthritis. Denies: Fracture, Gout, Osteoporosis, RA, SLE Neurological History: Reports: None. Denies: Alzheimers Disease, Cerebral Aneurysms, Concussion, CVA, Headaches, Chronic, Head Trauma, Migraines, MS, Neuropathy, Peripheral, Parkinson's, Seizure, TIA Psychiatric History: Reports: None. Denies: Abuse, Victim of, ADD, ADHD, Addiction, Alzheimers Disease, Anxiety, Dementia, Depression, Psychosis, PTSD, Suicide Attempt, Suicidal Ideation Endocrine/Metabolic History: Reports: Obesity/BMI 30+, Other (See Below). Denies: Diabetes, Type I, Diabetes, Type II, Diabetes Mellitus, Type 3c, Hypothyroidism, IDDM Other Endocrine/Metabolic History: Hypomagnesemia. Hematologic History: Reports: Polycythemia, Other (See Below). 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 Immunologic History: Reports: None. Denies: AIDS, HIV, SLE Oncologic (Cancer) History: Reports: None. Denies: Basal Cell Carcinoma, Colon , Hodgkin's Lymphoma, Leukemia, Lymphoma, Malignant Melanoma, Non-Hodgkin's Lymphoma, Prostate, Squamous Cell Carcinoma Dermatologic History: Reports: None. Denies: Eczema, Psoriasis - Infectious Disease History Infectious Disease History: Reports: Chicken Pox, Mumps, Shingles (Left chin and cervical region in 1980s.). Denies: C-Difficile, Measles, Meningitis, Mononucleosis, MRSA, Pertussis (Whooping Cough), Rheumatic Fever, Rubella, Scarlet Fever, VRE - Past Surgical History Head Surgeries/Procedures: Reports: None HEENT Surgical History: Reports: Oral Surgery, Other (See Below). Denies: Adenoidectomy, Eye Surgery, Laser Surgery, LASIK, Myringotomy w Tube(s), Naso- Sinus Surgery, Tonsillectomy Other HEENT Surgeries/Procedures: Complete teeth extraction with complete dentures uppers and lowers. Cardiovascular Surgical History: Reports: None. Denies: Varicose Respiratory Surgical History: Reports: Other (See Below) Other Respiratory Surgeries/Procedures: Chest tube insertion for spontaneous pneumothorax on 01/07/18. GI Surgical History: Reports: Colonoscopy, Polypectomy, Other (See Below). Denies: Appendectomy, Cholecystectomy, EGD, Hernia, Abdominal, Hernia, Inguinal , Hernia Repair/Other Other GI Surgeries/Procedures: Polypectomy 2 of tubular adenomas in the transverse colon as above. Incomplete Colonoscopy secondary to poor bowel preparation and tortuous colon on 11/16/17 with follow-up enema as below. Male Surgical History: Reports: Circumcision, Suprapubic Catheter Placement, TURP-Transurethral Resection of Prostate, Other (See Below). Denies: Prostate Biopsy Other Male Surgeries/Procedures: Circumcision as an , TURP 2 initially in 2008 and then in 2009, suprapubic catheter placement in 2009 Endocrine Surgical History: Reports: None. Denies: Thyroid Biopsy Neurological Surgical History: Reports: None. Denies: C-Spine, Discectomy, Laminectomy, Lumbar Spine, Sacral Spine, Spinal Fusion, Vertebroplasty Musculoskeletal Surgical History: Reports: None. Denies: Arthroscopic Procedure , Carpal Tunnel, Ganglion Cyst, Joint Replacement, ORIF, Shoulder Surgery Oncologic Surgical History: Reports: None Dermatological Surgical History: Reports: None - Past Imaging History Past Imaging History: Reports: Barium Enema (12/14/17), Cardiac Echo (04/25/17 with ejection fraction of 5560 percent and otherwise results as above), CAT Scan (CT of the chest on 08/11/19.) Social & Family History - Family History HEENT: Reports: None. Denies: Glaucoma, Macular Degeneration, Retinal Detachment Cardiac: Reports: CAD, Hypertension, MS, Other (See Below). Denies: Afib, Aneurysm, Arrhythmia, Blood Clots/VTE/DVT, Heart Failure, Heart Murmur, High Cholesterol, Syncope Other Cardiac Family History: Brother with hypertension, mother with fatal MS at age 75 Respiratory: Reports: COPD, Other (See Below). Denies: Asthma, PE, Pneumothorax , Sleep Apnea Other Respiratory Family Hisory: Father with COPD with history of tobacco use GI: Reports: None. Denies: Celiac Disease, Cholelithiasis, Colon Polyps, GERD, GI bleed, Inflammatory Bowel Disease, Irritable Bowel Syndrome : Reports: None. Denies: Dialysis, Renal Calculus, Renal Disease/ Insufficiency OBGYN: Reports: None. Denies: Endometriosis, Recurrent Spontaneous Musculoskeletal: Reports: Arthritis, Osteoarthritis, Other (See Below). Denies : Gout, RA, SLE Other Musculoskeletal Family History: Brother with osteoarthritis Neurological: Reports: None. Denies: Alzheimers Disease, Cerebral Aneurysms, CVA, Dementia, Migraines, MS, Neuropathy, Peripheral, Parkinson's, Seizure Psychiatric: Reports: None. Denies: Abuse, Victim of, ADD, ADHD, Anxiety, Depression, Psych Hospitalization(s), PTSD, Suicide Attempt Endocrine/Metabolic: Reports: Diabetes, type II, IDDM, Other (See Below). Denies: Diabetes, Type I, Diabetes Mellitus, Type 3c, Hypothyroidism Other Endocrine/Metabolic Family History: Mother with IDDM Hematologic: Reports: None. Denies: Anemia, SLE Immunologic: Reports: None. Denies: AIDS, HIV, SLE Dermatologic: Reports: None. Denies: Eczema, Psoriasis Oncologic: Reports: None. Denies: Bladder, Colon, Hodgkin's Lymphoma, Leukemia , Lung, Lymphoma, Non-Hodgkin's Lymphoma, Prostate, Skin - Tobacco Use Smoking Status *Q: Current Every Day Smoker Tobacco Use Within Last Twelve Months: Cigarettes Years of Tobacco use: 55 Packs/Tins Daily: 1 Packs/Tins Daily Comment: He started smoking at age 13 with maximum use of 2 packs per day. Used Tobacco, but Quit: No Smoking Cessation Information Provided To Patient: Yes (At hospital discharge) Second Hand Smoke Exposure: No Second Hand Smoke Education Provided: No - Caffeine Use Caffeine Use: Reports: Coffee (6 cups per day), Tea (Occasional). Denies: Energy Drinks, Soda - Alcohol Use Alcohol Use History: Yes Days Per Week of Alcohol Use: 0 Number of Drinks Per Day: 2 Number of Drinks Per Day Comment: He is trying to stop alcohol use with last use 2 months ago. He usually drinks beer. No previous DWIs, problems with alcohol abuse, etc. 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 ED EXAM, GENERAL - Physical Exam Exam: See Below Exam Limited By: No Limitations General Appearance: Anxious (Moderate), Severe Distress (Severe respiratory distress initially however resolved at time of admission) Eye Exam: Bilateral Eye: EOMI, Normal Inspection (No nystagmus), PERRL Ears: Normal External Exam, Normal Canal, Hearing Grossly Normal, Normal TMs Nose: Normal Mucosa, No Blood, Clear Rhinorrhea Throat/Mouth: Normal Lips, Normal Gums, Normal Oropharynx, Normal Voice, No Airway Compromise. No: Normal Teeth (Complete dentures uppers and lowers), Dysphagia, Perioral Cyanosis Head: Atraumatic, Normocephalic. No: Facial Swelling, Facial Tenderness, Sinus Tenderness Neck: Supple, Non-Tender, Full Range of Motion, Carotid Bruit (Mild bilateral carotid bruits). No: Lymphadenopathy (L), Lymphadenopathy (R), Thyromegaly Respiratory/Chest: Chest Non-Tender, Respiratory Distress, Decreased Breath Sounds, Rales (Mild diffuse bilateral), Rhonchi (Moderate bilateral diffuse), Wheezing (Severe diffuse bilaterally), Accessory Muscle Use, Retractions, Prolonged Expiration. No: Pleural Rub, Splinting Cardiovascular: Normal Peripheral Pulses, Regular Rate, Rhythm, No Gallop, No JVD, No Murmur, No Rub. No: No Edema (Dependent edema as below), Gallop/S3, Gallop/S4, Friction Rub Peripheral Pulses: 2+: Radial (L), Radial (R), Dorsalis Pedis (L), Dorsalis Pedis (R) GI/Abdominal: Normal Bowel Sounds, Soft, Non-Tender, No Organomegaly, No Distention, No Abnormal Bruit, No Mass, Hernia (4 cm nonincarcerated umbilical hernia). No: Guarding (Male) Exam: Deferred Rectal (Males) Exam: Deferred Back Exam: Normal Inspection, Full Range of Motion. No: CVA Tenderness (L), CVA Tenderness (R), Muscle Spasm Extremities: Normal Range of Motion, Non-Tender, Normal Capillary Refill, Pedal Edema (+1-+2 posterior bilateral pitting pedal/pretibial edema). No: Dave's Sign Neurological: Alert, Oriented, CN II-XII Intact, Normal Cognition, Normal Gait, Normal Reflexes (Negative Babinski's), No Motor/Sensory Deficits Psychiatric: Normal Affect, Normal Mood Skin Exam: Warm, Dry, Intact, Normal Color, No Rash. No: Diaphoretic, Wound/ Incision Lymphatic: No Adenopathy EKG INTERPRETATION EKG Date: 09/10/19 Time: 20:53 Rhythm: NSR Rate (Beats/Min): 93 [facility]: Normal (Neutral) P-Wave: Enlarged (Moderate diffuse biphasic) QRS: Wide (0.10 seconds representing repolarization changes with previous borderline incomplete right bundle branch block) ST-T: Other (T-wave inversion in lead aVL which is new from last EKG with resolution of previous T-wave inversions in leads V1 and V2.) QT: Normal AZ/PQ Interval: 0.20 seconds representing a borderline first-degree AV block new. Extreme poor R-wave progression in the anterior leads. Comparison: Change From Previous EKG (As above since 7/16/19) EKG Interpretation Comments: 1. No acute ischemic changes 2. Repolarization changes versus borderline incomplete right bundle branch block 3. Resolution of previous PVC 4. Left atrial enlargement 5. Borderline first-degree AV block. Course - Vital Signs Last Recorded V/S: Last Vital Signs Temp 36.5 C 09/10/19 22:00 Pulse 85 09/10/19 22:00 Resp 19 09/10/19 22:00 BP 133/70 09/10/19 21:35 Pulse Ox 98 09/10/19 22:00 Vital Signs - 24 hr 09/10/19 09/10/19 09/10/19 20:36 20:52 21:05 Temperature [ 36.6 C Oral] Temperature [ Temporal] Pulse, 103 H 90 86 Peripheral [ Pulse Oximetry] Respiratory 20 20 19 Rate Blood Pressure 136/99 H 119/79 124/73 [Left Upper Arm ] O2 Sat by Pulse 96 95 94 L Oximetry 09/10/19 09/10/19 09/10/19 21:20 21:35 22:00 Temperature [ Oral] Temperature [ 36.5 C Temporal] Pulse, 82 85 85 Peripheral [ Pulse Oximetry] Respiratory 18 20 19 Rate Blood Pressure 131/72 133/70 [Left Upper Arm ] O2 Sat by Pulse 96 97 98 Oximetry - Orders/Labs/Meds Orders: Active Orders 24 hr Category Date Time Status Cardiac Monitoring [RC] CONTINUOUS Care 09/10/19 20:32 Active Communication Order [RC] ROUTINE Care 09/10/19 20:32 Active EKG Documentation Completion [RC] ASDIRECTED Care 09/10/19 20:32 Active Oxygen Therapy, ED [RC] CONTINUOUS Care 09/10/19 20:32 Active Peripheral IV Care [RC] . DIRECTED Care 09/10/19 20:32 Active Pulse Oximetry [RC] CONTINUOUS Care 09/10/19 20:32 Active Up With Assistance [RC] ASDIRECTED Care 09/10/19 20:32 Active Nothing Per Oral Diet [DIET] Diet 09/10/19 Breakfast Active Chest 1V Frontal [CR] Stat Exams 09/10/19 20:32 Taken CULTURE SPUTUM + SMEAR [RM] Urgent Lab 09/10/19 20:32 Ordered Sodium Chloride 0.9% [Saline Flush] Med 09/10/19 20:32 Active 10 ml FLUSH ASDIRECTED PRN Obtain Past Medical Record [OM.PC] Stat Oth 09/10/19 20:32 Active Peripheral IV Insertion Adult [OM.PC] Stat Oth 09/10/19 20:32 Ordered Resuscitation Status Routine Resus Stat 09/10/19 20:32 Ordered Medication Orders Sodium Chloride (Saline Flush) 10 ml FLUSH ASDIRECTED PRN PRN Reason: Keep Vein Open Labs: Laboratory Tests 09/10/19 09/10/19 09/10/19 Range/Units 20:40 20:40 20:40 WBC 10.3 H (4.0-10.2) K/uL RBC 5.41 (4.33-5.41) M/uL Hgb 14.9 (13.1-16.8) g/dL Hct 46.2 (39.0-49.0) % MCV 85.4 (84.0-98.0) fL MCH 27.5 L (28.2-33.3) pg MCHC 32.3 (31.7-36.0) g/dL RDW 13.2 (11.2-14.1) % Plt Count 221 (150-350) K/uL Neut % (Auto) 39.8 L (45.0-80.0) % Lymph % (Auto) 48.1 (10.0-50.0) % Garland % (Auto) 7.6 (2.0-14.0) % Eos % (Auto) 4.1 (0.0-5.0) % Baso % (Auto) 0.4 (0.0-2.0) % Neut # (Auto) 4.11 (1.40-7.00) K/uL Lymph # (Auto) 4.95 H (0.50-3.50) K/uL Garland # (Auto) 0.78 (0.00-1.00) K/uL Eos # (Auto) 0.42 (0.00-0.50) K/uL Baso # (Auto) 0.04 (0.00-0.20) K/uL PT 10.3 (9.5-12.0) SEC INR 1.0 APTT 26.4 (21.0-31.3) SEC D-Dimer, Quantitative 544 H (0-400) ng/mL Sodium (136-145) mmol/L Potassium (3.5-5.1) mmol/L Chloride (98-107) mmol/L Carbon Dioxide (21.0-32.0) mmol/L BUN (7-18) mg/dL Creatinine (0.51-1.17) mg/dL Est Cr Clr Drug Dosing Estimated GFR (MDRD) mL/min Glucose (74-106) mg/dL Lactic Acid (0.4-2.0) mmol/L Calcium (8.5-10.1) mg/dL Magnesium (1.8-2.4) mg/dL Total Bilirubin (0.2-1.0) mg/dL AST (15-37) U/L ALT (12-78) U/L Alkaline Phosphatase (46-116) IU/L Creatine Kinase (26-308) U/L Creatine Kinase Index (0.0-2.5) % CK-MB (CK-2) (0.00-3.60) ng/mL Troponin I (0.000-0.056) ng/mL NT-Pro-B Natriuret Pep (0-125) pg/mL Total Protein (6.4-8.2) g/dL Albumin (3.4-5.0) g/dL TSH, Ultra Sensitive (0.358-3.740) mIU/mL 09/10/19 09/10/19 Range/Units 20:40 20:40 WBC (4.0-10.2) K/uL RBC (4.33-5.41) M/uL Hgb (13.1-16.8) g/dL Hct (39.0-49.0) % MCV (84.0-98.0) fL MCH (28.2-33.3) pg MCHC (31.7-36.0) g/dL RDW (11.2-14.1) % Plt Count (150-350) K/uL Neut % (Auto) (45.0-80.0) % Lymph % (Auto) (10.0-50.0) % Garland % (Auto) (2.0-14.0) % Eos % (Auto) (0.0-5.0) % Baso % (Auto) (0.0-2.0) % Neut # (Auto) (1.40-7.00) K/uL Lymph # (Auto) (0.50-3.50) K/uL Garland # (Auto) (0.00-1.00) K/uL Eos # (Auto) (0.00-0.50) K/uL Baso # (Auto) (0.00-0.20) K/uL PT (9.5-12.0) SEC INR APTT (21.0-31.3) SEC D-Dimer, Quantitative (0-400) ng/mL Sodium 144 (136-145) mmol/L Potassium 4.6 (3.5-5.1) mmol/L Chloride 105 (98-107) mmol/L Carbon Dioxide 28.6 (21.0-32.0) mmol/L BUN 18 (7-18) mg/dL Creatinine 1.00 (0.51-1.17) mg/dL Est Cr Clr Drug Dosing TNP Estimated GFR (MDRD) > 60 mL/min Glucose 133 H (74-106) mg/dL Lactic Acid 2.6 H (0.4-2.0) mmol/L Calcium 9.4 (8.5-10.1) mg/dL Magnesium 1.9 (1.8-2.4) mg/dL Total Bilirubin 0.4 (0.2-1.0) mg/dL AST 11 L (15-37) U/L ALT 20 (12-78) U/L Alkaline Phosphatase 133 H (46-116) IU/L Creatine Kinase 126 (26-308) U/L Creatine Kinase Index 3.7 H (0.0-2.5) % CK-MB (CK-2) 4.60 H* (0.00-3.60) ng/mL Troponin I 0.000 (0.000-0.056) ng/mL NT-Pro-B Natriuret Pep 225 H (0-125) pg/mL Total Protein 7.8 (6.4-8.2) g/dL Albumin 4.1 (3.4-5.0) g/dL TSH, Ultra Sensitive 2.144 (0.358-3.740) mIU/mL Meds: Medications Generic Name Dose Route Start Last Admin Trade Name Freq PRN Reason Stop Dose Admin Sodium Chloride 10 ml 09/10/19 20:32 Saline Flush FLUSH ASDIRECTED PRN Keep Vein Open Discontinued Medications Generic Name Dose Route Start Last Admin Trade Name Stanleyq PRN Reason Stop Dose Admin Albuterol/Ipratropium 3 ml 09/10/19 20:32 09/10/19 20:32 Duoneb 3.0-0.5 Mg/3 Ml NEB 09/10/19 20:33 3 ml ONETIME ONE Administration Albuterol/Ipratropium Confirm 09/10/19 20:34 09/10/19 21:09 Duoneb 3.0-0.5 Mg/3 Ml Administered 09/10/19 20:35 Not Given Dose 3 ml .ROUTE .STK-MED ONE Budesonide 0.5 mg 09/10/19 20:32 09/10/19 20:45 Pulmicort NEB 09/10/19 20:33 0.5 mg ONETIME ONE Administration Famotidine 40 mg 09/10/19 21:42 09/10/19 21:55 Pepcid IVPUSH 09/10/19 21:43 40 mg ONETIME ONE Administration - Radiology Interpretation Free Text/Narrative:: satellite project site monitor did show normal sinus rhythm in the 80s to 90s with no ectopy or arrhythmia. Chest x-ray, portable, showed severe pulmonary obstructive disease including large bullae right greater than left. Probable mild pulmonary hypertension and/ or centralized CHF. Mildly prominent aortic arch no pulmonary infiltrates, pneumothorax, etc. Moderate osteoarthritic changes. Departure - Departure Time of Disposition: 22:15 Disposition: Admitted As Inpatient 64 Condition: Fair Clinical Impression: CHF (congestive heart failure), COPD (chronic obstructive pulmonary disease), Tobacco abuse counseling, Hypertension, Osteoarthritis, Hyperlipidemia, D-dimer , elevated, First degree AV block, Elevated lactic acid level - Discharge Information *PRESCRIPTION DRUG MONITORING PROGRAM REVIEWED*: Not Applicable *COPY OF PRESCRIPTION DRUG MONITORING REPORT IN PATIENT [place]: Not Applicable Sepsis Event Note - Focused Exam Vital Signs: Vital Signs Temp Temp Pulse Resp BP Pulse Ox 09/10/19 22:00 36.5 C 85 19 98 09/10/19 21:35 85 20 133/70 97 09/10/19 21:20 82 18 131/72 96 09/10/19 21:05 86 19 124/73 94 L 09/10/19 20:52 90 20 119/79 95 12/10/19 20:36 36.6 C 103 H 20 136/99 H 96 Date Exam was Performed: 09/10/19 Time Exam was Performed: 22:52 - Problem List & Annotations (1) COPD (chronic obstructive pulmonary disease) SNOMED Code(s): 93187206 Code(s): J44.9 - CHRONIC OBSTRUCTIVE PULMONARY DISEASE, UNSPECIFIED Status : Acute Priority: High Current Visit: Yes Annotation/Comment:: Severe respiratory distress and COPD exacerbation with the patient still smoking as above. Rest of treatment in the emergency room as above with overall excellent results and significant improvement of patient's symptoms. Note that patient's O2 sat on room air was only 79% at time of arrival of the paramedics with previous O2 requirement, however this has not been effective to date by patient history. No direct indication of pneumonia, however initiate antibiotic therapy secondary to his severe disease. O2 successfully titrated back to his baseline 4 L/m by nasal cannula prior to admission. Continue aggressive nebulizer treatment during this hospitalization. Dr. Chaney will round on the patient tomorrow. Qualifiers: COPD type: COPD with acute exacerbation Qualified Code(s): J44.1 - Chronic obstructive pulmonary disease with (acute) exacerbation (2) Elevated lactic acid level SNOMED Code(s): 2584049 Code(s): R79.89 - OTHER SPECIFIED ABNORMAL FINDINGS OF BLOOD CHEMISTRY Status: Acute Priority: High Current Visit: Yes Onset Date: 09/10/19 Annotation/Comment:: Mildly elevated lactic acid, however no clinical evidence of sepsis with only mildly increased WBCs and no fever. Blood Cultures 2 and repeat lactic acid level to be collected at time of admission. Follow-up sepsis order set on admission. (3) CHF (congestive heart failure) SNOMED Code(s): 54915577 Code(s): I50.9 - HEART FAILURE, UNSPECIFIED Status: Acute Priority: High Current Visit: Yes Annotation/Comment:: Borderline CHF by chest x-ray. BNP is normal. Note significant dependent edema. Initiate mild IV Lasix therapy. Consider echocardiogram on an outpatient basis. Note somewhat elevated CK index and CK-MB, however no true chest pain or anginal complaints with chest pain protocol not initiated in the emergency room. Initiate standard rule out MS orders. Consider echocardiogram on an outpatient basis. Cardiology consultation depending on his clinical course. Subcutaneous Lovenox to be initiated at cardiac/VTE dose on admission. Qualifiers: Heart failure type: diastolic Heart failure chronicity: acute on chronic Qualified Code(s): I50.33 - Acute on chronic diastolic (congestive) heart failure (4) D-dimer, elevated SNOMED Code(s): 699581757 Code(s): R79.89 - OTHER SPECIFIED ABNORMAL FINDINGS OF BLOOD CHEMISTRY Status: Acute Priority: High Current Visit: Yes Onset Date: 09/10/19 Annotation/Comment:: Subcutaneous Lovenox as above. Venous Doppler studies in the a.m.. Recent guidelines recommend CTA of the chest only with d-dimer greater than 1000 and/or with significant clinical suspicion. No direct clinical evidence of DVT or PE. That her CTA of the chest depending on his clinical course. (5) First degree AV block SNOMED Code(s): 632896512 Code(s): I44.0 - ATRIOVENTRICULAR BLOCK, FIRST DEGREE Status: Acute Priority: Medium Current Visit: Yes Onset Date: 09/10/19 Annotation/ Comment:: Newly diagnosed, however borderline. Note previous history of PVCs and PACs. Observe for now. (6) Hyperlipidemia SNOMED Code(s): 99617800 Code(s): E78.5 - HYPERLIPIDEMIA, UNSPECIFIED Status: Chronic Priority: Medium Current Visit: Yes Annotation/Comment:: Lipid panel and glycosylated hemoglobin in the a.m. Weight loss in moderation is advisable. Qualifiers: Hyperlipidemia type: unspecified Qualified Code(s): E78.5 - Hyperlipidemia , unspecified (7) Hypertension SNOMED Code(s): 98157440 Code(s): I10 - ESSENTIAL (PRIMARY) HYPERTENSION Status: Chronic Priority : High Current Visit: Yes Annotation/Comment:: Blood pressures were under good control in the emergency room. Continue to observe closely during hospitalization Qualifiers: Hypertension type: essential hypertension Qualified Code(s): I10 - Essential (primary) hypertension (8) Osteoarthritis SNOMED Code(s): 415301722 Code(s): M19.90 - UNSPECIFIED OSTEOARTHRITIS, UNSPECIFIED SITE Status: Chronic Priority: Medium Current Visit: Yes Annotation/Comment:: Stable by history Qualifiers: Osteoarthritis location: multiple joints Osteoarthritis type: primary Qualified Code(s): M15.0 - Primary generalized (osteo)arthritis (9) Tobacco abuse counseling SNOMED Code(s): 018656436, 329560191, 058064120 Code(s): Z71.6 - TOBACCO ABUSE COUNSELING Status: Chronic Priority: High Current Visit: Yes Annotation/Comment:: Tobacco cessation information to be provided at discharge. The patient was counseled extensively in the emergency room once again about discontinuing his tobacco use D[place] especially in light of his significant pulmonary disease. - Problem List Review Problem List Initiated/Reviewed/Updated: Yes - My Orders Last 24 Hours: My Active Orders 09/10/19 20:32 Cardiac Monitoring [RC] CONTINUOUS Communication Order [RC] ROUTINE EKG Documentation Completion [RC] ASDIRECTED Oxygen Therapy, ED [RC] CONTINUOUS Peripheral IV Care [RC] . DIRECTED Pulse Oximetry [RC] CONTINUOUS Up With Assistance [RC] ASDIRECTED Chest 1V Frontal [CR] Stat CULTURE SPUTUM + SMEAR [RM] Urgent Sodium Chloride 0.9% [Saline Flush] 10 ml FLUSH ASDIRECTED PRN Obtain Past Medical Record [OM.PC] Stat Peripheral IV Insertion Adult [OM.PC] Stat Resuscitation Status Routine 09/10/19 Breakfast Nothing Per Oral Diet [DIET] - Assessment/Plan Admission H&P: Please use this note as an admission H&P Last 24 Hours: My Active Orders 09/10/19 20:32 Cardiac Monitoring [RC] CONTINUOUS Communication Order [RC] ROUTINE EKG Documentation Completion [RC] ASDIRECTED Oxygen Therapy, ED [RC] CONTINUOUS Peripheral IV Care [RC] . DIRECTED Pulse Oximetry [RC] CONTINUOUS Up With Assistance [RC] ASDIRECTED Chest 1V Frontal [CR] Stat CULTURE SPUTUM + SMEAR [RM] Urgent Sodium Chloride 0.9% [Saline Flush] 10 ml FLUSH ASDIRECTED PRN Obtain Past Medical Record [OM.PC] Stat Peripheral IV Insertion Adult [OM.PC] Stat Resuscitation Status Routine 09/10/19 Breakfast Nothing Per Oral Diet [DIET] Assessment:: As above Plan: As above. Extensive precautions were given to the patient, who is in agreement with the treatment plan. The patient will require about 3-4 days of inpatient/ acute care secondary to multiple health problems as above.
[2019-09-10] MEDS ORDERED: Albuterol/Ipratropium 3.0-0.5 MG/3 ML Neb Soln ONE (20:34)
[2019-09-10 21:26] LABS: CHLORIDE,CL 105 mmol/L (98-107); SODIUM,NA 144 mmol/L (136-145)
[2019-09-10] MEDS ORDERED: Famotidine 20 MG/2 ML SDV IVPUSH ONE (21:42)
[2019-09-10] MEDS ORDERED: Bisacodyl 5 MG Tab PO PRN (22:59)
[2019-09-10] MEDS ORDERED: cefTRIAXone 1 GM in Sodium Chloride 0.9% 100 ML IV SCH (23:00)
[2019-09-10] MEDS ORDERED: Furosemide 40 MG/4 ML VIAL IVPUSH SCH (23:00)
[2019-09-10] MEDS ORDERED: Acetaminophen 325 MG Tab PO PRN (23:01)
[2019-09-10] MEDS ORDERED: Temazepam 15 MG Cap PO PRN (23:01)
[2019-09-10] MEDS ORDERED: Albuterol 0.083% 2.5 MG/3 ML Neb Soln INH PRN (23:04)
[2019-09-10] MEDS ORDERED: Enoxaparin 100 MG/1 ML Syringe SUBCUT SCH (23:15)
[2019-09-10] MEDS ORDERED: Nicotine 21 MG/24 Hr Patch TRDERM SCH (23:15)
[2019-09-10] MEDS: Doxycycline 100 MG Cap PO SCH (23:57)
[2019-09-10] MEDS: Potassium Chloride 20 MEQ Tab.ER PO SCH (23:57)
[2019-09-10] MEDS: Dextromethorphan/guaiFENesin 600-30 MG Tab.ER PO SCH (23:57)
[2019-09-11] MEDS ORDERED: Albuterol/Ipratropium 3.0-0.5 MG/3 ML Neb Soln NEB PRN
[2019-09-11] MEDS: Albuterol/Ipratropium 3.0-0.5 MG/3 ML Neb Soln NEB SCH ×2 (01:04→07:34)
[2019-09-11 07:10] VITALS: BP 126/68; PULSE 88
[2019-09-11] MEDS: Dextromethorphan/guaiFENesin 600-30 MG Tab.ER PO SCH (07:33)
[2019-09-11] MEDS: Potassium Chloride 20 MEQ Tab.ER PO SCH (07:33)
[2019-09-11] MEDS: Doxycycline 100 MG Cap PO SCH (07:33)
[2019-09-11] MEDS ORDERED: Potassium Chloride 20 MEQ Tab.ER PO SCH (08:00)
[2019-09-11] MEDS ORDERED: Lisinopril 20 MG Tab PO SCH (08:00)
[2019-09-11] MEDS ORDERED: Budesonide 0.5 MG/2 ML Neb Susp NEB SCH (08:00)
[2019-09-11] MEDS ORDERED: Diltiazem 180 MG Cap.CD PO SCH (08:00)
[2019-09-11 08:10] LABS: CHLORIDE,CL 106 mmol/L (98-107); SODIUM,NA 142 mmol/L (136-145)
--- NOTE | 2019-09-11 08:45 | PCM.DCSUM1 ---
Discharge Summary - Hospital Course HPI Initial Comments: See emergency room note/admission H&P Brief History: See emergency room note/admission H&P Diagnosis: Stroke: No Modified [place] Scale: No Symptoms at All Modified [place] Scale Score: 0 - Discharge Data Discharge Date: 09/11/19 Discharge Disposition: DC/Tfer to Acute Hospital 02 Condition: Fair - Referral to Home Health Primary Care Physician: Sara Tyler NP - Discharge Diagnosis/Problem(s) (1) Acute KS SNOMED Code(s): 70718075 ICD Code: I21.9 - ACUTE MYOCARDIAL INFARCTION, UNSPECIFIED Status: Acute Priority: High Current Visit: Yes Onset Date: 09/11/19 Problem Details: He denies any chest pain at this time and/or during the entire hospitalization. Note significantly elevated troponin I this morning with normal troponin I on admission. There is also a progression of his previous CK-MB and cardiac index with normal total CK. The patient was started on subcutaneous Lovenox at the cardiac dose on admission as below. No EKG changes suggesting significant ischemia at this time. Telephone consultation at 08:30 a.m. this morning with Dr. Marte, hospitalist at [facility], who does accept the patient for direct admission and for further treatment and evaluation, with no other treatment recommendations given. The patient has been nothing by mouth since admission. Ambulance transfer with receptionist clerk accompaniment. Vital signs and clinical exam were stable at time of discharge/transfer. Qualifiers: Myocardial infarction type: non-ST elevation myocardial infarction Qualified Code(s): I21.4 - Non-ST elevation (NSTEMI) myocardial infarction (2) CHF (congestive heart failure) SNOMED Code(s): 29688103 ICD Code: I50.9 - HEART FAILURE, UNSPECIFIED Status: Acute Priority: High Current Visit: Yes Problem Details: Significant elevation of since BNP this morning with only mild CHF based on clinical exam today. Borderline CHF by chest x-ray on admission with only mildly elevated BNP at that time. Note significant dependent edema. Initiated IV Lasix therapy on admission. Consider echocardiogram by accepting providers. Note somewhat elevated CK index and CK- MB on admission, however evidence of acute KS this morning. The patient denied any no true chest pain/pressure or anginal complaints upon arrival to the emergency room with chest pain protocol not initiated in the emergency room. Subcutaneous Lovenox was initiated at cardiac/VTE dose on admission. Qualifiers: Heart failure type: diastolic Heart failure chronicity: acute on chronic Qualified Code(s): I50.33 - Acute on chronic diastolic (congestive) heart failure (3) COPD (chronic obstructive pulmonary disease) SNOMED Code(s): 78948467 ICD Code: J44.9 - CHRONIC OBSTRUCTIVE PULMONARY DISEASE, UNSPECIFIED Status : Acute Priority: High Current Visit: Yes Problem Details: Symptoms significantly improved after admission with no respiratory distress at this time and O2 sats stable with normal baseline of O2 at 4 L/m by nasal cannula. Severe respiratory distress and COPD exacerbation with the patient still smoking. He has been placed on a Nicoderm patch. Aggressive treatment in the emergency room as per emergency room note with overall excellent results and significant improvement of patient's symptoms prior to admission. Note that patient's O2 sat on room air was only 79% at time of arrival of the paramedics with previous O2 requirement, however this had not been effective prior to admission by patient history. No direct indication of pneumonia with only minimal WBC elevation likely secondary to stress reaction. Patient is afebrile. Secondary to risk factors and elevated lactic acid level the patient was started on IV Rocephin and oral doxycycline shortly after admission after blood cultures 2 were collected. O2 successfully titrated back to his baseline 4 L/m by nasal cannula prior to admission. Aggressive triple nebulizer treatment were continued during this hospitalization. Patient was transferred with O2 at baseline 4 L/m by nasal cannula. Qualifiers: COPD type: COPD with acute exacerbation Qualified Code(s): J44.1 - Chronic obstructive pulmonary disease with (acute) exacerbation (4) Elevated lactic acid level SNOMED Code(s): 8510425 ICD Code: R79.89 - OTHER SPECIFIED ABNORMAL FINDINGS OF BLOOD CHEMISTRY Status: Acute Priority: High Current Visit: Yes Onset Date: 09/10/19 Problem Details: Mildly elevated lactic acid on admission, however normalized 3 hours later and is normal this morning. No clinical evidence of sepsis as above with only mildly increased WBCs and no fever. Follow-up sepsis order set was conducted on admission. (5) D-dimer, elevated SNOMED Code(s): 428624372 ICD Code: R79.89 - OTHER SPECIFIED ABNORMAL FINDINGS OF BLOOD CHEMISTRY Status: Acute Priority: High Current Visit: Yes Onset Date: 09/10/19 Problem Details: D-dimer improved this morning. Subcutaneous Lovenox as above. Venous Doppler studies had been ordered for this morning however had to be canceled secondary to patient's KS as above. Recommend venous Doppler studies of the lower extremities by accepting providers. Recent guidelines recommend CTA of the chest only with d-dimer greater than 1000 and/or with significant clinical suspicion. No direct clinical evidence of DVT or PE. Consider CTA of the chest depending on his clinical course. (6) First degree AV block SNOMED Code(s): 855426611 ICD Code: I44.0 - ATRIOVENTRICULAR BLOCK, FIRST DEGREE Status: Acute Priority: Medium Current Visit: Yes Onset Date: 09/10/19 Problem Details: Newly diagnosed, however borderline. Note previous history of borderline incomplete right bundle branch block, PVCs and PACs. Observe for now. (7) Hyperlipidemia SNOMED Code(s): 53536286 ICD Code: E78.5 - HYPERLIPIDEMIA, UNSPECIFIED Status: Chronic Priority: Medium Current Visit: Yes Problem Details: Lipid panel this morning is normal with glycosylated hemoglobin of 6.0%. Continue current statin therapy. Weight loss in moderation is advisable. Qualifiers: Hyperlipidemia type: unspecified Qualified Code(s): E78.5 - Hyperlipidemia , unspecified (8) Hypertension SNOMED Code(s): 24407915 ICD Code: I10 - ESSENTIAL (PRIMARY) HYPERTENSION Status: Chronic Priority : High Current Visit: Yes Problem Details: Blood pressures were under good control in the emergency room and during this hospitalization. Continue to observe closely by accepting providers and his regular physician on an outpatient basis. Qualifiers: Hypertension type: essential hypertension Qualified Code(s): I10 - Essential (primary) hypertension (9) Osteoarthritis SNOMED Code(s): 951525171 ICD Code: M19.90 - UNSPECIFIED OSTEOARTHRITIS, UNSPECIFIED SITE Status: Chronic Priority: Medium Current Visit: Yes Problem Details: Stable by history Qualifiers: Osteoarthritis location: multiple joints Osteoarthritis type: primary Qualified Code(s): M15.0 - Primary generalized (osteo)arthritis (10) Tobacco abuse counseling SNOMED Code(s): 398046766, 624832578, 030120911 ICD Code: Z71.6 - TOBACCO ABUSE COUNSELING Status: Chronic Priority: High Current Visit: Yes Problem Details: Tobacco cessation information should be once again provided at discharge from [facility]. The patient was counseled extensively in the emergency room once again about discontinuing his tobacco use DAPHNE especially in light of his significant pulmonary disease. (11) Neurogenic bladder SNOMED Code(s): 921954145 ICD Code: N31.9 - NEUROMUSCULAR DYSFUNCTION OF BLADDER, UNSPECIFIED Status : Chronic Priority: Medium Current Visit: Yes Problem Details: Neurogenic bladder with continuation of self catheterization during this hospitalization. Catheter UA with culture and sensitivity was obtained by the patient this morning. Antibiotic therapy initiated on admission as above. (12) UTI (urinary tract infection) SNOMED Code(s): 17290412 ICD Code: N39.0 - URINARY TRACT INFECTION, SITE NOT SPECIFIED Status: Acute Priority: High Current Visit: Yes Onset Date: 09/11/19 Problem Details: Note history of recurrent UTIs. Positive UA today with culture and sensitivity pending as above. IV Rocephin and oral doxycycline already initiated as above. Qualifiers: Urinary tract infection type: acute cystitis Hematuria presence: without hematuria Qualified Code(s): N30.00 - Acute cystitis without hematuria - Patient Summary/Data Operative Procedure(s) Performed: None Complications: None despite development of acute KS as above Consults: Hospitalist as above Labs Pending at D/C: 1. Blood cultures 2 2. Urine Culture and sensitivity. Recommended Follow-up Testing/Procedures: Per accepting providers with possible venous Doppler studies of the lower extremities, CTA of the chest, and/or echocardiogram as above Planned Operative Procedure(s) after DC: Possible heart catheterization depending on cardiology consultation Hospital Course: The patient was admitted to inpatient/acute care on telemetry for aggressive treatment of his acute respiratory failure/COPD exacerbation and his CHF. Routine rule out KS orders were initiated with positive results as above. Note the patient was treated with Lovenox as above. IV Rocephin and oral doxycycline were used treatment of possible concomitant bronchopneumonia as above. In spite of acute KS there were no complications during this hospitalization. Otherwise aggressive medical management as above. - Patient Instructions Diet: NPO Activity: Bedrest Driving: Do Not Drive Showering/Bathing: No Showering Notify Provider of: Increased Pain, Nausea and/or Vomiting Other/Special Instructions: Hospital transfer with receptionist clerk accompaniment - Discharge Plan *PRESCRIPTION DRUG MONITORING PROGRAM REVIEWED*: Not Applicable *COPY OF PRESCRIPTION DRUG MONITORING REPORT IN PATIENT [place]: Not Applicable Home Medications: Home Meds Lisinopril 20 mg PO DAILY 11/03/17 [History] Potassium Chloride [Klor-Con M20] 20 meq PO DAILY 11/03/17 [History] atorvaSTATin [Lipitor] 20 mg PO 1800 11/03/17 [History] Acetaminophen [Tylenol] 650 mg PO Q4H PRN tablet 11/07/17 [Rx] Albuterol/Ipratropium [DuoNeb 3.0-0.5 MG/3 ML] 3 ml NEB Q4HRRT PRN 30 Days #120 neb 11/07/17 [Rx] Furosemide [Lasix] 40 mg PO DAILY 30 Days #30 tab 11/07/17 [Rx] Diltiazem HCl [Cartia Xt] 180 mg PO DAILY 11/16/17 [History] Fluticasone Propionate [Flonase] 1 sprays NASBOTH BID PRN 11/16/17 [History] Aspirin [Ecotrin EC] 81 mg PO DAILY 01/07/18 [History] Bisacodyl [Dulcolax] 5 mg PO ASDIRECTED PRN 03/28/18 [History] Budesonide [Pulmicort] 0.5 mg NEB BIDRT 30 Days #60 neb 03/31/18 [Rx] Arformoterol [Brovana] 15 mcg INH Q12HR #1 box 11/23/18 [Rx] D-Methorphan/Acetamin/Doxylamn [Night Time Cold & Flu Liq] 1 dose PO BEDTIME [History] D-Methorphan/PE/Acetaminophen [Daytime Cold-Flu Liquid] 30 ml PO DAILY 08/15/19 [History] Oxygen Therapy Mode: Nasal Cannula Oxygen Flow Rate (L/min): 4 Forms: ED Department Discharge, Interfacility Transfer EMTALA Referrals: Sara Tyler, SQL ANALYST [Primary Care Provider] - - Discharge Summary/Plan Comment DC Time >30 min.: Yes (Coordination of care ) Discharge Summary/Plan Comment: As above. Extensive precautions were given to the patient, who is in agreement with the treatment plan. See Patient Instructions for further treatment and plan. - General Info Date of Service: 09/11/19 Admission Dx/Problem (Free Text: 1. Acute COPD exacerbation with respiratory distress 2. CHF Functional Status: Reports: Pain Controlled, Ambulating, Urinating (Self- catheterization), Incentive Spirometry. Denies: Tolerating Diet (Nothing by mouth) Numeric/FACES Score: 0 - Review of Systems General: Reports: No Symptoms. Denies: Fever, Weakness, Fatigue, Malaise, Night Sweats, Appetite HEENT: Reports: No Symptoms. Denies: Dysphasia, Ear Pain, Headaches, Post Nasal Drip, Sinus Congestion, Rhinitis, Visual Changes Pulmonary: Reports: Shortness of Breath (Significantly improved), Cough (Stable chronic), Sputum (Stable chronicclear ), Wheezing (Significantly improved). Denies: Pleuritic Chest Pain, Hemoptysis Cardiovascular: Reports: Dyspnea on Exertion, Edema (Improved). Denies: Chest Pain, Palpitations, Orthopnea, PND, Lightheadedness Gastrointestinal: Reports: No Symptoms, Other (No bowel movement since admission ). Denies: Abdominal Pain, Constipation, Decreased Appetite, Diarrhea, Difficulty Swallowing, Flatus, Hematochezia, Melena, Nausea, Vomiting Genitourinary: Reports: Retention (Neurogenic bladder with self catheterization) . Denies: Dysuria, Frequency, Burning, Pain, Urgency, Incontinence, Hematuria, Flank Pain Musculoskeletal: Reports: No Symptoms. Denies: Neck Pain, Shoulder Pain, Arm Pain, Back Pain, Leg Pain Skin: Reports: No Symptoms. Denies: Diaphoresis, Bruising, Rash Neurological: Reports: Difficulty Walking (Stable baseline. Patient requires a cane). Denies: Confusion, Dizziness, Headache, Numbness, Paresthesia, Syncope, Tingling Psychiatric: Reports: No Symptoms. Denies: Confusion, Agitation, Hallucinations , Homicidal Ideation - Patient Data Vitals - Most Recent: Last Vital Signs Temp 36.6 C 09/11/19 07:10 Pulse 88 09/11/19 07:10 Resp 18 09/11/19 07:10 BP 126/68 09/11/19 07:33 Pulse Ox 96 09/11/19 07:10 Vital Signs - 24 hr 09/10/19 09/10/19 09/10/19 20:36 20:52 21:05 Temperature [ 36.6 C Oral] Temperature [ Temporal] Pulse, 103 H 90 86 Peripheral [ Pulse Oximetry] Respiratory 30 H 30 H 19 Rate Blood Pressure Blood Pressure 136/99 H 119/79 124/73 [Left Upper Arm ] O2 Sat by Pulse 96 95 94 L Oximetry 12/07/2009/10/19 09/10/19 21:20 21:35 22:00 Temperature [ Oral] Temperature [ 36.5 C Temporal] Pulse, 82 85 85 Peripheral [ Pulse Oximetry] Respiratory 18 20 19 Rate Blood Pressure Blood Pressure 131/72 133/70 [Left Upper Arm ] O2 Sat by Pulse 96 97 98 Oximetry 09/10/19 09/10/19 09/11/19 23:01 23:54 02:05 Temperature [ Oral] Temperature [ 36.9 C 36.6 C Temporal] Pulse, 72 93 Peripheral [ Pulse Oximetry] Respiratory 18 22 H Rate Blood Pressure Blood Pressure 100/67 100/78 [Left Upper Arm ] O2 Sat by Pulse 96 98 97 Oximetry 09/11/19 09/11/19 09/11/19 05:00 07:10 07:33 Temperature [ Oral] Temperature [ 36.9 C 36.6 C Temporal] Pulse, 78 88 Peripheral [ Pulse Oximetry] Respiratory 16 18 Rate Blood Pressure 126/68 Blood Pressure 114/63 126/68 [Left Upper Arm ] O2 Sat by Pulse 100 96 Oximetry Weight - Most Recent: 115.349 kg I&O - Last 24 hours: Intake & Output 09/10/19 09/11/19 09/11/19 22:59 06:59 14:59 Intake Total 0 Output Total 875 Balance -875 Imaging Impressions - Last 24 hrs: cardiopulmonary physical therapist shows normal sinus rhythm with heart rate in the 70s with no ectopy or arrhythmia. My initial evaluation of Chest x-ray, portable, on 09/10/19 showed severe pulmonary obstructive disease including large bullae right greater than left. Probable mild pulmonary hypertension and/or centralized CHF. Mildly prominent aortic arch with no pulmonary infiltrates, pneumothorax, etc. Moderate osteoarthritic changes. Final chest x-ray report showed possible small right pleural effusion and right basilar consolidation. Lab Results - Last 24 hrs: Laboratory Results - last 24 hr 09/10/19 09/10/19 09/10/19 Range/Units 20:40 20:40 20:40 WBC 10.3 H (4.0-10.2) K/uL RBC 5.41 (4.33-5.41) M/uL Hgb 14.9 (13.1-16.8) g/dL Hct 46.2 (39.0-49.0) % MCV 85.4 (84.0-98.0) fL MCH 27.5 L (28.2-33.3) pg MCHC 32.3 (31.7-36.0) g/dL RDW 13.2 (11.2-14.1) % Plt Count 221 (150-350) K/uL Neut % (Auto) 39.8 L (45.0-80.0) % Lymph % (Auto) 48.1 (10.0-50.0) % [place] % (Auto) 7.6 (2.0-14.0) % Eos % (Auto) 4.1 (0.0-5.0) % Baso % (Auto) 0.4 (0.0-2.0) % Neut # (Auto) 4.11 (1.40-7.00) K/uL Lymph # (Auto) 4.95 H (0.50-3.50) K/uL [place] # (Auto) 0.78 (0.00-1.00) K/uL Eos # (Auto) 0.42 (0.00-0.50) K/uL Baso # (Auto) 0.04 (0.00-0.20) K/uL PT 10.3 (9.5-12.0) SEC INR 1.0 APTT 26.4 (21.0-31.3) SEC D-Dimer, Quantitative 544 H (0-400) ng/mL Sodium (136-145) mmol/L Potassium (3.5-5.1) mmol/L Chloride (98-107) mmol/L Carbon Dioxide (21.0-32.0) mmol/L BUN (7-18) mg/dL Creatinine (0.51-1.17) mg/dL Est Cr Clr Drug Dosing Estimated GFR (MDRD) mL/min Glucose (74-106) mg/dL Hemoglobin A1c (4.3-5.7) % Lactic Acid (0.4-2.0) mmol/L Calcium (8.5-10.1) mg/dL Magnesium (1.8-2.4) mg/dL Total Bilirubin (0.2-1.0) mg/dL AST (15-37) U/L ALT (12-78) U/L Alkaline Phosphatase (46-116) IU/L Creatine Kinase (26-308) U/L Creatine Kinase Index (0.0-2.5) % CK-MB (CK-2) (0.00-3.60) ng/mL Troponin I (0.000-0.056) ng/mL NT-Pro-B Natriuret Pep (0-125) pg/mL Total Protein (6.4-8.2) g/dL Albumin (3.4-5.0) g/dL Triglycerides (30-150) mg/dL Cholesterol (100-200) mg/dL LDL Cholesterol, Calc (0-100) mg/dL HDL Cholesterol (40-60) mg/dL TSH, Ultra Sensitive (0.358-3.740) mIU/mL 09/10/19 09/10/19 09/10/19 Range/Units 20:40 20:40 23:13 WBC (4.0-10.2) K/uL RBC (4.33-5.41) M/uL Hgb (13.1-16.8) g/dL Hct (39.0-49.0) % MCV (84.0-98.0) fL MCH (28.2-33.3) pg MCHC (31.7-36.0) g/dL RDW (11.2-14.1) % Plt Count (150-350) K/uL Neut % (Auto) (45.0-80.0) % Lymph % (Auto) (10.0-50.0) % [place] % (Auto) (2.0-14.0) % Eos % (Auto) (0.0-5.0) % Baso % (Auto) (0.0-2.0) % Neut # (Auto) (1.40-7.00) K/uL Lymph # (Auto) (0.50-3.50) K/uL [place] # (Auto) (0.00-1.00) K/uL Eos # (Auto) (0.00-0.50) K/uL Baso # (Auto) (0.00-0.20) K/uL PT (9.5-12.0) SEC INR APTT (21.0-31.3) SEC D-Dimer, Quantitative (0-400) ng/mL Sodium 144 (136-145) mmol/L Potassium 4.6 (3.5-5.1) mmol/L Chloride 105 (98-107) mmol/L Carbon Dioxide 28.6 (21.0-32.0) mmol/L BUN 18 (7-18) mg/dL Creatinine 1.00 (0.51-1.17) mg/dL Est Cr Clr Drug Dosing TNP Estimated GFR (MDRD) > 60 mL/min Glucose 133 H (74-106) mg/dL Hemoglobin A1c (4.3-5.7) % Lactic Acid 2.6 H 1.6 (0.4-2.0) mmol/L Calcium 9.4 (8.5-10.1) mg/dL Magnesium 1.9 (1.8-2.4) mg/dL Total Bilirubin 0.4 (0.2-1.0) mg/dL AST 11 L (15-37) U/L ALT 20 (12-78) U/L Alkaline Phosphatase 133 H (46-116) IU/L Creatine Kinase 126 (26-308) U/L Creatine Kinase Index 3.7 H (0.0-2.5) % CK-MB (CK-2) 4.60 H* (0.00-3.60) ng/mL Troponin I 0.000 (0.000-0.056) ng/mL NT-Pro-B Natriuret Pep 225 H (0-125) pg/mL Total Protein 7.8 (6.4-8.2) g/dL Albumin 4.1 (3.4-5.0) g/dL Triglycerides (30-150) mg/dL Cholesterol (100-200) mg/dL LDL Cholesterol, Calc (0-100) mg/dL HDL Cholesterol (40-60) mg/dL TSH, Ultra Sensitive 2.144 (0.358-3.740) mIU/mL 09/11/19 09/11/19 09/11/19 Range/Units 07:06 07:06 07:06 WBC 8.3 (4.0-10.2) K/uL RBC 5.17 (4.33-5.41) M/uL Hgb 14.2 (13.1-16.8) g/dL Hct 44.2 (39.0-49.0) % MCV 85.5 (84.0-98.0) fL MCH 27.5 L (28.2-33.3) pg MCHC 32.1 (31.7-36.0) g/dL RDW 13.4 (11.2-14.1) % Plt Count 230 (150-350) K/uL Neut % (Auto) 48.4 (45.0-80.0) % Lymph % (Auto) 38.5 (10.0-50.0) % [place] % (Auto) 9.4 (2.0-14.0) % Eos % (Auto) 3.1 (0.0-5.0) % Baso % (Auto) 0.6 (0.0-2.0) % Neut # (Auto) 4.03 (1.40-7.00) K/uL Lymph # (Auto) 3.20 (0.50-3.50) K/uL [place] # (Auto) 0.78 (0.00-1.00) K/uL Eos # (Auto) 0.26 (0.00-0.50) K/uL Baso # (Auto) 0.05 (0.00-0.20) K/uL PT (9.5-12.0) SEC INR APTT (21.0-31.3) SEC D-Dimer, Quantitative 422 H (0-400) ng/mL Sodium 142 (136-145) mmol/L Potassium 4.6 (3.5-5.1) mmol/L Chloride 106 (98-107) mmol/L Carbon Dioxide 26.5 (21.0-32.0) mmol/L BUN 20 H (7-18) mg/dL Creatinine 0.96 (0.51-1.17) mg/dL Est Cr Clr Drug Dosing 78.59 Estimated GFR (MDRD) > 60 mL/min Glucose 121 H (74-106) mg/dL Hemoglobin A1c (4.3-5.7) % Lactic Acid (0.4-2.0) mmol/L Calcium 8.7 (8.5-10.1) mg/dL Magnesium (1.8-2.4) mg/dL Total Bilirubin 0.5 (0.2-1.0) mg/dL AST 15 (15-37) U/L ALT 19 (12-78) U/L Alkaline Phosphatase 128 H (46-116) IU/L Creatine Kinase 153 (26-308) U/L Creatine Kinase Index 4.8 H (0.0-2.5) % CK-MB (CK-2) 7.30 H* (0.00-3.60) ng/mL Troponin I 1.212 H* (0.000-0.056) ng/mL NT-Pro-B Natriuret Pep 1049 H (0-125) pg/mL Total Protein 7.2 (6.4-8.2) g/dL Albumin 3.8 (3.4-5.0) g/dL Triglycerides 111 (30-150) mg/dL Cholesterol 144 (100-200) mg/dL LDL Cholesterol, Calc 53 (0-100) mg/dL HDL Cholesterol 69 H (40-60) mg/dL TSH, Ultra Sensitive (0.358-3.740) mIU/mL 09/11/19 09/11/19 Range/Units 07:06 07:06 WBC (4.0-10.2) K/uL RBC (4.33-5.41) M/uL Hgb (13.1-16.8) g/dL Hct (39.0-49.0) % MCV (84.0-98.0) fL MCH (28.2-33.3) pg MCHC (31.7-36.0) g/dL RDW (11.2-14.1) % Plt Count (150-350) K/uL Neut % (Auto) (45.0-80.0) % Lymph % (Auto) (10.0-50.0) % [place] % (Auto) (2.0-14.0) % Eos % (Auto) (0.0-5.0) % Baso % (Auto) (0.0-2.0) % Neut # (Auto) (1.40-7.00) K/uL Lymph # (Auto) (0.50-3.50) K/uL [place] # (Auto) (0.00-1.00) K/uL Eos # (Auto) (0.00-0.50) K/uL Baso # (Auto) (0.00-0.20) K/uL PT (9.5-12.0) SEC INR APTT (21.0-31.3) SEC D-Dimer, Quantitative (0-400) ng/mL Sodium (136-145) mmol/L Potassium (3.5-5.1) mmol/L Chloride (98-107) mmol/L Carbon Dioxide (21.0-32.0) mmol/L BUN (7-18) mg/dL Creatinine (0.51-1.17) mg/dL Est Cr Clr Drug Dosing Estimated GFR (MDRD) mL/min Glucose (74-106) mg/dL Hemoglobin A1c 6.0 H (4.3-5.7) % Lactic Acid 1.8 (0.4-2.0) mmol/L Calcium (8.5-10.1) mg/dL Magnesium (1.8-2.4) mg/dL Total Bilirubin (0.2-1.0) mg/dL AST (15-37) U/L ALT (12-78) U/L Alkaline Phosphatase (46-116) IU/L Creatine Kinase (26-308) U/L Creatine Kinase Index (0.0-2.5) % CK-MB (CK-2) (0.00-3.60) ng/mL Troponin I (0.000-0.056) ng/mL NT-Pro-B Natriuret Pep (0-125) pg/mL Total Protein (6.4-8.2) g/dL Albumin (3.4-5.0) g/dL Triglycerides (30-150) mg/dL Cholesterol (100-200) mg/dL LDL Cholesterol, Calc (0-100) mg/dL HDL Cholesterol (40-60) mg/dL TSH, Ultra Sensitive (0.358-3.740) mIU/mL Laboratory Tests 09/10/19 09/10/19 09/10/19 Range/Units 20:40 20:40 20:40 WBC 10.3 H (4.0-10.2) K/uL RBC 5.41 (4.33-5.41) M/uL Hgb 14.9 (13.1-16.8) g/dL Hct 46.2 (39.0-49.0) % MCV 85.4 (84.0-98.0) fL MCH 27.5 L (28.2-33.3) pg MCHC 32.3 (31.7-36.0) g/dL RDW 13.2 (11.2-14.1) % Plt Count 221 (150-350) K/uL Neut % (Auto) 39.8 L (45.0-80.0) % Lymph % (Auto) 48.1 (10.0-50.0) % [place] % (Auto) 7.6 (2.0-14.0) % Eos % (Auto) 4.1 (0.0-5.0) % Baso % (Auto) 0.4 (0.0-2.0) % Neut # (Auto) 4.11 (1.40-7.00) K/uL Lymph # (Auto) 4.95 H (0.50-3.50) K/uL [place] # (Auto) 0.78 (0.00-1.00) K/uL Eos # (Auto) 0.42 (0.00-0.50) K/uL Baso # (Auto) 0.04 (0.00-0.20) K/uL PT 10.3 (9.5-12.0) SEC INR 1.0 APTT 26.4 (21.0-31.3) SEC D-Dimer, Quantitative 544 H (0-400) ng/mL Sodium (136-145) mmol/L Potassium (3.5-5.1) mmol/L Chloride (98-107) mmol/L Carbon Dioxide (21.0-32.0) mmol/L BUN (7-18) mg/dL Creatinine (0.51-1.17) mg/dL Est Cr Clr Drug Dosing Estimated GFR (MDRD) mL/min Glucose (74-106) mg/dL Hemoglobin A1c (4.3-5.7) % Lactic Acid (0.4-2.0) mmol/L Calcium (8.5-10.1) mg/dL Magnesium (1.8-2.4) mg/dL Total Bilirubin (0.2-1.0) mg/dL AST (15-37) U/L ALT (12-78) U/L Alkaline Phosphatase (46-116) IU/L Creatine Kinase (26-308) U/L Creatine Kinase Index (0.0-2.5) % CK-MB (CK-2) (0.00-3.60) ng/mL Troponin I (0.000-0.056) ng/mL NT-Pro-B Natriuret Pep (0-125) pg/mL Total Protein (6.4-8.2) g/dL Albumin (3.4-5.0) g/dL Triglycerides (30-150) mg/dL Cholesterol (100-200) mg/dL LDL Cholesterol, Calc (0-100) mg/dL HDL Cholesterol (40-60) mg/dL TSH, Ultra Sensitive (0.358-3.740) mIU/mL Specimen Type Urine Color Urine Appearance Urine pH (5.0-9.0) Ur Specific [place] (1.005-1.030) Urine Protein (NEGATIVE) mg/dL Urine Glucose (UA) (NEGATIVE) mg/dL Urine Ketones (NEGATIVE) mg/dL Urine Occult Blood (NEGATIVE) Urine Nitrite (NEGATIVE) Urine Bilirubin (NEGATIVE) Urine Urobilinogen (0.2-1.0) E.U./dL Ur Leukocyte Esterase (NEGATIVE) Urine RBC /HPF Urine WBC /HPF Urine Bacteria (NONE TO FEW) /HPF 09/10/19 09/10/19 09/10/19 Range/Units 20:40 20:40 23:13 WBC (4.0-10.2) K/uL RBC (4.33-5.41) M/uL Hgb (13.1-16.8) g/dL Hct (39.0-49.0) % MCV (84.0-98.0) fL MCH (28.2-33.3) pg MCHC (31.7-36.0) g/dL RDW (11.2-14.1) % Plt Count (150-350) K/uL Neut % (Auto) (45.0-80.0) % Lymph % (Auto) (10.0-50.0) % [place] % (Auto) (2.0-14.0) % Eos % (Auto) (0.0-5.0) % Baso % (Auto) (0.0-2.0) % Neut # (Auto) (1.40-7.00) K/uL Lymph # (Auto) (0.50-3.50) K/uL [place] # (Auto) (0.00-1.00) K/uL Eos # (Auto) (0.00-0.50) K/uL Baso # (Auto) (0.00-0.20) K/uL PT (9.5-12.0) SEC INR APTT (21.0-31.3) SEC D-Dimer, Quantitative (0-400) ng/mL Sodium 144 (136-145) mmol/L Potassium 4.6 (3.5-5.1) mmol/L Chloride 105 (98-107) mmol/L Carbon Dioxide 28.6 (21.0-32.0) mmol/L BUN 18 (7-18) mg/dL Creatinine 1.00 (0.51-1.17) mg/dL Est Cr Clr Drug Dosing TNP Estimated GFR (MDRD) > 60 mL/min Glucose 133 H (74-106) mg/dL Hemoglobin A1c (4.3-5.7) % Lactic Acid 2.6 H 1.6 (0.4-2.0) mmol/L Calcium 9.4 (8.5-10.1) mg/dL Magnesium 1.9 (1.8-2.4) mg/dL Total Bilirubin 0.4 (0.2-1.0) mg/dL AST 11 L (15-37) U/L ALT 20 (12-78) U/L Alkaline Phosphatase 133 H (46-116) IU/L Creatine Kinase 126 (26-308) U/L Creatine Kinase Index 3.7 H (0.0-2.5) % CK-MB (CK-2) 4.60 H* (0.00-3.60) ng/mL Troponin I 0.000 (0.000-0.056) ng/mL NT-Pro-B Natriuret Pep 225 H (0-125) pg/mL Total Protein 7.8 (6.4-8.2) g/dL Albumin 4.1 (3.4-5.0) g/dL Triglycerides (30-150) mg/dL Cholesterol (100-200) mg/dL LDL Cholesterol, Calc (0-100) mg/dL HDL Cholesterol (40-60) mg/dL TSH, Ultra Sensitive 2.144 (0.358-3.740) mIU/mL Specimen Type Urine Color Urine Appearance Urine pH (5.0-9.0) Ur Specific [place] (1.005-1.030) Urine Protein (NEGATIVE) mg/dL Urine Glucose (UA) (NEGATIVE) mg/dL Urine Ketones (NEGATIVE) mg/dL Urine Occult Blood (NEGATIVE) Urine Nitrite (NEGATIVE) Urine Bilirubin (NEGATIVE) Urine Urobilinogen (0.2-1.0) E.U./dL Ur Leukocyte Esterase (NEGATIVE) Urine RBC /HPF Urine WBC /HPF Urine Bacteria (NONE TO FEW) /HPF 09/11/19 09/11/19 09/11/19 Range/Units 07:06 07:06 07:06 WBC 8.3 (4.0-10.2) K/uL RBC 5.17 (4.33-5.41) M/uL Hgb 14.2 (13.1-16.8) g/dL Hct 44.2 (39.0-49.0) % MCV 85.5 (84.0-98.0) fL MCH 27.5 L (28.2-33.3) pg MCHC 32.1 (31.7-36.0) g/dL RDW 13.4 (11.2-14.1) % Plt Count 230 (150-350) K/uL Neut % (Auto) 48.4 (45.0-80.0) % Lymph % (Auto) 38.5 (10.0-50.0) % [place] % (Auto) 9.4 (2.0-14.0) % Eos % (Auto) 3.1 (0.0-5.0) % Baso % (Auto) 0.6 (0.0-2.0) % Neut # (Auto) 4.03 (1.40-7.00) K/uL Lymph # (Auto) 3.20 (0.50-3.50) K/uL [place] # (Auto) 0.78 (0.00-1.00) K/uL Eos # (Auto) 0.26 (0.00-0.50) K/uL Baso # (Auto) 0.05 (0.00-0.20) K/uL PT (9.5-12.0) SEC INR APTT (21.0-31.3) SEC D-Dimer, Quantitative 422 H (0-400) ng/mL Sodium 142 (136-145) mmol/L Potassium 4.6 (3.5-5.1) mmol/L Chloride 106 (98-107) mmol/L Carbon Dioxide 26.5 (21.0-32.0) mmol/L BUN 20 H (7-18) mg/dL Creatinine 0.96 (0.51-1.17) mg/dL Est Cr Clr Drug Dosing 78.59 Estimated GFR (MDRD) > 60 mL/min Glucose 121 H (74-106) mg/dL Hemoglobin A1c (4.3-5.7) % Lactic Acid (0.4-2.0) mmol/L Calcium 8.7 (8.5-10.1) mg/dL Magnesium (1.8-2.4) mg/dL Total Bilirubin 0.5 (0.2-1.0) mg/dL AST 15 (15-37) U/L ALT 19 (12-78) U/L Alkaline Phosphatase 128 H (46-116) IU/L Creatine Kinase 153 (26-308) U/L Creatine Kinase Index 4.8 H (0.0-2.5) % CK-MB (CK-2) 7.30 H* (0.00-3.60) ng/mL Troponin I 1.212 H* (0.000-0.056) ng/mL NT-Pro-B Natriuret Pep 1049 H (0-125) pg/mL Total Protein 7.2 (6.4-8.2) g/dL Albumin 3.8 (3.4-5.0) g/dL Triglycerides 111 (30-150) mg/dL Cholesterol 144 (100-200) mg/dL LDL Cholesterol, Calc 53 (0-100) mg/dL HDL Cholesterol 69 H (40-60) mg/dL TSH, Ultra Sensitive (0.358-3.740) mIU/mL Specimen Type Urine Color Urine Appearance Urine pH (5.0-9.0) Ur Specific [place] (1.005-1.030) Urine Protein (NEGATIVE) mg/dL Urine Glucose (UA) (NEGATIVE) mg/dL Urine Ketones (NEGATIVE) mg/dL Urine Occult Blood (NEGATIVE) Urine Nitrite (NEGATIVE) Urine Bilirubin (NEGATIVE) Urine Urobilinogen (0.2-1.0) E.U./dL Ur Leukocyte Esterase (NEGATIVE) Urine RBC /HPF Urine WBC /HPF Urine Bacteria (NONE TO FEW) /HPF 09/11/19 09/11/19 09/11/19 Range/Units 07:06 07:06 09:00 WBC (4.0-10.2) K/uL RBC (4.33-5.41) M/uL Hgb (13.1-16.8) g/dL Hct (39.0-49.0) % MCV (84.0-98.0) fL MCH (28.2-33.3) pg MCHC (31.7-36.0) g/dL RDW (11.2-14.1) % Plt Count (150-350) K/uL Neut % (Auto) (45.0-80.0) % Lymph % (Auto) (10.0-50.0) % [place] % (Auto) (2.0-14.0) % Eos % (Auto) (0.0-5.0) % Baso % (Auto) (0.0-2.0) % Neut # (Auto) (1.40-7.00) K/uL Lymph # (Auto) (0.50-3.50) K/uL [place] # (Auto) (0.00-1.00) K/uL Eos # (Auto) (0.00-0.50) K/uL Baso # (Auto) (0.00-0.20) K/uL PT (9.5-12.0) SEC INR APTT (21.0-31.3) SEC D-Dimer, Quantitative (0-400) ng/mL Sodium (136-145) mmol/L Potassium (3.5-5.1) mmol/L Chloride (98-107) mmol/L Carbon Dioxide (21.0-32.0) mmol/L BUN (7-18) mg/dL Creatinine (0.51-1.17) mg/dL Est Cr Clr Drug Dosing Estimated GFR (MDRD) mL/min Glucose (74-106) mg/dL Hemoglobin A1c 6.0 H (4.3-5.7) % Lactic Acid 1.8 (0.4-2.0) mmol/L Calcium (8.5-10.1) mg/dL Magnesium (1.8-2.4) mg/dL Total Bilirubin (0.2-1.0) mg/dL AST (15-37) U/L ALT (12-78) U/L Alkaline Phosphatase (46-116) IU/L Creatine Kinase (26-308) U/L Creatine Kinase Index (0.0-2.5) % CK-MB (CK-2) (0.00-3.60) ng/mL Troponin I (0.000-0.056) ng/mL NT-Pro-B Natriuret Pep (0-125) pg/mL Total Protein (6.4-8.2) g/dL Albumin (3.4-5.0) g/dL Triglycerides (30-150) mg/dL Cholesterol (100-200) mg/dL LDL Cholesterol, Calc (0-100) mg/dL HDL Cholesterol (40-60) mg/dL TSH, Ultra Sensitive (0.358-3.740) mIU/mL Specimen Type [place] Urine Color Yellow Urine Appearance Cloudy Urine pH 7.0 (5.0-9.0) Ur Specific [place] 1.020 (1.005-1.030) Urine Protein Trace H (NEGATIVE) mg/dL Urine Glucose (UA) Negative (NEGATIVE) mg/dL Urine Ketones Negative (NEGATIVE) mg/dL Urine Occult Blood Small H (NEGATIVE) Urine Nitrite Positive H (NEGATIVE) Urine Bilirubin Negative (NEGATIVE) Urine Urobilinogen 1.0 (0.2-1.0) E.U./dL Ur Leukocyte Esterase Large H (NEGATIVE) Urine RBC 10-20 H /HPF Urine WBC 75-100 H /HPF Urine Bacteria Many H (NONE TO FEW) /HPF SINCERE Results - Last 24 hrs: Microbiology 09/10/19 20:30 Influenza Type A Antigen Screen - Final Nasal, Left NEGATIVE INFLUENZA A VIRUS AG REFERENCE RANGE: NEGATIVE Influenza Type B Antigen Screen - Final NEGATIVE INFLUENZA B VIRUS AG REFERENCE RANGE: NEGATIVE Blood cultures 2 pending Urine specimen for culture and sensitivity pending Med Orders - Current: Current Medications Acetaminophen (Tylenol) 650 mg PO Q4H PRN PRN Reason: Pain Last Admin: 09/11/19 02:13 Dose: 650 mg Albuterol (Proventil Neb Soln) 2.5 mg INH Q2H PRN PRN Reason: SHORTNESS OF BREATH Albuterol/Ipratropium (Duoneb 3.0-0.5 Mg/3 Ml) 3 ml NEB Q4HRRT PRN PRN Reason: Dyspnea Albuterol/Ipratropium (Duoneb 3.0-0.5 Mg/3 Ml) 3 ml NEB Q6HRRT [facility] Last Admin: 09/11/19 07:34 Dose: 3 ml Atorvastatin Calcium (Lipitor) 20 mg PO 1800 MERY Bisacodyl (Dulcolax) 5 mg PO ASDIRECTED PRN PRN Reason: Constipation Budesonide (Pulmicort) 0.5 mg NEB BIDRT [facility] Last Admin: 09/11/19 07:34 Dose: 0.5 mg Diltiazem HCl (Cardizem Cd) 180 mg PO DAILY [facility] Last Admin: 09/11/19 07:33 Dose: 180 mg Doxycycline Hyclate (Vibramycin) 100 mg PO Q12HR [facility] Last Admin: 09/11/19 07:33 Dose: 100 mg Enoxaparin Sodium (Lovenox) 100 mg SUBCUT Q24H [facility] Last Admin: 09/11/19 00:01 Dose: 100 mg Furosemide (Lasix) 40 mg IVPUSH Q12H [facility] Last Admin: 09/11/19 00:02 Dose: 40 mg Guaifenesin/Dextromethorphan (Mucinex Dm Er 600-30 Mg) 1 tab PO BID [facility] Last Admin: 09/11/19 07:33 Dose: 1 tab Ceftriaxone Sodium 1 gm/ (Sodium Chloride) 100 mls @ 200 mls/hr IV Q12H [facility] Last Admin: 09/11/19 00:07 Dose: 200 mls/hr Lisinopril (Prinivil) 20 mg PO DAILY [facility] Last Admin: 09/11/19 07:33 Dose: 20 mg Nicotine (Habitrol) 21 mg TRDERM Q24H [facility] Last Admin: 09/10/19 23:58 Dose: 21 mg Potassium Chloride (Klor-Con M20) 20 meq PO TID [facility] Last Admin: 09/11/19 07:33 Dose: 20 meq Sodium Chloride (Saline Flush) 10 ml FLUSH ASDIRECTED PRN PRN Reason: Keep Vein Open Sodium Chloride (Saline Flush) 10 ml FLUSH Q12HR PRN PRN Reason: Keep Vein Open Temazepam (Restoril) 15 mg PO BEDTIME PRN PRN Reason: Insomnia Last Admin: 09/11/19 02:13 Dose: 15 mg Discontinued Medications Albuterol/Ipratropium (Duoneb 3.0-0.5 Mg/3 Ml) 3 ml NEB ONETIME ONE Stop: 09/10/19 20:33 Last Admin: 09/10/19 20:32 Dose: 3 ml Albuterol/Ipratropium (Duoneb 3.0-0.5 Mg/3 Ml) Confirm Administered Dose 3 ml .ROUTE .STK-MED ONE Stop: 09/10/19 20:35 Last Admin: 09/10/19 21:09 Dose: Not Given Budesonide (Pulmicort) 0.5 mg NEB ONETIME ONE Stop: 09/10/19 20:33 Last Admin: 09/10/19 20:45 Dose: 0.5 mg Famotidine (Pepcid) 40 mg IVPUSH ONETIME ONE Stop: 09/10/19 21:43 Last Admin: 09/10/19 21:55 Dose: 40 mg Potassium Chloride (Klor-Con M20) 20 meq PO TID MERY - Exam Quality Assessment: Reports: Supplemental Oxygen, DVT Prophylaxis (Lovenox). Denies: Central Line/PICC, Urine Catheter (However note self-catheterization), Skin Breakdown, Restraints General: Reports: Alert, Oriented, Cooperative, No Acute Distress HEENT: Reports: Pupils Equal, Pupils Reactive, EOMI, Mucous Membr. Moist/[place] Neck: Reports: Supple, Trachea Midline, No JVD, No Thyromegaly, Carotid Bruit ( Mild bilateral carotid bruits). Denies: Lymphadenopathy Lungs: Reports: Normal Respiratory Effort, Decreased Breath Sounds (Stable baseline), Rales (Mild to moderate bilateral basilar rales), Rhonchi (Occasional ), Wheezing (Occasional bilaterally significantly improved). Denies: Rub Cardiovascular: Reports: Regular Rate, Regular Rhythm, No Murmurs. Denies: Gallops, Rubs GI/Abdominal Exam: Normal Bowel Sounds, Soft, Non-Tender, No Organomegaly, No Distention, No Abnormal Bruit, No Mass, Hernia (Stable 4 centimeter in diameter nonincarcerated umbilical hernia), Other (Obese). No: Guarding (Male) Exam: Deferred Rectal (Males) Exam: Deferred Back Exam: Reports: Normal Inspection, Full Range of Motion. Denies: CVA Tenderness (L), CVA Tenderness (R), Muscle Spasm Extremities: Normal Range of Motion, Non-Tender, Normal Capillary Refill, Pedal Edema (Improved +1 bilateral pedal/pretibial edema). No: Dave's Sign Skin: Reports: Warm, Dry, Intact Neurological: Reports: No New Focal Deficit Psy/Mental Status: Reports: Alert, Normal Affect, Normal Mood. Denies: Agitated , Hallucinations, Withdrawal Symptoms EKG INTERPRETATION EKG Date: 09/11/19 Time: 07:47 Rhythm: NSR Rate (Beats/Min): 76 [place]: Normal (Neutral) P-Wave: Enlarged (Moderate diffuse biphasic P waves with extreme poor R-wave progression in the anterior leads) QRS: RBBB (0.10 seconds representing repolarization changes and/or borderline Incomplete right bundle branch block) ST-T: Other (Stable chronic T-wave inversion in lead aVL) [place]/PQ Interval: 0.20 seconds representing a stable borderline first-degree AV block Comparison: No Change (Since 09/10/19) EKG Interpretation Comments: 1. No acute ischemic changes 2. Borderline incomplete right bundle branch block 3. Left atrial enlargement
[2019-09-11] MEDS ORDERED: atorvaSTATin 40 MG Tab PO SCH (18:00)
== END 2019-09-11 10:15 | DRG 280 ==
LOC: LL.ED 20:27 → LL.MS 22:05 → UNDOADMIN 22:05 → LL.MS 22:56
PROVIDERS: ADMIT Family Medicine; ATTEND Family Medicine
DX: I21.4 Non-ST elevation (NSTEMI) myocardial infarction (principal); I50.33 Acute on chronic diastolic (congestive) heart failure; J44.1 Chronic obstructive pulmonary disease with (acute) exacerbation; N30.00 Acute cystitis without hematuria; R07.9 Chest pain, unspecified; R06.03 Acute respiratory distress; R09.02 Hypoxemia; I11.0 Hypertensive heart disease with heart failure; R79.89 Other specified abnormal findings of blood chemistry; I44.0 Atrioventricular block, first degree; E78.5 Hyperlipidemia, unspecified; M15.0 Primary generalized (osteo)arthritis; M19.90 Unspecified osteoarthritis, unspecified site; M54.9 Dorsalgia, unspecified; G89.29 Other chronic pain; M54.2 Cervicalgia; N31.9 Neuromuscular dysfunction of bladder, unspecified; H54.7 Unspecified visual loss; E78.00 Pure hypercholesterolemia, unspecified; R79.1 Abnormal coagulation profile; K59.09 Other constipation; D12.3 Benign neoplasm of transverse colon; N40.1 Benign prostatic hyperplasia with lower urinary tract symptoms; J84.10 Pulmonary fibrosis, unspecified; R33.8 Other retention of urine; Z86.010 Personal history of colon polyps; E66.9 Obesity, unspecified; E83.42 Hypomagnesemia; D75.1 Secondary polycythemia; F17.210 Nicotine dependence, cigarettes, uncomplicated; Z71.6 Tobacco abuse counseling; Z79.82 Long term (current) use of aspirin; Z79.899 Other long term (current) drug therapy; Z87.01 Personal history of pneumonia (recurrent); Z99.81 Dependence on supplemental oxygen; Z87.440 Personal history of urinary (tract) infections; Z68.34 Body mass index [BMI] 34.0-34.9, adult
CPT/HCPCS: 36415; 71045; 80053; 80061; 81001; 82550; 82553; 83036; 83605; 83735; 83880; 84443; 84484; 85025; 85379; 85610; 85730; 87040; 87086; 87088; 87186; 87804; 93005; 94640; 96374; 99285-25; A9270-GY; J0696; J1650; J1940; J3490; J7050; J7620-GY

== ENCOUNTER 2019-10-04 11:15 | Emergency (ER) | payer MEDICARE ==
[2019-10-04] MEDS: Albuterol/Ipratropium 3.0-0.5 MG/3 ML Neb Soln NEB ONE (11:35)
[2019-10-04 11:56] LABS: CHLORIDE,CL 103 mmol/L (98-107); SODIUM,NA 141 mmol/L (136-145)
[2019-10-04] MEDS: methylPREDNISolone Sodium Succinate 125 MG/2 ML SDV IVPUSH ONE (12:23)
[2019-10-04 12:49] VITALS: BP 121/91; PULSE 71
--- NOTE | 2019-10-04 12:54 | EDM.PDOC ---
ED HPI GENERAL MEDICAL PROBLEM - General Chief Complaint: Respiratory Problem Stated Complaint: shortness of breath Time Seen by Provider: 10/04/19 11:23 Source of Information: Reports: Patient History Limitations: Reports: No Limitations - History of Present Illness INITIAL COMMENTS - FREE TEXT/NARRATIVE: Pt presents with SOB Has hx/o severe COPD and is on home oxygen at 2-4 L No fever Progressive over past several days Dry cough Onset: Gradual Duration: Day(s): Location: Reports: Chest Associated Symptoms: Reports: Cough, Shortness of Breath - Related Data Allergies Allergy/AdvReac Type Severity Reaction Status Date / Time No Known Allergies Allergy Verified 10/04/19 11:20 Home Meds: Home Meds Lisinopril 20 mg PO DAILY 11/03/17 [History] Potassium Chloride [Klor-Con M20] 20 meq PO DAILY 11/03/17 [History] atorvaSTATin [Lipitor] 20 mg PO 1800 11/03/17 [History] Acetaminophen [Tylenol] 650 mg PO Q4H PRN tablet 11/07/17 [Rx] Albuterol/Ipratropium [DuoNeb 3.0-0.5 MG/3 ML] 3 ml NEB Q4HRRT PRN 30 Days #120 neb 11/07/17 [Rx] Furosemide [Lasix] 40 mg PO DAILY 30 Days #30 tab 11/07/17 [Rx] Fluticasone Propionate [Flonase] 1 sprays NASBOTH BID PRN 11/16/17 [History] Aspirin [Ecotrin EC] 81 mg PO DAILY 01/07/18 [History] bisacodyL [Dulcolax] 5 mg PO ASDIRECTED PRN 03/28/18 [History] Budesonide [Pulmicort] 0.5 mg NEB BIDRT 30 Days #60 neb 03/31/18 [Rx] Arformoterol [Brovana] 15 mcg INH Q12HR #1 box 11/23/18 [Rx] Past Medical History - Past Health History Medical/Surgical History: Denies Medical/Surgical History HEENT History: Reports: Impaired Vision, Other (See Below) Other HEENT History: Patient wears reading glasses Cardiovascular History: Reports: Arrhythmia, Heart Failure, Heart Murmur, High Cholesterol, Hypertension Other Cardiovascular History: Incomplete right bundle branch block, PVCs and PACs diagnosed on 04/24/17 with subsequent probable SVT diagnosed in April 2017. Chronic dependent edema. Grade 1 diastolic dysfunction by echocardiogram in April 2017. Respiratory History: Reports: Bronchitis, Recurrent, COPD, Intubation, Previous , Pneumonia, Recurrent, Pneumothorax, Pulmonary Fibrosis, Other (See Below) Other Respiratory History: O2 dependent COPD with current use of 4 L/m by nasal cannula. 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 Spontaneous right sided pneumothorax on 01/07/18. Gastrointestinal History: Reports: Chronic Constipation, Colon Polyp, Hemorrhoids Other Gastrointestinal History: Tubular adenoma 2 in the transverse colon by incomplete colonoscopy as below with additional large sigmoid polyp by barium enema on 12/14/17. Umbilical hernia. Genitourinary History: Reports: BPH, Retention, Urinary, UTI, Recurrent, Other ( See Below) Other Genitourinary History: Neurogenic bladder with self catherizations. Musculoskeletal History: Reports: Arthritis, Back Pain, Chronic, Neck Pain, Chronic, Osteoarthritis Neurological History: Reports: None Psychiatric History: Reports: None Endocrine/Metabolic History: Reports: Obesity/BMI 30+, Other (See Below) Other Endocrine/Metabolic History: Hypomagnesemia. 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 Immunologic History: Reports: None Oncologic (Cancer) History: Reports: None Dermatologic History: Reports: None - Infectious Disease History Infectious Disease History: Reports: Chicken Pox, Mumps, Shingles - Past Surgical History Head Surgeries/Procedures: Reports: None HEENT Surgical History: Reports: Oral Surgery, Other (See Below) Other HEENT Surgeries/Procedures: Complete teeth extraction with complete dentures uppers and lowers. Cardiovascular Surgical History: Reports: None Respiratory Surgical History: Reports: Other (See Below) Other Respiratory Surgeries/Procedures: Chest tube insertion for spontaneous pneumothorax on 01/07/18. GI Surgical History: Reports: Colonoscopy, Polypectomy, Other (See Below) Other GI Surgeries/Procedures: Polypectomy 2 of tubular adenomas in the transverse colon as above. Incomplete Colonoscopy secondary to poor bowel preparation and tortuous colon on 11/16/17 with follow-up enema as below. Male Surgical History: Reports: Circumcision, Suprapubic Catheter Placement, TURP-Transurethral Resection of Prostate, Other (See Below) Other Male Surgeries/Procedures: Circumcision as an infant, TURP 2 initially in 2008 and then in 2009, suprapubic catheter placement in 2010 Endocrine Surgical History: Reports: None Neurological Surgical History: Reports: None Musculoskeletal Surgical History: Reports: None Oncologic Surgical History: Reports: None Dermatological Surgical History: Reports: None - Past Imaging History Past Imaging History: Reports: Barium Enema (12/14/17), Cardiac Echo (04/25/17 with ejection fraction of 5560 percent and otherwise results as above), CAT Scan (CT of the chest on 08/11/19.) Social & Family History - Family History HEENT: Reports: None Cardiac: Reports: CAD, Hypertension, AL, Other (See Below) Other Cardiac Family History: Brother with hypertension, mother with fatal AL at age 75 Respiratory: Reports: COPD, Other (See Below) Other Respiratory Family Hisory: Father with COPD with history of tobacco use GI: Reports: None : Reports: None OBGYN: Reports: None Musculoskeletal: Reports: Arthritis, Osteoarthritis, Other (See Below) Other Musculoskeletal Family History: Brother with osteoarthritis Neurological: Reports: None Psychiatric: Reports: None Endocrine/Metabolic: Reports: Diabetes, type II, IDDM, Other (See Below) Other Endocrine/Metabolic Family History: Mother with IDDM Hematologic: Reports: None Immunologic: Reports: None Dermatologic: Reports: None Oncologic: Reports: None - Tobacco Use Smoking Status *Q: Current Every Day Smoker Years of Tobacco use: 55 Packs/Tins Daily: 1 Used Tobacco, but Quit: No Second Hand Smoke Exposure: No - Caffeine Use Caffeine Use: Reports: Coffee - Recreational Drug Use Recreational Drug Use: No - Living Situation & Occupation Living situation: Reports: Single ( in 2009 with no children with his although his did have children from a previous relationship), Alone 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) ED ROS GENERAL - Review of Systems Review Of Systems: See Below HEENT: Reports: No Symptoms Respiratory: Reports: Shortness of Breath, Cough Cardiovascular: Reports: No Symptoms GI/Abdominal: Reports: No Symptoms ED EXAM, GENERAL - Physical Exam Exam: See Below Exam Limited By: No Limitations General Appearance: Mild Distress Throat/Mouth: Normal Oropharynx Neck: Supple Respiratory/Chest: Decreased Breath Sounds Cardiovascular: Regular Rate, Rhythm GI/Abdominal: Non-Tender Course - Vital Signs Last Recorded V/S: Last Vital Signs Temp 36.6 C 10/04/19 11:17 Pulse 71 10/04/19 12:48 Resp 22 H 10/04/19 12:48 BP 121/91 H 10/04/19 12:48 Pulse Ox 98 10/04/19 12:48 - Orders/Labs/Meds Orders: Active Orders 24 hr Category Date Time Status RT Aerosol Therapy [RC] ASDIRECTED Care 10/04/19 11:25 Active Chest 2V [CR] Stat Exams 10/04/19 11:23 Taken Labs: Laboratory Tests 10/04/19 10/04/19 Range/Units 11:29 11:29 WBC 6.5 (4.0-10.2) K/uL RBC 5.20 (4.33-5.41) M/uL Hgb 14.4 (13.1-16.8) g/dL Hct 45.0 (39.0-49.0) % MCV 86.5 (84.0-98.0) fL MCH 27.7 L (28.2-33.3) pg MCHC 32.0 (31.7-36.0) g/dL RDW 13.1 (11.2-14.1) % Plt Count 179 (150-350) K/uL Neut % (Auto) 61.9 (45.0-80.0) % Lymph % (Auto) 26.2 (10.0-50.0) % [place] % (Auto) 8.1 (2.0-14.0) % Eos % (Auto) 3.5 (0.0-5.0) % Baso % (Auto) 0.3 (0.0-2.0) % Neut # (Auto) 4.03 (1.40-7.00) K/uL Lymph # (Auto) 1.71 (0.50-3.50) K/uL [place] # (Auto) 0.53 (0.00-1.00) K/uL Eos # (Auto) 0.23 (0.00-0.50) K/uL Baso # (Auto) 0.02 (0.00-0.20) K/uL Sodium 141 (136-145) mmol/L Potassium 4.8 (3.5-5.1) mmol/L Chloride 103 (98-107) mmol/L Carbon Dioxide 29.4 (21.0-32.0) mmol/L BUN 21 H (7-18) mg/dL Creatinine 0.94 (0.51-1.17) mg/dL Est Cr Clr Drug Dosing 80.26 mL/min Estimated GFR (MDRD) > 60 mL/min Glucose 113 H (74-106) mg/dL Calcium 9.6 (8.5-10.1) mg/dL Total Bilirubin 0.8 (0.2-1.0) mg/dL AST 11 L (15-37) U/L ALT 20 (12-78) U/L Alkaline Phosphatase 126 H (46-116) IU/L NT-Pro-B Natriuret Pep 373 H (0-125) pg/mL Total Protein 7.9 (6.4-8.2) g/dL Albumin 4.1 (3.4-5.0) g/dL Meds: Medications Discontinued Medications Generic Name Dose Route Start Last Admin Trade Name Freq PRN Reason Stop Dose Admin Albuterol/Ipratropium 3 ml 10/04/19 11:25 10/04/19 11:35 Duoneb 3.0-0.5 Mg/3 Ml NEB 10/04/19 11:26 3 ml ONETIME ONE Administration Methylprednisolone Sodium Succinate 125 mg 10/04/19 12:16 10/04/19 12:23 Solu-Medrol IVPUSH 10/04/19 12:17 125 mg ONETIME ONE Administration - Re-Assessments/Exams Free Text/Narrative Re-Assessment/Exam: 10/04/19 12:52 Se lab and CXR Pt given IV Solu-medrol and Duo-neb and feels much better Departure - Departure Time of Disposition: 13:00 Disposition: Home, Self-Care 01 Clinical Impression: COPD (chronic obstructive pulmonary disease) Qualifiers: COPD type: COPD with acute exacerbation Qualified Code(s): J44.1 - Chronic obstructive pulmonary disease with (acute) exacerbation - Discharge Information *PRESCRIPTION DRUG MONITORING PROGRAM REVIEWED*: Not Applicable *COPY OF PRESCRIPTION DRUG MONITORING REPORT IN PATIENT [place]: Not Applicable Instructions: Shortness of Breath, Adult, [id number] Referrals: Sara Tyler, CLINIC SCHEDULER [Primary Care Provider] - Additional Instructions: Follow up in clinic Sepsis Event Note - Evaluation Sepsis Screening Result: No Definite Risk - Focused Exam Vital Signs: Vital Signs Temp Pulse Resp BP Pulse Ox 01/03/20 12:48 71 22 H 121/91 H 98 10/04/19 12:27 72 20 114/68 97 10/04/19 12:13 73 20 114/67 98 10/04/19 11:30 79 20 101/80 97 10/04/19 11:17 36.6 C 83 16 161/73 H 100 Date Exam was Performed: 10/04/19 Time Exam was Performed: 12:51 - My Orders Last 24 Hours: My Active Orders 10/04/19 11:23 Chest 2V [CR] Stat 10/04/19 11:25 RT Aerosol Therapy [RC] ASDIRECTED - Assessment/Plan Last 24 Hours: My Active Orders 10/04/19 11:23 Chest 2V [CR] Stat 10/04/19 11:25 RT Aerosol Therapy [RC] ASDIRECTED
== END 2019-10-04 13:20 | disposition home or self-care (01) ==
LOC: LL.ED 11:15
DX: J44.1 Chronic obstructive pulmonary disease with (acute) exacerbation (principal); I11.0 Hypertensive heart disease with heart failure; I50.9 Heart failure, unspecified; E78.00 Pure hypercholesterolemia, unspecified; M19.90 Unspecified osteoarthritis, unspecified site; E66.9 Obesity, unspecified; Z68.33 Body mass index [BMI] 33.0-33.9, adult; F17.210 Nicotine dependence, cigarettes, uncomplicated; Z79.899 Other long term (current) drug therapy; Z79.82 Long term (current) use of aspirin
CPT/HCPCS: 36415; 71046; 80053; 83880; 85025; 96374; 99284; 99285-25; J2930; J7620-GY

== ENCOUNTER 2019-10-25 12:06 | Emergency (ER) | payer MEDICARE ==
[2019-10-25 12:53] VITALS: BP 139/81; PULSE 97
[2019-10-25 12:56] LABS: CHLORIDE,CL 99 mmol/L (98-107); SODIUM,NA 137 mmol/L (136-145)
[2019-10-25] MEDS ORDERED: Albuterol/Ipratropium 3.0-0.5 MG/3 ML Neb Soln NEB ONE (13:28)
[2019-10-25] MEDS ORDERED: prednisoLONE Syrup 5 MG/5 ML ML 120 ML Bottle PO ONE (13:36)
--- NOTE | 2019-10-25 13:41 | EDM.PDOC ---
ED HPI GENERAL MEDICAL PROBLEM - General Chief Complaint: Respiratory Problem Stated Complaint: shortness of breath Time Seen by Provider: 10/25/19 12:20 Source of Information: Reports: Patient History Limitations: Reports: No Limitations - History of Present Illness INITIAL COMMENTS - FREE TEXT/NARRATIVE: Patient comes to ER with complaint of increasing SOB over the last few days. Hx of COPD. O2 dependent, on 4L. No other acute changes. Denies recent med changes/illness/URI/fevers. - Related Data Allergies Allergy/AdvReac Type Severity Reaction Status Date / Time No Known Allergies Allergy Verified 10/25/19 12:12 Home Meds: Home Meds Lisinopril 20 mg PO DAILY 11/03/17 [History] Potassium Chloride [Klor-Con M20] 20 meq PO DAILY 11/03/17 [History] atorvaSTATin [Lipitor] 20 mg PO 1800 11/03/17 [History] Acetaminophen [Tylenol] 650 mg PO Q4H PRN tablet 11/07/17 [Rx] Albuterol/Ipratropium [DuoNeb 3.0-0.5 MG/3 ML] 3 ml NEB Q4HRRT PRN 30 Days #120 neb 11/07/17 [Rx] Furosemide [Lasix] 40 mg PO DAILY 30 Days #30 tab 11/07/17 [Rx] Fluticasone Propionate [Flonase] 1 sprays NASBOTH BID PRN 11/16/17 [History] Aspirin [Ecotrin EC] 81 mg PO DAILY 01/07/18 [History] bisacodyL [Dulcolax] 5 mg PO ASDIRECTED PRN 03/28/18 [History] Budesonide [Pulmicort] 0.5 mg NEB BIDRT 30 Days #60 neb 03/31/18 [Rx] Arformoterol [Brovana] 15 mcg INH Q12HR #1 box 11/23/18 [Rx] Magnesium Oxide [Magnesium] 400 mg PO DAILY #90 capsule 10/25/19 [Rx] predniSONE [Prednisone] 40 mg PO DAILY #8 tablet 10/25/19 [Rx] Past Medical History - Past Health History Medical/Surgical History: Denies Medical/Surgical History HEENT History: Reports: Impaired Vision, Other (See Below) Other HEENT History: Patient wears reading glasses Cardiovascular History: Reports: Arrhythmia, Heart Failure, Heart Murmur, High Cholesterol, Hypertension Other Cardiovascular History: Incomplete right bundle branch block, PVCs and PACs diagnosed on 04/24/17 with subsequent probable SVT diagnosed in April 2017. Chronic dependent edema. Grade 1 diastolic dysfunction by echocardiogram in April 2017. Respiratory History: Reports: Bronchitis, Recurrent, COPD, Intubation, Previous , Pneumonia, Recurrent, Pneumothorax, Pulmonary Fibrosis, Other (See Below) Other Respiratory History: O2 dependent COPD with current use of 4 L/m by nasal cannula. 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 Spontaneous right sided pneumothorax on 01/07/18. Gastrointestinal History: Reports: Chronic Constipation, Colon Polyp, Hemorrhoids Other Gastrointestinal History: Tubular adenoma 2 in the transverse colon by incomplete colonoscopy as below with additional large sigmoid polyp by barium enema on 12/14/17. Umbilical hernia. Genitourinary History: Reports: BPH, Retention, Urinary, UTI, Recurrent, Other ( See Below) Other Genitourinary History: Neurogenic bladder with self catherizations. Musculoskeletal History: Reports: Arthritis, Back Pain, Chronic, Neck Pain, Chronic, Osteoarthritis Neurological History: Reports: None Psychiatric History: Reports: None Endocrine/Metabolic History: Reports: Obesity/BMI 30+, Other (See Below) Other Endocrine/Metabolic History: Hypomagnesemia. 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 Immunologic History: Reports: None Oncologic (Cancer) History: Reports: None Dermatologic History: Reports: None - Infectious Disease History Infectious Disease History: Reports: Chicken Pox, Mumps, Shingles - Past Surgical History Head Surgeries/Procedures: Reports: None HEENT Surgical History: Reports: Oral Surgery, Other (See Below) Other HEENT Surgeries/Procedures: Complete teeth extraction with complete dentures uppers and lowers. Cardiovascular Surgical History: Reports: None Respiratory Surgical History: Reports: Other (See Below) Other Respiratory Surgeries/Procedures: Chest tube insertion for spontaneous pneumothorax on 01/07/18. GI Surgical History: Reports: Colonoscopy, Polypectomy, Other (See Below) Other GI Surgeries/Procedures: Polypectomy 2 of tubular adenomas in the transverse colon as above. Incomplete Colonoscopy secondary to poor bowel preparation and tortuous colon on 11/16/17 with follow-up enema as below. Male Surgical History: Reports: Circumcision, Suprapubic Catheter Placement, TURP-Transurethral Resection of Prostate, Other (See Below) Other Male Surgeries/Procedures: Circumcision as an , TURP 2 initially in 2008 and then in 2010, suprapubic catheter placement in 2010 Endocrine Surgical History: Reports: None Neurological Surgical History: Reports: None Musculoskeletal Surgical History: Reports: None Oncologic Surgical History: Reports: None Dermatological Surgical History: Reports: None - Past Imaging History Past Imaging History: Reports: Barium Enema (12/14/17), Cardiac Echo (04/25/17 with ejection fraction of 5560 percent and otherwise results as above), CAT Scan (CT of the chest on 08/11/19.) Social & Family History - Family History HEENT: Reports: None Cardiac: Reports: CAD, Hypertension, [place], Other (See Below) Other Cardiac Family History: Brother with hypertension, mother with fatal OH at age 75 Respiratory: Reports: COPD, Other (See Below) Other Respiratory Family Hisory: Father with COPD with history of tobacco use GI: Reports: None : Reports: None OBGYN: Reports: None Musculoskeletal: Reports: Arthritis, Osteoarthritis, Other (See Below) Other Musculoskeletal Family History: Brother with osteoarthritis Neurological: Reports: None Psychiatric: Reports: None Endocrine/Metabolic: Reports: Diabetes, type II, IDDM, Other (See Below) Other Endocrine/Metabolic Family History: Mother with IDDM Hematologic: Reports: None Immunologic: Reports: None Dermatologic: Reports: None Oncologic: Reports: None - Tobacco Use Smoking Status *Q: Current Every Day Smoker Years of Tobacco use: 50 Packs/Tins Daily: 0.7 Used Tobacco, but Quit: No Second Hand Smoke Exposure: No - Caffeine Use Caffeine Use: Reports: Coffee - Recreational Drug Use Recreational Drug Use: No - Living Situation & Occupation Living situation: Reports: Single ( in 2010 with no children with his although his did have children from a previous relationship), Alone 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 Denies: Pleuritic Chest Pain, Cough , Sputum, Hemoptysis Cardiovascular: Reports: No Symptoms, Edema (has chronic lower leg edema, unchanged from baseline). Denies: Chest Pain, Lightheadedness GI/Abdominal: Reports: No Symptoms : Reports: No Symptoms Musculoskeletal: Reports: No Symptoms (no acute changes from baseline) Skin: Reports: No Symptoms Neurological: Reports: No Symptoms Psychiatric: Reports: No Symptoms Hematologic/Lymphatic: Reports: No Symptoms ED EXAM, GENERAL - Physical Exam Exam: See Below Exam Limited By: No Limitations General Appearance: Alert, WD/WN, No Apparent Distress Eye Exam: Bilateral Eye: EOMI, PERRL Ears: Hearing Grossly Normal Nose: No: Nasal Deformity, Nasal Swelling, Nasal Drainage Throat/Mouth: Normal Lips, Normal Voice, No Airway Compromise Head: Atraumatic, Normocephalic Neck: Supple, Non-Tender, Full Range of Motion Respiratory/Chest: No Respiratory Distress, Decreased Breath Sounds (throughout) . No: Rhonchi, Wheezing, Accessory Muscle Use, Retractions Cardiovascular: Normal Peripheral Pulses, Regular Rate, Rhythm, No Murmur GI/Abdominal: Soft, Non-Tender, No Distention (Male) Exam: Deferred Rectal (Males) Exam: Deferred Back Exam: No: Muscle Spasm Neurological: Alert, Oriented, Normal Cognition Psychiatric: Normal Affect, Normal Mood Skin Exam: Warm, Dry, Intact, Normal Color EKG INTERPRETATION EKG Date: 10/25/19 Time: 12:25 Rhythm: NSR Rate (Beats/Min): 90 [place]: Normal P-Wave: Present QRS: Normal ST-T: Normal QT: Prolonged Comparison: Other: (Has prolonged QT today) Course - Vital Signs Last Recorded V/S: Last Vital Signs Temp 37.0 C 10/25/19 12:08 Pulse 97 10/25/19 12:15 Resp 20 10/25/19 12:15 BP 139/81 10/25/19 12:15 Pulse Ox 98 10/25/19 12:15 - Orders/Labs/Meds Orders: Active Orders 24 hr Category Date Time Status EKG Documentation Completion [RC] ASDIRECTED Care 10/25/19 12:23 Active RT Aerosol Therapy [RC] ASDIRECTED Care 10/25/19 13:28 Ordered Chest 2V [CR] Stat Exams 10/25/19 12:22 Taken EKG 12 Lead [EK] Urgent Ther 10/25/19 12:23 Ordered Labs: Laboratory Tests 10/25/19 10/25/19 10/25/19 Range/Units 12:20 12:20 12:20 WBC 7.0 (4.0-10.2) K/uL RBC 5.28 (4.33-5.41) M/uL Hgb 14.5 (13.1-16.8) g/dL Hct 44.1 (39.0-49.0) % MCV 83.5 L D (84.0-98.0) fL MCH 27.5 L (28.2-33.3) pg MCHC 32.9 (31.7-36.0) g/dL RDW 12.8 (11.2-14.1) % Plt Count 212 (150-350) K/uL Neut % (Auto) 60.4 (45.0-80.0) % Lymph % (Auto) 28.2 (10.0-50.0) % [place] % (Auto) 8.7 (2.0-14.0) % Eos % (Auto) 2.1 (0.0-5.0) % Baso % (Auto) 0.6 (0.0-2.0) % Neut # (Auto) 4.22 (1.40-7.00) K/uL Lymph # (Auto) 1.97 (0.50-3.50) K/uL [place] # (Auto) 0.61 (0.00-1.00) K/uL Eos # (Auto) 0.15 (0.00-0.50) K/uL Baso # (Auto) 0.04 (0.00-0.20) K/uL D-Dimer, Quantitative 449 H (0-400) ng/mL Sodium 137 (136-145) mmol/L Potassium 4.2 (3.5-5.1) mmol/L Chloride 99 (98-107) mmol/L Carbon Dioxide 24.9 (21.0-32.0) mmol/L BUN 18 (7-18) mg/dL Creatinine 0.96 (0.51-1.17) mg/dL Est Cr Clr Drug Dosing 78.59 mL/min Estimated GFR (MDRD) > 60 mL/min Glucose 122 H (74-106) mg/dL Calcium 9.3 (8.5-10.1) mg/dL Magnesium 1.7 L (1.8-2.4) mg/dL Total Bilirubin 0.8 (0.2-1.0) mg/dL AST 15 (15-37) U/L ALT 21 (12-78) U/L Alkaline Phosphatase 132 H (46-116) IU/L NT-Pro-B Natriuret Pep 252 H (0-125) pg/mL Total Protein 7.7 (6.4-8.2) g/dL Albumin 4.2 (3.4-5.0) g/dL Meds: Medications Discontinued Medications Generic Name Dose Route Start Last Admin Trade Name Casimiro PRN Reason Stop Dose Admin Albuterol/Ipratropium 3 ml 10/25/19 13:28 10/25/19 13:49 Duoneb 3.0-0.5 Mg/3 Ml NEB 10/25/19 13:29 3 ml ONETIME ONE Administration Prednisolone 40 mg 10/25/19 13:36 Prelone 5 Mg/5 Ml PO 10/25/19 13:37 ONETIME ONE Prednisone 40 mg 10/26/19 13:37 Prednisone PO 10/26/19 13:38 ONETIME ONE Prednisone 40 mg 10/25/19 13:58 Prednisone PO 10/25/19 13:59 ONETIME ONE - Radiology Interpretation Free Text/Narrative:: Chest xray: bullae noted RLL. No new infiltrated when compared to prior films. No pneumothorax noted. - Re-Assessments/Exams Free Text/Narrative Re-Assessment/Exam: Suspect COPD exacerbation based on history/exam/chest films/labs. Prednisone PO and DuoNeb ordered. BP initially elevated but quickly improved. BNP only minimally increased. No evidence of acute CHF noted on chest films. Mg mildly decreased. Pt has stable O2 sats/respiratory rate on usual 4L of O2 per [place]. DDimer 449. Was 544 on Sep 19 and patient had negative chest CT scan for PE at that time. After discussing lab elevation with patient he declined new CT given that the DDimer was overall improved and the recent negative CT scan. He will observe for any worsening symptoms and said he would be agreeable with obtaining another CT scan in no improvement is noted over the next few days. Plan is to continue Prednisone for several days and have patient follow up Monday with clinic for recheck. Precautions reviewed with patient. He is to return to the ER over the weekend if he has worsening symptoms. Initiate Mg replacement Departure - Departure Time of Disposition: 13:54 Disposition: Home, Self-Care 01 Condition: Good Clinical Impression: Hypomagnesemia, Elevated d-dimer COPD (chronic obstructive pulmonary disease) Qualifiers: COPD type: COPD with acute exacerbation Qualified Code(s): J44.1 - Chronic obstructive pulmonary disease with (acute) exacerbation - Discharge Information *PRESCRIPTION DRUG MONITORING PROGRAM REVIEWED*: Not Applicable *COPY OF PRESCRIPTION DRUG MONITORING REPORT IN PATIENT [place]: Not Applicable Prescriptions: Magnesium Oxide [Magnesium] 400 mg PO DAILY #90 capsule predniSONE [Prednisone] 40 mg PO DAILY #8 tablet Referrals: Sara Tyler, STAFFING ASSOCIATE [Primary Care Provider] - Forms: ED Department Discharge Additional Instructions: Continue neb treatments at home every 6 hours (scheduled). You may do them every 4 hours if that is more helpful. Take the Prednisone once a day. You were given your first dose in the ER. Take the next dose tomorrow morning. Follow up Monday at the clinic for recheck. Follow up over the weekend if you are having worsening problems. Sepsis Event Note - Evaluation Sepsis Screening Result: No Definite Risk - Focused Exam Vital Signs: Vital Signs Temp Pulse Resp BP Pulse Ox 10/25/19 12:15 97 20 139/81 98 10/25/19 12:08 37.0 C 101 H 22 H 156/102 H 99 Date Exam was Performed: 10/25/19 Time Exam was Performed: 14:00 - My Orders Last 24 Hours: My Active Orders 10/25/19 12:22 Chest 2V [CR] Stat 10/25/19 12:23 EKG Documentation Completion [RC] ASDIRECTED EKG 12 Lead [EK] Urgent 10/25/19 13:28 RT Aerosol Therapy [RC] ASDIRECTED - Assessment/Plan Last 24 Hours: My Active Orders 10/25/19 12:22 Chest 2V [CR] Stat 10/25/19 12:23 EKG Documentation Completion [RC] ASDIRECTED EKG 12 Lead [EK] Urgent 10/25/19 13:28 RT Aerosol Therapy [RC] ASDIRECTED
[2019-10-25] MEDS ORDERED: predniSONE 20 MG Tab PO ONE (13:58)
[2019-10-26] MEDS ORDERED: predniSONE 20 MG Tab PO ONE (13:37)
== END 2019-10-25 14:20 | disposition home or self-care (01) ==
LOC: LL.ED 12:06
DX: J44.1 Chronic obstructive pulmonary disease with (acute) exacerbation (principal); E83.42 Hypomagnesemia; R79.1 Abnormal coagulation profile; I11.0 Hypertensive heart disease with heart failure; I50.9 Heart failure, unspecified; E66.9 Obesity, unspecified; F17.210 Nicotine dependence, cigarettes, uncomplicated; Z79.82 Long term (current) use of aspirin; Z79.899 Other long term (current) drug therapy; Z79.51 Long term (current) use of inhaled steroids; Z68.33 Body mass index [BMI] 33.0-33.9, adult
CPT/HCPCS: 36415; 71046; 80053; 83735; 83880; 85025; 85379; 93005; 99285; A9270; J7620-GY

== ENCOUNTER 2019-12-14 15:13 | Emergency (ER) | payer MEDICARE ==
[2019-12-14 15:16] VITALS: BP 139/97; PULSE 67
[2019-12-14 15:59] LABS: CHLORIDE,CL 103 mmol/L (98-107); SODIUM,NA 142 mmol/L (136-145)
--- NOTE | 2019-12-14 16:13 | EDM.PDOC ---
ED HPI GENERAL MEDICAL PROBLEM - General Chief Complaint: Respiratory Problem Stated Complaint: SOB Time Seen by Provider: 12/14/19 15:40 Source of Information: Reports: Patient History Limitations: Reports: No Limitations - History of Present Illness INITIAL COMMENTS - FREE TEXT/NARRATIVE: Patient comes to ER complaining of increased baseline SOB over the last few days. O2 depended COPD/still smokes. Usually on 4 L. Has not had to increase home O2. Denies any other changes/recent illness/signs of oncoming illness/med changes. Says he usually has worse time when humidity in air increases. No new pain complaints/headache/chest pain. No URI complaints/congestion/sore throat. No new cough/sputum production. No GI changes such as nausea/emesis/bowel changes. Is eating and drinking well. No changes/UTI complaints/hematuria. No new musculoskeletal issues/injuries/swelling/focal changes. No neuro changes reported. No fevers/chills. - Related Data Allergies Allergy/AdvReac Type Severity Reaction Status Date / Time No Known Allergies Allergy Verified 12/14/19 15:16 Home Meds: Home Meds Lisinopril 20 mg PO DAILY 11/03/17 [History] Potassium Chloride [Klor-Con M20] 20 meq PO DAILY 11/03/17 [History] atorvaSTATin [Lipitor] 20 mg PO 1800 11/03/17 [History] Acetaminophen [Tylenol] 650 mg PO Q4H PRN tablet 11/07/17 [Rx] Albuterol/Ipratropium [DuoNeb 3.0-0.5 MG/3 ML] 3 ml NEB Q4HRRT PRN 30 Days #120 neb 11/07/17 [Rx] Furosemide [Lasix] 40 mg PO DAILY 30 Days #30 tab 11/07/17 [Rx] Fluticasone Propionate [Flonase] 1 sprays NASBOTH BID PRN 11/16/17 [History] Aspirin [Ecotrin EC] 81 mg PO DAILY 01/07/18 [History] bisacodyL [Dulcolax] 5 mg PO ASDIRECTED PRN 03/28/18 [History] Budesonide [Pulmicort] 0.5 mg NEB BIDRT 30 Days #60 neb 03/31/18 [Rx] Arformoterol [Brovana] 15 mcg INH Q12HR #1 box 11/23/18 [Rx] Past Medical History - Past Health History Medical/Surgical History: Denies Medical/Surgical History HEENT History: Reports: Impaired Vision, Other (See Below) Other HEENT History: Patient wears reading glasses Cardiovascular History: Reports: Arrhythmia, Heart Failure, Heart Murmur, High Cholesterol, Hypertension Other Cardiovascular History: Incomplete right bundle branch block, PVCs and PACs diagnosed on 04/24/17 with subsequent probable SVT diagnosed in April 2017. Chronic dependent edema. Grade 1 diastolic dysfunction by echocardiogram in April 2017. Respiratory History: Reports: Bronchitis, Recurrent, COPD, Intubation, Previous , Pneumonia, Recurrent, Pneumothorax, Pulmonary Fibrosis, Other (See Below) Other Respiratory History: O2 dependent COPD with current use of 4 L/m by nasal cannula. 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 Spontaneous right sided pneumothorax on 01/07/18. Gastrointestinal History: Reports: Chronic Constipation, Colon Polyp, Hemorrhoids Other Gastrointestinal History: Tubular adenoma 2 in the transverse colon by incomplete colonoscopy as below with additional large sigmoid polyp by barium enema on 12/14/17. Umbilical hernia. Genitourinary History: Reports: BPH, Retention, Urinary, UTI, Recurrent, Other ( See Below) Other Genitourinary History: Neurogenic bladder with self catherizations. Musculoskeletal History: Reports: Arthritis, Back Pain, Chronic, Neck Pain, Chronic, Osteoarthritis Neurological History: Reports: None Psychiatric History: Reports: None Endocrine/Metabolic History: Reports: Obesity/BMI 30+, Other (See Below) Other Endocrine/Metabolic History: Hypomagnesemia. 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 Immunologic History: Reports: None Oncologic (Cancer) History: Reports: None Dermatologic History: Reports: None - Infectious Disease History Infectious Disease History: Reports: Chicken Pox, Mumps, Shingles - Past Surgical History Head Surgeries/Procedures: Reports: None HEENT Surgical History: Reports: Oral Surgery, Other (See Below) Other HEENT Surgeries/Procedures: Complete teeth extraction with complete dentures uppers and lowers. Cardiovascular Surgical History: Reports: None Respiratory Surgical History: Reports: Other (See Below) Other Respiratory Surgeries/Procedures: Chest tube insertion for spontaneous pneumothorax on 01/07/18. GI Surgical History: Reports: Colonoscopy, Polypectomy, Other (See Below) Other GI Surgeries/Procedures: Polypectomy 2 of tubular adenomas in the transverse colon as above. Incomplete Colonoscopy secondary to poor bowel preparation and tortuous colon on 11/16/17 with follow-up enema as below. Male Surgical History: Reports: Circumcision, Suprapubic Catheter Placement, TURP-Transurethral Resection of Prostate, Other (See Below) Other Male Surgeries/Procedures: Circumcision as an infant, TURP 2 initially in 2008 and then in 2009, suprapubic catheter placement in 2009 Endocrine Surgical History: Reports: None Neurological Surgical History: Reports: None Musculoskeletal Surgical History: Reports: None Oncologic Surgical History: Reports: None Dermatological Surgical History: Reports: None - Past Imaging History Past Imaging History: Reports: Barium Enema (12/14/17), Cardiac Echo (04/25/17 with ejection fraction of 5560 percent and otherwise results as above), CAT Scan (CT of the chest on 08/11/19.) Social & Family History - Family History HEENT: Reports: None Cardiac: Reports: CAD, Hypertension, DE, Other (See Below) Other Cardiac Family History: Brother with hypertension, mother with fatal DE at age 75 Respiratory: Reports: COPD, Other (See Below) Other Respiratory Family Hisory: Father with COPD with history of tobacco use GI: Reports: None : Reports: None OBGYN: Reports: None Musculoskeletal: Reports: Arthritis, Osteoarthritis, Other (See Below) Other Musculoskeletal Family History: Brother with osteoarthritis Neurological: Reports: None Psychiatric: Reports: None Endocrine/Metabolic: Reports: Diabetes, type II, IDDM, Other (See Below) Other Endocrine/Metabolic Family History: Mother with IDDM Hematologic: Reports: None Immunologic: Reports: None Dermatologic: Reports: None Oncologic: Reports: None - Tobacco Use Smoking Status *Q: Current Every Day Smoker Years of Tobacco use: 55 Packs/Tins Daily: 1 Smoking Cessation Information Provided To Patient: Patient Refused - Caffeine Use Caffeine Use: Reports: Coffee - Recreational Drug Use Recreational Drug Use: No - Living Situation & Occupation Living situation: Reports: Single ( in 2009 with no children with his although his did have children from a previous relationship), Alone Occupation: 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 ED EXAM, GENERAL - Physical Exam Exam: See Below Exam Limited By: No Limitations General Appearance: Alert, WD/WN, No Apparent Distress Eye Exam: Bilateral Eye: EOMI, PERRL Ears: Hearing Grossly Normal Nose: No: Nasal Deformity, Nasal Swelling, Nasal Drainage, Nasal Flaring Throat/Mouth: Normal Lips, Normal Voice, No Airway Compromise. No: Perioral Cyanosis Head: Atraumatic, Normocephalic. No: Facial Swelling Neck: Supple, Non-Tender Respiratory/Chest: No Respiratory Distress, No Accessory Muscle Use, Decreased Breath Sounds (bilateral bases), Rales (faint, at bases), Wheezing (minimal, bilateral). No: Stridor Cardiovascular: Normal Peripheral Pulses, Regular Rate, Rhythm, No Murmur GI/Abdominal: Soft, Non-Tender, No Distention (Male) Exam: Deferred Rectal (Males) Exam: Deferred Back Exam: No: Muscle Spasm Extremities: Non-Tender, Normal Capillary Refill Neurological: Alert, Oriented, Normal Cognition, Other (equal tone/strength bilaterally) Psychiatric: Normal Affect, Normal Mood Skin Exam: Warm, Dry, Intact, Normal Color Course - Vital Signs Last Recorded V/S: Last Vital Signs Temp 36.4 C 12/14/19 15:13 Pulse 67 12/14/19 15:13 Resp 24 H 12/14/19 15:13 BP 139/97 H 12/14/19 15:13 Pulse Ox 99 12/14/19 15:13 - Orders/Labs/Meds Orders: Active Orders 24 hr Category Date Time Status CXR [Chest 2V] [CR] Stat Exams 12/14/19 15:33 Taken Labs: Laboratory Tests 12/14/19 12/14/19 12/14/19 Range/Units 15:32 15:32 15:32 WBC 6.6 (4.0-10.2) K/uL RBC 5.45 H (4.33-5.41) M/uL Hgb 14.9 (13.1-16.8) g/dL Hct 46.5 (39.0-49.0) % MCV 85.3 (84.0-98.0) fL MCH 27.3 L (28.2-33.3) pg MCHC 32.0 (31.7-36.0) g/dL RDW 12.9 (11.2-14.1) % Plt Count 191 (150-350) K/uL Neut % (Auto) 51.8 (45.0-80.0) % Lymph % (Auto) 34.6 (10.0-50.0) % [place] % (Auto) 9.6 (2.0-14.0) % Eos % (Auto) 3.5 (0.0-5.0) % Baso % (Auto) 0.5 (0.0-2.0) % Neut # (Auto) 3.40 (1.40-7.00) K/uL Lymph # (Auto) 2.27 (0.50-3.50) K/uL [place] # (Auto) 0.63 (0.00-1.00) K/uL Eos # (Auto) 0.23 (0.00-0.50) K/uL Baso # (Auto) 0.03 (0.00-0.20) K/uL Sodium 142 (136-145) mmol/L Potassium 4.4 (3.5-5.1) mmol/L Chloride 103 (98-107) mmol/L Carbon Dioxide 30.9 (21.0-32.0) mmol/L BUN 17 (7-18) mg/dL Creatinine 0.95 (0.51-1.17) mg/dL Est Cr Clr Drug Dosing 78.28 mL/min Estimated GFR (MDRD) > 60 mL/min Glucose 92 (74-106) mg/dL Lactic Acid 2.3 H (0.4-2.0) mmol/L Calcium 9.0 (8.5-10.1) mg/dL Total Bilirubin 0.5 (0.2-1.0) mg/dL AST 11 L (15-37) U/L ALT 21 (12-78) U/L Alkaline Phosphatase 108 (46-116) IU/L NT-Pro-B Natriuret Pep 177 H (0-125) pg/mL Total Protein 7.1 (6.4-8.2) g/dL Albumin 4.0 (3.4-5.0) g/dL - Re-Assessments/Exams Free Text/Narrative Re-Assessment/Exam: 12/14/19 16:22 Chest xray shows advanced COPD but no noted acute changes such as infiltrate/ pneumothorax. WBC normal. Chem overall unremarkable. Lactic acid mildly elevated. In absence of signs of illness/no fever/normal WBC suspect this reflects patient's chronic COPD. Plan at this time is to start a 5 day course of Prednisone. Precautions reviewed. He is to be re-evaluated if symptoms worsen/he develops fever or worsening cough. We also discussed precautions to take with oncoming threat of Covid 19 given his chronic medical conditions. Patient agreeable with plan. Departure - Departure Time of Disposition: 16:11 Disposition: Home, Self-Care 01 Condition: Good Clinical Impression: COPD (chronic obstructive pulmonary disease) - Discharge Information *PRESCRIPTION DRUG MONITORING PROGRAM REVIEWED*: Not Applicable *COPY OF PRESCRIPTION DRUG MONITORING REPORT IN PATIENT [place]: Not Applicable Forms: ED Department Discharge Additional Instructions: Take the Prednisone you received today once a day for the next 5 days. One dose is 4 pills. See how you feel over the next few days. If you are not feeling much improvement by Monday, follow up with your primary provider/clinic. If you have sudden worsening problems/fevers follow up as needed in clinic or ER. Sepsis Event Note - Evaluation Sepsis Screening Result: No Definite Risk - Focused Exam Vital Signs: Vital Signs Temp Pulse Resp BP Pulse Ox 12/14/19 15:13 36.4 C 67 24 H 139/97 H 99 Date Exam was Performed: 12/14/19 Time Exam was Performed: 16:17 - My Orders Last 24 Hours: My Active Orders 12/14/19 15:33 CXR [Chest 2V] [CR] Stat - Assessment/Plan Last 24 Hours: My Active Orders 12/14/19 15:33 CXR [Chest 2V] [CR] Stat
== END 2019-12-14 16:22 | disposition home or self-care (01) ==
LOC: LL.ED 15:13
DX: J44.9 Chronic obstructive pulmonary disease, unspecified (principal)
CPT/HCPCS: 36415; 71046; 80053; 83605; 83880; 85025; 99285-25

== ENCOUNTER 2020-02-13 09:12 | Emergency (ER) | payer MEDICARE ==
[2020-02-13 09:17] VITALS: BP 151/78; PULSE 78
[2020-02-13 09:57] LABS: CHLORIDE,CL 101 mmol/L (98-107); SODIUM,NA 136 mmol/L (136-145)
--- NOTE | 2020-02-13 10:18 | EDM.PDOC ---
ED HPI GENERAL MEDICAL PROBLEM - General Chief Complaint: Respiratory Problem Stated Complaint: Shortness of Breath Time Seen by Provider: 02/13/20 09:26 Source of Information: Reports: Patient History Limitations: Reports: No Limitations - History of Present Illness INITIAL COMMENTS - FREE TEXT/NARRATIVE: Patient comes to ER via EMS with isolated complaint of increased SOB. Has hx of COPD and has been seen in ER for similar complaint in past. O2 dependent at home, on 2-4 L Denies other changes such as fever/cough/sputum production. Started this morning. [place] like usual self yesterday. Denies weight gain/increased edema. Treatments IV RN: Reports: Oxygen Other Treatments IV RN: NRB 15L for 10 min, switched to nasal canula - Related Data Allergies Allergy/AdvReac Type Severity Reaction Status Date / Time No Known Allergies Allergy Verified 02/13/20 09:14 Home Meds: Home Meds Lisinopril 20 mg PO DAILY 11/03/17 [History] Potassium Chloride [Klor-Con M20] 20 meq PO DAILY 11/03/17 [History] atorvaSTATin [Lipitor] 20 mg PO 1800 11/03/17 [History] Acetaminophen [Tylenol] 650 mg PO Q4H PRN tablet 11/07/17 [Rx] Albuterol/Ipratropium [DuoNeb 3.0-0.5 MG/3 ML] 3 ml NEB Q4HRRT PRN 30 Days #120 neb 11/07/17 [Rx] Furosemide [Lasix] 40 mg PO DAILY 30 Days #30 tab 11/07/17 [Rx] Fluticasone Propionate [Flonase] 1 sprays NASBOTH BID PRN 11/16/17 [History] Aspirin [Ecotrin EC] 81 mg PO DAILY 01/07/18 [History] bisacodyL [Dulcolax] 5 mg PO ASDIRECTED PRN 03/28/18 [History] Budesonide [Pulmicort] 0.5 mg NEB BIDRT 30 Days #60 neb 03/31/18 [Rx] Arformoterol [Brovana] 15 mcg INH Q12HR #1 box 11/23/18 [Rx] predniSONE 40 mg PO WITHBREAKFAST #5 tab 02/13/20 [Rx] Past Medical History - Past Health History Medical/Surgical History: Denies Medical/Surgical History HEENT History: Reports: Impaired Vision, Other (See Below) Other HEENT History: Patient wears reading glasses Cardiovascular History: Reports: Arrhythmia, Heart Failure, Heart Murmur, High Cholesterol, Hypertension Other Cardiovascular History: Incomplete right bundle branch block, PVCs and PACs diagnosed on 04/24/17 with subsequent probable SVT diagnosed in April 2017. Chronic dependent edema. Grade 1 diastolic dysfunction by echocardiogram in April 2017. Respiratory History: Reports: Bronchitis, Recurrent, COPD, Intubation, Previous , Pneumonia, Recurrent, Pneumothorax, Pulmonary Fibrosis, Other (See Below) Other Respiratory History: O2 dependent COPD with current use of 4 L/m by nasal cannula. 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 Spontaneous right sided pneumothorax on 01/07/18. Gastrointestinal History: Reports: Chronic Constipation, Colon Polyp, Hemorrhoids Other Gastrointestinal History: Tubular adenoma 2 in the transverse colon by incomplete colonoscopy as below with additional large sigmoid polyp by barium enema on 12/14/17. Umbilical hernia. Genitourinary History: Reports: BPH, Retention, Urinary, UTI, Recurrent, Other ( See Below) Other Genitourinary History: Neurogenic bladder with self catherizations. Musculoskeletal History: Reports: Arthritis, Back Pain, Chronic, Neck Pain, Chronic, Osteoarthritis Neurological History: Reports: None Psychiatric History: Reports: None Endocrine/Metabolic History: Reports: Obesity/BMI 30+, Other (See Below) Other Endocrine/Metabolic History: Hypomagnesemia. 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 Immunologic History: Reports: None Oncologic (Cancer) History: Reports: None Dermatologic History: Reports: None - Infectious Disease History Infectious Disease History: Reports: Chicken Pox, Mumps, Shingles - Past Surgical History Head Surgeries/Procedures: Reports: None HEENT Surgical History: Reports: Oral Surgery, Other (See Below) Other HEENT Surgeries/Procedures: Complete teeth extraction with complete dentures uppers and lowers. Cardiovascular Surgical History: Reports: None Respiratory Surgical History: Reports: Other (See Below) Other Respiratory Surgeries/Procedures: Chest tube insertion for spontaneous pneumothorax on 01/07/18. GI Surgical History: Reports: Colonoscopy, Polypectomy, Other (See Below) Other GI Surgeries/Procedures: Polypectomy 2 of tubular adenomas in the transverse colon as above. Incomplete Colonoscopy secondary to poor bowel preparation and tortuous colon on 2/15/18 with follow-up enema as below. Male Surgical History: Reports: Circumcision, Suprapubic Catheter Placement, TURP-Transurethral Resection of Prostate, Other (See Below) Other Male Surgeries/Procedures: Circumcision as an , TURP 2 initially in 2008 and then in 2009, suprapubic catheter placement in 2009 Endocrine Surgical History: Reports: None Neurological Surgical History: Reports: None Musculoskeletal Surgical History: Reports: None Oncologic Surgical History: Reports: None Dermatological Surgical History: Reports: None - Past Imaging History Past Imaging History: Reports: Barium Enema (12/14/17), Cardiac Echo (04/25/17 with ejection fraction of 5560 percent and otherwise results as above), CAT Scan (CT of the chest on 08/11/19.) Social & Family History - Family History HEENT: Reports: None Cardiac: Reports: CAD, Hypertension, [place], Other (See Below) Other Cardiac Family History: Brother with hypertension, mother with fatal [place] at age 75 Respiratory: Reports: COPD, Other (See Below) Other Respiratory Family Hisory: Father with COPD with history of tobacco use GI: Reports: None : Reports: None OBGYN: Reports: None Musculoskeletal: Reports: Arthritis, Osteoarthritis, Other (See Below) Other Musculoskeletal Family History: Brother with osteoarthritis Neurological: Reports: None Psychiatric: Reports: None Endocrine/Metabolic: Reports: Diabetes, type II, IDDM, Other (See Below) Other Endocrine/Metabolic Family History: Mother with IDDM Hematologic: Reports: None Immunologic: Reports: None Dermatologic: Reports: None Oncologic: Reports: None - Tobacco Use Smoking Status *Q: Current Every Day Smoker Years of Tobacco use: 55 Packs/Tins Daily: 0.5 - Caffeine Use Caffeine Use: Reports: Coffee Other Caffeine Use: 1 pot per day - Recreational Drug Use Recreational Drug Use: No - Living Situation & Occupation Living situation: Reports: Single ( in 2009 with no children with his although his did have children from a previous relationship), Alone 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 Denies: Pleuritic Chest Pain, Cough, Sputum, Hemoptysis Cardiovascular: Reports: Dyspnea on Exertion. Denies: Chest Pain, Edema, Lightheadedness, Palpitations, Syncope GI/Abdominal: Reports: No Symptoms : Reports: No Symptoms Musculoskeletal: Reports: Other (no acute changes from baseline) Skin: Reports: No Symptoms Neurological: Reports: No Symptoms Psychiatric: Reports: No Symptoms Hematologic/Lymphatic: Reports: No Symptoms ED EXAM, GENERAL - Physical Exam Exam: See Below Exam Limited By: No Limitations General Appearance: Alert, WD/WN, No Apparent Distress Eye Exam: Bilateral Eye: EOMI, PERRL Ears: Hearing Grossly Normal Nose: No: Nasal Deformity, Nasal Swelling, Nasal Drainage Throat/Mouth: Normal Lips, Normal Voice, No Airway Compromise Head: Atraumatic, Normocephalic Neck: Normal Inspection, Supple, Non-Tender, Full Range of Motion Respiratory/Chest: No Respiratory Distress, Decreased Breath Sounds (throughout) , Rhonchi (mild/diffuse), Wheezing (mild/diffuse). No: Crackles, Rales, Stridor , Pleural Rub, Retractions Cardiovascular: Regular Rate, Rhythm, No Murmur GI/Abdominal: Normal Bowel Sounds, Soft, Non-Tender, Other (mild umbilical hernia) (Male) Exam: Deferred Rectal (Males) Exam: Deferred Back Exam: Normal Inspection. No: Muscle Spasm, Paraspinal Tenderness, Vertebral Tenderness Extremities: Non-Tender, Normal Capillary Refill, Other (minimal puffiness around ankles/lower legs. ) Neurological: Alert, Oriented, Normal Cognition, Normal Gait, No Motor/Sensory Deficits Psychiatric: Normal Affect, Normal Mood Skin Exam: Warm, Dry, Intact, Normal Color Course - Vital Signs Last Recorded V/S: Last Vital Signs Temp 36.2 C 02/13/20 09:14 Pulse 78 02/13/20 09:14 Resp 20 02/13/20 09:14 BP 151/78 H 02/13/20 09:14 Pulse Ox 96 02/13/20 09:14 - Orders/Labs/Meds Orders: Active Orders 24 hr Category Date Time Status EKG Documentation Completion [RC] ASDIRECTED Care 02/13/20 09:27 Ordered Chest 2V [CR] Stat Exams 02/13/20 09:27 Ordered UA W/MICROSCOPIC [URIN] Stat Lab 05/14/20 09:27 Ordered Sodium Chloride 0.9% [Saline Flush] Med 02/13/20 09:26 Active 10 ml FLUSH ASDIRECTED PRN Saline Lock Insert [OM.PC] Stat Oth 02/13/20 09:27 Ordered Medication Orders Sodium Chloride (Saline Flush) 10 ml FLUSH ASDIRECTED PRN PRN Reason: Keep Vein Open Last Admin: 02/13/20 10:22 Dose: 10 ml Labs: Laboratory Tests 02/13/20 02/13/20 02/13/20 Range/Units 09:25 09:25 09:25 WBC 8.3 (4.0-10.2) K/uL RBC 5.43 H (4.33-5.41) M/uL Hgb 14.8 (13.1-16.8) g/dL Hct 44.9 (39.0-49.0) % MCV 82.7 L (84.0-98.0) fL MCH 27.3 L (28.2-33.3) pg MCHC 33.0 (31.7-36.0) g/dL RDW 13.3 (11.2-14.1) % Plt Count 198 (150-350) K/uL Neut % (Auto) 54.2 (45.0-80.0) % Lymph % (Auto) 31.8 (10.0-50.0) % [place] % (Auto) 8.3 (2.0-14.0) % Eos % (Auto) 5.2 H (0.0-5.0) % Baso % (Auto) 0.5 (0.0-2.0) % Neut # (Auto) 4.52 (1.40-7.00) K/uL Lymph # (Auto) 2.65 (0.50-3.50) K/uL [place] # (Auto) 0.69 (0.00-1.00) K/uL Eos # (Auto) 0.43 (0.00-0.50) K/uL Baso # (Auto) 0.04 (0.00-0.20) K/uL D-Dimer, Quantitative 267 (0-400) ng/mL Sodium 136 (136-145) mmol/L Potassium 4.6 (3.5-5.1) mmol/L Chloride 101 (98-107) mmol/L Carbon Dioxide 26.1 (21.0-32.0) mmol/L BUN 19 H (7-18) mg/dL Creatinine 0.88 (0.51-1.17) mg/dL Est Cr Clr Drug Dosing TNP Estimated GFR (MDRD) > 60 mL/min Glucose 124 H (74-106) mg/dL Lactic Acid (0.4-2.0) mmol/L Calcium 9.3 (8.5-10.1) mg/dL Magnesium 2.0 (1.8-2.4) mg/dL Total Bilirubin 0.7 (0.2-1.0) mg/dL AST 22 (15-37) U/L ALT 22 (12-78) U/L Alkaline Phosphatase 107 (46-116) IU/L Troponin I 0.000 (0.000-0.056) ng/mL NT-Pro-B Natriuret Pep 140 H (0-125) pg/mL Total Protein 7.3 (6.4-8.2) g/dL Albumin 4.1 (3.4-5.0) g/dL 02/13/20 Range/Units 09:25 WBC (4.0-10.2) K/uL RBC (4.33-5.41) M/uL Hgb (13.1-16.8) g/dL Hct (39.0-49.0) % MCV (84.0-98.0) fL MCH (28.2-33.3) pg MCHC (31.7-36.0) g/dL RDW (11.2-14.1) % Plt Count (150-350) K/uL Neut % (Auto) (45.0-80.0) % Lymph % (Auto) (10.0-50.0) % [place] % (Auto) (2.0-14.0) % Eos % (Auto) (0.0-5.0) % Baso % (Auto) (0.0-2.0) % Neut # (Auto) (1.40-7.00) K/uL Lymph # (Auto) (0.50-3.50) K/uL [place] # (Auto) (0.00-1.00) K/uL Eos # (Auto) (0.00-0.50) K/uL Baso # (Auto) (0.00-0.20) K/uL D-Dimer, Quantitative (0-400) ng/mL Sodium (136-145) mmol/L Potassium (3.5-5.1) mmol/L Chloride (98-107) mmol/L Carbon Dioxide (21.0-32.0) mmol/L BUN (7-18) mg/dL Creatinine (0.51-1.17) mg/dL Est Cr Clr Drug Dosing Estimated GFR (MDRD) mL/min Glucose (74-106) mg/dL Lactic Acid 1.2 (0.4-2.0) mmol/L Calcium (8.5-10.1) mg/dL Magnesium (1.8-2.4) mg/dL Total Bilirubin (0.2-1.0) mg/dL AST (15-37) U/L ALT (12-78) U/L Alkaline Phosphatase (46-116) IU/L Troponin I (0.000-0.056) ng/mL NT-Pro-B Natriuret Pep (0-125) pg/mL Total Protein (6.4-8.2) g/dL Albumin (3.4-5.0) g/dL Meds: Medications Generic Name Dose Route Start Last Admin Trade Name Freesha PRN Reason Stop Dose Admin Sodium Chloride 10 ml 02/13/20 09:26 02/13/20 10:22 Saline Flush FLUSH 10 ml ASDIRECTED PRN Administration Keep Vein Open Discontinued Medications Generic Name Dose Route Start Last Admin Trade Name Casimiro PRN Reason Stop Dose Admin Furosemide 20 mg 02/13/20 10:12 02/13/20 10:27 Lasix PO 02/13/20 10:13 20 mg ONETIME ONE Administration Methylprednisolone Sodium Succinate 125 mg 02/13/20 10:04 02/13/20 10:22 Solu-Medrol IVPUSH 02/13/20 10:05 125 mg ONETIME ONE Administration - Re-Assessments/Exams Free Text/Narrative Re-Assessment/Exam: 02/13/20 10:48 Chest xrays showed no acute changes/infiltrates/pneumothorax. Similar appearance to most recent films taken a few months ago. COPD noted. Vital signs stable. O2 sats 95% on 2L. CBC/Chem/Trop/DDimer overall unremarkable. No increase in WBC. ProBNP minimally elevated. No obvious signs of CHF on xray/physical exam. Suspect COPD exacerbation, possibly triggered by recent weather or pollen. No indication of infection. Will give SoluMedrol IV. Rx for short course Prednisone given. Single dose Lasix given in ER to compliment treatment plan however given minimal suspicion for fluid overload issues will not give Rx. He is on Lasix at home and should continue that current dose. Extensive precautions reviewed with patient. He is to follow up with primary provider for any continued concerns. To follow up in ER if he experiences sudden worsening. Patient in agreement with plan. Departure - Departure Time of Disposition: 11:09 Disposition: Home, Self-Care 01 Condition: Good Clinical Impression: COPD with exacerbation - Discharge Information *PRESCRIPTION DRUG MONITORING PROGRAM REVIEWED*: Not Applicable *COPY OF PRESCRIPTION DRUG MONITORING REPORT IN PATIENT [place]: Not Applicable Prescriptions: predniSONE 40 mg PO WITHBREAKFAST #5 tab Instructions: Chronic Obstructive Pulmonary Disease Exacerbation, [id number] Referrals: Sara Tyler WEBBING INSPECTOR [Primary Care Provider] - Forms: ED Department Discharge Additional Instructions: See how you feel over the next few days. The SoluMedrol should kick in today and help you breathe easier. You have a prescription for 5 days of steroid to help continue the treatment. We gave you one diuretic today but for now will avoid a prescription as you do not appear to be too puffy/fluid overloaded. Follow up as needed with your primary clinic if symptoms persist or you have any concerns. Follow up in the ER if you have sudden worsening problems. Sepsis Event Note - Evaluation Sepsis Screening Result: No Definite Risk - Focused Exam Vital Signs: Vital Signs Temp Pulse Resp BP Pulse Ox 02/13/20 09:14 36.2 C 78 20 151/78 H 96 Date Exam was Performed: 02/13/20 Time Exam was Performed: 11:08 - My Orders Last 24 Hours: My Active Orders 02/13/20 09:26 Sodium Chloride 0.9% [Saline Flush] 10 ml FLUSH ASDIRECTED PRN 02/13/20 09:27 EKG Documentation Completion [RC] ASDIRECTED Chest 2V [CR] Stat UA W/MICROSCOPIC [URIN] Stat Saline Lock Insert [OM.PC] Stat - Assessment/Plan Last 24 Hours: My Active Orders 02/13/20 09:26 Sodium Chloride 0.9% [Saline Flush] 10 ml FLUSH ASDIRECTED PRN 02/13/20 09:27 EKG Documentation Completion [RC] ASDIRECTED Chest 2V [CR] Stat UA W/MICROSCOPIC [URIN] Stat Saline Lock Insert [OM.PC] Stat
[2020-02-13] MEDS: Sodium Chloride 0.9% 10 ML Syringe FLUSH PRN (10:22)
[2020-02-13] MEDS: methylPREDNISolone Sodium Succinate 125 MG/2 ML SDV IVPUSH ONE (10:22)
[2020-02-13] MEDS: Furosemide 20 MG Tab PO ONE (10:27)
== END 2020-02-13 11:43 | disposition home or self-care (01) ==
LOC: LL.ED 09:12
DX: J44.1 Chronic obstructive pulmonary disease with (acute) exacerbation (principal); F17.210 Nicotine dependence, cigarettes, uncomplicated; E11.9 Type 2 diabetes mellitus without complications; I11.0 Hypertensive heart disease with heart failure; I50.9 Heart failure, unspecified; E66.9 Obesity, unspecified; E78.00 Pure hypercholesterolemia, unspecified; Z99.81 Dependence on supplemental oxygen; M19.90 Unspecified osteoarthritis, unspecified site; Z79.82 Long term (current) use of aspirin; Z79.899 Other long term (current) drug therapy
CPT/HCPCS: 36415; 71046; 80053; 81001; 83605; 83735; 83880; 84484; 85025; 85379; 93005; 96374; 99285-25; A9270-GY; J2930

== ENCOUNTER 2020-02-24 00:58 | Emergency (ER) | payer MEDICARE, MEDICAID ==
[2020-02-24 01:05] VITALS: BP 146/67; PULSE 89
--- NOTE | 2020-02-24 01:31 | EDM.PDOC ---
ED HPI GENERAL MEDICAL PROBLEM - General Chief Complaint: General Stated Complaint: SHORTNESS OF BREATH, EDEMA Time Seen by Provider: 02/24/20 01:01 Source of Information: Reports: Patient History Limitations: Reports: No Limitations - History of Present Illness INITIAL COMMENTS - FREE TEXT/NARRATIVE: Patient initially presented with two complaints, SOB and inability to self- cath. He later amended his statement to say the main issue was that he was unable to advance the catheter which caused him to be frustrated/working hard and thus he felt a bit SOB while trying to self-cath. He is now back to his baseline respiratory status. Hx COPD/wears NC O2 at home. No previous issues advancing catheter in past. Has been self-cathing for 15-20 years. Recently started on Bactrim due to mild elevation of WBCs in UA. Denies fevers/new pain. No hematuria. Last able to self cath this morning but noted it was difficult but not yet impossible at that time. Later attempt was completely unsuccessful. - Related Data Allergies Allergy/AdvReac Type Severity Reaction Status Date / Time No Known Allergies Allergy Verified 02/24/20 02:44 Home Meds: Home Meds Lisinopril 20 mg PO DAILY 11/03/17 [History] Potassium Chloride [Klor-Con M20] 20 meq PO DAILY 11/03/17 [History] atorvaSTATin [Lipitor] 20 mg PO 1800 11/03/17 [History] Acetaminophen [Tylenol] 650 mg PO Q4H PRN tablet 11/07/17 [Rx] Albuterol/Ipratropium [DuoNeb 3.0-0.5 MG/3 ML] 3 ml NEB Q4HRRT PRN 30 Days #120 neb 11/07/17 [Rx] Furosemide [Lasix] 40 mg PO DAILY 30 Days #30 tab 11/07/17 [Rx] Fluticasone Propionate [Flonase] 1 sprays NASBOTH BID PRN 11/16/17 [History] Aspirin [Ecotrin EC] 81 mg PO DAILY 01/07/18 [History] bisacodyL [Dulcolax] 5 mg PO ASDIRECTED PRN 03/28/18 [History] Budesonide [Pulmicort] 0.5 mg NEB BIDRT 30 Days #60 neb 03/31/18 [Rx] Arformoterol [Brovana] 15 mcg INH Q12HR #1 box 02/22/19 [Rx] Sulfamethoxazole/Trimethoprim [Septra DS] 1 each PO BID 14 Days tab 02/13/20 [ Rx] Past Medical History - Past Health History Medical/Surgical History: Denies Medical/Surgical History HEENT History: Reports: Impaired Vision, Other (See Below) Other HEENT History: Patient wears reading glasses Cardiovascular History: Reports: Arrhythmia, Heart Failure, Heart Murmur, High Cholesterol, Hypertension Other Cardiovascular History: Incomplete right bundle branch block, PVCs and PACs diagnosed on 04/24/17 with subsequent probable SVT diagnosed in April 2017. Chronic dependent edema. Grade 1 diastolic dysfunction by echocardiogram in April 2017. Respiratory History: Reports: Bronchitis, Recurrent, COPD, Intubation, Previous , Pneumonia, Recurrent, Pneumothorax, Pulmonary Fibrosis, Other (See Below) Other Respiratory History: O2 dependent COPD with current use of 4 L/m by nasal cannula. 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 Spontaneous right sided pneumothorax on 01/07/18. Gastrointestinal History: Reports: Chronic Constipation, Colon Polyp, Hemorrhoids Other Gastrointestinal History: Tubular adenoma 2 in the transverse colon by incomplete colonoscopy as below with additional large sigmoid polyp by barium enema on 12/14/17. Umbilical hernia. Genitourinary History: Reports: BPH, Retention, Urinary, UTI, Recurrent, Other ( See Below) Other Genitourinary History: Neurogenic bladder with self catherizations. Musculoskeletal History: Reports: Arthritis, Back Pain, Chronic, Neck Pain, Chronic, Osteoarthritis Neurological History: Reports: None Psychiatric History: Reports: None Endocrine/Metabolic History: Reports: Obesity/BMI 30+, Other (See Below) Other Endocrine/Metabolic History: Hypomagnesemia. 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 Immunologic History: Reports: None Oncologic (Cancer) History: Reports: None Dermatologic History: Reports: None - Infectious Disease History Infectious Disease History: Reports: Chicken Pox, Mumps, Shingles - Past Surgical History Head Surgeries/Procedures: Reports: None HEENT Surgical History: Reports: Oral Surgery, Other (See Below) Other HEENT Surgeries/Procedures: Complete teeth extraction with complete dentures uppers and lowers. Cardiovascular Surgical History: Reports: None Respiratory Surgical History: Reports: Other (See Below) Other Respiratory Surgeries/Procedures: Chest tube insertion for spontaneous pneumothorax on 01/07/18. GI Surgical History: Reports: Colonoscopy, Polypectomy, Other (See Below) Other GI Surgeries/Procedures: Polypectomy 2 of tubular adenomas in the transverse colon as above. Incomplete Colonoscopy secondary to poor bowel preparation and tortuous colon on 11/16/17 with follow-up enema as below. Male Surgical History: Reports: Circumcision, Suprapubic Catheter Placement, TURP-Transurethral Resection of Prostate, Other (See Below) Other Male Surgeries/Procedures: Circumcision as an infant, TURP 2 initially in 2008 and then in 2009, suprapubic catheter placement in 2009 Endocrine Surgical History: Reports: None Neurological Surgical History: Reports: None Musculoskeletal Surgical History: Reports: None Oncologic Surgical History: Reports: None Dermatological Surgical History: Reports: None - Past Imaging History Past Imaging History: Reports: Barium Enema (12/14/17), Cardiac Echo (04/25/17 with ejection fraction of 5560 percent and otherwise results as above), CAT Scan (CT of the chest on 08/11/19.) Social & Family History - Family History HEENT: Reports: None Cardiac: Reports: CAD, Hypertension, SD, Other (See Below) Other Cardiac Family History: Brother with hypertension, mother with fatal SD at age 75 Respiratory: Reports: COPD, Other (See Below) Other Respiratory Family Hisory: Father with COPD with history of tobacco use GI: Reports: None : Reports: None OBGYN: Reports: None Musculoskeletal: Reports: Arthritis, Osteoarthritis, Other (See Below) Other Musculoskeletal Family History: Brother with osteoarthritis Neurological: Reports: None Psychiatric: Reports: None Endocrine/Metabolic: Reports: Diabetes, type II, IDDM, Other (See Below) Other Endocrine/Metabolic Family History: Mother with IDDM Hematologic: Reports: None Immunologic: Reports: None Dermatologic: Reports: None Oncologic: Reports: None - Tobacco Use Smoking Status *Q: Current Some Day Smoker Smoking Cessation Information Provided To Patient: Patient Refused - Caffeine Use Caffeine Use: Reports: Coffee Other Caffeine Use: 1 pot per day - Living Situation & Occupation Living situation: Reports: Single ( in 2009 with no children with his although his did have children from a previous relationship), Alone 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 Denies: Wheezing, Pleuritic Chest Pain, Cough, Sputum, Hemoptysis Cardiovascular: Reports: Dyspnea on Exertion (chronic, unchanged), Edema (mild) . Denies: Chest Pain, Lightheadedness, Orthopnea, Palpitations, PND, Syncope GI/Abdominal: Denies: Abdominal Pain, Constipation, Diarrhea, Distension, Nausea , Vomiting : Reports: Other (see HPI). Denies: Flank Pain, Hematuria, Pain Musculoskeletal: Reports: Other (no acute changes from baseline) Skin: Reports: No Symptoms Neurological: Reports: No Symptoms Psychiatric: Reports: No Symptoms Hematologic/Lymphatic: Reports: No Symptoms ED EXAM, GENERAL - Physical Exam Exam: See Below Exam Limited By: No Limitations General Appearance: Alert, No Apparent Distress, Obese Eye Exam: Bilateral Eye: EOMI, PERRL Ears: Hearing Grossly Normal Nose: No: Nasal Deformity, Nasal Swelling, Nasal Drainage Throat/Mouth: Normal Lips, Normal Voice, No Airway Compromise Head: Atraumatic, Normocephalic Neck: Supple, Non-Tender Respiratory/Chest: No Respiratory Distress, Chest Non-Tender, Rhonchi (mild/ right mid/lower lung), Other (mild abdominal breathing). No: Crackles, Rales, Wheezing, Stridor, Pleural Rub, Retractions Cardiovascular: Regular Rate, Rhythm, No Murmur GI/Abdominal: Normal Bowel Sounds, Soft, Non-Tender (Male) Exam: No: Scrotal Swelling, Scrotum Tenderness (L), Scrotum Tenderness (R), Suprapubic Fullness, Testicular Tenderness (L), Testicular Tenderness (R), Urethral Discharge Rectal (Males) Exam: Deferred Back Exam: No: CVA Tenderness (L), CVA Tenderness (R), Muscle Spasm Extremities: Non-Tender, Normal Capillary Refill, Pedal Edema (mild, bilateral) Neurological: Alert, Oriented, Normal Cognition, No Motor/Sensory Deficits Psychiatric: Normal Affect, Normal Mood Skin Exam: Warm, Dry, Intact, Normal Color EKG INTERPRETATION EKG Date: 02/24/20 Time: 01:49 Rhythm: NSR Rate (Beats/Min): 87 [place]: Normal P-Wave: Present QRS: Normal ST-T: Normal QT: Normal Course - Vital Signs Last Recorded V/S: Last Vital Signs Temp 36.9 C 02/24/20 00:59 Pulse 89 02/24/20 00:59 Resp 18 02/24/20 00:59 BP 146/67 H 02/24/20 00:59 Pulse Ox 94 L 02/24/20 00:59 - Orders/Labs/Meds Orders: Active Orders 24 hr Category Date Time Status EKG Documentation Completion [RC] ASDIRECTED Care 02/24/20 01:04 Active Chest 2V [CR] Stat Exams 02/24/20 01:03 Taken EKG 12 Lead [EK] Stat Ther 02/24/20 01:03 Ordered Labs: Laboratory Tests 02/24/20 02/24/20 02/24/20 Range/Units 01:23 01:23 01:23 WBC 12.5 H (4.0-10.2) K/uL RBC 5.53 H (4.33-5.41) M/uL Hgb 15.0 (13.1-16.8) g/dL Hct 45.4 (39.0-49.0) % MCV 82.1 L (84.0-98.0) fL MCH 27.1 L (28.2-33.3) pg MCHC 33.0 (31.7-36.0) g/dL RDW 13.7 (11.2-14.1) % Plt Count 241 (150-350) K/uL Neut % (Auto) 47.7 (45.0-80.0) % Lymph % (Auto) 42.6 (10.0-50.0) % Dukes % (Auto) 7.5 (2.0-14.0) % Eos % (Auto) 2.0 (0.0-5.0) % Baso % (Auto) 0.2 (0.0-2.0) % Neut # (Auto) 5.96 (1.40-7.00) K/uL Lymph # (Auto) 5.33 H (0.50-3.50) K/uL Dukes # (Auto) 0.94 (0.00-1.00) K/uL Eos # (Auto) 0.25 (0.00-0.50) K/uL Baso # (Auto) 0.02 (0.00-0.20) K/uL D-Dimer, Quantitative 178 (0-400) ng/mL Sodium 138 (136-145) mmol/L Potassium 4.3 (3.5-5.1) mmol/L Chloride 102 (98-107) mmol/L Carbon Dioxide 23.8 (21.0-32.0) mmol/L BUN 30 H (7-18) mg/dL Creatinine 1.29 H (0.51-1.17) mg/dL Est Cr Clr Drug Dosing 57.65 mL/min Estimated GFR (MDRD) 55 mL/min Glucose 133 H (74-106) mg/dL Calcium 8.9 (8.5-10.1) mg/dL Magnesium 2.0 (1.8-2.4) mg/dL Total Bilirubin 0.4 (0.2-1.0) mg/dL AST 12 L (15-37) U/L ALT 22 (12-78) U/L Alkaline Phosphatase 91 (46-116) IU/L Troponin I 0.001 (0.000-0.056) ng/mL NT-Pro-B Natriuret Pep 206 H (0-125) pg/mL Total Protein 6.9 (6.4-8.2) g/dL Albumin 3.9 (3.4-5.0) g/dL Specimen Type Urine Color Urine Appearance Urine pH (5.0-9.0) Ur Specific [place] (1.005-1.030) Urine Protein (NEGATIVE) mg/dL Urine Glucose (UA) (NEGATIVE) mg/dL Urine Ketones (NEGATIVE) mg/dL Urine Occult Blood (NEGATIVE) Urine Nitrite (NEGATIVE) Urine Bilirubin (NEGATIVE) Urine Urobilinogen (0.2-1.0) E.U./dL Ur Leukocyte Esterase (NEGATIVE) Urine RBC /HPF Urine WBC /HPF Ur Epithelial Cells /LPF Urine Bacteria (NONE TO FEW) /HPF 02/24/20 Range/Units 02:30 WBC (4.0-10.2) K/uL RBC (4.33-5.41) M/uL Hgb (13.1-16.8) g/dL Hct (39.0-49.0) % MCV (84.0-98.0) fL MCH (28.2-33.3) pg MCHC (31.7-36.0) g/dL RDW (11.2-14.1) % Plt Count (150-350) K/uL Neut % (Auto) (45.0-80.0) % Lymph % (Auto) (10.0-50.0) % Dukes % (Auto) (2.0-14.0) % Eos % (Auto) (0.0-5.0) % Baso % (Auto) (0.0-2.0) % Neut # (Auto) (1.40-7.00) K/uL Lymph # (Auto) (0.50-3.50) K/uL Dukes # (Auto) (0.00-1.00) K/uL Eos # (Auto) (0.00-0.50) K/uL Baso # (Auto) (0.00-0.20) K/uL D-Dimer, Quantitative (0-400) ng/mL Sodium (136-145) mmol/L Potassium (3.5-5.1) mmol/L Chloride (98-107) mmol/L Carbon Dioxide (21.0-32.0) mmol/L BUN (7-18) mg/dL Creatinine (0.51-1.17) mg/dL Est Cr Clr Drug Dosing mL/min Estimated GFR (MDRD) mL/min Glucose (74-106) mg/dL Calcium (8.5-10.1) mg/dL Magnesium (1.8-2.4) mg/dL Total Bilirubin (0.2-1.0) mg/dL AST (15-37) U/L ALT (12-78) U/L Alkaline Phosphatase (46-116) IU/L Troponin I (0.000-0.056) ng/mL NT-Pro-B Natriuret Pep (0-125) pg/mL Total Protein (6.4-8.2) g/dL Albumin (3.4-5.0) g/dL Specimen Type Urinblad Urine Color Yellow Urine Appearance Clear Urine pH 7.0 (5.0-9.0) Ur Specific [place] 1.020 (1.005-1.030) Urine Protein Negative (NEGATIVE) mg/dL Urine Glucose (UA) Negative (NEGATIVE) mg/dL Urine Ketones Negative (NEGATIVE) mg/dL Urine Occult Blood Negative (NEGATIVE) Urine Nitrite Negative (NEGATIVE) Urine Bilirubin Negative (NEGATIVE) Urine Urobilinogen 1.0 (0.2-1.0) E.U./dL Ur Leukocyte Esterase Negative (NEGATIVE) Urine RBC 0-5 /HPF Urine WBC 0-5 /HPF Ur Epithelial Cells Rare /LPF Urine Bacteria Rare (NONE TO FEW) /HPF Meds: Medications Discontinued Medications Generic Name Dose Route Start Last Admin Trade Name Casimiro PRN Reason Stop Dose Admin Prednisone 40 mg 02/24/20 02:48 02/24/20 02:57 Prednisone PO 02/24/20 02:49 40 mg ONETIME ONE Administration - Radiology Interpretation Free Text/Narrative:: Chest xray read by Radiology. Possible trace interstitial edema, COPD. No pneumothorax. No effusion. - Re-Assessments/Exams Free Text/Narrative Re-Assessment/Exam: 02/24/20 02:44 Given that patient initially complained of increased SOB, usual SOB workup ordered including CBC/Chem/Trop/DDimer/ProBNP/EKG/Chest xray. WBC 12.5, increased lymphocytes. DDimer/Trop/EKG unremarkable. Prob BNP minimally above normal. Bun 1.29. Cr 1.29 Chest xray showed no acute changes. Nursing staff requested to place catheter given hx of patient being unable to self cath due to obstruction. It was only with great difficulty that the catheter was ultimately advanced into the bladder. Because of this, the catheter will be left in place. Patient will need referral to Urology. Call will be placed in morning to [facility] to discuss patient and develop follow up plan. Patient will be contacted regarding this. UA obtained and noted to be clear of infection. Patient is to finish his antibiotic as prescribed. Single dose Prednisone given to patient. However it was noted that his O2 sats were 95-96% on room air during stay. He usually wears NC O2 at home. No evidence of COPD exacerbation noted. No additional Prednisone prescribed. Recommended to patient that he get referred to Pulmonary Medicine to review current COPD treatment plan. Patient agreeable with plan. Precautions reviewed. Free Text/Narrative Re-Assessment/Exam: 02/24/20 14:39 Call placed to [facility] and patient reviewed with . He recommended keeping the catheter in place for two weeks and following up in two weeks with Urology for cystoscopy of bladder. Patient to call clinic at [phone] tomorrow to schedule this. Nursing staff will contact patient regarding this plan. Patient to follow up at clinic in meantime as needed, or in ER if sudden worsening problems develop. Departure - Departure Time of Disposition: 02:55 Disposition: Home, Self-Care 01 Condition: Good Clinical Impression: Urinary obstruction, unspecified COPD (chronic obstructive pulmonary disease) Qualifiers: COPD type: unspecified COPD Qualified Code(s): J44.9 - Chronic obstructive pulmonary disease, unspecified - Discharge Information *PRESCRIPTION DRUG MONITORING PROGRAM REVIEWED*: Not Applicable *COPY OF PRESCRIPTION DRUG MONITORING REPORT IN PATIENT [place]: Not Applicable Referrals: Sara Tyler AQUATICS COORDINATOR [Primary Care Provider] - Forms: ED Department Discharge Additional Instructions: Keep catheter in place. We will contact Urology in the daytime and work out a follow up plan for you. Once we have something figured out you will be contacted by nursing staff. Follow up otherwise as needed if you develop additional problems. Discuss with Sara getting a referral to Pulmonary Medicine so that your current treatment plan for your lung disease can be reviewed and updated. Sepsis Event Note - Evaluation Sepsis Screening Result: No Definite Risk - Focused Exam Date Exam was Performed: 02/24/20 Time Exam was Performed: 14:39 - My Orders Last 24 Hours: My Active Orders 02/24/20 01:03 Chest 2V [CR] Stat EKG 12 Lead [EK] Stat 02/24/20 01:04 EKG Documentation Completion [RC] ASDIRECTED - Assessment/Plan Last 24 Hours: My Active Orders 02/24/20 01:03 Chest 2V [CR] Stat EKG 12 Lead [EK] Stat 02/24/20 01:04 EKG Documentation Completion [RC] ASDIRECTED
[2020-02-24] MEDS ORDERED: predniSONE 20 MG Tab PO ONE (02:48)
== END 2020-02-24 03:30 | disposition home or self-care (01) ==
LOC: LL.ED 00:58
DX: J44.9 Chronic obstructive pulmonary disease, unspecified (principal); N13.9 Obstructive and reflux uropathy, unspecified; I11.0 Hypertensive heart disease with heart failure; I50.9 Heart failure, unspecified; E78.00 Pure hypercholesterolemia, unspecified; M19.90 Unspecified osteoarthritis, unspecified site; E66.9 Obesity, unspecified; Z68.34 Body mass index [BMI] 34.0-34.9, adult; F17.200 Nicotine dependence, unspecified, uncomplicated; Z79.899 Other long term (current) drug therapy
CPT/HCPCS: 36415; 51702; 71046; 80053; 81001; 83735; 83880; 84484; 85025; 85379; 93005; 99285-25; J7512

== ENCOUNTER 2020-02-25 13:49 | Emergency (ER) | payer MEDICARE, MEDICAID ==
[2020-02-25] MEDS ORDERED: LORazepam 1 MG Tab PO ONE (14:02)
--- NOTE | 2020-02-25 15:01 | EDM.PDOC ---
ED HPI GENERAL MEDICAL PROBLEM - General Chief Complaint: General Stated Complaint: SHORTNESS OF BREATH, WEAK Time Seen by Provider: 02/25/20 13:55 Source of Information: Reports: Patient History Limitations: Reports: No Limitations - History of Present Illness INITIAL COMMENTS - FREE TEXT/NARRATIVE: Patient presented to ER via EMS for complaint of SOB/weakness. Closely questioned at time of arrival and patient says that he is overall experiencing the same amount of SOB chronically and overall he has not had an acute change in his daily symptoms regarding COPD. He admits to anxiety regarding his chronic SOB and severe activity limitations at home due to his advanced COPD. Has not had to increase his O2 at home which is usually around 4L/min NC. Was seen yesterday for combination of SOB/urinary obstruction. He was back to baseline sensation SOB once he arrived in the ER and said that he had become more breathless with the frustration of not being able to cath himself. Unremarkable workup yesterday and the SOB was felt to be secondary to anxiety. Chest xray/DDimer/proBNP/other labs overall unremarkable. No focal infection/ pneumothorax noted. He does feel that the increased humidity makes him feel more uncomfortable at home. Has AC but no dehumidifier in apartment. He admits focusing on his sensation of SOB and this is anxiety-provoking. Getting checked out by the ER makes him feel better in this respect. ROS negative for any acute changes other than the urinary obstruction he was seen for yesterday. No known Covid exposure. - Related Data Allergies Allergy/AdvReac Type Severity Reaction Status Date / Time No Known Allergies Allergy Verified 02/25/20 13:59 Home Meds: Home Meds Lisinopril 20 mg PO DAILY 11/03/17 [History] Potassium Chloride [Klor-Con M20] 20 meq PO DAILY 11/03/17 [History] atorvaSTATin [Lipitor] 20 mg PO 1800 11/03/17 [History] Acetaminophen [Tylenol] 650 mg PO Q4H PRN tablet 11/07/17 [Rx] Albuterol/Ipratropium [DuoNeb 3.0-0.5 MG/3 ML] 3 ml NEB Q4HRRT PRN 30 Days #120 neb 11/07/17 [Rx] Furosemide [Lasix] 40 mg PO DAILY 30 Days #30 tab 11/07/17 [Rx] Fluticasone Propionate [Flonase] 1 sprays NASBOTH BID PRN 11/16/17 [History] Aspirin [Ecotrin EC] 81 mg PO DAILY 01/07/18 [History] bisacodyL [Dulcolax] 5 mg PO ASDIRECTED PRN 03/28/18 [History] Budesonide [Pulmicort] 0.5 mg NEB BIDRT 30 Days #60 neb 03/31/18 [Rx] Arformoterol [Brovana] 15 mcg INH Q12HR #1 box 11/23/18 [Rx] Sulfamethoxazole/Trimethoprim [Bactrim Ds Tablet] 1 tab PO BID 02/25/20 [History ] Past Medical History - Past Health History Medical/Surgical History: Denies Medical/Surgical History HEENT History: Reports: Impaired Vision, Other (See Below) Other HEENT History: Patient wears reading glasses Cardiovascular History: Reports: Arrhythmia, Heart Failure, Heart Murmur, High Cholesterol, Hypertension Other Cardiovascular History: Incomplete right bundle branch block, PVCs and PACs diagnosed on 04/24/17 with subsequent probable SVT diagnosed in April 2017. Chronic dependent edema. Grade 1 diastolic dysfunction by echocardiogram in April 2017. Respiratory History: Reports: Bronchitis, Recurrent, COPD, Intubation, Previous , Pneumonia, Recurrent, Pneumothorax, Pulmonary Fibrosis, Other (See Below) Other Respiratory History: O2 dependent COPD with current use of 4 L/m by nasal cannula. 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 Spontaneous right sided pneumothorax on 01/07/18. Gastrointestinal History: Reports: Chronic Constipation, Colon Polyp, Hemorrhoids Other Gastrointestinal History: Tubular adenoma 2 in the transverse colon by incomplete colonoscopy as below with additional large sigmoid polyp by barium enema on 12/14/17. Umbilical hernia. Genitourinary History: Reports: BPH, Retention, Urinary, UTI, Recurrent, Other ( See Below) Other Genitourinary History: Neurogenic bladder with self catherizations. Musculoskeletal History: Reports: Arthritis, Back Pain, Chronic, Neck Pain, Chronic, Osteoarthritis Neurological History: Reports: None Psychiatric History: Reports: Anxiety (anxiety appears connected to his chronic SOB) Endocrine/Metabolic History: Reports: Obesity/BMI 30+, Other (See Below) Other Endocrine/Metabolic History: Hypomagnesemia. 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 Immunologic History: Reports: None Oncologic (Cancer) History: Reports: None Dermatologic History: Reports: None - Infectious Disease History Infectious Disease History: Reports: Chicken Pox, Mumps, Shingles - Past Surgical History Head Surgeries/Procedures: Reports: None HEENT Surgical History: Reports: Oral Surgery, Other (See Below) Other HEENT Surgeries/Procedures: Complete teeth extraction with complete dentures uppers and lowers. Cardiovascular Surgical History: Reports: None Respiratory Surgical History: Reports: Other (See Below) Other Respiratory Surgeries/Procedures: Chest tube insertion for spontaneous pneumothorax on 01/07/18. GI Surgical History: Reports: Colonoscopy, Polypectomy, Other (See Below) Other GI Surgeries/Procedures: Polypectomy 2 of tubular adenomas in the transverse colon as above. Incomplete Colonoscopy secondary to poor bowel preparation and tortuous colon on 11/16/17 with follow-up enema as below. Male Surgical History: Reports: Circumcision, Suprapubic Catheter Placement, TURP-Transurethral Resection of Prostate, Other (See Below) Other Male Surgeries/Procedures: Circumcision as an infant, TURP 2 initially in 2008 and then in 2009, suprapubic catheter placement in 2009 Endocrine Surgical History: Reports: None Neurological Surgical History: Reports: None Musculoskeletal Surgical History: Reports: None Oncologic Surgical History: Reports: None Dermatological Surgical History: Reports: None - Past Imaging History Past Imaging History: Reports: Barium Enema (12/14/17), Cardiac Echo (04/25/17 with ejection fraction of 5560 percent and otherwise results as above), CAT Scan (CT of the chest on 08/11/19.) Social & Family History - Family History HEENT: Reports: None Cardiac: Reports: CAD, Hypertension, NE, Other (See Below) Other Cardiac Family History: Brother with hypertension, mother with fatal NE at age 75 Respiratory: Reports: COPD, Other (See Below) Other Respiratory Family Hisory: Father with COPD with history of tobacco use GI: Reports: None : Reports: None OBGYN: Reports: None Musculoskeletal: Reports: Arthritis, Osteoarthritis, Other (See Below) Other Musculoskeletal Family History: Brother with osteoarthritis Neurological: Reports: None Psychiatric: Reports: None Endocrine/Metabolic: Reports: Diabetes, type II, IDDM, Other (See Below) Other Endocrine/Metabolic Family History: Mother with IDDM Hematologic: Reports: None Immunologic: Reports: None Dermatologic: Reports: None Oncologic: Reports: None - Tobacco Use Smoking Status *Q: Current Every Day Smoker Smoking Cessation Information Provided To Patient: Patient Refused - Caffeine Use Caffeine Use: Reports: Coffee Other Caffeine Use: 1 pot per day - Living Situation & Occupation Living situation: Reports: Single ( in 2009 with no children with his although his did have children from a previous relationship), Alone 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 Denies: Fever, Chills, Night Sweats, Diaphoresis, Weight Loss, Weight Gain HEENT: Denies: Rhinitis, Sinus Problem, Throat Pain, Throat Swelling, Vertigo, Vision Change Respiratory: Reports: Shortness of Breath (chronic/unchanged), Wheezing (chronic /unchanged), Cough (chronic baseline cough/unchanged). Denies: Pleuritic Chest Pain, Hemoptysis Cardiovascular: Reports: Dyspnea on Exertion (chronic/unchanged), Edema (chronic , unchanged). Denies: Chest Pain, Lightheadedness, Palpitations, Syncope GI/Abdominal: Denies: Abdominal Pain, Black Stool, Bloody Stool, Constipation, Diarrhea, Decreased Appetite, Distension, Melena, Nausea, Vomiting : Reports: Urinary Retention (currently has indwelling catheter in place) Musculoskeletal: Reports: Other (no acute changes from baseline) Skin: Reports: No Symptoms Neurological: Reports: No Symptoms Psychiatric: Reports: Anxiety. Denies: Agitation, Confusion, Depression, Hallucinations, Homicidal Ideation, Mood Lability Hematologic/Lymphatic: Reports: No Symptoms ED EXAM, GENERAL - Physical Exam Exam: See Below Exam Limited By: No Limitations General Appearance: Alert, No Apparent Distress, Obese Eye Exam: Bilateral Eye: EOMI, PERRL Ears: Normal External Exam, Hearing Grossly Normal Nose: No: Nasal Deformity, Nasal Swelling, Nasal Drainage Throat/Mouth: Normal Lips, Normal Voice, No Airway Compromise Head: Atraumatic, Normocephalic Neck: Supple, Non-Tender, Full Range of Motion Respiratory/Chest: Chest Non-Tender, Decreased Breath Sounds (throughout), Wheezing (mild/diffuse), Accessory Muscle Use (mild abdominal breathing). No: Crackles, Rales, Rhonchi, Stridor, Retractions, Splinting Cardiovascular: Regular Rate, Rhythm, No Murmur Peripheral Pulses: 2+: Radial (L), Radial (R) GI/Abdominal: Normal Bowel Sounds, Soft, Non-Tender, No Distention (Male) Exam: Deferred Rectal (Males) Exam: Deferred Back Exam: No: CVA Tenderness (L), CVA Tenderness (R), Muscle Spasm Extremities: Normal Inspection, Normal Capillary Refill, Pedal Edema (bilateral/ mild). No: Leg Pain Neurological: Alert, Oriented, Normal Cognition, Other (equal tone/strength bilaterally) Psychiatric: Normal Affect, Normal Mood Skin Exam: Warm, Dry, Intact, Normal Color EKG INTERPRETATION EKG Date: 02/25/20 Time: 14:10 Rhythm: NSR Rate (Beats/Min): 92 [place]: Normal P-Wave: Present QRS: Normal ST-T: Normal QT: Normal Comparison: No Change Course - Vital Signs Last Recorded V/S: Last Vital Signs Temp 36.4 C 02/25/20 13:51 Pulse 94 02/25/20 14:44 Resp 18 02/25/20 14:44 BP 103/61 02/25/20 14:44 Pulse Ox 100 02/25/20 14:44 - Orders/Labs/Meds Orders: Active Orders 24 hr Category Date Time Status EKG Documentation Completion [RC] ASDIRECTED Care 02/25/20 14:02 Ordered Chest 2V [CR] Stat Exams 02/25/20 14:01 Ordered Labs: Laboratory Tests 02/25/20 02/25/20 02/25/20 Range/Units 14:03 14:05 14:05 WBC 13.9 H (4.0-10.2) K/uL RBC 5.35 (4.33-5.41) M/uL Hgb 14.7 (13.1-16.8) g/dL Hct 44.4 (39.0-49.0) % MCV 83.0 L (84.0-98.0) fL MCH 27.5 L (28.2-33.3) pg MCHC 33.1 (31.7-36.0) g/dL RDW 13.9 (11.2-14.1) % Plt Count 236 (150-350) K/uL Neut % (Auto) 65.0 (45.0-80.0) % Lymph % (Auto) 26.2 (10.0-50.0) % Desha % (Auto) 7.9 (2.0-14.0) % Eos % (Auto) 0.8 (0.0-5.0) % Baso % (Auto) 0.1 (0.0-2.0) % Neut # (Auto) 9.03 H (1.40-7.00) K/uL Lymph # (Auto) 3.65 H (0.50-3.50) K/uL Desha # (Auto) 1.10 H (0.00-1.00) K/uL Eos # (Auto) 0.11 (0.00-0.50) K/uL Baso # (Auto) 0.02 (0.00-0.20) K/uL Sodium 137 (136-145) mmol/L Potassium 4.2 (3.5-5.1) mmol/L Chloride 102 (98-107) mmol/L Carbon Dioxide 24.0 (21.0-32.0) mmol/L BUN 27 H (7-18) mg/dL Creatinine 1.52 H (0.51-1.17) mg/dL Est Cr Clr Drug Dosing 48.93 mL/min Estimated GFR (MDRD) 45 mL/min Glucose 135 H (74-106) mg/dL Lactic Acid (0.4-2.0) mmol/L Calcium 8.9 (8.5-10.1) mg/dL Magnesium 1.9 (1.8-2.4) mg/dL Total Bilirubin 0.6 (0.2-1.0) mg/dL AST 11 L (15-37) U/L ALT 21 (12-78) U/L Alkaline Phosphatase 89 (46-116) IU/L Troponin I 0.000 (0.000-0.056) ng/mL NT-Pro-B Natriuret Pep 287 H (0-125) pg/mL Total Protein 6.7 (6.4-8.2) g/dL Albumin 3.8 (3.4-5.0) g/dL Specimen Type Urinfol Urine Color Yellow Urine Appearance Slightly cloudy Urine pH 5.0 (5.0-9.0) Ur Specific [place] 1.020 (1.005-1.030) Urine Protein Negative (NEGATIVE) mg/dL Urine Glucose (UA) Negative (NEGATIVE) mg/dL Urine Ketones Trace H (NEGATIVE) mg/dL Urine Occult Blood Moderate H (NEGATIVE) Urine Nitrite Negative (NEGATIVE) Urine Bilirubin Negative (NEGATIVE) Urine Urobilinogen 0.2 (0.2-1.0) E.U./dL Ur Leukocyte Esterase Trace H (NEGATIVE) U Hyaline Cast (Auto) Occasional Urine RBC 10-20 H /HPF Urine WBC 0-5 /HPF Ur Epithelial Cells Moderate H /LPF Urine Bacteria Few (NONE TO FEW) /HPF Urine Mucus Occasional H (NEGATIVE) /LPF 02/25/20 Range/Units 14:05 WBC (4.0-10.2) K/uL RBC (4.33-5.41) M/uL Hgb (13.1-16.8) g/dL Hct (39.0-49.0) % MCV (84.0-98.0) fL MCH (28.2-33.3) pg MCHC (31.7-36.0) g/dL RDW (11.2-14.1) % Plt Count (150-350) K/uL Neut % (Auto) (45.0-80.0) % Lymph % (Auto) (10.0-50.0) % Desha % (Auto) (2.0-14.0) % Eos % (Auto) (0.0-5.0) % Baso % (Auto) (0.0-2.0) % Neut # (Auto) (1.40-7.00) K/uL Lymph # (Auto) (0.50-3.50) K/uL Desha # (Auto) (0.00-1.00) K/uL Eos # (Auto) (0.00-0.50) K/uL Baso # (Auto) (0.00-0.20) K/uL Sodium (136-145) mmol/L Potassium (3.5-5.1) mmol/L Chloride (98-107) mmol/L Carbon Dioxide (21.0-32.0) mmol/L BUN (7-18) mg/dL Creatinine (0.51-1.17) mg/dL Est Cr Clr Drug Dosing mL/min Estimated GFR (MDRD) mL/min Glucose (74-106) mg/dL Lactic Acid 1.4 (0.4-2.0) mmol/L Calcium (8.5-10.1) mg/dL Magnesium (1.8-2.4) mg/dL Total Bilirubin (0.2-1.0) mg/dL AST (15-37) U/L ALT (12-78) U/L Alkaline Phosphatase (46-116) IU/L Troponin I (0.000-0.056) ng/mL NT-Pro-B Natriuret Pep (0-125) pg/mL Total Protein (6.4-8.2) g/dL Albumin (3.4-5.0) g/dL Specimen Type Urine Color Urine Appearance Urine pH (5.0-9.0) Ur Specific [place] (1.005-1.030) Urine Protein (NEGATIVE) mg/dL Urine Glucose (UA) (NEGATIVE) mg/dL Urine Ketones (NEGATIVE) mg/dL Urine Occult Blood (NEGATIVE) Urine Nitrite (NEGATIVE) Urine Bilirubin (NEGATIVE) Urine Urobilinogen (0.2-1.0) E.U./dL Ur Leukocyte Esterase (NEGATIVE) U Hyaline Cast (Auto) Urine RBC /HPF Urine WBC /HPF Ur Epithelial Cells /LPF Urine Bacteria (NONE TO FEW) /HPF Urine Mucus (NEGATIVE) /LPF Meds: Medications Discontinued Medications Generic Name Dose Route Start Last Admin Trade Name Freq PRN Reason Stop Dose Admin Lorazepam 1 mg 02/25/20 14:02 02/25/20 14:15 Ativan PO 02/25/20 14:03 1 mg ONETIME ONE Administration Methylprednisolone Sodium Succinate 125 mg 02/25/20 15:02 Solu-Medrol IVPUSH 02/25/20 15:03 ONETIME ONE - Radiology Interpretation Free Text/Narrative:: Chest xray shows severe COPD but no pneumothorax/focal infiltrate or other acute changes. - Re-Assessments/Exams Free Text/Narrative Re-Assessment/Exam: 02/25/20 15:24 Patient appears to be his usual self. Respiratory effort and lung sounds at baseline. WBC 13.9, likely more elevated due to being given Prednisone yesterday. No focal evidence of infection, viral or bacterial, identified. Bun/Cr have become slightly elevated over the past few weeks. May be secondary to the Bactrim patient was placed on 02/12 due to mild increase in UA WBCs. UA has shown clearance of that infection when rechecked yesterday and today. Strongly suspect anxiety component with recent repeat presentations to ER. Patient ultimately has admitted to ER staff that he is not any more SOB than usual and that the SOB is quite longstanding in nature. No other symptoms over the past month suggestive of acute viral/bacterial infection. Today and yesterday he has the added aggravation of the urinary obstruction and catheter placement. He was wondering if we could remove the catheter but he was informed that Urology wants it to remain in place until they evaluate him at [facility] in 2 weeks. That referral was faxed to the Urology clinic and appointment time is pending. Long time spent visiting with patient discussing his living situation, anxiety, chronic and progressive nature of COPD, and social isolation. It was recommended to him to consider assisted living. It appears that he could qualify for possible placement at [facility] facility but he admits to 'losing all of his ([employer])paperwork' and has never tried to recover it. Single Ativan given to him today. Single dose Solumedrol given. No additional steroid treatment planned at this time as outpatient. Will have patient follow up at clinic appointment arranged for him this coming at 10:30. Recommend discussing starting patient on anxiety medication and referral to Pulmonary medicine for updated COPD plan. Recommend he pursue paperwork for service connection that may help him get access to [facility] home for better social/medical support. There is some doubt that he takes his meds as prescribed and that may be making the COPD symptoms worse. It is observed that patient seems minimally motivated to take care of himself, continues to smoke, and looks to others to take care of him. Having him go to assisted living or [facility] may improve compliance and cut down on unnecessary visits to the ER for chronic unchanged issues. Patient did appear open to the idea of assisted living after visiting with Mariangel. No additional interventions made at this time. To follow up otherwise as needed. Departure - Departure Time of Disposition: 16:00 Disposition: Home, Self-Care 01 Condition: Good Clinical Impression: Anxiety about health COPD (chronic obstructive pulmonary disease) Qualifiers: COPD type: unspecified COPD Qualified Code(s): J44.9 - Chronic obstructive pulmonary disease, unspecified - Discharge Information *PRESCRIPTION DRUG MONITORING PROGRAM REVIEWED*: Not Applicable *COPY OF PRESCRIPTION DRUG MONITORING REPORT IN PATIENT [place]: Not Applicable Instructions: Lorazepam tablets Referrals: Sara Tyler, EYE TECHNICIAN [Primary Care Provider] - Forms: ED Department Discharge Additional Instructions: Follow up at clinic here at 10:30. You will see Dana Jernigan. Discuss starting anxiety medication to help with the anxiety you have about the chronic shortness of breath with your COPD. Make certain you are not smoking around your oxygen given that you continue to smoke cigarettes. You could start a fire/explosion. Make arrangements to follow up with Urology as discussed in 2 weeks at [facility] to continue to work on the urinary obstruction issues. Strongly suggest you work with the [facility] to look [facility] in regards to being a and explore [facility]. You will get to hang around people and have better social interaction. You will get help with medication as needed and rides to/from appointments. Its pretty nice there. Stop the Bactrim. Your kidney function is a little slow today and that may be due to the Bactrim. Have your labs repeated at the clinic in 2 weeks. Continue your nebs at home as recommended. Follow up otherwise as needed. Sepsis Event Note - Evaluation Sepsis Screening Result: No Definite Risk - Focused Exam Vital Signs: Vital Signs Temp Pulse Resp BP Pulse Ox 02/25/20 14:44 94 18 103/61 100 02/25/20 14:07 93 21 H 93/60 97 02/25/20 14:00 95 19 106/59 L 95 02/25/20 13:51 36.4 C 99 18 120/60 99 Date Exam was Performed: 02/25/20 Time Exam was Performed: 15:26 - My Orders Last 24 Hours: My Active Orders 02/25/20 14:01 Chest 2V [CR] Stat 02/25/20 14:02 EKG Documentation Completion [RC] ASDIRECTED - Assessment/Plan Last 24 Hours: My Active Orders 02/25/20 14:01 Chest 2V [CR] Stat 02/25/20 14:02 EKG Documentation Completion [RC] ASDIRECTED
[2020-02-25] MEDS ORDERED: methylPREDNISolone Sodium Succinate 125 MG/2 ML SDV IVPUSH ONE (15:02)
[2020-02-25] MEDS ORDERED: methylPREDNISolone Sodium Succinate 125 MG/2 ML SDV ONE (15:33)
[2020-02-25] MEDS ORDERED: Albuterol/Ipratropium 3.0-0.5 MG/3 ML Neb Soln NEB ONE (15:38)
[2020-02-25 15:54] VITALS: BP 106/56; PULSE 93
== END 2020-02-25 16:10 | disposition home or self-care (01) ==
LOC: LL.ED 13:49
DX: J44.9 Chronic obstructive pulmonary disease, unspecified (principal); F41.9 Anxiety disorder, unspecified; I11.0 Hypertensive heart disease with heart failure; I50.9 Heart failure, unspecified; E78.00 Pure hypercholesterolemia, unspecified; M19.90 Unspecified osteoarthritis, unspecified site; F17.200 Nicotine dependence, unspecified, uncomplicated; Z79.899 Other long term (current) drug therapy; Z79.82 Long term (current) use of aspirin
CPT/HCPCS: 36415; 71046; 80053; 81001; 83605; 83735; 83880; 84484; 85025; 93005; 94640; 96374; 99285-25; A9270-GY; J2930; J7620-GY

== ENCOUNTER 2020-11-03 08:29 | Inpatient (IN) | payer MEDICARE, MEDICAID, OTHER ==
[2020-11-03] MEDS ORDERED: Lidocaine 2% HCl 11 ML Jelly Filled Syringe ONE (09:00)
--- NOTE | 2020-11-03 09:06 | EDM.PDOC ---
ED HPI GENERAL MEDICAL PROBLEM - General Chief Complaint: General Stated Complaint: leg pain, SOB, possible UTI Time Seen by Provider: 11/03/20 08:55 Source of Information: Reports: Patient, EMS, Old Records ([facility] chart/EMR). Denies: EMS Notes Reviewed (Not available at time of dictation) History Limitations: Reports: No Limitations - History of Present Illness INITIAL COMMENTS - FREE TEXT/NARRATIVE: The patient was brought to the emergency room via ambulance with mixer foam rubber accompaniment with continuation of his previous O2 therapy at 4 L/min by nasal cannula. They were unable to obtain IV access. He complains of nonspecific 10/10 bladder discomfort typical of his previous bladder infections with patient currently requiring self catheterization on a 3 times daily basis, however he does reuse his urinary catheters frequently after cleaning the exteriors with alcohol wipes and using running tap water for anterior catheter care. He denies any colic, gross hematuria, or other UTI symptoms. No recent history of abdominal pain, heartburn, nausea, diarrhea, melena, gross hematochezia, or any food intolerance, including fatty foods, etc. with normal bowel movement yesterday. His above symptoms started at about 7 PM yesterday evening with the patient not catheterizing himself yet this morning. The patient denies any chest pain/pressure, heart flutter, dizziness, orthostasis, orthopnea, diaphoresis, paresthesias, recent decreased exercise tolerance, or any other anginal-type symptoms. The patient also denies any recent fever, wheezing, dyspnea, etc. with stable chronic occasional clear to mildly yellow productive cough. He denies any known exposure to infection, including COVID-19, etc. with the patient obtaining his influenza booster this season. Onset: Gradual Onset Date: 11/02/20 Onset Time: 19:00 Duration: Constant, Getting Worse Location: Reports: Pelvis (Bladder). Denies: Head, Face, Neck, Chest, Abdomen, Back, Upper Extremity, Left, Upper Extremity, Right, Lower Extremity, Left, Lower Extremity, Right, Radiates to Quality: Reports: Ache, Same as Previous Episode Severity: Severe Improves with: Reports: None Worsens with: Reports: None Context: Reports: Other (As above). Denies: Sick Contact, Trauma Associated Symptoms: Reports: Cough (As above), cough w sputum (As above). Denies: Confusion, Chest Pain, Diaphoresis, Fever/Chills, Headaches, Loss of Appetite, Malaise, Nausea/Vomiting, Shortness of Breath, Syncope, Weakness Treatments BELT WEAVER: Reports: Other (see below) (None) Groin Pain Score (Numeric/FACES): 10 - Related Data Allergies Allergy/AdvReac Type Severity Reaction Status Date / Time No Known Allergies Allergy Verified 11/03/20 08:30 Home Meds: Home Meds Lisinopril 20 mg PO DAILY 11/03/17 [History] Potassium Chloride [Klor-Con M20] 20 meq PO DAILY 11/03/17 [History] atorvaSTATin [Lipitor] 20 mg PO 1800 11/03/17 [History] Acetaminophen [Tylenol] 650 mg PO Q4H PRN tablet 11/07/17 [Rx] Albuterol/Ipratropium [DuoNeb 3.0-0.5 MG/3 ML] 3 ml NEB Q4HRRT PRN 30 Days #120 neb 11/07/17 [Rx] Furosemide [Lasix] 40 mg PO DAILY 30 Days #30 tab 11/07/17 [Rx] Fluticasone Propionate [Flonase] 1 sprays NASBOTH BID PRN 11/16/17 [History] Aspirin [Ecotrin EC] 81 mg PO DAILY 01/07/18 [History] bisacodyL [Dulcolax] 5 mg PO ASDIRECTED PRN 03/28/18 [History] Budesonide [Pulmicort] 0.5 mg NEB BIDRT 30 Days #60 neb 03/31/18 [Rx] Arformoterol [Brovana] 15 mcg INH Q12HR #1 box 11/23/18 [Rx] Albuterol/Ipratropium [DuoNeb 3.0-0.5 MG/3 ML] 1 ampule INH Q4HR PRN 11/03/20 [History] metFORMIN HCl [Metformin HCl ER] 500 mg PO DAILY@1700 11/03/20 [History] Past Medical History HEENT History: Reports: Impaired Vision, Other (See Below). Denies: Allergic Rhinitis, Cataract, Glaucoma, Hard of Hearing, Macular Degeneration, Otitis Media, Retinal Detachment Other HEENT History: Patient wears reading glasses Cardiovascular History: Reports: Arrhythmia, CAD, Cardiomyopathy, Heart Failure, Heart Murmur, High Cholesterol, Hypertension, CO, PTCA, Stents. Denies: Afib, Aneurysm, Blood Clots/VTE/DVT, Bypass, Pulmonary Hypertension, PVD, Syncope Other Cardiovascular History: Chronic D-dimer elevation. Non-STEMI on 09/10/2019 with subsequent stent placement as below. Incomplete right bundle branch block, PVCs and PACs diagnosed on 04/24/17 with subsequent probable SVT diagnosed in April 2017. Chronic dependent edema. Grade 1 diastolic dysfunction by echocardiogram in September 2019 and April 2017. Respiratory History: Reports: Bronchitis, Recurrent, COPD, Intubation, Previous, Pneumonia, Recurrent, Pneumothorax, Pulmonary Fibrosis, Other (See Below). Denies: Asthma, Intubation, Difficult, PE, Sleep Apnea, TB Other Respiratory History: Steroid and O2 dependent COPD with current use of 4 L/m by nasal cannula. 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 Spontaneous right sided pneumothorax on 01/07/18. Gastrointestinal History: Reports: Chronic Constipation, Colon Polyp, Hemorrhoids. Denies: Celiac Disease, Cholelithiasis, Fecal Incontinence, GERD, Hepatitis, Hiatal Hernia, Inflammatory Bowel Disease, Irritable Bowel Syndrome, Jaundice, Pancreatitis, PUD Other Gastrointestinal History: Tubular adenoma 2 in the transverse colon by incomplete colonoscopy as below with additional large sigmoid polyp by barium enema on 12/14/17. Umbilical hernia. Genitourinary History: Reports: BPH, Prostate Disorder, Retention, Urinary, UTI, Recurrent, Other (See Below). Denies: Acute Renal Failure, Chronic Renal Insuffiency, Dialysis, Renal Calculus, STD, Urinary Incontinence Other Genitourinary History: Neurogenic bladder with self catherizations. History of 2 penile urethral tract secondary to self-catheterization's? Musculoskeletal History: Reports: Arthritis, Back Pain, Chronic, Neck Pain, Chronic, Osteoarthritis. Denies: Amputation, Fracture, Gout, Osteoporosis, RA, SLE Neurological History: Reports: None. 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 Denies: Abuse, Victim of, ADD, ADHD, Psych Hospitalization(s), Psychosis, PTSD, Suicide Attempt, Suicidal Ideation Other Psychiatric History: Distant heavy alcohol use as below. Endocrine/Metabolic History: Reports: Hypokalemia, Hypomagnesemia, Obesity/BMI 30+. Denies: Diabetes, Type I, Diabetes, Type II, Diabetes Mellitus, Type 3c, Hypothyroidism, IDDM Hematologic History: Reports: Polycythemia, Other (See Below). 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 Immunologic History: Reports: Immunosuppression, Other (See Below). 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 Oncologic (Cancer) History: Reports: None. Denies: Basal Cell Carcinoma, Colon, Hodgkin's Lymphoma, Leukemia, Lymphoma, Malignant Melanoma, Non-Hodgkin's Lymphoma, Prostate, Squamous Cell Carcinoma Dermatologic History: Reports: None. Denies: Eczema, Psoriasis - Infectious Disease History Infectious Disease History: Reports: Chicken Pox, Mumps, Shingles. Denies: C- Difficile, Measles, Meningitis, Mononucleosis, MRSA, Novel Coronavirus, Pertussis (Whooping Cough), Rheumatic Fever, Rubella, SARS, Scarlet Fever, TB, VRE - Past Surgical History Head Surgeries/Procedures: Reports: None HEENT Surgical History: Reports: Oral Surgery, Other (See Below). Denies: Adenoidectomy, Cataract Surgery, Eye Surgery, Laser Surgery, LASIK, Myringotomy w Tube(s), Naso-Sinus Surgery, Tonsillectomy Other HEENT Surgeries/Procedures: Complete teeth extraction with complete dentures uppers and lowers. Cardiovascular Surgical History: Reports: Coronary Artery Stent, Percutaneous Transluminal Angioplasty, Other (See Below). Denies: Aneurysm, Varicose Other Cardiovascular Surgeries/Procedures: PTCA with subsequent drug-eluting stent of the mid LAD on 09/12/2019. Respiratory Surgical History: Reports: Other (See Below) Other Respiratory Surgeries/Procedures: Chest tube insertion for spontaneous pneumothorax on 01/07/18. GI Surgical History: Reports: Colonoscopy, Polypectomy, Other (See Below). Denies: Appendectomy, EGD, Hernia, Abdominal, Hernia, Inguinal, Hernia Repair/Other Other GI Surgeries/Procedures: Polypectomy 2 of tubular adenomas in the transverse colon as above. Incomplete Colonoscopy secondary to poor bowel prep aration and tortuous colon on 11/16/17 with follow-up enema as below. Male Surgical History: Reports: Circumcision, Suprapubic Catheter Placement, TURP-Transurethral Resection of Prostate, Other (See Below). Denies: Vasectomy Other Male Surgeries/Procedures: Circumcision as an , TURP 2 initially in 2008 and then in 2009, suprapubic catheter placement in 2009 Endocrine Surgical History: Reports: None. Denies: Thyroid Biopsy Neurological Surgical History: Reports: None. Denies: C-Spine, Discectomy, Laminectomy, Lumbar Spine, Sacral Spine, Spinal Fusion, Thoracic Spine, Vertebroplasty Musculoskeletal Surgical History: Reports: None. Denies: Arthroscopic Procedure, Carpal Tunnel, Ganglion Cyst, Joint Replacement, ORIF, Shoulder Surgery Oncologic Surgical History: Reports: None Dermatological Surgical History: Reports: None - Past Imaging History Past Imaging History: Reports: Angiography (Heart catheterization on 09/12/2019.), Barium Enema (12/14/17), Cardiac Echo (Last echocardiogram at [facility] in September 2019 with ejection fraction of only 30% at that time with persistent grade 1 diastolic dysfunction. Previous echocardiogram on 04/25/17 with ejection fraction of 5560 percent and otherwise results as above.), CAT Scan (CT of the chest without contrast on 09/20/2019 and on 08/11/19.) Social & Family History - Family History HEENT: Reports: None. Denies: Glaucoma, Macular Degeneration Cardiac: Reports: CAD, Hypertension, CO, Other (See Below). Denies: Afib, Aneurysm, Arrhythmia, Blood Clots/VTE/DVT, Heart Failure, High Cholesterol, Syncope Other Cardiac Family History: Brother with hypertension, mother with fatal CO at age 75 Respiratory: Reports: COPD, Other (See Below). Denies: Asthma, PE, Pneumothorax, Sleep Apnea Other Respiratory Family Hisory: Father with COPD with history of tobacco use GI: Reports: None. Denies: Celiac Disease, Cholelithiasis, Colon Polyps, GERD, GI bleed, Hepatitis, Inflammatory Bowel Disease, Irritable Bowel Syndrome, Jaundice, Pancreatitis, PUD : Reports: None. Denies: Dialysis, Renal Calculus, Renal Disease/Insufficiency OBGYN: Reports: None. Denies: Dysfunctional uterine bleeding, Endometriosis, Recurrent Spontaneous Musculoskeletal: Reports: Arthritis, Osteoarthritis, Other (See Below). Denies: Gout, RA, SLE Other Musculoskeletal Family History: Brother with osteoarthritis Neurological: Reports: None. Denies: Alzheimers Disease, Cerebral Aneurysms, CVA, Dementia, Migraines, MS, Parkinson's, Seizure, TIA Psychiatric: Reports: None. Denies: Abuse, Victim of, ADD, ADHD, Anxiety, Depression, Psych Hospitalization(s), Psychosis, PTSD, Suicide Attempt Endocrine/Metabolic: Reports: Diabetes, type II, IDDM, Other (See Below). Denies: Diabetes, Type I, Diabetes Mellitus, Type 3c, Hypothyroidism Other Endocrine/Metabolic Family History: Mother with IDDM Hematologic: Reports: None. Denies: Anemia, SLE Immunologic: Reports: None. Denies: AIDS, HIV, SLE Dermatologic: Reports: None. Denies: Eczema, Psoriasis Oncologic: Reports: None. Denies: Colon, Esophageal, Hodgkin's Lymphoma, Leukemia, Lung, Lymphoma, Prostate, Renal, Skin - Tobacco Use Tobacco Use Status *Q: Current Every Day Tobacco User Tobacco Use Within Last Twelve Months: Cigarettes Years of Tobacco use: 57 Packs/Tins Daily: 0.5 Packs/Tins Daily Comment: Started smoking at age 13 with previous maximum use of 2 packs/day. Used Tobacco, but Quit: No Smoking Cessation Information Provided To Patient: Yes Second Hand Smoke Exposure: No Second Hand Smoke Education Provided: No - Caffeine Use Caffeine Use: Reports: Coffee (1 pot/day), Tea (Occasional hot). Denies: Energy Drinks, Soda - Alcohol Use Alcohol Use History: No Days Per Week of Alcohol Use: 0 Number of Drinks Per Day: 2 Number of Drinks Per Day Comment: Previous history of heavy alcohol use with patient usually drinking beer or whiskey. Patient denies any previous DWIs, alcohol treatment, etc. No alcohol use since 2019. 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 ED EXAM, GENERAL - Physical Exam Exam: See Below Exam Limited By: No Limitations General Appearance: Alert, WD/WN, No Apparent Distress Eye Exam: Bilateral Eye: EOMI, Normal Inspection (No nystagmus), PERRL Ears: Normal External Exam, Normal Canal, Hearing Grossly Normal, Normal TMs Nose: Normal Inspection, Normal Mucosa, No Blood Throat/Mouth: Normal Inspection, Normal Lips, Normal Gums, Normal Oropharynx, Normal Voice, No Airway Compromise. No: Normal Teeth (Complete dentures uppers and lowers), Dysphagia, Inflammation, Perioral Cyanosis Head: Atraumatic, Normocephalic. No: Facial Swelling, Facial Tenderness, Sinus Tenderness Neck: Supple, Non-Tender, Full Range of Motion, Carotid Bruit (Mild bilateral). No: Lymphadenopathy (L), Lymphadenopathy (R), Thyromegaly Respiratory/Chest: No Respiratory Distress, No Accessory Muscle Use, Chest Non- Tender, Rhonchi (Occasional mild bilateral). No: Rales, Wheezing, Pleural Rub, Retractions Cardiovascular: Normal Peripheral Pulses, Regular Rate, Rhythm, No Edema, No Gallop, No JVD, No Murmur, No Rub. No: Gallop/S3, Gallop/S4, Extra Beats (At time of exam), Friction Rub Peripheral Pulses: 2+: Radial (L), Radial (R), Dorsalis Pedis (L), Dorsalis Pedis (R) GI/Abdominal: Normal Bowel Sounds, Soft, Non-Tender, No Organomegaly, No Distention, No Abnormal Bruit, No Mass, Pelvis Stable, Hernia (Stable 4 cm nonincarcerated umbilical hernia). No: Guarding (Male) Exam: Circumcised, Rash (Bilateral scrotal inflammation consistent with tinea), Other (Dual urethral opening/tractstable by patient history) Rectal (Males) Exam: Deferred Back Exam: Normal Inspection, Full Range of Motion. No: CVA Tenderness (L), CVA Tenderness (R), Muscle Spasm Extremities: Normal Range of Motion, Non-Tender, No Pedal Edema, Normal Capillary Refill, Other (Mild occasional ecchymosis over the left forearm and right hand possibly secondary to failed IV attempts.). No: Dave's Sign Neurological: Alert, Oriented, CN II-XII Intact, Normal Cognition, Normal Gait, Normal Reflexes (Negative Babinski's), No Motor/Sensory Deficits Psychiatric: Normal Affect, Normal Mood Skin Exam: Ecchymosis (As above). No: Diaphoretic, Wound/Incision Lymphatic: No Adenopathy Course - Vital Signs Last Recorded V/S: Last Vital Signs Temp 37.1 C 11/03/20 08:30 Pulse 86 11/03/20 11:05 Resp 20 11/03/20 11:05 BP 167/70 H 11/03/20 11:05 Pulse Ox 96 11/03/20 11:05 Vital Signs - 24 hr 11/03/20 11/03/20 11/03/20 08:30 08:45 09:10 Temperature [ 37.1 C Temporal] Pulse, 91 87 89 Peripheral [ Left Pulse Oximetry] Respiratory 20 20 20 Rate Blood Pressure 145/78 H 128/67 148/96 H [Left Upper Arm ] O2 Sat by Pulse 94 L 96 96 Oximetry 11/03/20 11/03/20 09:30 10:20 Temperature [ Temporal] Pulse, 86 92 Peripheral [ Left Pulse Oximetry] Respiratory 20 20 Rate Blood Pressure 167/70 H 133/69 [Left Upper Arm ] O2 Sat by Pulse 96 96 Oximetry - Orders/Labs/Meds Orders: Active Orders 24 hr Category Date Time Status Peripheral IV Care [RC] . DIRECTED Care 11/03/20 08:36 Active Chest 1V Frontal [CR] Stat Exams 11/03/20 09:51 Taken Chest PE [Ang Chest] [CT] Stat Exams 11/03/20 09:50 Taken CORONAVIRUS COVID-19 SCOTT [MOLEC] Stat Lab 11/03/20 10:06 Ordered CULTURE URINE [RM] Routine Lab 11/03/20 09:30 Received Sodium Chloride 0.9% [Saline Flush] Med 11/03/20 08:36 Active 10 ml FLUSH ASDIRECTED PRN cefTRIAXone [Rocephin] 1 gm Med 11/03/20 10:00 Active Sodium Chloride 0.9% [Normal Saline] 100 ml IV Q12H Isolation [COMM] Routine Oth 11/03/20 10:06 Active Peripheral IV Insertion Adult [OM.PC] Routine Oth 11/03/20 08:36 Ordered Medication Orders Ceftriaxone Sodium 1 gm/ (Sodium Chloride) 100 mls @ 200 mls/hr IV Q12H MERY Last Admin: 11/03/20 10:25 Dose: 200 mls/hr Documented by: EVE Sodium Chloride (Saline Flush) 10 ml FLUSH ASDIRECTED PRN PRN Reason: Keep Vein Open Labs: Laboratory Tests 11/03/20 11/03/20 11/03/20 Range/Units 08:40 08:40 08:40 WBC 12.9 H (4.0-10.2) K/uL RBC 5.56 H (4.33-5.41) M/uL Hgb 15.0 (13.1-16.8) g/dL Hct 46.5 (39.0-49.0) % MCV 83.6 L (84.0-98.0) fL MCH 27.0 L (28.2-33.3) pg MCHC 32.3 (31.7-36.0) g/dL RDW 13.6 (11.2-14.1) % Plt Count 189 (150-350) K/uL Neut % (Auto) 75.3 (45.0-80.0) % Lymph % (Auto) 17.1 (10.0-50.0) % [place] % (Auto) 6.5 (2.0-14.0) % Eos % (Auto) 0.9 (0.0-5.0) % Baso % (Auto) 0.2 (0.0-2.0) % Neut # (Auto) 9.70 H (1.40-7.00) K/uL Lymph # (Auto) 2.21 (0.50-3.50) K/uL [place] # (Auto) 0.84 (0.00-1.00) K/uL Eos # (Auto) 0.12 (0.00-0.50) K/uL Baso # (Auto) 0.02 (0.00-0.20) K/uL D-Dimer, Quantitative 1280 H (0-400) ng/mL Sodium 138 (136-145) mmol/L Potassium 4.5 (3.5-5.1) mmol/L Chloride 102 (98-107) mmol/L Carbon Dioxide 25.6 (21.0-32.0) mmol/L BUN 18 (7-18) mg/dL Creatinine 0.93 (0.51-1.17) mg/dL Est Cr Clr Drug Dosing 79.96 mL/min Estimated GFR (MDRD) > 60 mL/min Glucose 143 H (74-106) mg/dL Lactic Acid (0.4-2.0) mmol/L Calcium 8.8 (8.5-10.1) mg/dL Total Bilirubin 0.9 (0.2-1.0) mg/dL AST 14 L (15-37) U/L ALT 23 (12-78) U/L Alkaline Phosphatase 120 H (46-116) IU/L Creatine Kinase (26-308) U/L Creatine Kinase Index (0.0-2.5) % CK-MB (CK-2) (0.00-3.60) ng/mL Troponin I (0.000-0.056) ng/mL NT-Pro-B Natriuret Pep (0-125) pg/mL Total Protein 7.3 (6.4-8.2) g/dL Albumin 4.0 (3.4-5.0) g/dL Specimen Type Urine Color Urine Appearance Urine pH (5.0-9.0) Ur Specific [place] (1.005-1.030) Urine Protein (NEGATIVE) mg/dL Urine Glucose (UA) (NEGATIVE) mg/dL Urine Ketones (NEGATIVE) mg/dL Urine Occult Blood (NEGATIVE) Urine Nitrite (NEGATIVE) Urine Bilirubin (NEGATIVE) Urine Urobilinogen (0.2-1.0) E.U./dL Ur Leukocyte Esterase (NEGATIVE) Urine RBC /HPF Urine WBC /HPF Ur Epithelial Cells /LPF Urine Bacteria (NONE TO FEW) /HPF 11/03/20 11/03/20 11/03/20 Range/Units 08:40 08:40 09:30 WBC (4.0-10.2) K/uL RBC (4.33-5.41) M/uL Hgb (13.1-16.8) g/dL Hct (39.0-49.0) % MCV (84.0-98.0) fL MCH (28.2-33.3) pg MCHC (31.7-36.0) g/dL RDW (11.2-14.1) % Plt Count (150-350) K/uL Neut % (Auto) (45.0-80.0) % Lymph % (Auto) (10.0-50.0) % [place] % (Auto) (2.0-14.0) % Eos % (Auto) (0.0-5.0) % Baso % (Auto) (0.0-2.0) % Neut # (Auto) (1.40-7.00) K/uL Lymph # (Auto) (0.50-3.50) K/uL [place] # (Auto) (0.00-1.00) K/uL Eos # (Auto) (0.00-0.50) K/uL Baso # (Auto) (0.00-0.20) K/uL D-Dimer, Quantitative (0-400) ng/mL Sodium (136-145) mmol/L Potassium (3.5-5.1) mmol/L Chloride (98-107) mmol/L Carbon Dioxide (21.0-32.0) mmol/L BUN (7-18) mg/dL Creatinine (0.51-1.17) mg/dL Est Cr Clr Drug Dosing mL/min Estimated GFR (MDRD) mL/min Glucose (74-106) mg/dL Lactic Acid 1.7 (0.4-2.0) mmol/L Calcium (8.5-10.1) mg/dL Total Bilirubin (0.2-1.0) mg/dL AST (15-37) U/L ALT (12-78) U/L Alkaline Phosphatase (46-116) IU/L Creatine Kinase 168 (26-308) U/L Creatine Kinase Index 2.0 (0.0-2.5) % CK-MB (CK-2) 3.30 (0.00-3.60) ng/mL Troponin I 0.000 (0.000-0.056) ng/mL NT-Pro-B Natriuret Pep 296 H (0-125) pg/mL Total Protein (6.4-8.2) g/dL Albumin (3.4-5.0) g/dL Specimen Type Urincath Urine Color Dark yellow Urine Appearance Cloudy Urine pH 6.0 (5.0-9.0) Ur Specific [place] 1.020 (1.005-1.030) Urine Protein 30 H (NEGATIVE) mg/dL Urine Glucose (UA) Negative (NEGATIVE) mg/dL Urine Ketones Trace H (NEGATIVE) mg/dL Urine Occult Blood Moderate H (NEGATIVE) Urine Nitrite Positive H (NEGATIVE) Urine Bilirubin Negative (NEGATIVE) Urine Urobilinogen 2.0 H (0.2-1.0) E.U./dL Ur Leukocyte Esterase Small H (NEGATIVE) Urine RBC 5-10 H /HPF Urine WBC >100 H /HPF Ur Epithelial Cells Few /LPF Urine Bacteria Many H (NONE TO FEW) /HPF Urine specimen set up for culture and sensitivity Specimen collected for COVID-19 with results pending Specimen for influenza A & B also collected with results pending Meds: Medications Generic Name Dose Route Start Last Admin Trade Name Freq PRN Reason Stop Dose Admin Ceftriaxone Sodium 1 gm/ 100 mls @ 200 mls/hr 11/03/20 10:00 11/03/20 10:25 Sodium Chloride IV 200 mls/hr Q12H MERY Administration Sodium Chloride 10 ml 11/03/20 08:36 Saline Flush FLUSH ASDIRECTED PRN Keep Vein Open Discontinued Medications Generic Name Dose Route Start Last Admin Trade Name Freq PRN Reason Stop Dose Admin Iopamidol Confirm 11/03/20 09:56 Isovue-370 (76%) Administered 11/03/20 09:57 Dose 100 ml .ROUTE .STKDormify ONE Lidocaine HCl Confirm 11/03/20 09:00 11/03/20 09:10 Glydo Administered 11/03/20 09:01 11 ml Dose Administration 11 ml .ROUTE .STK-MED ONE - Radiology Interpretation Free Text/Narrative:: 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 Shortly prior to mission patient did have an episode of brief tachycardia/PSVT in the 150s with spontaneous resolution without therapy Chest x-ray, portable, shows evidence of severe COPD, including bullous changes especially in the left lower lobe. Mild atelectasis and possible small right pleural effusion with no cardiomegaly or CHF. Probable pulmonary hypertension with mild aortic valve calcification and prominence of the proximal aortic arch. No evidence of pneumothorax. Otherwise no direct pulmonary infiltrates. CTA of the chest using PE protocol conducted with results pending Departure - Departure Time of Disposition: 10:35 Disposition: DC/Tfer to Acute Hospital 02 Condition: Fair Clinical Impression: Tobacco abuse counseling, Neurogenic bladder, D-dimer, elevated, PSVT (paroxysmal supraventricular tachycardia) COPD (chronic obstructive pulmonary disease) Qualifiers: COPD type: emphysema Emphysema type: panlobular Qualified Code(s): J43.1 - Panlobular emphysema Hypertension Qualifiers: Hypertension type: essential hypertension Qualified Code(s): I10 - Essential (primary) hypertension Coronary artery disease Qualifiers: Coronary Disease-Associated Artery/Lesion type: [place] artery [place] vs. transplanted heart: [place] heart Associated angina: without angina Qualified Code(s): I25.10 - Atherosclerotic heart disease of [place] coronary artery without angina pectoris UTI (urinary tract infection) Qualifiers: Urinary tract infection type: acute cystitis Hematuria presence: without hematuria Qualified Code(s): N30.00 - Acute cystitis without hematuria CHF (congestive heart failure) Qualifiers: Heart failure type: diastolic Heart failure chronicity: acute on chronic Qualified Code(s): I50.33 - Acute on chronic diastolic (congestive) heart failure - Discharge Information *PRESCRIPTION DRUG MONITORING PROGRAM REVIEWED*: Not Applicable *COPY OF PRESCRIPTION DRUG MONITORING REPORT IN PATIENT [place]: Not Applicable Sepsis Event Note (ED) - Evaluation Sepsis Screening Result: No Definite Risk - Focused Exam Vital Signs: Vital Signs Temp Pulse Resp BP Pulse Ox 11/03/20 10:20 92 20 133/69 96 11/03/20 09:30 86 20 167/70 H 96 11/03/20 09:10 89 20 148/96 H 96 11/03/20 08:45 87 20 128/67 96 11/03/20 08:30 37.1 C 91 20 145/78 H 94 L - Problem List & Annotations (1) UTI (urinary tract infection) SNOMED Code(s): 89335542 Code(s): N39.0 - URINARY TRACT INFECTION, SITE NOT SPECIFIED Status: Acute Priority: High Current Visit: No Annotation/Comment:: History of recurrent UTIs likely secondary to nonsterile self-catheterization at home. Urine specimen set up for culture and sensitivity. The patient was counseled on appropriate sterile self-catheterization as below. IV Rocephin therapy initiate d in the emergency room. No clinical evidence of sepsis with with normal lactic acid level and only mild leukocytosis with no significant fever in the emergency room. Qualifiers: Urinary tract infection type: acute cystitis Hematuria presence: without hematuria Qualified Code(s): N30.00 - Acute cystitis without hematuria (2) D-dimer, elevated SNOMED Code(s): 975111214 Code(s): R79.89 - OTHER SPECIFIED ABNORMAL FINDINGS OF BLOOD CHEMISTRY Status: Acute Priority: High Current Visit: No Annotation/Comment:: Known history of chronic low D-dimer elevation, however D-dimer significantly elevated today. No direct clinical evidence of DVT or PE. CTA of the chest conducted in the emergency room prior to patient's admission. Venous Doppler studies are also to be conducted later today. Initiate appropriate therapy once results have been obtained. (3) Neurogenic bladder SNOMED Code(s): 227475697 Code(s): N31.9 - NEUROMUSCULAR DYSFUNCTION OF BLADDER, UNSPECIFIED Status: Chronic Priority: High Current Visit: No Annotation/Comment:: Neurogenic bladder with continuation of self catheterization initially during this hospitalization. Patient was cautioned not to reuse his catheters secondary to history of frequent UTIs. Care management consultation during this hospitalization in hopes of patient obtaining appropriate number of catheters at home. (4) COPD (chronic obstructive pulmonary disease) SNOMED Code(s): 74510685 Code(s): J44.9 - CHRONIC OBSTRUCTIVE PULMONARY DISEASE, UNSPECIFIED Status: Chronic Priority: High Current Visit: No Annotation/Comment:: History of known severe bullous O2 and steroid-dependent COPD with O2 sat in the emergency room of 96-97% on his baseline 4 L/min by nasal cannula. Note mild yellowish productive cough possibly consistent with beginning pneumonia. IV antibiotics as above. Lactic acid level is normal with only mild WBC elevation and no clinical evidence of sepsis. Qualifiers: COPD type: emphysema Emphysema type: panlobular Qualified Code(s): J43.1 - Panlobular emphysema (5) Coronary artery disease SNOMED Code(s): 44349690 Code(s): I25.10 - ATHSCL HEART DISEASE OF [place] CORONARY ARTERY W/O ANG PCTRS Status: Chronic Priority: Medium Current Visit: No Annotation/Comment:: No chest pain or anginal type symptoms. Note history of CHF, diastolic dysfunction, previous non-STEMI in September 2019, etc. Continue to observe closely during this hospitalization. 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 Qualifiers: Coronary Disease-Associated Artery/Lesion type: [place] artery [place] vs. transplanted heart: [place] heart Associated angina: without angina Qualified Code(s): I25.10 - Atherosclerotic heart disease of [place] coronary artery without angina pectoris (6) Hypertension SNOMED Code(s): 64014317 Code(s): I10 - ESSENTIAL (PRIMARY) HYPERTENSION Status: Chronic Priority: Medium Current Visit: No Annotation/Comment:: Blood pressures were under good control in the emergency room. Continue to observe closely during this hospitalization. Qualifiers: Hypertension type: essential hypertension Qualified Code(s): I10 - Essential (primary) hypertension (7) Osteoarthritis SNOMED Code(s): 730732704 Code(s): M19.90 - UNSPECIFIED OSTEOARTHRITIS, UNSPECIFIED SITE Status: Chronic Priority: Medium Current Visit: No Annotation/Comment:: Stable by history Qualifiers: Osteoarthritis location: multiple joints Osteoarthritis type: primary Qualified Code(s): M89.49 - Other hypertrophic osteoarthropathy, multiple sites (8) Tobacco abuse counseling SNOMED Code(s): 848203350, 300917303, 419016239 Code(s): Z71.6 - TOBACCO ABUSE COUNSELING Status: Chronic Priority: High Current Visit: No Annotation/Comment:: Tobacco cessation information should be once again provided at discharge from hospital with tobacco cessation once again strongly encouraged. (9) PSVT (paroxysmal supraventricular tachycardia) SNOMED Code(s): 79857696 Code(s): I47.1 - SUPRAVENTRICULAR TACHYCARDIA Status: Acute Priority: High Current Visit: Yes Onset Date: 11/03/20 Annotation/Comment:: Brief nonsymptomatic episode of PSVT in the 150s as above with spontaneous resolution without therapy. Note that the patient did not take his morning medications prior to his emergency room visit. Continue medication adjustment during this hospitalization. (10) CHF (congestive heart failure) SNOMED Code(s): 25085808 Code(s): I50.9 - HEART FAILURE, UNSPECIFIED Status: Chronic Priority: High Current Visit: Yes Annotation/Comment:: Mild BNP elevation with no chest pain or anginal complaints. Only mild CHF by today's chest x-ray. Initiate IV Lasix therapy on admission. Note recent echocardiogram in September 2019. Qualifiers: Heart failure type: diastolic Heart failure chronicity: acute on chronic Qualified Code(s): I50.33 - Acute on chronic diastolic (congestive) heart failure - Problem List Review Problem List Initiated/Reviewed/Updated: Yes - My Orders Last 24 Hours: My Active Orders 11/03/20 09:30 CULTURE URINE [RM] Routine 11/03/20 09:50 Chest PE [Ang Chest] [CT] Stat 11/03/20 09:51 Chest 1V Frontal [CR] Stat 11/03/20 10:00 cefTRIAXone [Rocephin] 1 gm Sodium Chloride 0.9% [Normal Saline] 100 ml IV Q12H 11/03/20 10:06 CORONAVIRUS COVID-19 SCOTT [MOLEC] Stat Isolation [COMM] Routine - Assessment/Plan Admission H&P: Please use this note as an admission H&P Last 24 Hours: My Active Orders 11/03/20 09:30 CULTURE URINE [RM] Routine 11/03/20 09:50 Chest PE [Ang Chest] [CT] Stat 11/03/20 09:51 Chest 1V Frontal [CR] Stat 11/03/20 10:00 cefTRIAXone [Rocephin] 1 gm Sodium Chloride 0.9% [Normal Saline] 100 ml IV Q12H 11/03/20 10:06 CORONAVIRUS COVID-19 SCOTT [MOLEC] Stat Isolation [COMM] Routine Assessment:: As above Plan: As above. Extensive precautions were given to the patient, who is in agreement with the treatment plan. The patient will require about 3-4 days of inpatient/acute care secondary to multiple health problems as above.
[2020-11-03 09:08] LABS: CHLORIDE,CL 102 mmol/L (98-107); SODIUM,NA 138 mmol/L (136-145)
[2020-11-03] MEDS ORDERED: Iopamidol 755 Mg/ML 100 ML Bottle ONE ×2 (09:56→10:00)
[2020-11-03] MEDS ORDERED: cefTRIAXone 1 GM in Sodium Chloride 0.9% 100 ML IV SCH (10:00)
[2020-11-03] MEDS ORDERED: Fluticasone Propionate Nasal Spray 16 GM Bottle NASBOTH PRN (11:22)
[2020-11-03] MEDS ORDERED: Bisacodyl 5 MG Tab PO PRN (11:22)
[2020-11-03] MEDS ORDERED: Metoprolol Tartrate 5 MG/5 ML SDV IVPUSH ONE (11:24)
[2020-11-03] MEDS ORDERED: Temazepam 15 MG Cap PO PRN (11:26)
[2020-11-03] MEDS ORDERED: Sodium Chloride 0.9% 10 ML Syringe FLUSH PRN (11:26)
[2020-11-03] MEDS ORDERED: Albuterol/Ipratropium 4 GM Inhalation Spray INH PRN (11:31)
[2020-11-03] MEDS: Albuterol/Ipratropium 4 GM Inhalation Spray INH SCH ×3 (12:04→19:26)
[2020-11-03] MEDS: Acetaminophen 325 MG Tab PO PRN ×2 (12:05→19:26)
[2020-11-03] MEDS: Diltiazem 120 MG Cap.CD PO SCH (12:06)
[2020-11-03] MEDS: Potassium Chloride 20 MEQ Tab.ER PO SCH ×2 (12:06→18:08)
[2020-11-03] MEDS: Enoxaparin 40 MG/0.4 ML Syringe SUBCUT SCH (12:07)
[2020-11-03] MEDS: Furosemide 40 MG/4 ML VIAL IVPUSH SCH ×2 (12:07→23:03)
[2020-11-03] MEDS: Phenazopyridine 95 MG Tab PO SCH ×2 (13:54→18:07)
[2020-11-03] MEDS: atorvaSTATin 10 MG Tab PO SCH (18:08)
[2020-11-03] MEDS: Menthol/Methyl Salicylate 85 GM Tube TOP PRN (23:04)
[2020-11-03] MEDS: Sodium Chloride 0.9% 10 ML Syringe FLUSH PRN (23:04)
[2020-11-03] MEDS: cefTRIAXone 1 GM in Sodium Chloride 0.9% 100 ML IV SCH (23:04)
[2020-11-04] MEDS: Albuterol/Ipratropium 4 GM Inhalation Spray INH SCH ×4 (07:30→19:18)
[2020-11-04] MEDS: Diltiazem 120 MG Cap.CD PO SCH (07:31)
[2020-11-04] MEDS: Acetaminophen 325 MG Tab PO PRN ×4 (07:32→23:02)
[2020-11-04] MEDS: Aspirin 81 MG Tab.EC PO SCH (07:32)
[2020-11-04] MEDS: Potassium Chloride 20 MEQ Tab.ER PO SCH ×2 (07:33→17:03)
[2020-11-04] MEDS: Lisinopril 20 MG Tab PO SCH (07:33)
[2020-11-04] MEDS: Phenazopyridine 95 MG Tab PO SCH ×2 (07:36→12:02)
[2020-11-04 07:40] LABS: HEMOGLOBIN A1C 5.7 % (4.3-5.7)
[2020-11-04] MEDS: Menthol/Methyl Salicylate 85 GM Tube TOP PRN ×2 (07:45→16:56)
[2020-11-04 07:49] LABS: CHLORIDE,CL 100 mmol/L (98-107); SODIUM,NA 136 mmol/L (136-145)
[2020-11-04] MEDS: cefTRIAXone 1 GM in Sodium Chloride 0.9% 100 ML IV SCH ×2 (10:57→23:03)
[2020-11-04] MEDS: Furosemide 40 MG/4 ML VIAL IVPUSH SCH ×2 (12:02→23:02)
[2020-11-04] MEDS: Enoxaparin 40 MG/0.4 ML Syringe SUBCUT SCH (12:02)
[2020-11-04] MEDS: Sodium Chloride 0.9% 10 ML Syringe FLUSH PRN ×2 (12:02→23:03)
[2020-11-04] MEDS ORDERED: Polyethylene Glycol 3350 Powder 17 GM Packet PO ONE (13:14)
[2020-11-04] MEDS ORDERED: Bisacodyl 5 MG Tab PO ONE (13:15)
[2020-11-04] MEDS ORDERED: Clotrimazole 1% Crm 30 GM Tube TOP SCH (13:15)
--- NOTE | 2020-11-04 13:52 | PCM.PN ---
- General Info Date of Service: 11/04/20 Admission Dx/Problem (Free Text): 1. CHF 2. D-dimer elevation 3. UTI with neurogenic bladder 4. COPD Functional Status: Reports: Pain Controlled, Tolerating Diet, Ambulating (With assist), Urinating (Although Montelongo catheter required), New Symptoms (Tinea inguinalis), Incentive Spirometry Pain Score: 5 (Bilateral scrotal pain secondary to tinea) - Review of Systems General: Reports: Weakness (Stable chronic). Denies: Fever, Fatigue, Malaise, Chills, Night Sweats, Appetite (Adequate) HEENT: Reports: No Symptoms Pulmonary: Reports: Shortness of Breath (Stable chronic), Cough (Stable chronic), Sputum (Mild clear), Wheezing (Occasional). Denies: Pleuritic Chest Pain, Hemoptysis Cardiovascular: Reports: No Symptoms, Dyspnea on Exertion (Stable chronic). Denies: Chest Pain, Palpitations, Orthopnea, Edema, Lightheadedness Gastrointestinal: Reports: Constipation. Denies: Difficulty Swallowing, Flatus, Hematochezia, Melena, Nausea, Vomiting Genitourinary: Reports: Incontinence, Retention. Denies: Dysuria, Frequency, Burning, Pain (Resolved with Montelongo catheter placement), Hematuria, Flank Pain Musculoskeletal: Reports: No Symptoms. Denies: Neck Pain, Shoulder Pain, Back Pain, Leg Pain Skin: Reports: Rash (Tinea cruris) Neurological: Reports: Difficulty Walking (Stable chronic), Weakness (Stable chronic). Denies: Confusion, Dizziness Psychiatric: Reports: No Symptoms. Denies: Confusion, Depression, Anxiety, Agitation, Cravings, Hallucinations - Patient Data Vitals - Most Recent: Last Vital Signs Temp 36.7 C 11/04/20 08:00 Pulse 92 11/04/20 08:00 Resp 16 11/04/20 08:00 BP 126/77 11/04/20 08:00 Pulse Ox 95 11/04/20 04:00 Vital Signs - 24 hr 11/03/20 11/03/20 11/04/20 14:30 20:00 00:00 Temperature [ 36.3 C 36.4 C 36.9 C Temporal] Pulse, Peripheral Pulse, 98 85 105 H Peripheral [ Left Pulse Oximetry] Respiratory 20 14 16 Rate Blood Pressure Blood Pressure 124/81 133/81 131/86 [Left Upper Arm ] Blood Pressure [Right Upper Arm] O2 Sat by Pulse 94 L 97 98 Oximetry 11/04/20 11/04/20 11/04/20 04:00 07:31 07:33 Temperature [ 36.4 C Temporal] Pulse, 92 Peripheral Pulse, 81 Peripheral [ Left Pulse Oximetry] Respiratory 16 Rate Blood Pressure 126/77 126/77 Blood Pressure 127/81 [Left Upper Arm ] Blood Pressure [Right Upper Arm] O2 Sat by Pulse 95 Oximetry 11/04/20 11/04/20 08:00 12:00 Temperature [ 36.7 C 36.4 C Temporal] Pulse, Peripheral Pulse, 92 80 Peripheral [ Left Pulse Oximetry] Respiratory 16 20 Rate Blood Pressure Blood Pressure [Left Upper Arm ] Blood Pressure 126/77 114/61 [Right Upper Arm] O2 Sat by Pulse 97 Oximetry Weight - Most Recent: 116.709 kg I&O - Last 24 Hours: Intake & Output 11/03/20 11/04/20 11/04/20 22:59 06:59 14:59 Intake Total 420 Output Total 1650 Balance -1650 420 Imaging Impressions - Last 24 Hours: monitoring and evaluation advisor shows improvement/resolution of previous PSVT with initial heart rates in the 140s shortly after admission. Stable heart rate this morning the in the 80s to low 100s with occasional uniform PVCs. Preliminary verbal report from [employer] business technology analyst, concerning venous Doppler studies of the lower extremities bilaterally on 11/03/2020, which were negative for DVT. Lab Results Last 24 Hours: Laboratory Results - last 24 hr 11/04/20 11/04/20 11/04/20 Range/Units 06:59 06:59 06:59 WBC 11.8 H (4.0-10.2) K/uL RBC 5.43 H (4.33-5.41) M/uL Hgb 14.8 (13.1-16.8) g/dL Hct 45.8 (39.0-49.0) % MCV 84.3 (84.0-98.0) fL MCH 27.3 L (28.2-33.3) pg MCHC 32.3 (31.7-36.0) g/dL RDW 13.5 (11.2-14.1) % Plt Count 197 (150-350) K/uL Neut % (Auto) 66.9 (45.0-80.0) % Lymph % (Auto) 23.9 (10.0-50.0) % [place] % (Auto) 7.5 (2.0-14.0) % Eos % (Auto) 1.4 (0.0-5.0) % Baso % (Auto) 0.3 (0.0-2.0) % Neut # (Auto) 7.89 H (1.40-7.00) K/uL Lymph # (Auto) 2.81 (0.50-3.50) K/uL [place] # (Auto) 0.88 (0.00-1.00) K/uL Eos # (Auto) 0.16 (0.00-0.50) K/uL Baso # (Auto) 0.03 (0.00-0.20) K/uL D-Dimer, Quantitative 1130 H (0-400) ng/mL Sodium 136 (136-145) mmol/L Potassium 4.1 (3.5-5.1) mmol/L Chloride 100 (98-107) mmol/L Carbon Dioxide 26.6 (21.0-32.0) mmol/L BUN 19 H (7-18) mg/dL Creatinine 1.01 (0.51-1.17) mg/dL Est Cr Clr Drug Dosing 73.63 mL/min Estimated GFR (MDRD) > 60 mL/min Glucose 136 H (74-106) mg/dL Hemoglobin A1c (4.3-5.7) % Calcium 9.0 (8.5-10.1) mg/dL Total Bilirubin 0.9 (0.2-1.0) mg/dL AST 15 (15-37) U/L ALT 23 (12-78) U/L Alkaline Phosphatase 108 (46-116) IU/L Creatine Kinase 225 (26-308) U/L Creatine Kinase Index 1.8 (0.0-2.5) % CK-MB (CK-2) 4.10 H (0.00-3.60) ng/mL Troponin I 0.000 (0.000-0.056) ng/mL NT-Pro-B Natriuret Pep 441 H (0-125) pg/mL Total Protein 7.5 (6.4-8.2) g/dL Albumin 3.9 (3.4-5.0) g/dL Triglycerides 125 (30-150) mg/dL Cholesterol 137 (100-200) mg/dL LDL Cholesterol, Calc 32 (0-100) mg/dL HDL Cholesterol 80 H (40-60) mg/dL 11/04/20 Range/Units 06:59 WBC (4.0-10.2) K/uL RBC (4.33-5.41) M/uL Hgb (13.1-16.8) g/dL Hct (39.0-49.0) % MCV (84.0-98.0) fL MCH (28.2-33.3) pg MCHC (31.7-36.0) g/dL RDW (11.2-14.1) % Plt Count (150-350) K/uL Neut % (Auto) (45.0-80.0) % Lymph % (Auto) (10.0-50.0) % [place] % (Auto) (2.0-14.0) % Eos % (Auto) (0.0-5.0) % Baso % (Auto) (0.0-2.0) % Neut # (Auto) (1.40-7.00) K/uL Lymph # (Auto) (0.50-3.50) K/uL [place] # (Auto) (0.00-1.00) K/uL Eos # (Auto) (0.00-0.50) K/uL Baso # (Auto) (0.00-0.20) K/uL D-Dimer, Quantitative (0-400) ng/mL Sodium (136-145) mmol/L Potassium (3.5-5.1) mmol/L Chloride (98-107) mmol/L Carbon Dioxide (21.0-32.0) mmol/L BUN (7-18) mg/dL Creatinine (0.51-1.17) mg/dL Est Cr Clr Drug Dosing mL/min Estimated GFR (MDRD) mL/min Glucose (74-106) mg/dL Hemoglobin A1c 5.7 (4.3-5.7) % Calcium (8.5-10.1) mg/dL Total Bilirubin (0.2-1.0) mg/dL AST (15-37) U/L ALT (12-78) U/L Alkaline Phosphatase (46-116) IU/L Creatine Kinase (26-308) U/L Creatine Kinase Index (0.0-2.5) % CK-MB (CK-2) (0.00-3.60) ng/mL Troponin I (0.000-0.056) ng/mL NT-Pro-B Natriuret Pep (0-125) pg/mL Total Protein (6.4-8.2) g/dL Albumin (3.4-5.0) g/dL Triglycerides (30-150) mg/dL Cholesterol (100-200) mg/dL LDL Cholesterol, Calc (0-100) mg/dL HDL Cholesterol (40-60) mg/dL Moe Results Last 24 Hours: Microbiology 11/03/20 09:30 Urine Culture - Preliminary Urine, Catheterized Gram Negative Rods 11/03/20 10:45 Influenza Type A Antigen Screen - Final Nasal, Unspecified NEGATIVE INFLUENZA A VIRUS AG REFERENCE RANGE: NEGATIVE Influenza Type B Antigen Screen - Final NEGATIVE INFLUENZA B VIRUS AG REFERENCE RANGE: NEGATIVE Urine specimen set up for culture and sensitivity. Med Orders - Current: Current Medications Acetaminophen (Tylenol) 650 mg PO Q4H PRN PRN Reason: Pain Last Admin: 11/04/20 12:16 Dose: 650 mg Documented by: Albuterol/Ipratropium (Combivent Respimat) 0 gm INH QID [facility] Last Admin: 11/04/20 12:15 Dose: 2 inhalation Documented by: Albuterol/Ipratropium (Combivent Respimat) 0 gm INH Q4H PRN PRN Reason: Dyspnea Aspirin (Halfprin) 81 mg PO DAILY [facility] Last Admin: 11/04/20 07:32 Dose: 81 mg Documented by: Atorvastatin Calcium (Lipitor) 20 mg PO DAILY@1800 [facility] Last Admin: 11/03/20 18:08 Dose: 20 mg Documented by: Bisacodyl (Dulcolax) 5 mg PO ASDIRECTED PRN PRN Reason: Constipation Clotrimazole (Lotrimin Af 1% Crm) 1 gm TOP BID [facility] Diltiazem HCl (Cardizem Cd) 120 mg PO DAILY [facility] Last Admin: 11/04/20 07:31 Dose: 120 mg Documented by: Enoxaparin Sodium (Lovenox) 40 mg SUBCUT Q24H [facility] Last Admin: 11/04/20 12:02 Dose: 40 mg Documented by: Fluticasone Propionate (Flonase) 0 gm NASBOTH BID PRN PRN Reason: Allergies Furosemide (Lasix) 40 mg IVPUSH Q12H [facility] Last Admin: 11/04/20 12:02 Dose: 40 mg Documented by: Ceftriaxone Sodium 1 gm/ (Sodium Chloride) 100 mls @ 200 mls/hr IV Q12H [facility] Last Admin: 11/04/20 10:57 Dose: 200 mls/hr Documented by: Lisinopril (Prinivil) 20 mg PO DAILY [facility] Last Admin: 11/04/20 07:33 Dose: 20 mg Documented by: Methyl Salicylate (Icy Hot Cream) 1 gm TOP BID PRN PRN Reason: Pain (mild 1-3) Last Admin: 11/04/20 07:45 Dose: 1 applic Documented by: Phenazopyridine HCl (Urinary Pain Relief) 95 mg PO TIDPC [facility] Stop: 11/04/20 18:00 Last Admin: 11/04/20 12:02 Dose: 95 mg Documented by: Potassium Chloride (Klor-Con M20) 20 meq PO BID [facility] Last Admin: 11/04/20 07:33 Dose: 20 meq Documented by: Sodium Chloride (Saline Flush) 10 ml FLUSH ASDIRECTED PRN PRN Reason: Keep Vein Open Last Admin: 11/04/20 12:02 Dose: 10 ml Documented by: Sodium Chloride (Saline Flush) 10 ml FLUSH Q12HR PRN PRN Reason: Keep Vein Open Temazepam (Restoril) 15 mg PO BEDTIME PRN PRN Reason: Insomnia Discontinued Medications Bisacodyl (Dulcolax) 5 mg PO ONETIME ONE Stop: 11/04/20 13:16 Ceftriaxone Sodium 1 gm/ (Sodium Chloride) 100 mls @ 200 mls/hr IV Q12H [facility] Last Admin: 11/03/20 10:25 Dose: 200 mls/hr Documented by: Iopamidol (Isovue-370 (76%)) Confirm Administered Dose 100 ml .ROUTE .STK-MED ONE Stop: 11/03/20 09:57 Last Admin: 11/03/20 09:55 Dose: Not Given Documented by: Lidocaine HCl (Glydo) Confirm Administered Dose 11 ml .ROUTE .STK-MED ONE Stop: 11/03/20 09:01 Last Admin: 11/03/20 09:10 Dose: 11 ml Documented by: Metoprolol Tartrate (Lopressor) 2.5 mg IVPUSH ONETIME ONE Stop: 11/03/20 11:25 Last Admin: 11/03/20 12:05 Dose: 2.5 mg Documented by: Polyethylene Glycol (Miralax) 17 gm PO ONETIME ONE Stop: 11/04/20 13:15 - Exam Quality Assessment: Supplemental Oxygen (Baseline 4 L/min by nasal cannula), Central Line/PICC, Urine Catheter, DVT Prophylaxis (Lovenox), Skin Breakdown (Mild in scrotal region secondary to tinea) General: Alert, Oriented, Cooperative, No Acute Distress HEENT: Pupils Equal, Pupils Reactive, EOMI, Mucous Membr. Moist/[place] Neck: Supple, Trachea Midline, No JVD, No Thyromegaly, Carotid Bruit (Mild bilateral carotid bruits) Lungs: Normal Respiratory Effort, Rales (Mild bilateral basilar). No: Rhonchi, Wheezing Cardiovascular: Regular Rate, Regular Rhythm, No Murmurs. No: Gallops, Rubs GI/Abdominal Exam: Normal Bowel Sounds, Soft, Non-Tender, No Organomegaly, No Distention, No Abnormal Bruit, No Mass, Hernia (Stable 4 cm in diameter nonincarcerated umbilical hernia). No: Guarding (Male) Exam: Circumcised, Rash (Tinea also in the inguinal regions), Scrotum Tenderness (L) (Mild secondary to tinea), Scrotum Tenderness (R) (Mild secondary to tinea with bilateral mild erythema, inflammation, etc. with no drainage), Other (Montelongo catheter. None duplicate penile urethral openings) Back Exam: Normal Inspection, Full Range of Motion. No: CVA Tenderness (L), CVA Tenderness (R), Muscle Spasm Extremities: Normal Inspection, Normal Range of Motion, Non-Tender, No Pedal Edema, Normal Capillary Refill. No: Dave's Sign Peripheral Pulses: 2+: Radial (L), Radial (R), Dorsalis Pedis (L), Dorsalis Pedis (R) Skin: Rash (Tinea as above). No: Ecchymosis Neurological: No New Focal Deficit, Other (Stable generalized weakness) Psy/Mental Status: Alert, Normal Affect, Normal Mood. No: Agitated, Hallucinations, Withdrawal Symptoms #1 Interpretation EKG Date: 11/04/20 Time: 07:55 Rhythm: NSR Rate (Beats/Min): 74 [place]: Normal (Left) P-Wave: Present (With mild poor R wave progression in the anterior leads) QRS: Wide (0.10 seconds representing repolarization changes) ST-T: Other (T wave inversion lead aVL with otherwise nonspecific ST changes in leads V5V6) QT: Normal (Mild at 430/477 ms) GA/PQ Interval: 0.18 seconds Comparison: NA - No Prior EKG (No recent EKG for comparison) EKG Interpretation Comments: 1. No acute ischemic changes 2. Repolarization changes Sepsis Event Note - Evaluation Sepsis Screening Result: No Definite Risk - Focused Exam Vital Signs: Vital Signs Temp Pulse Pulse Resp BP BP BP 11/04/20 08:00 36.7 C 92 16 126/77 11/04/20 07:33 126/77 11/04/20 07:31 92 126/77 11/04/20 04:00 36.4 C 81 16 127/81 Pulse Ox 11/04/20 08:00 11/04/20 07:33 11/04/20 07:31 11/04/20 04:00 95 - Problem List & Annotations (1) UTI (urinary tract infection) SNOMED Code(s): 30249049 Code(s): N39.0 - URINARY TRACT INFECTION, SITE NOT SPECIFIED Status: Acute Priority: High Current Visit: Yes Onset Date: ~11/03/20 Qualifiers: Urinary tract infection type: acute cystitis Hematuria presence: without hematuria Qualified Code(s): N30.00 - Acute cystitis without hematuria Annotation/Comment:: Note requirement of Montelongo cath placement and additional Pyridium secondary to his UTI symptoms. History of recurrent UTIs likely secondary to nonsterile self-catheterization at home. Urine specimen set up for culture and sensitivity. The patient was counseled on appropriate sterile self- catheterization as below. IV Rocephin therapy initiated in the emergency room. No clinical evidence of sepsis with with normal lactic acid level and only mild leukocytosis with no significant fever in the emergency room. (2) D-dimer, elevated SNOMED Code(s): 293431388 Code(s): R79.89 - OTHER SPECIFIED ABNORMAL FINDINGS OF BLOOD CHEMISTRY Status: Acute Priority: High Current Visit: Yes Annotation/Comment:: Known history of chronic low D-dimer elevation, however D-dimer significantly elevated today. No direct clinical evidence of DVT or PE. CTA of the chest conducted in the emergency room prior to patient's admission was negative for PE with subsequent Venous Doppler studies of the lower extremities also negative on 11/03/2020. Continue low-dose subcu Lovenox as DVT prophylaxis. D-dimer is slowly improving. (3) Neurogenic bladder SNOMED Code(s): 869729073 Code(s): N31.9 - NEUROMUSCULAR DYSFUNCTION OF BLADDER, UNSPECIFIED Status: Chronic Priority: High Current Visit: Yes Annotation/Comment:: Montelongo catheter insertion required on 11/03/2020 as above. Neurogenic bladder with self catheterization on a 3 times daily basis at home, although overall poor technique as above. Patient was cautioned not to reuse his catheters secondary to history of frequent UTIs. Care management consultation during this hospitalization in hopes of patient obtaining appropriate number of catheters at home. (4) COPD (chronic obstructive pulmonary disease) SNOMED Code(s): 17237914 Code(s): J44.9 - CHRONIC OBSTRUCTIVE PULMONARY DISEASE, UNSPECIFIED Status: Chronic Priority: High Current Visit: Yes Qualifiers: COPD type: emphysema Emphysema type: panlobular Qualified Code(s): J43.1 - Panlobular emphysema Annotation/Comment:: History of known severe bullous O2 and steroid-dependent COPD with O2 sat in the emergency room of 96-97% on his baseline 4 L/min by nasal cannula. Note mild yellowish productive cough prior to admission possibly consistent with beginning pneumonia. IV antibiotics as above. Lactic acid level was normal with only mild WBC elevation and no clinical evidence of sepsis on admission. Attempt to obtain sputum for culture and sensitivity. (5) Coronary artery disease SNOMED Code(s): 99727485 Code(s): I25.10 - ATHSCL HEART DISEASE OF [place] CORONARY ARTERY W/O ANG PCTRS Status: Chronic Priority: Medium Current Visit: Yes Qualifiers: Coronary Disease-Associated Artery/Lesion type: [place] artery [place] vs. transplanted heart: [place] heart Associated angina: without angina Qualified Code(s): I25.10 - Atherosclerotic heart disease of [place] coronary artery without angina pectoris Annotation/Comment:: No chest pain or anginal type symptoms. Note history of CHF, diastolic dysfunction, previous non-STEMI in September 2019, etc. Continue to observe closely during this hospitalization. 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 Note excellent glycosylated hemoglobin of 5.7% and good lipid panel both on 11/04/2020. (6) Hypertension SNOMED Code(s): 99831041 Code(s): I10 - ESSENTIAL (PRIMARY) HYPERTENSION Status: Chronic Priority: Medium Current Visit: Yes Qualifiers: Hypertension type: essential hypertension Qualified Code(s): I10 - Essential (primary) hypertension Annotation/Comment:: Blood pressures were under good control in the emergency room. Continue to observe closely during this hospitalization. (7) Osteoarthritis SNOMED Code(s): 596541869 Code(s): M19.90 - UNSPECIFIED OSTEOARTHRITIS, UNSPECIFIED SITE Status: Chronic Priority: Medium Current Visit: Yes Qualifiers: Osteoarthritis location: multiple joints Osteoarthritis type: primary Qualified Code(s): M89.49 - Other hypertrophic osteoarthropathy, multiple sites Annotation/Comment:: Stable by history although some generalized weakness. PT ordered on . (8) Tobacco abuse counseling SNOMED Code(s): 109019340, 186066012, 848649473 Code(s): Z71.6 - TOBACCO ABUSE COUNSELING Status: Chronic Priority: High Current Visit: Yes Annotation/Comment:: Tobacco cessation information should once again be provided at discharge from hospital with tobacco cessation once again strongly encouraged. (9) PSVT (paroxysmal supraventricular tachycardia) SNOMED Code(s): 50167909 Code(s): I47.1 - SUPRAVENTRICULAR TACHYCARDIA Status: Acute Priority: High Current Visit: Yes Onset Date: 11/03/20 Annotation/Comment:: Improved with low-dose Cardizem CD therapy on admission. Brief nonsymptomatic episode of PSVT in the 150s as per emergency room note above with spontaneous resolution without therapy and early in this hospitalization. Note that the patient did not take his morning medications prior to his emergency room visit. Continue medication adjustment during this hospitalization. (10) CHF (congestive heart failure) SNOMED Code(s): 62420875 Code(s): I50.9 - HEART FAILURE, UNSPECIFIED Status: Chronic Priority: High Current Visit: Yes Qualifiers: Heart failure type: diastolic Heart failure chronicity: acute on chronic Qualified Code(s): I50.33 - Acute on chronic diastolic (congestive) heart failure Annotation/Comment:: Mild BNP elevation with no chest pain or anginal complaints. Only mild CHF by today's chest x-ray. Initiated IV Lasix therapy on admission with increased BNP and mildly elevated CK-MB on 11/04, although his cardiac index is normal. Note recent echocardiogram in September 2019. - Problem List Review Problem List Initiated/Reviewed/Updated: Yes - My Orders Last 24 Hours: My Active Orders 11/03/20 16:11 Urinary Catheter Assessment [RC] ASDIRECTED K Pad [Heat Therapy] [OM.PC] Routine 11/03/20 16:15 Urinary Catheter Insertion [Insert Urinary Catheter] [OM.PC] Q24H 11/03/20 18:00 atorvaSTATin [Lipitor] 20 mg PO DAILY@1800 11/03/20 22:00 cefTRIAXone [Rocephin] 1 gm Sodium Chloride 0.9% [Normal Saline] 100 ml IV Q12H 11/03/20 22:15 Menthol/Methyl Salicylate [Icy Hot Cream] 1 gm TOP BID PRN 11/04/20 05:11 EKG Documentation Completion [RC] ASDIRECTED 11/04/20 Breakfast Fluid Restriction [DIET] 11/04/20 08:00 Aspirin [Halfprin] 81 mg PO DAILY lisinopriL [Prinivil] 20 mg PO DAILY 11/04/20 10:17 Vital Signs [RC] Q6HR 11/04/20 13:15 Clotrimazole [Lotrimin AF 1% Crm] 1 gm TOP BID 11/04/20 13:16 PT Evaluation and Treatment [CONS] Routine - Assessment Assessment:: As above - Plan Plan:: As above. Extensive precautions were given to the patient, who is in agreement with the treatment plan. The patient will require about 2-3 days of inpatient/acute care secondary to multiple health problems as above.
[2020-11-04] MEDS: atorvaSTATin 10 MG Tab PO SCH (17:03)
[2020-11-04] MEDS: Clotrimazole 1% Crm 30 GM Tube TOP SCH (19:18)
[2020-11-05 07:38] LABS: CHLORIDE,CL 101 mmol/L (98-107); SODIUM,NA 136 mmol/L (136-145)
[2020-11-05] MEDS: Aspirin 81 MG Tab.EC PO SCH (07:45)
[2020-11-05] MEDS: Albuterol/Ipratropium 4 GM Inhalation Spray INH SCH ×4 (07:47→19:20)
[2020-11-05] MEDS: Potassium Chloride 20 MEQ Tab.ER PO SCH ×2 (07:47→17:34)
[2020-11-05] MEDS: Clotrimazole 1% Crm 30 GM Tube TOP SCH ×2 (07:48→19:20)
[2020-11-05] MEDS: Lisinopril 20 MG Tab PO SCH (07:54)
[2020-11-05] MEDS: Diltiazem 120 MG Cap.CD PO SCH (07:54)
[2020-11-05] MEDS: Acetaminophen 325 MG Tab PO PRN (07:54)
--- NOTE | 2020-11-05 08:57 | PCM.PN ---
- General Info Date of Service: 11/05/20 Admission Dx/Problem (Free Text): 1. CHF 2. D-dimer elevation 3. UTI with neurogenic bladder 4. COPD Functional Status: Reports: Pain Controlled, Tolerating Diet, Ambulating (With assist with PT ordered), Urinating (Montelongo catheter with history of neurogenic bladder), Incentive Spirometry. Denies: New Symptoms Pain Score: 0 - Review of Systems General: Reports: Weakness (Slowly improving). Denies: Fever, Fatigue, Malaise, Chills, Night Sweats, Appetite HEENT: Reports: No Symptoms. Denies: Headaches, Sinus Congestion, Sore Throat, Rhinitis Pulmonary: Reports: Cough, Sputum (Minimal), Wheezing (Occasional). Denies: Shortness of Breath, Pleuritic Chest Pain, Hemoptysis Cardiovascular: Reports: Dyspnea on Exertion (Stable chronic). Denies: Chest Pain, Palpitations, Orthopnea, Edema, Lightheadedness Gastrointestinal: Reports: Constipation (Despite MiraLAX and Dulcolax yesterd ay). Denies: Abdominal Pain, Decreased Appetite, Difficulty Swallowing Genitourinary: Reports: Incontinence, Retention (Montelongo catheter in place). Denies: Dysuria, Frequency, Burning, Pain, Urgency, Hematuria, Flank Pain Musculoskeletal: Reports: No Symptoms. Denies: Neck Pain, Shoulder Pain, Back Pain, Leg Pain Skin: Reports: Bruising (Stable). Denies: Diaphoresis, Rash Neurological: Reports: Difficulty Walking (Stable chronic), Weakness (Slowly improving). Denies: Confusion, Dizziness Psychiatric: Reports: No Symptoms. Denies: Confusion, Depression, Anxiety, Agitation, Cravings, Hallucinations - Patient Data Vitals - Most Recent: Last Vital Signs Temp 36.4 C 11/05/20 06:00 Pulse 96 11/05/20 07:54 Resp 20 11/05/20 06:00 BP 131/86 11/05/20 07:54 Pulse Ox 97 11/05/20 06:00 Vital Signs - 24 hr 11/04/20 11/04/20 11/05/20 12:00 17:01 00:00 Temperature [ 36.4 C 36.6 C 36.2 C Temporal] Pulse, Peripheral Pulse, 80 71 68 Peripheral [ Left Pulse Oximetry] Respiratory 20 24 H 19 Rate Blood Pressure Blood Pressure 114/61 100/67 122/75 [Right Upper Arm] O2 Sat by Pulse 97 97 96 Oximetry 11/05/20 11/05/20 06:00 07:54 Temperature [ 36.4 C Temporal] Pulse, 96 Peripheral Pulse, 73 Peripheral [ Left Pulse Oximetry] Respiratory 20 Rate Blood Pressure 131/86 Blood Pressure 101/76 [Right Upper Arm] O2 Sat by Pulse 97 Oximetry Weight - Most Recent: 116.709 kg I&O - Last 24 Hours: Intake & Output 11/04/20 11/05/20 11/05/20 22:59 06:59 14:59 Intake Total 1100 600 420 Output Total 250 1100 Balance 850 -500 420 Imaging Impressions - Last 24 Hours: cafeteria monitor shows normal sinus rhythm with heart rate in the 60s to 80s with improvement of her previous multiple PVCs and previous tachycardia. Chest x-ray, portable, shows evidence of severe COPD including bullous changes with somewhat increased fluid in the right lower lower lobe fissure and beginning mild borderline right middle lobe pulmonary infiltrate. No cardiomegaly with only borderline CHF. Mild aortic valve calcification with no evidence of pneumothorax, etc.. Lab Results Last 24 Hours: Laboratory Results - last 24 hr 11/05/20 11/05/20 11/05/20 Range/Units 07:04 07:04 07:04 WBC 8.9 (4.0-10.2) K/uL RBC 5.26 (4.33-5.41) M/uL Hgb 14.3 (13.1-16.8) g/dL Hct 44.6 (39.0-49.0) % MCV 84.8 (84.0-98.0) fL MCH 27.2 L (28.2-33.3) pg MCHC 32.1 (31.7-36.0) g/dL RDW 13.3 (11.2-14.1) % Plt Count 196 (150-350) K/uL Neut % (Auto) 58.6 (45.0-80.0) % Lymph % (Auto) 29.8 (10.0-50.0) % Saunders % (Auto) 7.9 (2.0-14.0) % Eos % (Auto) 3.2 (0.0-5.0) % Baso % (Auto) 0.5 (0.0-2.0) % Neut # (Auto) 5.20 (1.40-7.00) K/uL Lymph # (Auto) 2.64 (0.50-3.50) K/uL Saunders # (Auto) 0.70 (0.00-1.00) K/uL Eos # (Auto) 0.28 (0.00-0.50) K/uL Baso # (Auto) 0.04 (0.00-0.20) K/uL D-Dimer, Quantitative 1040 H (0-400) ng/mL Sodium 136 (136-145) mmol/L Potassium 4.2 (3.5-5.1) mmol/L Chloride 101 (98-107) mmol/L Carbon Dioxide 27.1 (21.0-32.0) mmol/L BUN 27 H (7-18) mg/dL Creatinine 1.07 (0.51-1.17) mg/dL Est Cr Clr Drug Dosing 69.50 mL/min Estimated GFR (MDRD) > 60 mL/min Glucose 126 H (74-106) mg/dL Calcium 8.7 (8.5-10.1) mg/dL Magnesium 2.1 (1.8-2.4) mg/dL Creatine Kinase 249 (26-308) U/L Creatine Kinase Index 1.7 (0.0-2.5) % CK-MB (CK-2) 4.30 H (0.00-3.60) ng/mL Troponin I 0.000 (0.000-0.056) ng/mL NT-Pro-B Natriuret Pep 140 H (0-125) pg/mL Moe Results Last 24 Hours: Microbiology 11/03/20 09:30 Urine Culture - Final Urine, Catheterized Klebsiella Oxytoca Med Orders - Current: Current Medications Acetaminophen (Tylenol) 650 mg PO Q4H PRN PRN Reason: Pain Last Admin: 11/05/20 07:54 Dose: 650 mg Documented by: Albuterol/Ipratropium (Combivent Respimat) 0 gm INH QID [facility] Last Admin: 11/05/20 07:47 Dose: 2 inhalation Documented by: Albuterol/Ipratropium (Combivent Respimat) 0 gm INH Q4H PRN PRN Reason: Dyspnea Aspirin (Halfprin) 81 mg PO DAILY [facility] Last Admin: 11/05/20 07:45 Dose: 81 mg Documented by: Atorvastatin Calcium (Lipitor) 20 mg PO DAILY@1800 [facility] Last Admin: 11/04/20 17:03 Dose: 20 mg Documented by: Bisacodyl (Dulcolax) 5 mg PO ASDIRECTED PRN PRN Reason: Constipation Last Admin: 11/05/20 07:54 Dose: 5 mg Documented by: Clotrimazole (Lotrimin Af 1% Crm) 1 gm TOP Q12HR [facility] Last Admin: 11/05/20 07:48 Dose: 1 applic Documented by: Diltiazem HCl (Cardizem Cd) 120 mg PO DAILY [facility] Last Admin: 11/05/20 07:54 Dose: 120 mg Documented by: Enoxaparin Sodium (Lovenox) 40 mg SUBCUT Q24H [facility] Last Admin: 11/04/20 12:02 Dose: 40 mg Documented by: Fluticasone Propionate (Flonase) 0 gm NASBOTH BID PRN PRN Reason: Allergies Furosemide (Lasix) 40 mg IVPUSH Q12H [facility] Last Admin: 11/04/20 23:02 Dose: 40 mg Documented by: Ceftriaxone Sodium 1 gm/ (Sodium Chloride) 100 mls @ 200 mls/hr IV Q12H [facility] Last Admin: 11/04/20 23:03 Dose: 200 mls/hr Documented by: Lisinopril (Prinivil) 20 mg PO DAILY [facility] Last Admin: 11/05/20 07:54 Dose: 20 mg Documented by: Methyl Salicylate (Icy Hot Cream) 1 gm TOP BID PRN PRN Reason: Pain (mild 1-3) Last Admin: 11/04/20 16:56 Dose: 1 applic Documented by: Potassium Chloride (Klor-Con M20) 20 meq PO BID [facility] Last Admin: 11/05/20 07:47 Dose: 20 meq Documented by: Sodium Chloride (Saline Flush) 10 ml FLUSH ASDIRECTED PRN PRN Reason: Keep Vein Open Last Admin: 11/04/20 23:03 Dose: 10 ml Documented by: Sodium Chloride (Saline Flush) 10 ml FLUSH Q12HR PRN PRN Reason: Keep Vein Open Temazepam (Restoril) 15 mg PO BEDTIME PRN PRN Reason: Insomnia Discontinued Medications Bisacodyl (Dulcolax) 5 mg PO ONETIME ONE Stop: 11/04/20 13:16 Last Admin: 11/04/20 14:19 Dose: 5 mg Documented by: Clotrimazole (Lotrimin Af 1% Crm) 1 gm TOP BID [facility] Last Admin: 11/04/20 14:19 Dose: 1 applic Documented by: Ceftriaxone Sodium 1 gm/ (Sodium Chloride) 100 mls @ 200 mls/hr IV Q12H [facility] Last Admin: 11/03/20 10:25 Dose: 200 mls/hr Documented by: Iopamidol (Isovue-370 (76%)) Confirm Administered Dose 100 ml .ROUTE .STK-MED ONE Stop: 11/03/20 09:57 Last Admin: 11/03/20 09:55 Dose: Not Given Documented by: Iopamidol (Isovue-370 (76%)) 100 ml .ROUTE .STK-MED ONE Stop: 11/03/20 10:01 Lidocaine HCl (Glydo) Confirm Administered Dose 11 ml .ROUTE .STK-MED ONE Stop: 11/03/20 09:01 Last Admin: 11/03/20 09:10 Dose: 11 ml Documented by: Metoprolol Tartrate (Lopressor) 2.5 mg IVPUSH ONETIME ONE Stop: 11/03/20 11:25 Last Admin: 11/03/20 12:05 Dose: 2.5 mg Documented by: Phenazopyridine HCl (Urinary Pain Relief) 95 mg PO TIDPC MERY Stop: 11/04/20 18:00 Last Admin: 11/04/20 12:02 Dose: 95 mg Documented by: Polyethylene Glycol (Miralax) 17 gm PO ONETIME ONE Stop: 11/04/20 13:15 Last Admin: 11/04/20 14:19 Dose: 17 gm Documented by: - Exam Quality Assessment: Supplemental Oxygen (Baseline 4 L/min by nasal cannula), Urine Catheter, DVT Prophylaxis (Low-dose Lovenox). No: Central Line/PICC, Skin Breakdown, Restraints General: Alert, Oriented, Cooperative, No Acute Distress HEENT: Pupils Equal, Pupils Reactive, EOMI, Mucous Membr. Moist/Rob[place] Neck: Supple, Trachea Midline, No JVD, No Thyromegaly. No: Lymphadenopathy Lungs: Normal Respiratory Effort, Rales (Mild bilateral basilar). No: Rhonchi, Rub, Wheezing Cardiovascular: Regular Rate, Regular Rhythm, No Murmurs, Other (No extrasystoles during exam). No: Gallops, Rubs GI/Abdominal Exam: Normal Bowel Sounds, Soft, Non-Tender, No Organomegaly, No Distention, No Abnormal Bruit, No Mass, Hernia (Stable 4 cm nonincarcerated umbilical hernia), Other (Obese). No: Guarding (Male) Exam: Deferred, Other (Montelongo catheter in place with orange urine secondary to Pyridium) Back Exam: Normal Inspection, Full Range of Motion. No: CVA Tenderness (L), CVA Tenderness (R), Muscle Spasm Extremities: Normal Inspection, Normal Range of Motion, Non-Tender, No Pedal Edema, Normal Capillary Refill. No: Dave's Sign Peripheral Pulses: 2+: Radial (L), Radial (R), Dorsalis Pedis (L), Dorsalis Pedis (R) Skin: Ecchymosis (Stable), Other (Improved tinea in the inguinal region and scrotal area by history) Neurological: No New Focal Deficit Psy/Mental Status: Alert, Normal Affect, Normal Mood. No: Agitated, Hallucinations, Withdrawal Symptoms #1 Interpretation EKG Date: 11/05/20 Time: 07:05 Rhythm: NSR Rate (Beats/Min): 80 [place]: Normal (Neutral cardiac axis, which is changed from a left cardiac axiss) P-Wave: Enlarged (Mild diffuse biphasic) QRS: Normal (0.09 seconds) ST-T: Normal (With resolution of previous T wave inversion in lead aVL and nonspecific ST changes in the lateral leads) QT: Normal FL/PQ Interval: 0.17 seconds Comparison: Change From Previous EKG (As above since 11/04/2020) EKG Interpretation Comments: 1. No acute ischemic changes 2. Left atrial enlargement Sepsis Event Note - Evaluation Sepsis Screening Result: No Definite Risk - Focused Exam Vital Signs: Vital Signs Temp Pulse Pulse Resp BP BP Pulse Ox 11/05/20 07:54 96 131/86 11/05/20 06:00 36.4 C 73 20 101/76 97 11/05/20 00:00 36.2 C 68 19 122/75 96 - Problem List & Annotations (1) UTI (urinary tract infection) SNOMED Code(s): 24730866 Code(s): N39.0 - URINARY TRACT INFECTION, SITE NOT SPECIFIED Status: Acute Priority: High Current Visit: Yes Onset Date: ~11/03/20 Qualifiers: Urinary tract infection type: acute cystitis Hematuria presence: without hematuria Qualified Code(s): N30.00 - Acute cystitis without hematuria Annotation/Comment:: Note requirement of Montelongo cath placement and additional Pyridium secondary to his UTI symptoms. History of recurrent UTIs likely secondary to nonsterile self-catheterization at home. Urine for culture and sensitivity positive for Klebsiella oxytoca, which is sensitive to Rocephin. The patient was counseled on appropriate sterile self-catheterization as below with the nurses to instruct the patient concerning proper technique prior to discharge. IV Rocephin therapy initiated in the emergency room. No clinical evidence of sepsis with with normal lactic acid level and only mild leukocytosis with no significant fever in the emergency room. No leukocytosis on 11/05. Patient does wish to go home without a Montelongo catheter with recommendation of possible discontinuation of the Montelongo catheter tomorrow morning, nurse observation of self-catheterization technique, and then discharge to home on appropriate antibiotics. (2) D-dimer, elevated SNOMED Code(s): 774166931 Code(s): R79.89 - OTHER SPECIFIED ABNORMAL FINDINGS OF BLOOD CHEMISTRY Status: Acute [facility] Current Visit: Yes Annotation/Comment:: Known history of chronic low D-dimer elevation, however D-dimer significantly elevated today. No direct clinical evidence of DVT or PE. CTA of the chest conducted in the emergency room prior to patient's admission was negative for PE with subsequent Venous Doppler studies of the lower extremities also negative on 11/03/2020. Continue low-dose subcu Lovenox as DVT prophylaxis. D-dimer continues to slowly improve. (3) Neurogenic bladder SNOMED Code(s): 322105893 Code(s): N31.9 - NEUROMUSCULAR DYSFUNCTION OF BLADDER, UNSPECIFIED Status: Chronic [facility]: [facility] Current Visit: Yes Annotation/Comment:: Montelongo catheter insertion required on 11/03/2020 as above. Neurogenic bladder with self catheterization on a 3 times daily basis at home, although overall poor technique as above. Patient was cautioned not to reuse his catheters secondary to history of frequent UTIs. Care management consultation during this hospitalization in hopes of patient obtaining appropriate number of catheters at home. (4) COPD (chronic obstructive pulmonary disease) SNOMED Code(s): 39309993 Code(s): J44.9 - CHRONIC OBSTRUCTIVE PULMONARY DISEASE, UNSPECIFIED Status: Chronic Priority: High Current Visit: Yes Qualifiers: COPD type: emphysema Emphysema type: panlobular Qualified Code(s): J43.1 - Panlobular emphysema Annotation/Comment:: History of known severe bullous O2 and steroid-dependent COPD with O2 sat in the emergency room of 96-97% on his baseline 4 L/min by nasal cannula. Note mild yellowish productive cough prior to admission possibly consistent with beginning pneumonia. IV antibiotics as above. Lactic acid level was normal with only mild WBC elevation and no clinical evidence of sepsis on admission and normal WBCs on 11/05. Continue to attempt to obtain sputum for culture and sensitivity with possibility of beginning right middle lobe pneumonia? (5) Coronary artery disease SNOMED Code(s): 11639683 Code(s): I25.10 - ATHSCL HEART DISEASE OF [place] CORONARY ARTERY W/O ANG PCTRS Status: Chronic Priority: Medium Current Visit: Yes Qualifiers: Coronary Disease-Associated Artery/Lesion type: lummi artery [place] vs. transplanted heart: [place]mi heart Associated angina: without angina Qualified Code(s): I25.10 - Atherosclerotic heart disease of [place] coronary artery without angina pectoris Annotation/Comment:: No chest pain or anginal type symptoms. Note history of CHF, diastolic dysfunction, previous non-STEMI in September 2019, etc. Continue to observe closely during this hospitalization. Improved occasional PVCs and resolved tachycardia by air sampling and monitoring with history of PACs, incomplete right bundle branch block, etc.. Note excellent glycosylated hemoglobin of 5.7% and good lipid panel both on 11/04/2020. BNP continues to improve with IV Lasix th erapy with adjustment of his previous oral dose at time of discharge. (6) Hypertension SNOMED Code(s): 32688574 Code(s): I10 - ESSENTIAL (PRIMARY) HYPERTENSION Status: Chronic Priority: Medium Current Visit: Yes Qualifiers: Hypertension type: essential hypertension Qualified Code(s): I10 - Essential (primary) hypertension Annotation/Comment:: Blood pressures were under good control in the emergency room. Continue to observe closely during this hospitalization. (7) Osteoarthritis SNOMED Code(s): 112931540 Code(s): M19.90 - UNSPECIFIED OSTEOARTHRITIS, UNSPECIFIED SITE Status: Chronic Priority: Medium Current Visit: Yes Qualifiers: Osteoarthritis location: multiple joints Osteoarthritis type: primary Qualified Code(s): M89.49 - Other hypertrophic osteoarthropathy, multiple sites Annotation/Comment:: Stable by history although some generalized weakness. PT ordered on 11/04/20. (8) Tobacco abuse counseling SNOMED Code(s): 039814342, 456122701, 984978026 Code(s): Z71.6 - TOBACCO ABUSE COUNSELING Status: Chronic Priority: High Current Visit: Yes Annotation/Comment:: Tobacco cessation information should once again be provided at discharge from hospital with tobacco cessation once again strongly encouraged. (9) PSVT (paroxysmal supraventricular tachycardia) SNOMED Code(s): 29138299 Code(s): I47.1 - SUPRAVENTRICULAR TACHYCARDIA Status: Acute Priority: High Current Visit: Yes Onset Date: 11/03/20 Annotation/Comment:: Improved with low-dose Cardizem CD therapy on admission. Brief nonsymptomatic episode of PSVT in the 150s as per emergency room note above with spontaneous resolution without therapy and early in this hospitalization. Note that the patient did not take his morning medications prior to his emergency room visit. Continue medication adjustment during this hospitalization. (10) CHF (congestive heart failure) SNOMED Code(s): 48720620 Code(s): I50.9 - HEART FAILURE, UNSPECIFIED Status: Chronic Priority: High Current Visit: Yes Qualifiers: Heart failure type: diastolic Heart failure chronicity: acute on chronic Qualified Code(s): I50.33 - Acute on chronic diastolic (congestive) heart failure Annotation/Comment:: Mild BNP elevation with no chest pain or anginal complaints. Only mild CHF by serial EKGs during this hospitalization. Initiated IV Lasix therapy on admission with increased BNP much improved on 11/05 with persistent mildly elevated CK-MB on 11/05, although his cardiac index, troponin I, and EKG are normal. Note recent echocardiogram in September 2019. (11) Constipation SNOMED Code(s): 38450974 Code(s): K59.00 - CONSTIPATION, UNSPECIFIED Status: Acute Priority: Medium Current Visit: Yes Qualifiers: Constipation type: chronic idiopathic constipation Qualified Code(s): K59.04 - Chronic idiopathic constipation Annotation/Comment:: Continued constipation despite MiraLAX and Dulcolax given on 11/04 and current Rocephin therapy. MiraLAX and magnesium citrate to be given today. Consider abdominal x-rays tomorrow depending on his clinical course. - Problem List Review Problem List Initiated/Reviewed/Updated: Yes - My Orders Last 24 Hours: My Active Orders 11/04/20 08:00 Aspirin [Halfprin] 81 mg PO DAILY lisinopriL [Prinivil] 20 mg PO DAILY 11/04/20 10:17 Vital Signs [RC] Q6HR 11/04/20 13:16 PT Evaluation and Treatment [CONS] Routine 11/04/20 14:08 Consult to Case Management/Science Instructor [CONS] Routine 11/04/20 14:21 Communication Order [RC] 08,20 11/04/20 20:00 Clotrimazole [Lotrimin AF 1% Crm] 1 gm TOP Q12HR 11/05/20 05:11 EKG Documentation Completion [RC] ASDIRECTED Chest 1V Frontal [CR] Routine EKG 12 Lead [EK] Routine - Assessment Assessment:: As above - Plan Plan:: As above. Extensive precautions were given to the patient, who is in agreement with the treatment plan. The patient will require about 1-2 days of inpatient/acute care secondary to multiple health problems as above, although possible discharge tomorrow. Janette vaughn physician assumes care in the a.m.
[2020-11-05] MEDS ORDERED: Polyethylene Glycol 3350 Powder 17 GM Packet PO ONE (09:28)
[2020-11-05] MEDS ORDERED: Magnesium Citrate Solution 296 ML Bottle PO ONE (09:28)
[2020-11-05] MEDS: cefTRIAXone 1 GM in Sodium Chloride 0.9% 100 ML IV SCH ×2 (09:54→22:59)
[2020-11-05] MEDS: Sodium Chloride 0.9% 10 ML Syringe FLUSH PRN ×2 (09:55→23:02)
[2020-11-05] MEDS: Furosemide 40 MG/4 ML VIAL IVPUSH SCH ×2 (11:34→23:02)
[2020-11-05] MEDS: Enoxaparin 40 MG/0.4 ML Syringe SUBCUT SCH (11:36)
[2020-11-05] MEDS: atorvaSTATin 10 MG Tab PO SCH (17:34)
[2020-11-06 07:51] LABS: CHLORIDE,CL 101 mmol/L (98-107); SODIUM,NA 136 mmol/L (136-145)
[2020-11-06] MEDS: Potassium Chloride 20 MEQ Tab.ER PO SCH (08:26)
[2020-11-06] MEDS: Diltiazem 120 MG Cap.CD PO SCH (08:26)
[2020-11-06] MEDS: Lisinopril 20 MG Tab PO SCH (08:26)
[2020-11-06 08:27] VITALS: BP 129/65; PULSE 72
[2020-11-06] MEDS: Aspirin 81 MG Tab.EC PO SCH (08:27)
[2020-11-06] MEDS: Albuterol/Ipratropium 4 GM Inhalation Spray INH SCH ×2 (08:27→12:25)
[2020-11-06] MEDS: Clotrimazole 1% Crm 30 GM Tube TOP SCH (08:27)
--- OUTSIDE RECORDS SUMMARY | 2020-11-06 09:24 | XMSREPORT ---
:1950 Author Organization [facility] Address [address] [place] [address] Phone Reason For Referral No Reason for Referral was given. History Of Present Illness No HPI available. Assessments No Assessments available Plan of Care Name Dates Details Planned Observations Hospital Referral Request
--- OUTSIDE RECORDS SUMMARY | 2020-11-06 09:24 | XMSREPORT ---
:1950 Author Name Gabe Address Unavailable Unavailable , Care Team Providers Name Role Phone Payton Unavailable Unavailable Provider Unavailable Unavailable Fischer Unavailable Unavailable Cailin Unavailable Unavailable Unavailable Unavailable Unavailable Reason for Referral For: Health Maintenance Sending CCDA info to hospital History of Present Illness This is a 69-year-old gentleman that presents clinic today for his annual exam. Patient denies any health concerns today. He denies any chest pain, increase in shortness of breath or chest pain. He does have a history of COPD. He currently still smokes cigarettes. He also has a history of some colon polyps from colonoscopy 3 years ago. He has a past medical history of high blood pressure, hyperlipidemia, rheumatoid arthritis, urinary obstruction, anxiety, and a heart stent along with his COPD and colon polyp. He does use home oxygen due to his advanced COPD. 1. Have you ever felt you ought to cut down on your drinking or drug use? - NO 2. Have people annoyed you by criticizing your drinkingor drug use? - NO 3. Have you ever felt bad or guilty about your drinking or drug use? - NO 4. 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 - NO TOTAL SCORE: 0 [facility] / [facility] CAGE Source: [facility] Review of Systems CONSTITUTIONAL: No pertinent positives or negatives were identified. EYES: No pertinent positives or negatives were identified. ENT: No pertinent positives or negatives were identified. CARDIOVASCULAR: No pertinent positives or negatives were identified. RESPIRATORY: cough, expressed as feeling short of breath, dyspnea on exertion, but not productive sputum, no wheezing. GASTROINTESTINAL: No pertinent positives or negatives were identified. GENITOURINARY: No pertinent positives or negatives were identified. MUSCULOSKELETAL: No pertinent positives or negatives were identified. INTEGUMENTARY: No pertinent positives or negatives were identified. NEUROLOGICAL: No pertinent positives or negatives were identified. PSYCHIATRIC: No pertinent positives or negatives were identified. Assessments Assessed Problems:High blood pressureHigh cholesterolCOPD exacerbationH/O heart artery stentUrinary obstructionAnxiety disorderNeed for shingles vaccine Prediabetes Problems Arthritis (716.90) (M19.90) Torsion of colon (560.2) (K56.2) Colon polyp (211.3) (K63.5) Lung mass (786.6) (R91.8) Rheumatoid arthritis (714.0) (M06.9) Need for shingles vaccine (V04.89) (Z23) COPD exacerbation (491.21) (J44.1) High cholesterol (272.0) (E78.00) High blood pressure (401.9) (I10) Urinary obstruction (599.60) (N13.9) Anxiety disorder (300.00) (F41.9) H/O heart artery stent (V45.82) (Z95.5) Prediabetes (790.29) (R73.03) Allergies and Adverse Reactions No Known Drug Allergies (Allergy) Medications Potassium Chloride Dorita ER 20 MEQ Oral T ablet Extended Release; TAKE 1 TABLET BY MOUTH ONCE DAILY *DO NOT CRUSH* Jose Ramon Cain Start: 07-Nov-2017 Quantity: 90 Refills: 3 Furosemide 40 MG Oral Tablet; TAKE 1 TAB LET BY MOUTH ONCE DAILY *NEED TO BE SEEN* Jose Ramon Cain Start: 07-Nov-2017 Quantity: 90 Refills: 3 Ipratropium-Albuterol 0.5-2.5 (3) MG/3ML Inhalation Solution; USE 1 VIAL WITH NEBULIZER MACHINE FOUR TIMES A DAY NEEDED Jose Ramon Cain Start: Nov-2017 Quantity: 120 Refills: 2 Tylenol 325 MG Oral Tablet; TAKE 2 TABLET Every 4 hours PRN Refills: 0 Budesonide 0.5 MG/2ML Inhalation Suspens ion; USE 1 UNIT DOSE VIA NEBULIZER TWO TIMES A DAY Jose Ramon Cain Start: 16-Aug-2019 Quantity: 120 Refills: 2 Flonase 50 MCG/ACT SUSP Refills: 0 Aspirin 81 MG TABS Refills: 0 Brovana 15 MCG/2ML Inhalation Nebulizati on Solution; USE 1 VIAL PER NEBULIZER TREATMENT TWICE A DAY Jose Ramon Cain Start: 22-Nov-2018 Quantity: 120 Refills: 0 Albuterol Sulfate HFA 108 (90 Base) MCG/ ACT Inhalation Aerosol Solution; USE 2 PUFFS EVERY 4 HOURS NEEDED FOR WHEEZING Jose Ramon Cain Start: 12 Quantity: 18 Refills: 2 Nitroglycerin 0.4 MG Sublingual Tablet S ublingual; DISSOLVE 1 TABLET UNDER THE TONGUE EVERY 5 MINUTES FOR UP TO 3 DOSES NEEDED FOR CHEST PAIN, CALL 911 IF PAIN PERSISTS Quantity: 25 Refills: 1 Lisinopril 20 MG Oral Tablet; TAKE 1 TABLET BY MOUTH ONCE DA KAIDEN Jose Ramon Cain Start: 26-Mar-2019 Quantity: 90 Refills: 3 Atorvastatin Calcium 40 MG Oral Tablet; TAKE 1 TABLET BY MOUTH ONCE DAILY Jose Ramon Cian Start: 26-Mar-2019 Quantity: 90 Refills: 3 Atorvastatin Calcium 20 MG Oral Tablet; TAKE 1 TABLET BY MOUTH ONCE DAILY WITH SUPPER Start: 26-Mar-2019 Quantity: 30 Refills: 0 Sertraline HCl - 50 MG Oral Tablet; TAKE 1 TABLET BY OUT ONCE DAILY Jose Ramon Cain Start: 27-Feb-2020 Quantity: 90 Refills: 3 Lidocaine 5 % External Ointment; APPLY T O AREA THAT CATHETER IS IRRITATIING TWICE A DAY NEEDED. Jose Ramon Cain Start: 27-Feb-2020 Quantity: 1 30 GM Tube Refills: 0 Bardia Urethral Catheter 16Fr; USE DIRECTED. Latrell Cain Start: 23-Oct-2020 Quantity: 30 Refills: 3 Shingrix 50 MCG Intramuscular Suspension Reconstituted ; as directed Jose Ramon Cain Start: 23-Oct-2020 Quantity: 1 Refills: 1 Co Q-10 200 MG Oral Capsule; Take 1 tablet daily with atorvastatin. Jose Ramon Cain Start: 26-Oct-2020 Quantity: 100 Refills: 1 metFORMIN HCl ER 500 MG Oral Tablet Exte nded Release 24 Hour; TAKE 1 TABLET ONCE DAILY WITH THE EVENING MEAL. Jose Ramon Cain Start: 26-Oct-2020 Quantity: 90 Refills: 3 Nebulizer Device; USE DIRECTED. Jose Ramon Cain Start : 04-Nov-2020 Quantity: 1 Refills: 0 Procedures Colonoscopy Date: 26-Oct-2020 History of Prostate surgery Status: Comp leted Immunizations Fluzone Quadrivalent 0.5 ML Intramuscular Suspension P refilled Syringe Not Administered Patient Objection Prevnar 13 Intramuscular Suspension On: 19-Apr-2018 Influenza On: 03-Jul-2018 Fluzone High-Dose 0.5 ML Intramuscular Suspension Pref illed Syringe On: 16-Jul-2019 Lot #: [id number], [employer] Pneumovax 23 25 MCG/0.5ML Injection Injectable On: 16-Jul-20 Lot #: [id number], [employer] Afluria Quadrivalent 0.5 ML Intramuscular Suspension P refilled Syringe Not Administered Patient Objection Family History No pertinent family history (V49.89) (Z78.9) Status: Active No pertinent family history (V49.89) (Z78.9) Status: Active Social History - Smokes tobacco daily Interventions Medication ChangesAlbuterol Sulfate HFA 108 (90 Base) MCG/ACT Inhalation Aerosol Solution - RenewAtorvastatin Calcium 40 MG Oral Tablet - RenewBardia Urethral Catheter 16Fr - RenewBrovana 15 MCG/2ML Inhalation Nebulization Solution - Renew Budesonide 0.5 MG/2ML Inhalation Suspension - RenewCo Q-10 200 MG Oral Capsule - StartFurosemide 40 MG Oral Tablet - RenewIpratropium-Albuterol 0.5-2.5 (3) MG/3ML Inhalation Solution - RenewLidocaine 5 % External Ointment - Renew Lisinopril 20 MG Oral Tablet - RenewmetFORMIN HCl ER 500 MG Oral Tablet Extended Release 24 Hour - StartPotassium Chloride Dorita ER 20 MEQ Oral Tablet Extended Release - RenewSertraline HCl - 50 MG Oral Tablet - RenewShingrix 50 MCG Intramuscular Suspension Reconstituted - StartPlan#1 COPD, stable-plan: Continue with albuterol inhaler as needed for wheezing. He is on maintenance therapy of Pulmicort nebulizer twice a day along with Brovana nebulizer twice a day. He also has some Flonase he uses once in a while. Also duo nebs inhalers to use for wheezing. Smoking cessation discussed with patient. Home oxygen as ordered. #2 need for shingles vaccine-plan: Shingrix ordered at pharmacy for patient both doses. #3 hyperlipidemia-plan: Lipid panel unremarkable, continue with atorvastatin 60 mg. At that high of a dose he should be on coq.10. Will send prescription to pharmacy. #4 hypertension, stable-plan: Blood pressure in clinic today is 110/74. Pulse is 80. Continue withlisinopril 20 mg daily. CBC and CMP are both unremarkable. #5 urinary obstruction-plan: Continue with self- catheterization as needed. I did order urinary catheter 16 Qatari that he can use as needed. PSA not obtained due to self-catheterization. #6 anxiety disorder, stable plan: Stable at this time continue with Zoloft 50 mg daily. #7 coronary artery disease with history of heart artery stent, stable-plan: Continue with baby aspirin 81 mg daily. Lasix 40 mg daily along with potassium chloride 20 mEq daily. Nitroglycerin sublingual as needed for chest pain. #8 colon polyp-plan: Patient is set up with Dr. Jack Prince for repeat colonoscopy on November 26. #9 prediabetes-plan: Patient's hemoglobin A1c is slightly elevated at 5.9. We will start the patient on Metformin 500 mg extended release 1 tab daily. Plan of Treatment Hospital Referral Request Colonoscopy Start: 26-Nov-2020 Intent Results CBC WITH AUTO DIFF Laboratory: [facility] Comments: Reason for Exam: I10,E78.00,Z79.899, 23-Oct-2020 15:41 WHITE BLOOD CELL COUNT,WBC Range: 4.0-1 0.2 9.6 K/uL (Normal) RED BLOOD CELL COUNT 5.46 Range: 4.33-5 .41 {M/uL} (above high threshold) HEMOGLOBIN 14.8 g/dL Range: 13.1-16.8 (Normal) HEMATOCRIT 45.7 % (Normal) Range: 39.0- 49.0 MEAN CORPUSCULAR VOLUME Range: 84.0-98. 0 83.7 fL (below low threshold) MEAN CORPUSCULAR Range: 28.2-33.3 HEMOGLOBIN 27.1 pg (below low threshold) MEAN CORPUSCULAR HGB CONC Range: 31.7-3 6.0 32.4 g/dL (Normal) RED CELL DISTRIBUTION Range: 11.2-14.1 WIDTH 13.5 % (Normal) PLATELET COUNT,PLT 228 Range: 150-350 K/uL (Normal) NEUTROPHILS PERCENT AUTO Range: 45.0-80 .0 53.0 % (Normal) LYMPHOCYTES PERCENT AUTO Range: 10.0-50 .0 34.3 % (Normal) MONOCYTES PERCENT AUTO 8.2 Range: 2.0-1 4.0 % (Normal) EOSINOPHILS PERCENT AUTO Range: 0.0-5.0 4.1 % (Normal) BASOPHILS PERCENT AUTO 0.4 Range: 0.0-2 .0 % (Normal) NEUTROPHILS ABSOLUTE AUTO Range: 1.40-7 .00 5.09 K/uL (Normal) LYMPHOCYTES ABSOLUTE AUTO Range: 0.50-3 .50 3.29 K/uL (Normal) MONOCYTES ABSOLUTE AUTO Range: 0.00-1.0 0 0.79 K/uL (Normal) EOSINOPHILS ABSOLUTE AUTO Range: 0.00-0 .50 0.39 K/uL (Normal) BASOPHILS ABSOLUTE AUTO Range: 0.00-0.2 0 0.04 K/uL (Normal) GLYCOSYLATED HEMOGLOBIN, Laboratory: [facility] Comments: Matilde parrish for Exam: HGB A1C I10,E78.00,Z79.899, 23-Oct-2020 15:41 HEMOGLOBIN A1C 5.9 % Range: 4.3-5.7 (above high threshold) COMPREHENSIVE METABOLIC Laboratory: [facility] Comments: Reason for Exam: PN,CMP (ND) I10,E78.00,Z79.899, 23-Oct-2020 15:41 SODIUM,NA 136 mmol/L Range: 136-145 (Normal) POTASSIUM,K 4.6 mmol/L Range: 3.5-5.1 (Normal) CHLORIDE,CL 100 mmol/L Range: 98-107 (Normal) CARBON DIOXIDE,CO2 25.4 Range: 21.0-32. 0 mmol/L (Normal) GLUCOSE RANDOM 121 mg/dL Range: 74-106 (above high threshold) BLOOD UREA NITROGEN,BUN 20 Range: 7-18 mg/dL (above high threshold) CREATININE 0.90 mg/dL Range: 0.51-1.17 (Normal) ESTIMATED GFR > 60 mL/min (Normal) CALCIUM 9.1 mg/dL (Normal) Range: 8.5-1 0.1 PROTEIN TOTAL,TP 7.4 g/dL Range: 6.4-8. 2 (Normal) ALBUMIN 4.1 g/dL (Normal) Range: 3.4-5. 0 BILIRUBIN TOTAL 0.5 mg/dL Range: 0.2-1. 0 (Normal) ALKALINE PHOSPHATASE 119 Range: 46-116 {IU/L} (above high threshold) ALANINE Range: 12-78 AMINOTRANSFERASE,ALT 26 U/L (Normal) ASPARTATE Range: 15-37 AMNIOTRANSFERASE,AST 21 U/L (Normal) EST CRCL DRUG DOSING (CG) Comments: Reggie ot calculate Test Not Performed mL/min creatinine rony arance because (Normal) height is missing. LIPID PANEL Laboratory: [facility] Comments: Reason for Exam: I10,E78.00,Z79.899, 23-Oct-2020 15:41 CHOLESTEROL TOTAL 152 Range: 100-200 mg/dL (Normal) CHOLESTEROL HDL 78 mg/dL Range: 40-60 (above high threshold) CHOLESTEROL LDL CALCULATED Range: 0-100 37 mg/dL (Normal) TRIGLYCERIDES 185 mg/dL Range: 30-150 (above high threshold) Vital Signs 23-Oct-2020 15:05 Systolic 110 mm[Hg] Diastolic 74 mm[Hg] Height 71.5 in Weight 267 lb BMI Calculated 36.72 kg/m2 BSA Calculated 2.4 m2 Temperature 97.3 f Respiration 18 /min Heart Rate 80 /min Encounters Appointment; Cailin Sara 02-Mar-2020 9:30 Encounter Diagnosis: Problem not documented Appointment; Cailin Sara 28-Oct-2019 10:00 Encounter Diagnosis: Problem not documented Appointment; Cailin Sara 20-Sep-2019 9:00 Encounter Diagnosis: Problem not documented Appointment; Cailin Sara 16-Aug-2019 9:00 Encounter Diagnosis: Problem not documented Appointment; Cailin Sara 12-Aug-2019 13:00 Encounter Diagnosis: Problem not documented Appointment; Cailin Sara 30-Jul-2019 10:00 Encounter Diagnosis: Problem not documented Appointment; Cailin Sara 16-Jul-2019 10:30 Encounter Diagnosis: Problem not documented Appointment; Cailin Sara 16-Apr-2019 7:30 Encounter Diagnosis: Problem not documented Appointment; Cailin Sara 26-Mar-2019 12:00 Encounter Diagnosis: Problem not documented Appointment; Fredo Fischer 30-Nov-2018 9:00 Encounter Diagnosis: Problem not documented Appointment; Cailin Sara 21-Nov-2018 11:00 Encounter Diagnosis: Problem not documented
--- NOTE | 2020-11-06 10:08 | PCM.DCSUM1 ---
Discharge Summary - Hospital Course Free Text/Narrative:: Pt admitted with UTI Doing well and ready for discharge Diagnosis: Stroke: No - Discharge Data Discharge Date: 11/06/20 Discharge Disposition: Home, Self-Care 01 Condition: Good - Referral to Home Health Primary Care Physician: PCP None - Discharge Diagnosis/Problem(s) (1) UTI (urinary tract infection) SNOMED Code(s): 83230942 ICD Code: N39.0 - URINARY TRACT INFECTION, SITE NOT SPECIFIED Status: Acute Priority: High Current Visit: Yes Onset Date: ~11/03/20 Problem Details: Note requirement of [place] cath placement and additional Pyridium secondary to his UTI symptoms. History of recurrent UTIs likely secondary to nonsterile self-catheterization at home. Urine for culture and sensitivity positive for Klebsiella oxytoca, which is sensitive to Rocephin. The patient was counseled on appropriate sterile self-catheterization as below with the nurses to instruct the patient concerning proper technique prior to discharge. IV Rocephin therapy initiated in the emergency room. No clinical evidence of sepsis with with normal lactic acid level and only mild leukocytosis with no significant fever in the emergency room. No leukocytosis on 11/05. Patient does wish to go home without a [place] catheter with recommendation of possible discontinuation of the [place] catheter tomorrow morning, nurse observation of self-catheterization technique, and then discharge to home on appropriate antibiotics. Pt stable and will be discharged home on oral antibiotics Qualifiers: Urinary tract infection type: acute cystitis Hematuria presence: without hematuria Qualified Code(s): N30.00 - Acute cystitis without hematuria (2) CHF (congestive heart failure) SNOMED Code(s): 29210241 ICD Code: I50.9 - HEART FAILURE, UNSPECIFIED Status: Chronic Priority: High Current Visit: Yes Problem Details: Mild BNP elevation with no chest pa in or anginal complaints. Only mild CHF by serial EKGs during this hospitalization. Initiated IV Lasix therapy on admission with increased BNP much improved on 11/05 with persistent mildly elevated CK-MB on 11/05, although his cardiac index, troponin I, and EKG are normal. Note recent echocardiogram in September 2019. Qualifiers: Heart failure type: diastolic Heart failure chronicity: acute on chronic Qualified Code(s): I50.33 - Acute on chronic diastolic (congestive) heart failure (3) COPD (chronic obstructive pulmonary disease) SNOMED Code(s): 58298464 ICD Code: J44.9 - CHRONIC OBSTRUCTIVE PULMONARY DISEASE, UNSPECIFIED S tatus: Chronic Priority: High Current Visit: Yes Problem Details: History of known severe bullous O2 and steroid-dependent COPD with O2 sat in the emergency room of 96-97% on his baseline 4 L/min by nasal cannula. Note mild yellowish productive cough prior to admission possibly consistent with beginning pneumonia. IV antibiotics as above. Lactic acid level was normal with only mild WBC elevation and no clinical evidence of sepsis on admission and normal WBCs on 11/05. Continue to attempt to obtain sputum for culture and sensitivity with possibility of beginning right middle lobe pneumonia? Qualifiers: COPD type: emphysema Emphysema type: panlobular Qualified Code(s): J43.1 - Panlobular emphysema (4) Coronary artery disease SNOMED Code(s): 49597508 ICD Code: I25.10 - ATHSCL HEART DISEASE OF [place] CORONARY ARTERY W/O ANG PCTRS Status: Chronic Priority: Medium Current Visit: Yes Problem Details: No chest pain or anginal type symptoms. Note history of CHF, diastolic dysfunction, previous non-STEMI in September 2019, etc. Continue to observe closely during this hospitalization. Improved occasional PVCs and resolved tachycardia by cardiac/vascular sonographer with history of PACs, incomplete right bundle branch block, etc.. Note excellent glycosylated hemoglobin of 5.7% and good lipid panel both on 11/04/2020. BNP continues to improve with IV Lasix therapy with adjustment of his previous oral dose at time of discharge. Qualifiers: Coronary Disease-Associated Artery/Lesion type: [place] artery [place] vs. transplanted heart: [place] heart Associated angina: without angina Qualified Code(s): I25.10 - Atherosclerotic heart disease of [place] coronary artery without angina pectoris (5) Hypertension SNOMED Code(s): 96914867 ICD Code: I10 - ESSENTIAL (PRIMARY) HYPERTENSION Status: Chronic Priority: Medium Current Visit: Yes Problem Details: Blood pressures were under good control in the emergency room. Continue to observe closely during this hospitalization. Qualifiers: Hypertension type: essential hypertension Qualified Code(s): I10 - Essential (primary) hypertension - Patient Summary/Data Consults: Consultations 11/04/20 13:16 PT Evaluation and Treatment [CONS] Routine 11/04/20 14:08 Consult to Case Management/Laundry Aid [CONS] Routine - Patient Instructions Diet: Regular Diet as Tolerated Activity: As Tolerated Notify Provider of: Fever, Increased Pain - Discharge Plan *PRESCRIPTION DRUG MONITORING PROGRAM REVIEWED*: Not Applicable *COPY OF PRESCRIPTION DRUG MONITORING REPORT IN PATIENT [place]: Not Applicable Prescriptions/Med Rec: Ciprofloxacin HCl [Cipro] 500 mg PO BID #20 tablet Home Medications: Home Meds Lisinopril 20 mg PO DAILY 11/03/17 [History] Potassium Chloride [Klor-Con M20] 20 meq PO DAILY 11/03/17 [History] atorvaSTATin [Lipitor] 20 mg PO 1800 11/03/17 [History] Acetaminophen [Tylenol] 650 mg PO Q4H PRN tablet 11/07/17 [Rx] Albuterol/Ipratropium [DuoNeb 3.0-0.5 MG/3 ML] 3 ml NEB Q4HRRT PRN 30 Days #120 neb 11/07/17 [Rx] Furosemide [Lasix] 40 mg PO DAILY 30 Days #30 tab 11/07/17 [Rx] Fluticasone Propionate [Flonase] 1 sprays NASBOTH BID PRN 11/16/17 [History] Aspirin [Ecotrin EC] 81 mg PO DAILY 01/07/18 [History] bisacodyL [Dulcolax] 5 mg PO ASDIRECTED PRN 03/28/18 [History] Budesonide [Pulmicort] 0.5 mg NEB BIDRT 30 Days #60 neb 03/31/18 [Rx] Arformoterol [Brovana] 15 mcg INH Q12HR #1 box 11/23/18 [Rx] Albuterol/Ipratropium [DuoNeb 3.0-0.5 MG/3 ML] 1 ampule INH Q4HR PRN 11/03/20 [History] metFORMIN HCl [Metformin HCl ER] 500 mg PO DAILY@1700 11/03/20 [History] Ciprofloxacin HCl [Cipro] 500 mg PO BID #20 tablet 11/06/20 [Rx] Forms: ED Department Discharge Referrals: PCP,None [Primary Care Provider] - - Discharge Summary/Plan Comment DC Time >30 min.: No Discharge Summary/Plan Comment: Follow up in clinic RX Cipro 500 mg BID for 10 days - General Info Date of Service: 11/06/20 Admission Dx/Problem (Free Text: Pt treated for UTI Stable for discharge - Review of Systems HEENT: Reports: No Symptoms Pulmonary: Reports: No Symptoms Cardiovascular: Reports: No Symptoms Gastrointestinal: Reports: No Symptoms Genitourinary: Reports: Frequency Musculoskeletal: Reports: No Symptoms - Patient Data Vitals - Most Recent: Last Vital Signs Temp 97.8 F 11/06/20 06:00 Pulse 72 11/06/20 08:26 Resp 20 11/06/20 06:00 BP 129/65 11/06/20 08:26 Pulse Ox 95 11/06/20 06:00 Weight - Most Recent: 259 lb 12.8 oz I&O - Last 24 hours: Intake & Output 11/05/20 11/06/20 11/06/20 18:59 02:59 10:59 Intake Total 720 400 400 Output Total 900 1000 Balance 720 -500 -600 Lab Results - Last 24 hrs: Laboratory Results - last 24 hr 11/06/20 11/06/20 Range/Units 07:05 07:05 WBC 7.5 (4.0-10.2) K/uL RBC 5.10 (4.33-5.41) M/uL Hgb 13.9 (13.1-16.8) g/dL Hct 43.5 (39.0-49.0) % MCV 85.3 (84.0-98.0) fL MCH 27.3 L (28.2-33.3) pg MCHC 32.0 (31.7-36.0) g/dL RDW 13.4 (11.2-14.1) % Plt Count 212 (150-350) K/uL Neut % (Auto) 54.6 (45.0-80.0) % Lymph % (Auto) 31.8 (10.0-50.0) % Curry % (Auto) 9.5 (2.0-14.0) % Eos % (Auto) 3.6 (0.0-5.0) % Baso % (Auto) 0.5 (0.0-2.0) % Neut # (Auto) 4.10 (1.40-7.00) K/uL Lymph # (Auto) 2.39 (0.50-3.50) K/uL Curry # (Auto) 0.71 (0.00-1.00) K/uL Eos # (Auto) 0.27 (0.00-0.50) K/uL Baso # (Auto) 0.04 (0.00-0.20) K/uL Sodium 136 (136-145) mmol/L Potassium 4.3 (3.5-5.1) mmol/L Chloride 101 (98-107) mmol/L Carbon Dioxide 28.1 (21.0-32.0) mmol/L BUN 28 H (7-18) mg/dL Creatinine 1.01 (0.51-1.17) mg/dL Est Cr Clr Drug Dosing 73.63 mL/min Estimated GFR (MDRD) > 60 mL/min Glucose 127 H (74-106) mg/dL Calcium 9.0 (8.5-10.1) mg/dL Troponin I 0.000 (0.000-0.056) ng/mL NT-Pro-B Natriuret Pep 121 (0-125) pg/mL [facility]INCERE Results - Last 24 hrs: Microbiology 11/03/20 09:30 Urine Culture - Final Urine, Catheterized Klebsiella Oxytoca Med Orders - Current: Current Medications Acetaminophen (Tylenol) 650 mg PO Q4H PRN PRN Reason: Pain Last Admin: 11/05/20 07:54 Dose: 650 mg Documented by: Albuterol/Ipratropium (Combivent Respimat) 0 gm INH QID [facility] Last Admin: 11/06/20 08:27 Dose: 2 inhalation Documented by: Albuterol/Ipratropium (Combivent Respimat) 0 gm INH Q4H PRN PRN Reason: Dyspnea Aspirin (Halfprin) 81 mg PO DAILY [facility] Last Admin: 11/06/20 08:27 Dose: 81 mg Documented by: Atorvastatin Calcium (Lipitor) 20 mg PO DAILY@1800 [facility] Last Admin: 11/05/20 17:34 Dose: 20 mg Documented by: Bisacodyl (Dulcolax) 5 mg PO ASDIRECTED PRN PRN Reason: Constipation Last Admin: 11/05/20 07:54 Dose: 5 mg Documented by: Clotrimazole (Lotrimin Af 1% Crm) 1 gm TOP Q12HR [facility] Last Admin: 11/06/20 08:27 Dose: 1 applic Documented by: Diltiazem HCl (Cardizem Cd) 120 mg PO DAILY [facility] Last Admin: 11/06/20 08:26 Dose: 120 mg Documented by: Enoxaparin Sodium (Lovenox) 40 mg SUBCUT Q24H [facility] Last Admin: 11/05/20 11:36 Dose: 40 mg Documented by: Fluticasone Propionate (Flonase) 0 gm NASBOTH BID PRN PRN Reason: Allergies Furosemide (Lasix) 40 mg IVPUSH Q12H [facility] Last Admin: 11/05/20 23:02 Dose: 40 mg Documented by: Ceftriaxone Sodium 1 gm/ (Sodium Chloride) 100 mls @ 200 mls/hr IV Q12H [facility] Last Admin: 11/05/20 22:59 Dose: 200 mls/hr Documented by: Lisinopril (Prinivil) 20 mg PO DAILY [facility] Last Admin: 11/06/20 08:26 Dose: 20 mg Documented by: Methyl Salicylate (Icy Hot Cream) 1 gm TOP BID PRN PRN Reason: Pain (mild 1-3) Last Admin: 11/04/20 16:56 Dose: 1 applic Documented by: Potassium Chloride (Klor-Con M20) 20 meq PO BID [facility] Last Admin: 11/06/20 08:26 Dose: 20 meq Documented by: Sodium Chloride (Saline Flush) 10 ml FLUSH ASDIRECTED PRN PRN Reason: Keep Vein Open Last Admin: 11/05/20 23:02 Dose: 10 ml Documented by: Sodium Chloride (Saline Flush) 10 ml FLUSH Q12HR PRN PRN Reason: Keep Vein Open Temazepam (Restoril) 15 mg PO BEDTIME PRN PRN Reason: Insomnia Discontinued Medications Bisacodyl (Dulcolax) 5 mg PO ONETIME ONE Stop: 11/04/20 13:16 Last Admin: 11/04/20 14:19 Dose: 5 mg Documented by: Clotrimazole (Lotrimin Af 1% Crm) 1 gm TOP BID [facility] Last Admin: 11/04/20 14:19 Dose: 1 applic Documented by: Ceftriaxone Sodium 1 gm/ (Sodium Chloride) 100 mls @ 200 mls/hr IV Q12H [facility] Last Admin: 11/03/20 10:25 Dose: 200 mls/hr Documented by: Iopamidol (Isovue-370 (76%)) Confirm Administered Dose 100 ml .ROUTE .STK-MED ONE Stop: 11/03/20 09:57 Last Admin: 11/03/20 09:55 Dose: Not Given Documented by: Iopamidol (Isovue-370 (76%)) 100 ml .ROUTE .STK-MED ONE Stop: 11/03/20 10:01 Lidocaine HCl (Glydo) Confirm Administered Dose 11 ml .ROUTE .STK-MED ONE Stop: 11/03/20 09:01 Last Admin: 11/03/20 09:10 Dose: 11 ml Documented by: Magnesium Citrate (Citrate Of Magnesia) 296 ml PO ONETIME ONE Stop: 11/05/20 09:29 Last Admin: 11/05/20 10:04 Dose: 296 ml Documented by: Metoprolol Tartrate (Lopressor) 2.5 mg IVPUSH ONETIME ONE Stop: 11/03/20 11:25 Last Admin: 11/03/20 12:05 Dose: 2.5 mg Documented by: Phenazopyridine HCl (Urinary Pain Relief) 95 mg PO TIDPC MERY Stop: 11/04/20 18:00 Last Admin: 11/04/20 12:02 Dose: 95 mg Documented by: Polyethylene Glycol (Miralax) 17 gm PO ONETIME ONE Stop: 11/04/20 13:15 Last Admin: 11/04/20 14:19 Dose: 17 gm Documented by: Polyethylene Glycol (Miralax) 17 gm PO ONETIME ONE Stop: 11/05/20 09:29 Last Admin: 11/05/20 10:04 Dose: 17 gm Documented by: - Exam General: Reports: Alert, Oriented Lungs: Reports: Decreased Breath Sounds Cardiovascular: Reports: Regular Rate GI/Abdominal Exam: Soft, Non-Tender (Male) Exam: Other (Surgical urethra)
[2020-11-06] MEDS: cefTRIAXone 1 GM in Sodium Chloride 0.9% 100 ML IV SCH (10:43)
[2020-11-06] MEDS: Sodium Chloride 0.9% 10 ML Syringe FLUSH PRN (10:43)
[2020-11-06] MEDS: Enoxaparin 40 MG/0.4 ML Syringe SUBCUT SCH (13:19)
[2020-11-06] MEDS: Furosemide 40 MG/4 ML VIAL IVPUSH SCH (13:19)
== END 2020-11-06 14:39 | disposition home or self-care (01) | DRG 698 ==
LOC: LL.ED 08:29 → UNDOADMIN 10:26 → LL.MS 10:26 → UNDODISIN 11-06 14:39
PROVIDERS: ADMIT Family Medicine; ATTEND Family Medicine
DX: T83.518A Infection and inflammatory reaction due to other urinary catheter, initial encounter (principal); I50.33 Acute on chronic diastolic (congestive) heart failure; I47.1 Supraventricular tachycardia; N30.00 Acute cystitis without hematuria; N20.1 Calculus of ureter; J43.1 Panlobular emphysema; I25.10 Atherosclerotic heart disease of native coronary artery without angina pectoris; I11.0 Hypertensive heart disease with heart failure; R91.1 Solitary pulmonary nodule; N62 Hypertrophy of breast; K76.89 Other specified diseases of liver; I71.2 Thoracic aortic aneurysm, without rupture; H54.7 Unspecified visual loss; E78.00 Pure hypercholesterolemia, unspecified; K59.09 Other constipation; R33.8 Other retention of urine; M54.2 Cervicalgia; G89.29 Other chronic pain; F41.9 Anxiety disorder, unspecified; F32.9 Major depressive disorder, single episode, unspecified; E87.6 Hypokalemia; E83.42 Hypomagnesemia; M89.49 Other hypertrophic osteoarthropathy, multiple sites; M19.90 Unspecified osteoarthritis, unspecified site; N31.9 Neuromuscular dysfunction of bladder, unspecified; I25.2 Old myocardial infarction; Z95.5 Presence of coronary angioplasty implant and graft; Z98.890 Other specified postprocedural states; Z71.6 Tobacco abuse counseling; R79.89 Other specified abnormal findings of blood chemistry; F17.210 Nicotine dependence, cigarettes, uncomplicated; Z20.822 Contact with and (suspected) exposure to COVID-19; Z79.82 Long term (current) use of aspirin; Z79.51 Long term (current) use of inhaled steroids; Z79.899 Other long term (current) drug therapy; B96.1 Klebsiella pneumoniae [K. pneumoniae] as the cause of diseases classified elsewhere
CPT/HCPCS: 36415; 51702; 71045; 71275; 80048; 80053; 80061; 81001; 82550; 82553; 83036; 83605; 83735; 83880; 84484; 85025; 85379; 87086; 87088; 87186; 87804; 93005; 93010; 93970; 94640; 97110-GP; 97161-GP; 99223; 99232; 99238; A9270-GY; J0696; J1650; J1940; J3490; Q9967; U0002

== ENCOUNTER 2023-05-28 18:30 | Emergency (ER) | payer MEDICARE ==
[2023-05-28 18:44] VITALS: BP 122/74; PULSE 83
== END 2023-05-28 20:00 | disposition home or self-care (01) ==
LOC: LL.ED 18:30
DX: H61.22 Impacted cerumen, left ear (principal); F17.210 Nicotine dependence, cigarettes, uncomplicated; E11.9 Type 2 diabetes mellitus without complications; I25.10 Atherosclerotic heart disease of native coronary artery without angina pectoris; I25.2 Old myocardial infarction; I10 Essential (primary) hypertension; Z79.899 Other long term (current) drug therapy
CPT/HCPCS: 69209; 99282; 99283

== ENCOUNTER 2024-06-04 09:21 | Inpatient (IN) | payer MEDICARE ==
[2024-06-04] MEDS ORDERED: Take Home: Albuterol 6.7 GM Inhaler, 1 Inhaler Pack INH PRN (13:36)
[2024-06-04] MEDS ORDERED: Albuterol/Ipratropium 3.0-0.5 MG/3 ML Neb Soln NEB PRN (13:36)
[2024-06-04] MEDS ORDERED: Albuterol 6.7 GM Inhaler INH PRN (13:59)
[2024-06-04] MEDS: metFORMIN 500 MG Tab.ER PO SCH (17:22)
[2024-06-04] MEDS: atorvaSTATin 40 MG Tab PO SCH (17:23)
[2024-06-04] MEDS: Arformoterol 15 MCG/2 ML Neb Soln INH SCH (19:37)
[2024-06-04] MEDS: Budesonide 0.5 MG/2 ML Neb Susp INH SCH (19:57)
[2024-06-05] MEDS: Nicotine 21 MG/24 Hr Patch TOP SCH (08:20)
[2024-06-05] MEDS: Aspirin 81 MG Tab.EC PO SCH (08:20)
[2024-06-05] MEDS: Potassium Chloride 20 MEQ Tab.ER PO SCH (08:21)
[2024-06-05] MEDS: Furosemide 40 MG Tab PO SCH (08:21)
[2024-06-05] MEDS: Lisinopril 10 MG Tab PO SCH (08:22)
[2024-06-05] MEDS: predniSONE 20 MG Tab PO SCH (08:22)
[2024-06-05] MEDS: Metoprolol Succinate 25 MG Tab.ER PO SCH (08:23)
[2024-06-07] MEDS: predniSONE 5 MG Tab PO SCH (08:01)
[2024-06-07 09:34] VITALS: BP 106/48; PULSE 61
== END 2024-06-07 13:00 | disposition home or self-care (01) | DRG 947 ==
LOC: LL.SWG 11:37
PROVIDERS: ADMIT Emergency Medicine; ATTEND Nurse Practitioner Family
DX: R53.81 Other malaise (principal); J96.00 Acute respiratory failure, unspecified whether with hypoxia or hypercapnia; J93.83 Other pneumothorax; D84.821 Immunodeficiency due to drugs; J44.1 Chronic obstructive pulmonary disease with (acute) exacerbation; I11.0 Hypertensive heart disease with heart failure; I50.9 Heart failure, unspecified; I25.10 Atherosclerotic heart disease of native coronary artery without angina pectoris; K59.09 Other constipation; E66.9 Obesity, unspecified; E87.6 Hypokalemia; E83.42 Hypomagnesemia; F32.A Depression, unspecified; M19.90 Unspecified osteoarthritis, unspecified site; N40.0 Benign prostatic hyperplasia without lower urinary tract symptoms; E78.5 Hyperlipidemia, unspecified; J43.1 Panlobular emphysema; F41.9 Anxiety disorder, unspecified; F17.210 Nicotine dependence, cigarettes, uncomplicated; Z95.5 Presence of coronary angioplasty implant and graft; Z97.3 Presence of spectacles and contact lenses; Z79.82 Long term (current) use of aspirin; Z79.84 Long term (current) use of oral hypoglycemic drugs; Z79.899 Other long term (current) drug therapy; Z86.010 Personal history of colon polyps; Z98.890 Other specified postprocedural states
CPT/HCPCS: 82947; 94640; 94761; 97161-GP; 97165-GO; 97530-GO; 97530-GP; 99306; A9270-GY; J3490; J7512

== ENCOUNTER 2025-07-23 15:41 | Emergency (ER) | payer MEDICARE, MEDICAID ==
[2025-07-23 16:29] LABS: BASOPHILS ABSOLUTE AUTO 0.03 K/uL (0.00-0.20); BASOPHILS PERCENT AUTO 0.3 % (0.0-2.0); EOSINOPHILS ABSOLUTE AUTO 0.19 K/uL (0.00-0.50); EOSINOPHILS PERCENT AUTO 1.7 % (0.0-5.0); IMMATURE GRAN ABSOLUTE AUTO 0.03 10^3/uL (0.00-0.04); IMMATURE GRAN PERCENT AUTO 0.3 % (0.0-0.4); LYMPHOCYTES ABSOLUTE AUTO 2.63 K/uL (0.50-3.50); LYMPHOCYTES PERCENT AUTO 24.2 % (10.0-50.0); MONOCYTES ABSOLUTE AUTO 0.89 K/uL (0.00-1.00); MONOCYTES PERCENT AUTO 8.2 % (2.0-14.0); NEUTROPHILS ABSOLUTE AUTO 7.12 K/uL (1.40-7.00); NEUTROPHILS PERCENT AUTO 65.3 % (45.0-80.0); PLATELET COUNT,PLT 373 K/uL (150-350); RED BLOOD CELL COUNT 4.78 M/uL (4.33-5.41); RED CELL DISTRIBUTION WIDTH 12.3 % (11.2-14.1); WHITE BLOOD CELL COUNT,WBC 10.9 K/uL (4.0-10.2)
[2025-07-23 16:52] LABS: LACTIC ACID 1.6 mmol/L (0.4-2.0)
[2025-07-23 16:53] LABS: ALANINE AMINOTRANSFERASE,ALT 16 U/L (12-78); ASPARTATE AMNIOTRANSFERASE,AST 14 U/L (15-37); BILIRUBIN TOTAL 0.6 mg/dL (0.2-1.0); BLOOD UREA NITROGEN,BUN 16 mg/dL (7-18); CARBON DIOXIDE,CO2 35.5 mmol/L (21.0-32.0); CHLORIDE,CL 100 mmol/L (98-107); CREATININE 1.17 mg/dL (0.51-1.17); GLUCOSE RANDOM 135 mg/dL (70-99); PRO B-TYPE NATRIUR PEPT,BNPPRO 789 pg/mL (0-125); PROTEIN TOTAL,TP 7.5 g/dL (6.4-8.2); SODIUM,NA 144 mmol/L (136-145)
[2025-07-23 16:55] LABS: ESTIMATED GFR 65 mL/min (>=60)
[2025-07-23 17:16] LABS: POTASSIUM,K 2.5 mmol/L (3.5-5.1)
[2025-07-23] MEDS: Potassium Bicarbonate/Cit Ac 20 MEQ Effervescent Tab PO ONE ×2 (17:33→19:50)
[2025-07-23] MEDS: NS + KCl 20mEq/L 1,000 ML IV SCH (17:34)
[2025-07-23 17:39] LABS: PCO2 VENOUS,POC 47 mmHg (41-51); PH VENOUS,POC 7.46 (7.31-7.41); PO2 VENOUS,POC 36 mmHg
[2025-07-23 17:40] LABS: HCO3 VENOUS,POC -34 mmol/L (23-28); O2 SATURATION VENOUS,POC 71 %
[2025-07-23] MEDS: Sodium Chloride 0.9% 10 ML Syringe FLUSH PRN (17:42)
[2025-07-23 17:58] LABS: CORONAVIRUS COVID-19 NAA NEGATIVE (NEGATIVE); INFLUENZA A NAA NEGATIVE (NEGATIVE); INFLUENZA B NAA NEGATIVE (NEGATIVE); RESPIRATORY SYNCYTIAL VIR NAA NEGATIVE (NEGATIVE)
[2025-07-23] MEDS: methylPREDNISolone Sodium Succinate 40 MG/1 ML SDV IVPUSH ONE (18:28)
[2025-07-23 23:07] VITALS: BP 131/86; PULSE 77
== END 2025-07-23 22:55 ==
LOC: LL.ED 15:41
DX: J44.1 Chronic obstructive pulmonary disease with (acute) exacerbation (principal); I10 Essential (primary) hypertension; I50.9 Heart failure, unspecified; I25.10 Atherosclerotic heart disease of native coronary artery without angina pectoris; E66.9 Obesity, unspecified; M19.90 Unspecified osteoarthritis, unspecified site; Z79.899 Other long term (current) drug therapy; Z79.51 Long term (current) use of inhaled steroids
CPT/HCPCS: 36415; 71045; 80053; 82803; 83605; 83735; 83880; 84132; 85025; 87637; 94640; 94761; 96365; 96366; 96375; 99285; A9270; J2919; J3480; J7050

== ENCOUNTER 2025-08-05 01:26 | Emergency (ER) | payer MEDICARE, MEDICAID ==
[2025-08-05] MEDS ORDERED: Sodium Chloride 0.9% 10 ML Syringe FLUSH PRN (01:33)
[2025-08-05] MEDS: methylPREDNISolone Sodium Succinate 40 MG/1 ML SDV IVPUSH ONE (01:37)
[2025-08-05 02:00] LABS: BASOPHILS ABSOLUTE AUTO 0.02 K/uL (0.00-0.20); BASOPHILS PERCENT AUTO 0.2 % (0.0-2.0); EOSINOPHILS ABSOLUTE AUTO 0.22 K/uL (0.00-0.50); EOSINOPHILS PERCENT AUTO 1.7 % (0.0-5.0); IMMATURE GRAN ABSOLUTE AUTO 0.03 10^3/uL (0.00-0.04); IMMATURE GRAN PERCENT AUTO 0.2 % (0.0-0.4); LYMPHOCYTES ABSOLUTE AUTO 1.83 K/uL (0.50-3.50); LYMPHOCYTES PERCENT AUTO 14.1 % (10.0-50.0); MONOCYTES ABSOLUTE AUTO 0.77 K/uL (0.00-1.00); MONOCYTES PERCENT AUTO 5.9 % (2.0-14.0); NEUTROPHILS ABSOLUTE AUTO 10.12 K/uL (1.40-7.00); NEUTROPHILS PERCENT AUTO 77.9 % (45.0-80.0); PLATELET COUNT,PLT 199 K/uL (150-350); RED BLOOD CELL COUNT 4.44 M/uL (4.33-5.41); RED CELL DISTRIBUTION WIDTH 13.0 % (11.2-14.1); WHITE BLOOD CELL COUNT,WBC 13.0 K/uL (4.0-10.2)
[2025-08-05 02:19] LABS: HCO3 VENOUS,POC 33 mmol/L (23-28); O2 SATURATION VENOUS,POC 98 %; PCO2 VENOUS,POC 46 mmHg (41-51); PH VENOUS,POC 7.47 (7.31-7.41); PO2 VENOUS,POC 100 mmHg
[2025-08-05 02:27] LABS: LACTIC ACID 0.8 mmol/L (0.4-2.0)
[2025-08-05 02:32] LABS: ALANINE AMINOTRANSFERASE,ALT 20.0 U/L (12-78); ASPARTATE AMNIOTRANSFERASE,AST 8.0 U/L (15-37); BILIRUBIN TOTAL 0.6 mg/dL (0.2-1.0); BLOOD UREA NITROGEN,BUN 10.0 mg/dL (7-18); CARBON DIOXIDE,CO2 34.9 mmol/L (21.0-32.0); CHLORIDE,CL 104.0 mmol/L (98-107); CREATININE 1.0 mg/dL (0.51-1.17); EST CRCL DRUG DOSING (CG) 71.02 mL/min; GLUCOSE RANDOM 163.0 mg/dL (70-99); POTASSIUM,K 3.0 mmol/L (3.5-5.1); PRO B-TYPE NATRIUR PEPT,BNPPRO 825.0 pg/mL (0-125); PROTEIN TOTAL,TP 6.9 g/dL (6.4-8.2); SODIUM,NA 145.0 mmol/L (136-145)
[2025-08-05 02:33] LABS: ESTIMATED GFR 78.0 mL/min (>=60)
[2025-08-05] MEDS: Potassium Bicarbonate/Cit Ac 20 MEQ Effervescent Tab PO ONE (03:50)
[2025-08-05 05:24] VITALS: BP 119/64; PULSE 88
== END 2025-08-05 04:52 ==
LOC: LL.ED 01:26
DX: J96.00 Acute respiratory failure, unspecified whether with hypoxia or hypercapnia (principal); J44.9 Chronic obstructive pulmonary disease, unspecified; I11.0 Hypertensive heart disease with heart failure; I50.9 Heart failure, unspecified; I25.10 Atherosclerotic heart disease of native coronary artery without angina pectoris; E78.00 Pure hypercholesterolemia, unspecified; E66.9 Obesity, unspecified; Z68.34 Body mass index [BMI] 34.0-34.9, adult; Z79.82 Long term (current) use of aspirin; Z79.84 Long term (current) use of oral hypoglycemic drugs; Z79.899 Other long term (current) drug therapy
CPT/HCPCS: 36415; 71045; 80053; 82803; 83605; 83735; 83880; 84484; 85025; 87428-QW; 93005; 93010; 96374; 99284; 99285-25; A9270-GY; J2919